=== PATIENT | female | born 1955 | race Caucasian/White ===

== ENCOUNTER → 2018-01-26 14:37 | Outpatient (CLI) | payer OTHER, SELFPAY ==
--- NOTE | 2018-01-26 15:00 | VDLE_ITS ---
Reason For Study: LEG PAIN RIGHT LEFT GSV is normal. GSV is normal. CFV is compressible, spontaneous, phasic, CFV is compressible, spontaneous, phasic, competent and demonstrates normal competent, and demonstrates normal augmentation. augmentation. FV is compressible, spontaneous, phasic, FV is compressible, spontaneous, phasic, competent and demonstrates normal competent and demonstrates normal augmentation. augmentation. POP V is compressible, spontaneous, phasic, POP V is compressible, spontaneous, phasic, competent and demonstrates normal competent and demonstrates normal augmentation. augmentation. T/P Trunk is compressible. T/P Trunk is compressible. PTV is compressible. PTV is compressible. RT PerV is compressible. LT PerV is compressible. Procedure Exam performed in department. A preliminary report was called and/or faxed to Hayes Garcia. Interpretation Summary Deep veins of the lower extremities are bilaterally patent and compressible segmentally. There is no evidence of deep vein thrombosis on either side. Valvular competence appears intact within the proximal deep venous systems bilaterally. The greater saphenous veins appear bilaterally patent and compressible segmentally. Ordering Physician: Gayla Garcia Referring Physician: Gayla Garcia Performed By: Karen Hauser RVT
== END ==
PROVIDERS: Family Provider Nurse Practitioner; PCP Nurse Practitioner; Visit Provider Nurse Practitioner
DX: M79.604 Pain in right leg (principal); M79.605 Pain in left leg
CPT/HCPCS: 93970

== ENCOUNTER → 2018-08-12 10:57 | Outpatient (CLI) | payer OTHER, SELFPAY ==
[2018-08-12 12:48] LABS: Ferritin 88 ng/mL (8-252)
--- OUTSIDE RECORDS SUMMARY | 2018-10-17 02:07 | XMS RPT_ITS ---
:1955 Author Organization [facility] Care Team Providers Name Role Phone ADORE GRANDE Attending Unavailable ALICEA, EDILIA M Referring Unavailable ALICEA, EDILIA M Referring Unavailable PATI WILL Referring Unavailable DIVINE BRYAN ([employer]) Referring Unavailable TUDICO, KELLY (PA) Attending Unavailable RAY, JENNIFER (PT) Attending Unavailable TUDICO, KELLY (PA) Referring Unavailable TUDICO, KELLY (PA) Referring Unavailable RAY, JENNIFER (PT) Attending Unavailable TUDICO, KELLY (PA) Referring Unavailable RAY, JENNIFER (PT) Attending Unavailable TUDICO, KELLY (PA) Referring Unavailable TUDICO, KELLY (PA) Referring Unavailable RAY, JENNIFER (PT) Attending Unavailable TUDICO, KELLY (PA) Referring Unavailable RAY, JENNIFER (PT) Attending Unavailable TUDICO, KELLY (PA) Referring Unavailable RAY, JENNIFER (PT) Attending Unavailable TUDICO, KELLY (PA) Referring Unavailable RAY, JENNIFER (PT) Attending Unavailable TUDICO, KELLY (PA) Referring Unavailable RAY, JENNIFER (PT) Attending Unavailable TUDICO, KELLY (PA) Referring Unavailable RAY, JENNIFER (PT) Attending Unavailable TUDICO, KELLY (PA) Referring Unavailable TUDICO, KELLY (PA) Referring Unavailable Angelica Bernard Attending Unavailable Angelica Bernard Referring Unavailable Gayla Garcia Primary Care Unavailable Gayla Garcia Attending Unavailable Gayla Garcia Referring Unavailable Gayla Garcia Primary Care Unavailable PROBLEMS PROBLEMS DATE TYPE CONDITION / CODE ATTENDING STATUS SOURCE 07/13/2018 Active Spondylosis NA Active [facility] without myelopathy [facility] or radiculopathy, Repository cervical region / M47.812(ICD-10) 07/13/2018 Active Radiculopathy, NA Active [facility] lumbar region / [facility] M54.16(ICD-10) Repository 08/27/2017 Active Pain in right foot NA Active [facility] / M79.671(ICD-10) [facility] Repository 08/27/2017 Active Pain in left foot NA Active [facility] / M79.672(ICD-10) [facility] Repository 04/06/2012 Active Abnormal levels of NA Active [facility] other serum [facility] enzymes / Repository R74.8(ICD-10) PROCEDURES PROCEDURES No Procedure Records FoundRESULTS RESULTS PROGRESS Observed: 08/20/2018 Status: COMPLETED Source: [facility] 12:54 PM [facility] REPOSITORY HNO ID: [id number] Author: Jasmine (Pt) Anuj Service: (none) Author Type: Physical Therapist Type: Progress Notes Filed: 08/20/2018 2:06 PM Note Text: Episode Visit Count: 11 Therapist That Will Oversee The Plan Of Care: Jennifer Ray Start of Care Date: 07/13/18 Onset Date: 07/13/15 Patient Identified by Name and Date of : Yes REHABILITATION AND SPORTS THERAPY PHYSICAL THERAPY TREATMENT NOTE ASSESSMENT: Azul Osorio demonstrated difficulty with burning right buttock, ankles and feet. Burning in buttock was abolished with exercise and no change with B ankles and feet. Patient with great improvement with tolerance for exercise and is feeling much stronger since starting therapy. Patient is pleased with progress. The patient will continue to benefit from continued skilled physical therapy for continuation of supervised Physical therapy. PLAN FOR NEXT VISIT: continue to progress reps and sets of exercises. SUBJECTIVE: Patient reports she is improving and is pleased with this. She reports burning persists right buttock and B ankles and feet. Pain Score: 1/10 Pain Location: Buttocks - Right;Foot - Right;Foot - Left;Ankle - Right;Ankle - Left Description: Burning Frequency: Continuous Post Treatment Pain Score: 0/10 Pain Location: Buttocks - Right Post Treatment Pain Description: Burning (burning persists B and ankles and feet) OBJECTIVE MEASURES WITH LEVEL OF FUNCTION: Burning in right buttock abolished with exercise and no change with B ankles and feet. TREATMENT: Therapeutic Exercise: 1: Prone prop x 3 minutes. 2: Prone press ups 2x15 with forceful exhale. 3: Prone alt hip extension on physioball 2x15. 4: Bridging wtih alternate leg lifts 2x15 6: sidelying clamshells 1# 2x15 B 7: seated piriformis stretch 30 sec x3 9: green rep band dynamic stabilization with perturbation front and sides sitting on green physioball 3x15 10: hoist scapular retraction 2+2 3x15. 11: Oxford trunk extension 50# 3x15 12: green rep band TA with alternate shoulder extension 3x15 13: Bridges with trunk on physioball 30 sec x3 14: green rep band hooklying shld extension 2x15 15: hooklying green band under thighs shld flexion 2x15 Skilled Intervention: Patient was educated in proper exercise technique and purpose for exercises. Skilled judgment was provided in selection of appropriate interventions. Correct performance of therapeutic exercises was facilitated with verbal cuing. Billing: [facility]: Therapeutic Exercise ([id number]): 1:1 time: 45 minutes (3 units: 38-52 mins) Total time: 45 minutes AMI Bishop PT CNTHERAPY Observed: 08/20/2018 Status: COMPLETED Source: [facility] [facility] 10:45 AM [facility] REPOSITORY OT/PT/Speech Visit (PTWS) AZUL OSORIO ([id number]) 1955 F Date Time Provider Department 08/20/18 10:45 AM RADHA LENTZ ([employer]) PTWS Date Time Provider Department Center 08/20/2018 10:45 AM [id number], NANCY ([employer]) PTRAMON [facility] Reason for Visit: Physical Therapy [503] Visit Diagnoses:Radiculopathy, lumbar region [M54.16] 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] Allergies As of Date: 08/20/2018 Noted Allergy Reaction FLEXERIL (CYCLOBENZAPRINE HCL) 04/13/2017 14 - Other: See Comments Comments: Heart palpatations heat [Other] 01/21/2006 4 - Hives PENICILLINS 01/20/2006 TRAMADOL 08/27/2017 14 - Other: See Comments Comments: Increase heart rate Date Reviewed: 06/28/2018 Reviewed by: Kim Cárdenas Ma - Fully Assessed Prescriptions as of 08/20/2018 Sig: ZINC GLUCONATE 30 MG TABLET Take 30 mg by mouth once yuridia* ASCORBIC ACID (VITAMIN C) 500* Take 500 mg by mouth once glen* VITAMIN B COMPLEX-100 ORAL Take 100 mg by mouth once glen* VITAMIN D-3 ORAL Take by mouth once daily. OMEGA 3 FISH OIL ORAL Take by mouth once daily. MAGNESIUM ORAL Take 1,000 mg by mouth once d* ADVIL ORAL Take by mouth as needed. PROBIOTIC ORAL Take by mouth once daily. * TRAZODONE 50 MG TABLET Take 12.5 mg by mouth daily a* Progress Notes: Jasmine Leslie, PT 08/20/2018 2:06 PM Signed Episode Visit Count: 11 Therapist That Will Oversee The Plan Of Care: Jennifer Ray Start of Care Date: 07/13/18 Onset Date: 07/13/15 Patient Identified by Name and Date of : Yes REHABILITATION AND SPORTS THERAPY PHYSICAL THERAPY TREATMENT NOTE ASSESSMENT: Azul Osorio demonstrated difficulty with burning right buttock, ankles and feet. Burning in buttock was abolished with exercise and no change with B ankles and feet. Patient with great improvement with tolerance for exercise and is feeling much stronger since starting therapy. Patient is pleased with progress. The patient will continue to benefit from continued skilled physical therapy for continuation of supervised Physical therapy. PLAN FOR NEXT VISIT: continue to progress reps and sets of exercises. SUBJECTIVE: Patient reports she is improving and is pleased with this. She reports burning persists right buttock and B ankles and feet. Pain Score: 1/10 Pain Location: Buttocks - Right;Foot - Right;Foot - Left;Ankle - Right;Ankle - Left Description: Burning Frequency: Continuous Post Treatment Pain Score: 0/10 Pain Location: Buttocks - Right Post Treatment Pain Description: Burning (burning persists B and ankles and feet) OBJECTIVE MEASURES WITH LEVEL OF FUNCTION: Burning in right buttock abolished with exercise and no change with B ankles and feet. TREATMENT: Therapeutic Exercise: 1: Prone prop x 3 minutes. 2: Prone press ups 2x15 with forceful exhale. 3: Prone alt hip extension on physioball 2x15. 4: Bridging wtih alternate leg lifts 2x15 6: sidelying clamshells 1# 2x15 B 7: seated piriformis stretch 30 sec x3 9: green rep band dynamic stabilization with perturbation front and sides sitting on green physioball 3x15 10: hoist scapular retraction 2+2 3x15. 11: Oxford trunk extension 50# 3x15 12: green rep band TA with alternate shoulder extension 3x15 13: Bridges with trunk on physioball 30 sec x3 14: green rep band hooklying shld extension 2x15 15: hooklying green band under thighs shld flexion 2x15 Skilled Intervention: Patient was educated in proper exercise technique and purpose for exercises. Skilled judgment was provided in selection of appropriate interventions. Correct performance of therapeutic exercises was facilitated with verbal cuing. Billing: [facility]: Therapeutic Exercise ([id number]): 1:1 time: 45 minutes (3 units: 38-52 mins) Total time: 45 minutes Radha Lentz PT-Douglas Leslie PT Previous Version Follow-up and Disposition History Recorded PROGRESS Observed: 08/18/2018 Status: COMPLETED Source: [facility] 1:57 PM [facility] REPOSITORY HNO ID: [id number] Author: Jennifer Ray Service: (none) Author Type: Physical Therapist Type: Progress Notes Filed: 08/18/2018 1:59 PM Note Text: Episode Visit Count: 10 Therapist That Will Oversee The Plan Of Care: Jennifer Ray Start of Care Date: 07/13/18 Onset Date: 07/13/15 Patient Identified by Name and Date of : Yes REHABILITATION AND SPORTS THERAPY PHYSICAL THERAPY TREATMENT NOTE ASSESSMENT: Azul E Osorio demonstrated great form with exs and had no pain at all today! Pt pleased with improvements and remains motivated. The patient will continue to benefit from continued skilled physical therapy for progression of exs as able. PLAN FOR NEXT VISIT: Advance reps of exs as able SUBJECTIVE: Pt notes that she has felt pretty good since last seen . Pain Score: 0/10 Pain Location: Low Back/Lumbar Spine - Right Description: Aching Frequency: Continuous Post Treatment Pain Score: 0/10 Pain Location: Low Back/Lumbar Spine - Right OBJECTIVE MEASURES WITH LEVEL OF FUNCTION: Full trunk extension and improved core stabilization with perturbation TREATMENT: Therapeutic Exercise: 1: *Prone prop x 3 minutes. 2: *Prone press ups 2x15 with forceful exhale. 3: Prone alt hip extension on physioball 2x15. 4: *Bridging wtih alternate leg lifts 2x15 6: sidelying clamshells 2x15 B 7: seated piriformis stretch 30 sec x3 8: retrowalking on treadmill .7 mph 7 min 9: green rep band dynamic stabilization with perturbation front and sides sitting on green physioball 3x15 10: hoist rep band scapular retraction 2+2 3x12. 11: Oxford trunk extension 50# 3x12 12: green rep band TA with alternate shoulder extension 3x15 13: Bridges with trunk on physioball 30 sec x3 14: green rep band hooklying shld extension 2x15 15: hooklying green banc under thighs shld flexion 2x15 Skilled Intervention: Patient was educated in proper exercise technique and purpose for exercises. Skilled judgment was provided in selection of appropriate interventions. Correct performance of therapeutic exercises was facilitated with verbal and visual cuing. Home Exercise Program Assigned: Assigned Home Exercise Program: 1: no changes today Billing: [facility]: Therapeutic Exercise ([id number]): 1:1 time: 40 minutes (3 units: 38-52 mins) Total time: 40 minutes Jennifer Ray PT CNTHERAPY Observed: 08/18/2018 Status: COMPLETED Source: [facility] [facility] 11:15 AM [facility] REPOSITORY OT/PT/Speech Visit (PTWS) AZUL OSORIO ([id number]) 1955 F Date Time Provider Department 08/18/18 11:15 AM JENNIFER RAY (PT) PTWS Date Time Provider Department Center 08/18/2018 11:15 AM [id number], LISA (PT) PTWS [facility] Reason for Visit: Physical Therapy [503] Visit Diagnoses:Radiculopathy, lumbar region [M54.16] 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] Allergies As of Date: 08/18/2018 Noted Allergy Reaction FLEXERIL (CYCLOBENZAPRINE HCL) 04/13/2017 14 - Other: See Comments Comments: Heart palpatations heat [Other] 01/21/2006 4 - Hives PENICILLINS 01/20/2006 TRAMADOL 08/27/2017 14 - Other: See Comments Comments: Increase heart rate Date Reviewed: 06/28/2018 Reviewed by: Kim Cárdenas Ma - Fully Assessed Prescriptions as of 08/18/2018 Sig: ZINC GLUCONATE 30 MG TABLET Take 30 mg by mouth once yuridia* ASCORBIC ACID (VITAMIN C) 500* Take 500 mg by mouth once glen* VITAMIN B COMPLEX-100 ORAL Take 100 mg by mouth once glen* VITAMIN D-3 ORAL Take by mouth once daily. OMEGA 3 FISH OIL ORAL Take by mouth once daily. MAGNESIUM ORAL Take 1,000 mg by mouth once d* ADVIL ORAL Take by mouth as needed. PROBIOTIC ORAL Take by mouth once daily. * TRAZODONE 50 MG TABLET Take 12.5 mg by mouth daily a* Progress Notes: Jennifer Ray, PT 08/18/2018 1:59 PM Signed Episode Visit Count: 10 Therapist That Will Oversee The Plan Of Care: Jennifer Ray Start of Care Date: 07/13/18 Onset Date: 07/13/15 Patient Identified by Name and Date of : Yes REHABILITATION AND SPORTS THERAPY PHYSICAL THERAPY TREATMENT NOTE ASSESSMENT: Azul Osorio demonstrated great form with exs and had no pain at all today! Pt pleased with improvements and remains motivated. The patient will continue to benefit from continued skilled physical therapy for progression of exs as able. PLAN FOR NEXT VISIT: Advance reps of exs as able SUBJECTIVE: Pt notes that she has felt pretty good since last seen . Pain Score: 0/10 Pain Location: Low Back/Lumbar Spine - Right Description: Aching Frequency: Continuous Post Treatment Pain Score: 0/10 Pain Location: Low Back/Lumbar Spine - Right OBJECTIVE MEASURES WITH LEVEL OF FUNCTION: Full trunk extension and improved core stabilization with perturbation TREATMENT: Therapeutic Exercise: 1: *Prone prop x 3 minutes. 2: *Prone press ups 2x15 with forceful exhale. 3: Prone alt hip extension on physioball 2x15. 4: *Bridging wtih alternate leg lifts 2x15 6: sidelying clamshells 2x15 B 7: seated piriformis stretch 30 sec x3 8: retrowalking on treadmill .7 mph 7 min 9: green rep band dynamic stabilization with perturbation front and sides sitting on green physioball 3x15 10: hoist rep band scapular retraction 2+2 3x12. 11: Oxford trunk extension 50# 3x12 12: green rep band TA with alternate shoulder extension 3x15 13: Bridges with trunk on physioball 30 sec x3 14: green rep band hooklying shld extension 2x15 15: hooklying green banc under thighs shld flexion 2x15 Skilled Intervention: Patient was educated in proper exercise technique and purpose for exercises. Skilled judgment was provided in selection of appropriate interventions. Correct performance of therapeutic exercises was facilitated with verbal and visual cuing. Home Exercise Program Assigned: Assigned Home Exercise Program: 1: no changes today Billing: [facility]: Therapeutic Exercise ([id number]): 1:1 time: 40 minutes (3 units: 38-52 mins) Total time: 40 minutes Jennifer Ray PT PROGRESS Observed: 08/13/2018 Status: COMPLETED Source: [place] [place] 11:13 AM [facility] REPOSITORY HNO ID: [id number] Author: Jennifer BurrPtChidi Ray Service: (none) Author Type: Physical Therapist Type: Progress Notes Filed: 08/13/2018 11:17 AM Note Text: Episode Visit Count: 9 Therapist That Will Oversee The Plan Of Care: Jennifer Ray Start of Care Date: 07/13/18 Onset Date: 07/13/15 Patient Identified by Name and Date of : Yes REHABILITATION AND SPORTS THERAPY PHYSICAL THERAPY PROGRESS REPORT PLAN OF CARE UPDATE: Assessment: Azul Osorio exhibits improvements in pain and tolerance to daily activities. Notes improved tolerance to running the vacuum and for walking. Still increased pain with standing. Pt states that she is pleased with improvement but feels she needs additional strength. . She continues to be limited with standing, lifting, physical activities and recreational activities. She is progressing as expected towards her therapy goals as demonstrated by: home exercise program compliance, pain levels, documented subjective information on progress and documented objective information regarding strength, range of motion and overall function. She will benefit from continued skilled therapy requiring additional strengthening exs in order to improve pain and strength. Functional gains: Improved tolerance for functional activities Increased endurance / activity tolerance Increased independence with HEP Increased strength Decreased intensity of pain Decreased frequency of pain Goals for Episode of Care: created on 07/13/18 through 08/13/18 Independent in home exercises/ achieved. Patient will decrease pain rating by 2 points to meet minimal clinical important difference for numeric pain rating scale./ achieved Sleep through night without pain/symptoms./ partially achieved Maintain proper sitting posture throughout session/ achieved Patient will be able to tolerate functional activities without increased symptoms./ partially achieved Patient will increase strength of core to 5/5 to allow for return to prior functional status and perform ADLs./ partially achieved Planned Interventions, Frequency, and Duration: 2x/week, 4 weeks Total Number of Visits Planned: 8 Patient to be seen for Therapeutic exercise;Manual therapy;Self- intermediate management;Patient/Family/Caregiver Education PLAN FOR NEXT VISIT: Will continue to advance core and hip strengthening and stretching SUBJECTIVE: Pt notes that sciatic pain she has had has subsided. feels that the stretch for the piriformis is helpful. states that she was able to run the vacuum without increase of pain this morning. . Also walked 1/2 mile yesterday. . Pain Score: 2/10 Pain Location: Low Back/Lumbar Spine - Right Description: Aching Frequency: Continuous Post Treatment Pain Score: 0/10 Pain Location: Low Back/Lumbar Spine - Left;Low Back/Lumbar Spine - Right OBJECTIVE MEASURES WITH LEVEL OF FUNCTION: Lumbar Spine AROM Lumbar Flexion: Normal Lumbar Extension: Minimal limitation Lumbar R Side-Bend: Normal Lumbar L Side-Bend: Normal LE Flexibility L Piriformis Flexibility: mild tightness today TREATMENT: Therapeutic Exercise: 1: *Prone prop x 3 minutes. 2: *Prone press ups 2x10 with forceful exhale. 3: Prone alt hip extension on physioball 2x15. 4: *Bridging wtih alternate leg lifts 2x15 6: sidelying clamshells 2x12 B 7: seated piriformis stretch 30 sec x3 8: retrowalking on treadmill .7 mph 7 min 9: green rep band dynamic stabilization with perturbation front and sides sitting on green physioball 3x15 10: hoist rep band scapular retraction 2+2 3x10. 11: Oxford trunk extension 50# 3x10 12: green rep band TA with alternate shoulder extension 3x15 13: Bridges with trunk on physioball 30 sec x2 Skilled Intervention: Patient was educated in proper exercise technique and purpose for exercises. Skilled judgment was provided in selection of appropriate interventions. Correct performance of therapeutic exercises was facilitated with verbal and visual cuing. Home Exercise Program Assigned: Assigned Home Exercise Program: 1: add sidelying clamshell Billing: [facility]: Therapeutic Exercise ([id number]): 1:1 time: 45 minutes (3 units: 38-52 mins) Total time: 45 minutes Jennifer Ray PT CNTHERAPY Observed: 08/13/2018 Status: COMPLETED Source: [facility] [facility] 10:00 AM [facility] REPOSITORY OT/PT/Speech Visit (PTWS) AZUL OSORIO ([id number]) 1955 F Date Time Provider Department 08/13/18 10:00 AM JENNIFER RAY (PT) PTWS Date Time Provider Department Center 08/13/2018 10:00 AM [id number], LISA (PT) PTWS [facility] Reason for Visit: PT Progress Note [1596] Visit Diagnoses:Radiculopathy, lumbar region [M54.16] 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] Allergies As of Date: 08/13/2018 Noted Allergy Reaction FLEXERIL (CYCLOBENZAPRINE HCL) 04/13/2017 14 - Other: See Comments Comments: Heart palpatations heat [Other] 01/21/2006 4 - Hives PENICILLINS 01/20/2006 TRAMADOL 08/27/2017 14 - Other: See Comments Comments: Increase heart rate Date Reviewed: 06/28/2018 Reviewed by: Kim Cárdenas Ma - Fully Assessed Prescriptions as of 08/13/2018 Sig: ZINC GLUCONATE 30 MG TABLET Take 30 mg by mouth once yuridia* ASCORBIC ACID (VITAMIN C) 500* Take 500 mg by mouth once glen* VITAMIN B COMPLEX-100 ORAL Take 100 mg by mouth once glen* VITAMIN D-3 ORAL Take by mouth once daily. OMEGA 3 FISH OIL ORAL Take by mouth once daily. MAGNESIUM ORAL Take 1,000 mg by mouth once d* ADVIL ORAL Take by mouth as needed. PROBIOTIC ORAL Take by mouth once daily. * TRAZODONE 50 MG TABLET Take 12.5 mg by mouth daily a* Progress Notes: Jennifer Ray, PT 08/13/2018 11:17 AM Signed Episode Visit Count: 9 Therapist That Will Oversee The Plan Of Care: Jennifer Ray Start of Care Date: 07/13/18 Onset Date: 07/13/15 Patient Identified by Name and Date of : Yes REHABILITATION AND SPORTS THERAPY PHYSICAL THERAPY PROGRESS REPORT PLAN OF CARE UPDATE: Assessment: Azul Osorio exhibits improvements in pain and tolerance to daily activities. Notes improved tolerance to running the vacuum and for walking. Still increased pain with standing. Pt states that she is pleased with improvement but feels she needs additional strength. . She continues to be limited with standing, lifting, physical activities and recreational activities. She is progressing as expected towards her therapy goals as demonstrated by: home exercise program compliance, pain levels, documented subjective information on progress and documented objective information regarding strength, range of motion and overall function. She will benefit from continued skilled therapy requiring additional strengthening exs in order to improve pain and strength. Functional gains: Improved tolerance for functional activities Increased endurance / activity tolerance Increased independence with HEP Increased strength Decreased intensity of pain Decreased frequency of pain Goals for Episode of Care: created on 07/13/18 through 08/13/18 Independent in home exercises/ achieved. Patient will decrease pain rating by 2 points to meet minimal clinical important difference for numeric pain rating scale./ achieved Sleep through night without pain/symptoms./ partially achieved Maintain proper sitting posture throughout session/ achieved Patient will be able to tolerate functional activities without increased symptoms./ partially achieved Patient will increase strength of core to 5/5 to allow for return to prior functional status and perform ADLs./ partially achieved Planned Interventions, Frequency, and Duration: 2x/week, 4 weeks Total Number of Visits Planned: 8 Patient to be seen for Therapeutic exercise;Manual therapy;Self- intermediate management;Patient/Family/Caregiver Education PLAN FOR NEXT VISIT: Will continue to advance core and hip strengthening and stretching SUBJECTIVE: Pt notes that sciatic pain she has had has subsided. feels that the stretch for the piriformis is helpful. states that she was able to run the vacuum without increase of pain this morning. . Also walked 1/2 mile yesterday. . Pain Score: 2/10 Pain Location: Low Back/Lumbar Spine - Right Description: Aching Frequency: Continuous Post Treatment Pain Score: 0/10 Pain Location: Low Back/Lumbar Spine - Left;Low Back/Lumbar Spine - Right OBJECTIVE MEASURES WITH LEVEL OF FUNCTION: Lumbar Spine AROM Lumbar Flexion: Normal Lumbar Extension: Minimal limitation Lumbar R Side-Bend: Normal Lumbar L Side-Bend: Normal LE Flexibility L Piriformis Flexibility: mild tightness today TREATMENT: Therapeutic Exercise: 1: *Prone prop x 3 minutes. 2: *Prone press ups 2x10 with forceful exhale. 3: Prone alt hip extension on physioball 2x15. 4: *Bridging wtih alternate leg lifts 2x15 6: sidelying clamshells 2x12 B 7: seated piriformis stretch 30 sec x3 8: retrowalking on treadmill .7 mph 7 min 9: green rep band dynamic stabilization with perturbation front and sides sitting on green physioball 3x15 10: hoist rep band scapular retraction 2+2 3x10. 11: Oxford trunk extension 50# 3x10 12: green rep band TA with alternate shoulder extension 3x15 13: Bridges with trunk on physioball 30 sec x2 Skilled Intervention: Patient was educated in proper exercise technique and purpose for exercises. Skilled judgment was provided in selection of appropriate interventions. Correct performance of therapeutic exercises was facilitated with verbal and visual cuing. Home Exercise Program Assigned: Assigned Home Exercise Program: 1: add sidelying domenica Billing: [facility]: Therapeutic Exercise ([id number]): 1:1 time: 45 minutes (3 units: 38-52 mins) Total time: 45 minutes Jennifer Ray PT FERRITIN Collected: 08/12/2018 Status: F Source: [place] 11:01 AM [facility] REPOSITORY TYPE CODE TESTS RESULT OUT OF RANGE REFERENCE UNITS LAB L503.6550 8-252 ng/mL Normal FERRITIN 88 Performed By: #### L503.6550 #### [facility] [address] [place], [address] PROGRESS Observed: 08/10/2018 Status: COMPLETED Source: [place] 10:55 AM [facility] [place] REPOSITORY HNO ID: [id number] Author: Jennifer (Pt) John Service: (none) Author Type: Physical Therapist Type: Progress Notes Filed: 08/10/2018 10:57 AM Note Text: Episode Visit Count: 8 Therapist That Will Oversee The Plan Of Care: Jennifer Ray Start of Care Date: 07/13/18 Onset Date: 07/13/15 Patient Identified by Name and Date of : Yes REHABILITATION AND SPORTS THERAPY PHYSICAL THERAPY TREATMENT NOTE ASSESSMENT: Azul Osorio demonstrated great form with all of the exs. Fatigued but denied increased pain. Pt states that she felt she has something wrong with piriformis so worked on strengthening and stretching. No restriction noted but pt liked the stretch. Core strength is improved. The patient will continue to benefit from continued skilled physical therapy for progression of strengthening PLAN FOR NEXT VISIT: POC update SUBJECTIVE: Pt notes that she has trouble with her piriformis muscles. Wonders if we can work on that. Pain Score: 4/10 Pain Location: Low Back/Lumbar Spine - Right;Leg - Right Description: Aching Frequency: Continuous Post Treatment Pain Score: 0/10 Pain Location: Low Back/Lumbar Spine - Right;Leg - Right OBJECTIVE MEASURES WITH LEVEL OF FUNCTION: LE Flexibility Flexibility: Piriformis Flexibility R Piriformis Flexibility: WNL L Piriformis Flexibility: WNL TREATMENT: Therapeutic Exercise: 1: *Prone prop x 3 minutes. 2: *Prone press ups 2x10 with forceful exhale. 3: Prone alt hip extension on physioball 2x15. 4: *Bridging wtih alternate leg lifts 2x15 5: *Quadruped alt arm and leg lifts 2x15 6: sidelying clamshells 2x10 B 7: seated piriformis stretch 30 sec x3 8: retrowalking on treadmill .7 mph 6 min 9: orange rep band dynamic stabilization with perturbation front and sides sitting on green physioball 3x15 10: Green rep band scapular retraction standing 3x15. 11: Oxford trunk extension 40# 3x15. 12: green rep band TA with alternate shoulder extension 3x15 Skilled Intervention: Patient was educated in proper exercise technique and purpose for exercises. Skilled judgment was provided in selection of appropriate interventions. Provided written instruction for home exercise program to facilitate proper performance and compliance. Correct performance of therapeutic exercises was facilitated with verbal and visual cuing. Patient education as noted. Home Exercise Program Assigned: Assigned Home Exercise Program: 1: add seated piriformis stretch Billing: [facility]: Therapeutic Exercise ([id number]): 1:1 time: 45 minutes (3 units: 38-52 mins) Total time: 45 minutes Jennifer Ray PT CNTHERAPY Observed: 08/10/2018 Status: COMPLETED Source: [place] 9:00 AM [facility] REPOSITORY OT/PT/Speech Visit (PTWS) AZUL OSORIO ([id number]) 1955 F Date Time Provider Department 08/10/18 9:00 AM JENNIFER RAY (PT) PTWS Date Time Provider Department Center 08/10/2018 9:00 AM [id number]) PTWS [facility] Reason for Visit: Physical Therapy [503] Visit Diagnoses:Radiculopathy, lumbar region [M54.16] 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] Allergies As of Date: 08/10/2018 Noted Allergy Reaction FLEXERIL (CYCLOBENZAPRINE HCL) 04/13/2017 14 - Other: See Comments Comments: Heart palpatations heat [Other] 01/21/2006 4 - Hives PENICILLINS 01/20/2006 TRAMADOL 08/27/2017 14 - Other: See Comments Comments: Increase heart rate Date Reviewed: 06/28/2018 Reviewed by: Kim Cárdenas Ma - Fully Assessed Prescriptions as of 08/10/2018 Sig: ZINC GLUCONATE 30 MG TABLET Take 30 mg by mouth once yuridia* ASCORBIC ACID (VITAMIN C) 500* Take 500 mg by mouth once glen* VITAMIN B COMPLEX-100 ORAL Take 100 mg by mouth once glen* VITAMIN D-3 ORAL Take by mouth once daily. OMEGA 3 FISH OIL ORAL Take by mouth once daily. MAGNESIUM ORAL Take 1,000 mg by mouth once d* ADVIL ORAL Take by mouth as needed. PROBIOTIC ORAL Take by mouth once daily. * TRAZODONE 50 MG TABLET Take 12.5 mg by mouth daily a* Progress Notes: Jennifer Ray, PT 08/10/2018 10:57 AM Signed Episode Visit Count: 8 Therapist That Will Oversee The Plan Of Care: Jennifer Ray Start of Care Date: 07/13/18 Onset Date: 07/13/15 Patient Identified by Name and Date of : Yes REHABILITATION AND SPORTS THERAPY PHYSICAL THERAPY TREATMENT NOTE ASSESSMENT: Azul Osorio demonstrated great form with all of the exs. Fatigued but denied increased pain. Pt states that she felt she has something wrong with piriformis so worked on strengthening and stretching. No restriction noted but pt liked the stretch. Core strength is improved. The patient will continue to benefit from continued skilled physical therapy for progression of strengthening PLAN FOR NEXT VISIT: POC update SUBJECTIVE: Pt notes that she has trouble with her piriformis muscles. Wonders if we can work on that. Pain Score: 4/10 Pain Location: Low Back/Lumbar Spine - Right;Leg - Right Description: Aching Frequency: Continuous Post Treatment Pain Score: 0/10 Pain Location: Low Back/Lumbar Spine - Right;Leg - Right OBJECTIVE MEASURES WITH LEVEL OF FUNCTION: LE Flexibility Flexibility: Piriformis Flexibility R Piriformis Flexibility: WNL L Piriformis Flexibility: WNL TREATMENT: Therapeutic Exercise: 1: *Prone prop x 3 minutes. 2: *Prone press ups 2x10 with forceful exhale. 3: Prone alt hip extension on physioball 2x15. 4: *Bridging wtih alternate leg lifts 2x15 5: *Quadruped alt arm and leg lifts 2x15 6: sidelying clamshells 2x10 B 7: seated piriformis stretch 30 sec x3 8: retrowalking on treadmill .7 mph 6 min 9: orange rep band dynamic stabilization with perturbation front and sides sitting on green physioball 3x15 10: Green rep band scapular retraction standing 3x15. 11: Oxford trunk extension 40# 3x15. 12: green rep band TA with alternate shoulder extension 3x15 Skilled Intervention: Patient was educated in proper exercise technique and purpose for exercises. Skilled judgment was provided in selection of appropriate interventions. Provided written instruction for home exercise program to facilitate proper performance and compliance. Correct performance of therapeutic exercises was facilitated with verbal and visual cuing. Patient education as noted. Home Exercise Program Assigned: Assigned Home Exercise Program: 1: add seated piriformis stretch Billing: [facility]: Therapeutic Exercise ([id number]): 1:1 time: 45 minutes (3 units: 38-52 mins) Total time: 45 minutes Jennifer Ray PT PROGRESS Observed: 08/04/2018 Status: COMPLETED Source: [place] 3:23 PM [facility] REPOSITORY HNO ID: [id number] Author: Jennifer Ray Service: (none) Author Type: Physical Therapist Type: Progress Notes Filed: 08/04/2018 3:25 PM Note Text: Episode Visit Count: 7 Therapist That Will Oversee The Plan Of Care: Jennifer Ray Start of Care Date: 07/13/18 Onset Date: 07/13/15 Patient Identified by Name and Date of : Yes REHABILITATION AND SPORTS THERAPY PHYSICAL THERAPY TREATMENT NOTE ASSESSMENT: Azul Osorio demonstrated improvements in exs and able to increase reps today. Pt reports finding benefits from exs. and is motivated to continue The patient will continue to benefit from continued skilled physical therapy for progression of core strengthening exs. PLAN FOR NEXT VISIT: Will progress to bridges with back on physioball SUBJECTIVE: Pt notes that she was able to walk a couple of blocks and felt better. Notes that she feels she needs to be stronger in the low back region. Pain Score: 3/10 Pain Location: Low Back/Lumbar Spine - Right;Leg - Right Description: Aching Frequency: Continuous Post Treatment Pain Score: 0/10 Pain Location: Low Back/Lumbar Spine - Right OBJECTIVE MEASURES WITH LEVEL OF FUNCTION: Good upright seated posture TREATMENT: Therapeutic Exercise: 1: *Prone prop x 3 minutes. 2: *Prone press ups 2x10 with forceful exhale. 3: Prone alt hip extension on physioball 2x15. 4: *Bridging wtih alternate leg lifts 2x15 5: *Quadruped alt arm and leg lifts 2x15 6: orange rep band shld extension to thighs 3x15 7: orange rep band under thighs shld flexion 3x15 8: retrowalking on treadmill .7 mph 6 min 9: orange rep band dynamic stabilization with perturbation front and sides sitting on green physioball 3x15 10: Green rep band scapular retraction standing 3x15. 11: Oxford trunk extension 40# 3x12. 12: green rep band TA with alternate shoulder extension 3x15 Skilled Intervention: Patient was educated in proper exercise technique and purpose for exercises. Skilled judgment was provided in selection of appropriate interventions. Correct performance of therapeutic exercises was facilitated with verbal and visual cuing. Home Exercise Program Assigned: Assigned Home Exercise Program: 1: add prone leg lifts on physioball Billing: [facility]: Therapeutic Exercise ([id number]): 1:1 time: 45 minutes (3 units: 38-52 mins) Total time: 45 minutes Jennifer Ray PT CNTHERAPY Observed: 08/04/2018 Status: COMPLETED Source: [place] 11:15 AM [facility] REPOSITORY OT/PT/Speech Visit (PTWS) AZUL OSORIO ([id number]) 1955 F Date Time Provider Department 08/04/18 11:15 AM JENNIFER RAY (PT) PTWS Date Time Provider Department Center 08/04/2018 11:15 AM [id number], LISA (PT) PTWS [facility] Reason for Visit: Physical Therapy [503] Visit Diagnoses:Radiculopathy, lumbar region [M54.16] 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] Allergies As of Date: 08/04/2018 Noted Allergy Reaction FLEXERIL (CYCLOBENZAPRINE HCL) 04/13/2017 14 - Other: See Comments Comments: Heart palpatations heat [Other] 01/21/2006 4 - Hives PENICILLINS 01/20/2006 TRAMADOL 08/27/2017 14 - Other: See Comments Comments: Increase heart rate Date Reviewed: 06/28/2018 Reviewed by: Kim Cárdenas Ma - Fully Assessed Prescriptions as of 08/04/2018 Sig: ZINC GLUCONATE 30 MG TABLET Take 30 mg by mouth once yuridia* ASCORBIC ACID (VITAMIN C) 500* Take 500 mg by mouth once glen* VITAMIN B COMPLEX-100 ORAL Take 100 mg by mouth once glen* VITAMIN D-3 ORAL Take by mouth once daily. OMEGA 3 FISH OIL ORAL Take by mouth once daily. MAGNESIUM ORAL Take 1,000 mg by mouth once d* ADVIL ORAL Take by mouth as needed. PROBIOTIC ORAL Take by mouth once daily. * TRAZODONE 50 MG TABLET Take 12.5 mg by mouth daily a* Progress Notes: Jennifer Ray, PT 08/04/2018 3:25 PM Signed Episode Visit Count: 7 Therapist That Will Oversee The Plan Of Care: Jennifer Ray Start of Care Date: 07/13/18 Onset Date: 07/13/15 Patient Identified by Name and Date of : Yes REHABILITATION AND SPORTS THERAPY PHYSICAL THERAPY TREATMENT NOTE ASSESSMENT: Azul Osorio demonstrated improvements in exs and able to increase reps today. Pt reports finding benefits from exs. and is motivated to continue The patient will continue to benefit from continued skilled physical therapy for progression of core strengthening exs. PLAN FOR NEXT VISIT: Will progress to bridges with back on physioball SUBJECTIVE: Pt notes that she was able to walk a couple of blocks and felt better. Notes that she feels she needs to be stronger in the low back region. Pain Score: 3/10 Pain Location: Low Back/Lumbar Spine - Right;Leg - Right Description: Aching Frequency: Continuous Post Treatment Pain Score: 0/10 Pain Location: Low Back/Lumbar Spine - Right OBJECTIVE MEASURES WITH LEVEL OF FUNCTION: Good upright seated posture TREATMENT: Therapeutic Exercise: 1: *Prone prop x 3 minutes. 2: *Prone press ups 2x10 with forceful exhale. 3: Prone alt hip extension on physioball 2x15. 4: *Bridging wtih alternate leg lifts 2x15 5: *Quadruped alt arm and leg lifts 2x15 6: orange rep band shld extension to thighs 3x15 7: orange rep band under thighs shld flexion 3x15 8: retrowalking on treadmill .7 mph 6 min 9: orange rep band dynamic stabilization with perturbation front and sides sitting on green physioball 3x15 10: Green rep band scapular retraction standing 3x15. 11: Oxford trunk extension 40# 3x12. 12: green rep band TA with alternate shoulder extension 3x15 Skilled Intervention: Patient was educated in proper exercise technique and purpose for exercises. Skilled judgment was provided in selection of appropriate interventions. Correct performance of therapeutic exercises was facilitated with verbal and visual cuing. Home Exercise Program Assigned: Assigned Home Exercise Program: 1: add prone leg lifts on physioball Billing: [facility]: Therapeutic Exercise ([id number]): 1:1 time: 45 minutes (3 units: 38-52 mins) Total time: 45 minutes Jennifer Ray PT PROGRESS Observed: 08/02/2018 Status: COMPLETED Source: [place] 1:36 PM [facility] [place] REPOSITORY HNO ID: [id number] Author: Jennifer BurrPtChidi Ray Service: (none) Author Type: Physical Therapist Type: Progress Notes Filed: 08/02/2018 1:41 PM Note Text: Episode Visit Count: 6 Therapist That Will Oversee The Plan Of Care: Jennifer Ray Start of Care Date: 07/13/18 Onset Date: 07/13/15 Patient Identified by Name and Date of : Yes REHABILITATION AND SPORTS THERAPY PHYSICAL THERAPY TREATMENT NOTE ASSESSMENT: Azul Osorio demonstrated good form with all exs and was able to abolish pain with exs. Advanced program as outlined. The patient will continue to benefit from continued skilled physical therapy for progression of strengthening for further improvement of pain. PLAN FOR NEXT VISIT: Increase reps of paramount extension. Consider prone lying leg lifts on physioball SUBJECTIVE: Pt notes that she had increased pain over the weekend. Pain on the right side and goes down into leg. Pt notes good tolerance to home exs. Pain Score: 4/10 Pain Location: Low Back/Lumbar Spine - Right;Leg - Right Description: Aching Frequency: Continuous Post Treatment Pain Score: 0/10 Pain Location: Low Back/Lumbar Spine - Right OBJECTIVE MEASURES WITH LEVEL OF FUNCTION: full extension with press ups with no increased pain TREATMENT: Therapeutic Exercise: 1: *Prone prop x 3 minutes. 2: *Prone press ups 2x10 with forceful exhale. 3: Prone alt hip extension 2x15. 4: *Bridging wtih alternate leg lifts 2x10 5: *Quadruped alt arm and leg lifts 2x15 6: orange rep band shld extension to thighs 3x15 7: orange rep band under thighs shld flexion 3x15 8: retrowalking on treadmill .7 mph 6 min 9: orange rep band dynamic stabilization with perturbation front and sides sitting on green physioball 3x15 10: Green rep band scapular retraction standing 3x15. 11: Oxford trunk extension 40# 3x10. 12: green rep band TA with alternate shoulder extension 3x15 13: standing alternate hip extension 1 # 2x10 Skilled Intervention: Patient was educated in proper exercise technique and purpose for exercises. Skilled judgment was provided in selection of appropriate interventions. Correct performance of therapeutic exercises was facilitated with verbal and visual cuing. Billing: [facility]: Therapeutic Exercise ([id number]): 1:1 time: 45 minutes (3 units: 38-52 mins) Total time: 45 minutes Jennifer Ray, PT CNTHERAPY Observed: 08/02/2018 Status: COMPLETED Source: [place] 11:00 AM [facility] REPOSITORY OT/PT/Speech Visit (PTWS) AZUL OSORIO ([id number]) 1955 F Date Time Provider Department 08/02/18 11:00 AM JENNIFER RAY (PT) PTWS Date Time Provider Department Center 08/02/2018 11:00 AM [id number], LISA (PT) PTWS [facility] Reason for Visit: Physical Therapy [503] Visit Diagnoses:Radiculopathy, lumbar region [M54.16] 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] Allergies As of Date: 08/02/2018 Noted Allergy Reaction FLEXERIL (CYCLOBENZAPRINE HCL) 04/13/2017 14 - Other: See Comments Comments: Heart palpatations heat [Other] 01/21/2006 4 - Hives PENICILLINS 01/20/2006 TRAMADOL 08/27/2017 14 - Other: See Comments Comments: Increase heart rate Date Reviewed: 06/28/2018 Reviewed by: Kim Cárdenas Ma - Fully Assessed Prescriptions as of 08/02/2018 Sig: ZINC GLUCONATE 30 MG TABLET Take 30 mg by mouth once yuridia* ASCORBIC ACID (VITAMIN C) 500* Take 500 mg by mouth once glen* VITAMIN B COMPLEX-100 ORAL Take 100 mg by mouth once glen* VITAMIN D-3 ORAL Take by mouth once daily. OMEGA 3 FISH OIL ORAL Take by mouth once daily. MAGNESIUM ORAL Take 1,000 mg by mouth once d* ADVIL ORAL Take by mouth as needed. PROBIOTIC ORAL Take by mouth once daily. * TRAZODONE 50 MG TABLET Take 12.5 mg by mouth daily a* Progress Notes: Jennifer Ray, PT 08/02/2018 1:41 PM Signed Episode Visit Count: 6 Therapist That Will Oversee The Plan Of Care: Jennifer Ray Start of Care Date: 07/13/18 Onset Date: 07/13/15 Patient Identified by Name and Date of : Yes REHABILITATION AND SPORTS THERAPY PHYSICAL THERAPY TREATMENT NOTE ASSESSMENT: Azul Osorio demonstrated good form with all exs and was able to abolish pain with exs. Advanced program as outlined. The patient will continue to benefit from continued skilled physical therapy for progression of strengthening for further improvement of pain. PLAN FOR NEXT VISIT: Increase reps of paramount extension. Consider prone lying leg lifts on physioball SUBJECTIVE: Pt notes that she had increased pain over the weekend. Pain on the right side and goes down into leg. Pt notes good tolerance to home exs. Pain Score: 4/10 Pain Location: Low Back/Lumbar Spine - Right;Leg - Right Description: Aching Frequency: Continuous Post Treatment Pain Score: 0/10 Pain Location: Low Back/Lumbar Spine - Right OBJECTIVE MEASURES WITH LEVEL OF FUNCTION: full extension with press ups with no increased pain TREATMENT: Therapeutic Exercise: 1: *Prone prop x 3 minutes. 2: *Prone press ups 2x10 with forceful exhale. 3: Prone alt hip extension 2x15. 4: *Bridging wtih alternate leg lifts 2x10 5: *Quadruped alt arm and leg lifts 2x15 6: orange rep band shld extension to thighs 3x15 7: orange rep band under thighs shld flexion 3x15 8: retrowalking on treadmill .7 mph 6 min 9: orange rep band dynamic stabilization with perturbation front and sides sitting on green physioball 3x15 10: Green rep band scapular retraction standing 3x15. 11: Oxford trunk extension 40# 3x10. 12: green rep band TA with alternate shoulder extension 3x15 13: standing alternate hip extension 1 # 2x10 Skilled Intervention: Patient was educated in proper exercise technique and purpose for exercises. Skilled judgment was provided in selection of appropriate interventions. Correct performance of therapeutic exercises was facilitated with verbal and visual cuing. Billing: [facility]: Therapeutic Exercise ([id number]): 1:1 time: 45 minutes (3 units: 38-52 mins) Total time: 45 minutes Jennifer Ray PT PROGRESS Observed: 07/29/2018 Status: COMPLETED Source: [place] 1:23 PM [facility] [place] RE[facility]IT[facility] HNO ID: [id number] Author: Jennifer Ray Service: (none) Author Type: Physical Therapist Type: Progress Notes Filed: 07/29/2018 1:25 PM Note Text: Episode Visit Count: 5 Therapist That Will Oversee The Plan Of Care: Jennifer Ray Start of Care Date: 07/13/18 Onset Date: 07/13/15 Patient Identified by Name and Date of : Yes REHABILITATION AND SPORTS THERAPY PHYSICAL THERAPY TREATMENT NOTE ASSESSMENT: Azul Osorio demonstrated improvements in pain levels today and reported no pain at end of session. Able to advance ex program with reps. Good form noted The patient will continue to benefit from continued skilled physical therapy for advancement of exs for additional strengthening of core PLAN FOR NEXT VISIT: Will further increase reps as able SUBJECTIVE: Pt notes that she has some good and bad days but is happy to know origin of pain and to have exs that she can do to improve her pain Pain Score: 3/10 Pain Location: Low Back/Lumbar Spine - Right;Leg - Right Description: Aching Frequency: Continuous Post Treatment Pain Score: 0/10 Pain Location: Low Back/Lumbar Spine - Right;Leg - Right OBJECTIVE MEASURES WITH LEVEL OF FUNCTION: non antalgic gait and transfers TREATMENT: Therapeutic Exercise: 1: *Prone prop x 3 minutes. 2: *Prone press ups 2x10 with forceful exhale. 3: Prone alt hip extension 2x12. 4: *Bridging 3x10 with no UE assist.. 5: *Quadruped alt arm and leg lifts 2x12 6: orange rep band shld extension to thighs 3x12 7: orange rep band under thighs shld flexion 3x12 8: retrowalking on treadmill .7 mph 5 min 9: orange rep band dynamic stabilization with perturbation front and sides 3x15 10: Green rep band scapular retraction standing 3x12. 11: Oxford trunk extension 30# 3x10. 12: green rep band TA with alternate shoulder extension 3x10 Skilled Intervention: Patient was educated in proper exercise technique and purpose for exercises. Skilled judgment was provided in selection of appropriate interventions. Correct performance of therapeutic exercises was facilitated with verbal and visual cuing. Home Exercise Program Assigned: Assigned Home Exercise Program: 1: increase reps of home exs as able Billing: [facility]: Therapeutic Exercise ([id number]): 1:1 time: 45 minutes (3 units: 38-52 mins) Total time: 45 minutes Jennifer Ray PT CNTHERAPY Observed: 07/29/2018 Status: COMPLETED Source: [place] 8:45 AM [facility] [place] REPOSITORY OT/PT/Speech Visit (PTWS) AZUL OSORIO ([id number]) 1955 F Date Time Provider Department 07/29/18 8:45 AM JENNIFER RAY (PT) PTWS Date Time Provider Department Center 07/29/2018 8:45 AM [id number], LISA (PT) PTWS [facility] Reason for Visit: Physical Therapy [503] Visit Diagnoses:Radiculopathy, lumbar region [M54.16] 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] Allergies As of Date: 07/29/2018 Noted Allergy Reaction FLEXERIL (CYCLOBENZAPRINE HCL) 04/13/2017 14 - Other: See Comments Comments: Heart palpatations heat [Other] 01/21/2006 4 - Hives PENICILLINS 01/20/2006 TRAMADOL 08/27/2017 14 - Other: See Comments Comments: Increase heart rate Date Reviewed: 06/28/2018 Reviewed by: Kim Cárdenas Ma - Fully Assessed Prescriptions as of 07/29/2018 Sig: ZINC GLUCONATE 30 MG TABLET Take 30 mg by mouth once yuridia* ASCORBIC ACID (VITAMIN C) 500* Take 500 mg by mouth once glen* VITAMIN B COMPLEX-100 ORAL Take 100 mg by mouth once glen* VITAMIN D-3 ORAL Take by mouth once daily. OMEGA 3 FISH OIL ORAL Take by mouth once daily. MAGNESIUM ORAL Take 1,000 mg by mouth once d* ADVIL ORAL Take by mouth as needed. PROBIOTIC ORAL Take by mouth once daily. * TRAZODONE 50 MG TABLET Take 12.5 mg by mouth daily a* Progress Notes: Jennifer Ray, PT 07/29/2018 1:25 PM Signed Episode Visit Count: 5 Therapist That Will Oversee The Plan Of Care: Jennifer Ray Start of Care Date: 07/13/18 Onset Date: 07/13/15 Patient Identified by Name and Date of : Yes REHABILITATION AND SPORTS THERAPY PHYSICAL THERAPY TREATMENT NOTE ASSESSMENT: Azul Osorio demonstrated improvements in pain levels today and reported no pain at end of session. Able to advance ex program with reps. Good form noted The patient will continue to benefit from continued skilled physical therapy for advancement of exs for additional strengthening of core PLAN FOR NEXT VISIT: Will further increase reps as able SUBJECTIVE: Pt notes that she has some good and bad days but is happy to know origin of pain and to have exs that she can do to improve her pain Pain Score: 3/10 Pain Location: Low Back/Lumbar Spine - Right;Leg - Right Description: Aching Frequency: Continuous Post Treatment Pain Score: 0/10 Pain Location: Low Back/Lumbar Spine - Right;Leg - Right OBJECTIVE MEASURES WITH LEVEL OF FUNCTION: non antalgic gait and transfers TREATMENT: Therapeutic Exercise: 1: *Prone prop x 3 minutes. 2: *Prone press ups 2x10 with forceful exhale. 3: Prone alt hip extension 2x12. 4: *Bridging 3x10 with no UE assist.. 5: *Quadruped alt arm and leg lifts 2x12 6: orange rep band shld extension to thighs 3x12 7: orange rep band under thighs shld flexion 3x12 8: retrowalking on treadmill .7 mph 5 min 9: orange rep band dynamic stabilization with perturbation front and sides 3x15 10: Green rep band scapular retraction standing 3x12. 11: Oxford trunk extension 30# 3x10. 12: green rep band TA with alternate shoulder extension 3x10 Skilled Intervention: Patient was educated in proper exercise technique and purpose for exercises. Skilled judgment was provided in selection of appropriate interventions. Correct performance of therapeutic exercises was facilitated with verbal and visual cuing. Home Exercise Program Assigned: Assigned Home Exercise Program: 1: increase reps of home exs as able Billing: [facility]: Therapeutic Exercise ([id number]): 1:1 time: 45 minutes (3 units: 38-52 mins) Total time: 45 minutes Jennifer Ray PT PROGRESS Observed: 07/26/2018 Status: COMPLETED Source: [place] 9:44 AM [facility] RE[facility] O ID: [id number] Author: Edilson (Pt) Henrry Service: (none) Author Type: Physical Therapist Type: Progress Notes Filed: 07/26/2018 10:09 AM Note Text: Episode Visit Count: 4 Therapist That Will Oversee The Plan Of Care: Jennifer Ray Start of Care Date: 07/13/18 Onset Date: 07/13/15 Patient Identified by Name and Date of : Yes REHABILITATION AND SPORTS THERAPY PHYSICAL THERAPY TREATMENT NOTE ASSESSMENT: Azul Osorio demonstrated difficulty with home exercise last night with increase right leg symptoms. She responded very well to extension based exercises today and education on body mechanics and proper transfers. Patient with centralization of pain to right low back at end of treatment. She was pleased with reduction of pain. The patient will continue to benefit from continued skilled physical therapy for progression of exercises and more instruction for proper body mechanics with every day activities. PLAN FOR NEXT VISIT: Continue with core stabilization with emphasis on neutral spine or extension direction of preference. SUBJECTIVE: Patient reports her right back , buttock and leg to foot flared up last night. She reports doing her home exercises the pain increased with prone lying with hip extension. Pain Score: 8/10 Pain Location: Low Back/Lumbar Spine - Right;Buttocks - Right;Leg - Right;Foot - Right Description: Aching;Shooting (shooting pain down leg) Frequency: Continuous Post Treatment Pain Score: 4/10 Pain Location: Low Back/Lumbar Spine - Right Post Treatment Pain Description: Other: See comment (pinching) OBJECTIVE MEASURES WITH LEVEL OF FUNCTION: Posture / Alignment Posture: Comments Posture comment: Upright seated posture observed throughout therapy today. TREATMENT: Therapeutic Exercise: 1: *Prone prop x 3 minutes. 2: *Prone press ups 2x10 with forceful exhale. 3: Prone alt hip extension 2x10. 4: *Bridging 1x10 with UE assist and 1x10 with no UE assist.. 5: *Quadruped alt arm and leg lifts 2x10. 6: orange rep band shld extension to thighs 3x10 7: orange rep band under thighs shld flexion 3x10 8: *Seated upright TA with instruction to do this off and on throughout the day 3-5 reps. 9: orange rep band dynamic stabilization with perturbation front and sides 3x15 10: Green rep band scapular retraction standing 3x10. 11: Oxford trunk extension 30# 3x10. 12: Education on proper way to tranfer sit to sidelying to supine and supine to sidelying to sit. 13: Stir the pot 1 large plate cw and ccw 1x10 with increase tension and discomfort right low back and this was stopped. 14: Education on TA and maintaining neutral spine position with reaching into dryer or dried fruit washer with extending leg back to assist with proper spinal alignment. Skilled Intervention: Patient was educated in proper exercise technique and purpose for exercises. Reviewed and educated patient on additions/changes for home exercise program as above (*) Skilled judgment was provided in selection of appropriate interventions. Provided written instruction for home exercise program to facilitate proper performance and compliance. Correct performance of therapeutic exercises was facilitated with verbal and visual cuing. Billing: [facility]: Therapeutic Exercise ([id number]): 1:1 time: 45 minutes (3 units: 38-52 mins) Total time: 45 minutes AMI Bishop PT CNTHERAPY Observed: 07/26/2018 Status: COMPLETED Source: [place] 7:45 AM [facility] REPOSITORY OT/PT/Speech Visit (PTWS) AZUL OSORIO ([id number]) 1955 F Date Time Provider Department 07/26/18 7:45 AM RADHA LENTZ ([employer]) PTWS Date Time Provider Department Center 07/26/2018 7:45 AM [id number], NANCY ([employer]) PTWS [facility] Reason for Visit: Physical Therapy [503] Visit Diagnoses:Radiculopathy, lumbar region [M54.16] 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 ADVIL ORAL Take by mouth as needed. PROBIOTIC ORAL Take by mouth once daily. MAGNESIUM ORAL Take 1,000 mg by mouth once d* OMEGA 3 FISH OIL ORAL Take by mouth once daily. * TRAZODONE 50 MG TABLET Take 12.5 mg by mouth daily a* VITAMIN B COMPLEX-100 ORAL Take 100 mg by mouth once glen* ZINC GLUCONATE 30 MG TABLET Take 30 mg by mouth once yuridia* Progress Notes: Edilson Sales, [place] 07/26/2018 10:09 AM Signed Episode Visit Count: 4 Therapist That Will Oversee The Plan Of Care: Jennifer Ray Start of Care Date: 07/13/18 Onset Date: 07/13/15 Patient Identified by Name and Date of : Yes REHABILITATION AND SPORTS THERAPY PHYSICAL THERAPY TREATMENT NOTE ASSESSMENT: Azul Osorio demonstrated difficulty with home exercise last night with increase right leg symptoms. She responded very well to extension based exercises today and education on body mechanics and proper transfers. Patient with centralization of pain to right low back at end of treatment. She was pleased with reduction of pain. The patient will continue to benefit from continued skilled physical therapy for progression of exercises and more instruction for proper body mechanics with every day activities. PLAN FOR NEXT VISIT: Continue with core stabilization with emphasis on neutral spine or extension direction of preference. SUBJECTIVE: Patient reports her right back , buttock and leg to foot flared up last night. She reports doing her home exercises the pain increased with prone lying with hip extension. Pain Score: 8/10 Pain Location: Low Back/Lumbar Spine - Right;Buttocks - Right;Leg - Right;Foot - Right Description: Aching;Shooting (shooting pain down leg) Frequency: Continuous Post Treatment Pain Score: 4/10 Pain Location: Low Back/Lumbar Spine - Right Post Treatment Pain Description: Other: See comment (pinching) OBJECTIVE MEASURES WITH LEVEL OF FUNCTION: Posture / Alignment Posture: Comments Posture comment: Upright seated posture observed throughout therapy today. TREATMENT: Therapeutic Exercise: 1: *Prone prop x 3 minutes. 2: *Prone press ups 2x10 with forceful exhale. 3: Prone alt hip extension 2x10. 4: *Bridging 1x10 with UE assist and 1x10 with no UE assist.. 5: *Quadruped alt arm and leg lifts 2x10. 6: orange rep band shld extension to thighs 3x10 7: orange rep band under thighs shld flexion 3x10 8: *Seated upright TA with instruction to do this off and on throughout the day 3-5 reps. 9: orange rep band dynamic stabilization with perturbation front and sides 3x15 10: Green rep band scapular retraction standing 3x10. 11: Oxford trunk extension 30# 3x10. 12: Education on proper way to tranfer sit to sidelying to supine and supine to sidelying to sit. 13: Stir the pot 1 large plate cw and ccw 1x10 with increase tension and discomfort right low back and this was stopped. 14: Education on TA and maintaining neutral spine position with reaching into dryer or dried fruit washer with extending leg back to assist with proper spinal alignment. Skilled Intervention: Patient was educated in proper exercise technique and purpose for exercises. Reviewed and educated patient on additions/changes for home exercise program as above (*) Skilled judgment was provided in selection of appropriate interventions. Provided written instruction for home exercise program to facilitate proper performance and compliance. Correct performance of therapeutic exercises was facilitated with verbal and visual cuing. Billing: [facility]: Therapeutic Exercise ([id number]): 1:1 time: 45 minutes (3 units: 38-52 mins) Total time: 45 minutes Radha Lentz PTAlycia Sales PT Previous Version Follow-up and Disposition History Recorded PROGRESS Observed: 07/22/2018 Status: COMPLETED Source: [place] 11:32 AM [facility] REPOSITORY HNO ID: [id number] Author: Jennifer (Pt) John Service: (none) Author Type: Physical Therapist Type: Progress Notes Filed: 07/22/2018 11:35 AM Note Text: Episode Visit Count: 3 Therapist That Will Oversee The Plan Of Care: Jennifer Ray Start of Care Date: 07/13/18 Onset Date: 07/13/15 Patient Identified by Name and Date of : Yes REHABILITATION AND SPORTS THERAPY PHYSICAL THERAPY TREATMENT NOTE ASSESSMENT: Azul Osorio demonstrated improvements in tolerance to retrowalking on treadmill with no increased pain. Able to advance to paramount extension also with no increased pain. The patient will continue to benefit from continued skilled physical therapy for progression of strengthening exs . extension bias PLAN FOR NEXT VISIT: Advance reps. Progress core stabilization extension an dneutral bias SUBJECTIVE: Pt notes that she had to sleep in a different bed for a couple nights which bothered her back. Pain Score: 6/10 Pain Location: Leg - Right;Leg - Left Description: Aching Frequency: Continuous Post Treatment Pain Score: No Change OBJECTIVE MEASURES WITH LEVEL OF FUNCTION: Full ROM for extension with prone press ups TREATMENT: Therapeutic Exercise: 1: green rep band scapular retraction standing 3x10 2: paramount trunk extension 30# 2x10 3: prone press ups 1x10 4: prone leg lifts 2x10 5: retrowalking on treadmill .7 mph for 5 min. 6: orange rep band shld extension to thighs 3x10 7: orange rep band under thighs shld flexion 3x10 8: standing upright alternating shld extension orange rep band with TA 3x10 9: orange rep band dynamic stabilization with perturbation front and sides 3x15 Skilled Intervention: Patient was educated in proper exercise technique and purpose for exercises. Skilled judgment was provided in selection of appropriate interventions. Provided written instruction for home exercise program to facilitate proper performance and compliance. Correct performance of therapeutic exercises was facilitated with verbal and visual cuing. Patient education as noted. Assigned Home Exercise Program: 1: standing hip abduction 1x10 2: advance from yellow to orange with hooklying ex. 3: increase reps of exs to 12 Billing: [facility]: Therapeutic Exercise ([id number]): 1:1 time: 40 minutes (3 units: 38-52 mins) Total time: 40 minutes Jennifer Ray PT CNTHERAPY Observed: 07/22/2018 Status: COMPLETED Source: [place] 11:00 AM [facility] [place] RE[facility] OT/PT/Speech Visit (PTWS) AZUL OSORIO ([id number]) 1955 F Date Time Provider Department 07/22/18 11:00 AM JENNIFER RAY (PT) PTWS Date Time Provider Department Center 07/22/2018 11:00 AM [id number], LISA (PT) PTWS [facility] Reason for Visit: Physical Therapy [503] Visit Diagnoses:Radiculopathy, lumbar region [M54.16] 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 ADVIL ORAL Take by mouth as needed. PROBIOTIC ORAL Take by mouth once daily. MAGNESIUM ORAL Take 1,000 mg by mouth once d* OMEGA 3 FISH OIL ORAL Take by mouth once daily. * TRAZODONE 50 MG TABLET Take 12.5 mg by mouth daily a* VITAMIN B COMPLEX-100 ORAL Take 100 mg by mouth once glen* ZINC GLUCONATE 30 MG TABLET Take 30 mg by mouth once yuridia* Progress Notes: Jennifer Ray, PT 07/22/2018 11:35 AM Signed Episode Visit Count: 3 Therapist That Will Oversee The Plan Of Care: Jennifer Ray Start of Care Date: 07/13/18 Onset Date: 07/13/15 Patient Identified by Name and Date of : Yes REHABILITATION AND SPORTS THERAPY PHYSICAL THERAPY TREATMENT NOTE ASSESSMENT: Azul Osroio demonstrated improvements in tolerance to retrowalking on treadmill with no increased pain. Able to advance to paramount extension also with no increased pain. The patient will continue to benefit from continued skilled physical therapy for progression of strengthening exs . extension bias PLAN FOR NEXT VISIT: Advance reps. Progress core stabilization extension an dneutral bias SUBJECTIVE: Pt notes that she had to sleep in a different bed for a couple nights which bothered her back. Pain Score: 6/10 Pain Location: Leg - Right;Leg - Left Description: Aching Frequency: Continuous Post Treatment Pain Score: No Change OBJECTIVE MEASURES WITH LEVEL OF FUNCTION: Full ROM for extension with prone press ups TREATMENT: Therapeutic Exercise: 1: green rep band scapular retraction standing 3x10 2: paramount trunk extension 30# 2x10 3: prone press ups 1x10 4: prone leg lifts 2x10 5: retrowalking on treadmill .7 mph for 5 min. 6: orange rep band shld extension to thighs 3x10 7: orange rep band under thighs shld flexion 3x10 8: standing upright alternating shld extension orange rep band with TA 3x10 9: orange rep band dynamic stabilization with perturbation front and sides 3x15 Skilled Intervention: Patient was educated in proper exercise technique and purpose for exercises. Skilled judgment was provided in selection of appropriate interventions. Provided written instruction for home exercise program to facilitate proper performance and compliance. Correct performance of therapeutic exercises was facilitated with verbal and visual cuing. Patient education as noted. Assigned Home Exercise Program: 1: standing hip abduction 1x10 2: advance from yellow to orange with hooklying ex. 3: increase reps of exs to 12 Billing: [facility]: Therapeutic Exercise ([id number]): 1:1 time: 40 minutes (3 units: 38-52 mins) Total time: 40 minutes Jennifer Ray PT PROGRESS Observed: 07/15/2018 Status: COMPLETED Source: [place] 11:07 AM [facility] REPOSIT[facility] HNO ID: [id number] Author: Jennifer (Pt) John Service: (none) Author Type: Physical Therapist Type: Progress Notes Filed: 07/15/2018 12:42 PM Note Text: Episode Visit Count: 2 Therapist That Will Oversee The Plan Of Care: Jennifer Ray Start of Care Date: 07/13/18 Onset Date: 07/13/15 Patient Identified by Name and Date of : Yes REHABILITATION AND SPORTS THERAPY PHYSICAL THERAPY TREATMENT NOTE ASSESSMENT: Azul Osorio demonstrated improvements in tolerance to exs and did well with all exs today. Able to increase strengthening with no report of increased pain. The patient will continue to benefit from continued skilled physical therapy for progression of extension based lumbar program PLAN FOR NEXT VISIT: Continue to advance extension and neutral core stabilization . May add why we hurt. SUBJECTIVE: Pt notes that exs are going ok Pain Score: 6/10 Pain Location: Leg - Left;Leg - Right;Low Back/Lumbar Spine - Left;Low Back/Lumbar Spine - Right Description: Aching Frequency: Continuous Post Treatment Pain Score: No Change OBJECTIVE MEASURES WITH LEVEL OF FUNCTION: no antalgic transfers or movements TREATMENT: Therapeutic Exercise: 1: green rep band scapular retraction 2x10 2: green rep band trunk extension 2x10 3: prone press ups 1x10 4: prone leg lifts 2x10 5: retrowalking on treadmill .6 mph for 4 min. 6: yellow rep band shld extension to thighs 2x10 7: yellow rep band under thighs shld flexion 2x10 8: standing upright alternating shld extension with TA 1x10 9: yellow rep band dynamic stabilization with perturbation front and sides 3x15 Skilled Intervention: Patient was educated in proper exercise technique and purpose for exercises. Skilled judgment was provided in selection of appropriate interventions. Provided written instruction for home exercise program to facilitate proper performance and compliance. Correct performance of therapeutic exercises was facilitated with verbal and visual cuing. Patient education as noted. Assigned Home Exercise Program: 1: yellow rep band shld extension to thighs 2x10 2: yellow rep band under thighs shld flexion 2x10 3: standing upright alternating shld extension with TA 1x10 Billing: [facility]: Therapeutic Exercise ([id number]): 1:1 time: 45 minutes (3 units: 38-52 mins) Total time: 45 minutes Jennifer aRy PT CNTHERAPY Observed: 07/15/2018 Status: COMPLETED Source: [place] 8:45 AM [facility] REPOS[facility]ORY OT/PT/Speech Visit (PTWS) AZUL OSORIO ([id number]) 1955 F Date Time Provider Department 07/15/18 8:45 AM JENNIFER RAY (PT) PTWS Date Time Provider Department Center 07/15/2018 8:45 AM [id number], LISA (PT) PTWS [facility] Reason for Visit: Physical Therapy [503] Visit Diagnoses:Radiculopathy, lumbar region [M54.16] 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 ADVIL ORAL Take by mouth as needed. PROBIOTIC ORAL Take by mouth once daily. MAGNESIUM ORAL Take 1,000 mg by mouth once d* OMEGA 3 FISH OIL ORAL Take by mouth once daily. * TRAZODONE 50 MG TABLET Take 12.5 mg by mouth daily a* VITAMIN B COMPLEX-100 ORAL Take 100 mg by mouth once glen* ZINC GLUCONATE 30 MG TABLET Take 30 mg by mouth once yuridia* Progress Notes: Jennifer Ray, PT 07/15/2018 12:42 PM Signed Episode Visit Count: 2 Therapist That Will Oversee The Plan Of Care: Jennifer Arceon Start of Care Date: 07/13/18 Onset Date: 07/13/15 Patient Identified by Name and Date of : Yes REHABILITATION AND SPORTS THERAPY PHYSICAL THERAPY TREATMENT NOTE ASSESSMENT: Azul Osorio demonstrated improvements in tolerance to exs and did well with all exs today. Able to increase strengthening with no report of increased pain. The patient will continue to benefit from continued skilled physical therapy for progression of extension based lumbar program PLAN FOR NEXT VISIT: Continue to advance extension and neutral core stabilization . May add why we hurt. SUBJECTIVE: Pt notes that exs are going ok Pain Score: 6/10 Pain Location: Leg - Left;Leg - Right;Low Back/Lumbar Spine - Left;Low Back/Lumbar Spine - Right Description: Aching Frequency: Continuous Post Treatment Pain Score: No Change OBJECTIVE MEASURES WITH LEVEL OF FUNCTION: no antalgic transfers or movements TREATMENT: Therapeutic Exercise: 1: green rep band scapular retraction 2x10 2: green rep band trunk extension 2x10 3: prone press ups 1x10 4: prone leg lifts 2x10 5: retrowalking on treadmill .6 mph for 4 min. 6: yellow rep band shld extension to thighs 2x10 7: yellow rep band under thighs shld flexion 2x10 8: standing upright alternating shld extension with TA 1x10 9: yellow rep band dynamic stabilization with perturbation front and sides 3x15 Skilled Intervention: Patient was educated in proper exercise technique and purpose for exercises. Skilled judgment was provided in selection of appropriate interventions. Provided written instruction for home exercise program to facilitate proper performance and compliance. Correct performance of therapeutic exercises was facilitated with verbal and visual cuing. Patient education as noted. Assigned Home Exercise Program: 1: yellow rep band shld extension to thighs 2x10 2: yellow rep band under thighs shld flexion 2x10 3: standing upright alternating shld extension with TA 1x10 Billing: [facility]: Therapeutic Exercise ([id number]): 1:1 time: 45 minutes (3 units: 38-52 mins) Total time: 45 minutes Jennifer Ray PT PROGRESS Observed: 07/13/2018 Status: COMPLETED Source: [place] 12:12 PM [facility] [place] HNO ID: [id number] Author: Jennifer (Pt) John Service: (none) Author Type: Physical Therapist Type: Progress Notes Filed: 07/13/2018 12:19 PM Note Text: Episode Visit Count: 1 Therapist That Will Oversee The Plan Of Care: Jennifer Ray Start of Care Date: 07/13/18 Onset Date: 07/13/15 Patient Identified by Name and Date of : Yes REHABILITATION AND SPORTS THERAPY PHYSICAL THERAPY EVALUATION PLAN OF CARE: Assessment: Azul Osorio presents with the chief complaint of low back and bilateral leg pain. Pt is very frustrated as she has been in pain for 7 years and has been to many physicians with no improvement. Pt has clear preference towards extension with decreased sx with increased lordosis and no pain with standing on toes ( which increased lordosis). Consider it a lumbar derangement. Discussed at length using active approach of various extension positions to decrease her pain . She presents with impairments of decreased core strength, decreased functional status with pain . She may benefit from skilled therapy services to improve pain sx, strength, education of pain. . Classification Low Back Pain Subgroup Classification: Specific exercise subgroup: recommended visits 8. Specific Exercies Subgroup Classification based on: centralization Prognosis: Good Good due to: current objective clinical presentation Goals for Episode of Care: created on 07/13/18 through 08/13/18 Independent in home exercises. Patient will decrease pain rating by 2 points to meet minimal clinical important difference for numeric pain rating scale. Sleep through night without pain/symptoms. Maintain proper sitting posture throughout session Patient will be able to tolerate functional activities without increased symptoms. Patient will increase strength of core to 5/5 to allow for return to prior functional status and perform ADLs. Planned Interventions, Frequency, and Duration: Current Frequency: 2x/week Duration: 4 weeks Total Number of Visits Planned: 8 Planned Treatment Interventions: Therapeutic exercise;Manual therapy;Self-intermediate management;Patient/Family/Caregiver Education;Body Mechanics Training PLAN FOR NEXT VISIT: Will advance extension based program and core strengthening. add retrowalking on treadmill . Consider Why we hurt education Patient demonstrates good understanding of plan of care and treatment. The above goals and plan of care were discussed and agreed upon by patient/family. SUBJECTIVE: Azul Osorio is a 62 year old female seen today for Pain in low back right greater left lower lumbar with tingling to back of legs into feet. Patient Goals: alleviate pain Functional Limitations: sitting;standing;sleeping Prior Level of Function: Independent without limitations Relevant History Employment: Unemployed Recreation / Current Exercise: strengthening Home Environment Patient Lives With: Spouse Home Type: Ranch Entry To Home: No Stairs Intake Information: Prescription present Previous Treatment: Self prescribed exercises;Ice?;Heat? Pain Score: 7/10 Pain Location: Low Back/Lumbar Spine - Left;Low Back/Lumbar Spine - Right Description: Aching Frequency: Continuous Post Treatment Pain Score: No Change Pain Location: Low Back/Lumbar Spine - Left;Low Back/Lumbar Spine - Right;Leg - Left;Leg - Right Post Treatment Pain Description: Aching Spine History Symptoms Location at Onset: (legs) Pain is Worse Always: Standing;Bending;Sitting Pain is Better Sometimes: Lying ( advil) Sleeping Position: Supine;Side lying right;Side lying left Sleep Affected by Pain: Pain keeps from falling asleep;Pain awakens OBJECTIVE MEASURES WITH LEVEL OF FUNCTION: Posture / Alignment Posture: Decreased lumbar lordosis Spine Palpation R Lumbar Spine Palpation Tenderness: ( none) L Lumbar Spine Palpation Tenderness: ( none) Lumbar Spine AROM Lumbar Flexion: Normal;Increased pain;Peripheralizing Lumbar Extension: Normal;Decreased pain;Centralizing Lumbar R Side-Bend: Normal Lumbar L Side-Bend: Normal Repeated Test Movements - Lumbar RFIS - Symptoms During: increases;peripheralizing YESI - Symptoms During: decreases RFIL - Symptoms During: no effect REIL - Symptoms During: decreases;peripheralizing Static Testing - Lumbar Sit Slouched: worse Sit Erect: better Stand Slouched: worse Stand Erect: better;centralized LE Strength Trunk Strength: 4/5 R LE Strength: 5/5 L LE Strength: 5/5 Special Tests - Hip and Spine Hip and Spine Special Tests: SLR Test SLR Test: Right Negative;Left Negative Gait Weight Bearing Status: FWB Gait: Independent Gait Observation: no deviation Education: Education Learning Preferences: Demonstration;Explanation;Performance;Printed Materials Barriers: None Learning/educational needs: Home exercise program;Plan of Care Education Provided: Yes, see treatment interventions for education provided Education Provided To: Patient Education Mode/Type: Demonstration;Explanation/Discussion;Literature/Printed Materials;Performance Response to Education/Teach Back: States/Identifies;Return Demonstration TREATMENT: Evaluation Therapeutic Exercise: 1: green rep band scapular retraction 1x10 2: green rep band trunk extension 1x10 3: prone press ups 1x8 4: prone leg lifts 1x10 Skilled Intervention: Patient was educated in proper exercise technique and purpose for exercises. Skilled judgment was provided in selection of appropriate interventions. Provided written instruction for home exercise program to facilitate proper performance and compliance. Correct performance of therapeutic exercises was facilitated with verbal and visual cuing. Billing: [facility]: Evaluation - Low Complexity ([id number]) Therapeutic Exercise ([id number]): 1:1 time: 25 minutes (2 units: 23-37 mins) Total time: 45 minutes Jennifer Ray PT CNTHERAPY Observed: 07/13/2018 Status: COMPLETED Source: [place] 10:30 AM [facility] REPOSITORY OT/PT/Speech Visit (PTWS) AZUL OSORIO ([id number]) 1955 F Date Time Provider Department 07/13/18 10:30 AM JENNIFER RAYPT) PTWS Date Time Provider Department Center 07/13/2018 10:30 AM [id number] RAYPT) [facility] Reason for Visit: PT Eval [747] Patient Education [91] Visit Diagnoses:Radiculopathy, lumbar region [M54.16] 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] Allergies As of Date: 07/13/2018 Noted Allergy Reaction FLEXERIL (CYCLOBENZAPRINE HCL) 04/13/2017 14 - Other: See Comments Comments: Heart palpatations heat [Other] 01/21/2006 4 - Hives PENICILLINS 01/20/2006 TRAMADOL 08/27/2017 14 - Other: See Comments Comments: Increase heart rate Date Reviewed: 06/28/2018 Reviewed by: Kim Cárdenas Ma - Fully Assessed Prescriptions as of 07/13/2018 Sig: ASCORBIC ACID (VITAMIN C) 500* Take 500 mg by mouth once glen* VITAMIN D-3 ORAL Take by mouth once daily. ADVIL ORAL Take by mouth as needed. PROBIOTIC ORAL Take by mouth once daily. MAGNESIUM ORAL Take 1,000 mg by mouth once d* OMEGA 3 FISH OIL ORAL Take by mouth once daily. * TRAZODONE 50 MG TABLET Take 12.5 mg by mouth daily a* VITAMIN B COMPLEX-100 ORAL Take 100 mg by mouth once glen* ZINC GLUCONATE 30 MG TABLET Take 30 mg by mouth once yuridia* Progress Notes: Jennifer Ray, PT 07/13/2018 12:19 PM Signed Episode Visit Count: 1 Therapist That Will Oversee The Plan Of Care: Jennifer Ray Start of Care Date: 07/13/18 Onset Date: 07/13/15 Patient Identified by Name and Date of : Yes REHABILITATION AND SPORTS THERAPY PHYSICAL THERAPY EVALUATION PLAN OF CARE: Assessment: Azul Osorio presents with the chief complaint of low back and bilateral leg pain. Pt is very frustrated as she has been in pain for 7 years and has been to many physicians with no improvement. Pt has clear preference towards extension with decreased sx with increased lordosis and no pain with standing on toes ( which increased lordosis). Consider it a lumbar derangement. Discussed at length using active approach of various extension positions to decrease her pain . She presents with impairments of decreased core strength, decreased functional status with pain . She may benefit from skilled therapy services to improve pain sx, strength, education of pain. . Classification Low Back Pain Subgroup Classification: Specific exercise subgroup: recommended visits 8. Specific Exercies Subgroup Classification based on: centralization Prognosis: Good Good due to: current objective clinical presentation Goals for Episode of Care: created on 07/13/18 through 08/13/18 Independent in home exercises. Patient will decrease pain rating by 2 points to meet minimal clinical important difference for numeric pain rating scale. Sleep through night without pain/symptoms. Maintain proper sitting posture throughout session Patient will be able to tolerate functional activities without increased symptoms. Patient will increase strength of core to 5/5 to allow for return to prior functional status and perform ADLs. Planned Interventions, Frequency, and Duration: Current Frequency: 2x/week Duration: 4 weeks Total Number of Visits Planned: 8 Planned Treatment Interventions: Therapeutic exercise;Manual therapy;Self-intermediate management;Patient/Family/Caregiver Education;Body Mechanics Training PLAN FOR NEXT VISIT: Will advance extension based program and core strengthening. add retrowalking on treadmill . Consider Why we hurt education Patient demonstrates good understanding of plan of care and treatment. The above goals and plan of care were discussed and agreed upon by patient/family. SUBJECTIVE: Azul Osorio is a 62 year old female seen today for Pain in low back right greater left lower lumbar with tingling to back of legs into feet. Patient Goals: alleviate pain Functional Limitations: sitting;standing;sleeping Prior Level of Function: Independent without limitations Relevant History Employment: Unemployed Recreation / Current Exercise: strengthening Home Environment Patient Lives With: Spouse Home Type: [place] Entry To Home: No Stairs Intake Information: Prescription present Previous Treatment: Self prescribed exercises;Ice?;Heat? Pain Score: 7/10 Pain Location: Low Back/Lumbar Spine - Left;Low Back/Lumbar Spine - Right Description: Aching Frequency: Continuous Post Treatment Pain Score: No Change Pain Location: Low Back/Lumbar Spine - Left;Low Back/Lumbar Spine - Right;Leg - Left;Leg - Right Post Treatment Pain Description: Aching Spine History Symptoms Location at Onset: (legs) Pain is Worse Always: Standing;Bending;Sitting Pain is Better Sometimes: Lying ( advil) Sleeping Position: Supine;Side lying right;Side lying left Sleep Affected by Pain: Pain keeps from falling asleep;Pain awakens OBJECTIVE MEASURES WITH LEVEL OF FUNCTION: Posture / Alignment Posture: Decreased lumbar lordosis Spine Palpation R Lumbar Spine Palpation Tenderness: ( none) L Lumbar Spine Palpation Tenderness: ( none) Lumbar Spine AROM Lumbar Flexion: Normal;Increased pain;Peripheralizing Lumbar Extension: Normal;Decreased pain;Centralizing Lumbar R Side-Bend: Normal Lumbar L Side-Bend: Normal Repeated Test Movements - Lumbar RFIS - Symptoms During: increases;peripheralizing YESI - Symptoms During: decreases RFIL - Symptoms During: no effect REIL - Symptoms During: decreases;peripheralizing Static Testing - Lumbar Sit Slouched: worse Sit Erect: better Stand Slouched: worse Stand Erect: better;centralized LE Strength Trunk Strength: 4/5 R LE Strength: 5/5 L LE Strength: 5/5 Special Tests - Hip and Spine Hip and Spine Special Tests: SLR Test SLR Test: Right Negative;Left Negative Gait Weight Bearing Status: FWB Gait: Independent Gait Observation: no deviation Education: Education Learning Preferences: Demonstration;Explanation;Performance;Printed Materials Barriers: None Learning/educational needs: Home exercise program;Plan of Care Education Provided: Yes, see treatment interventions for education provided Education Provided To: Patient Education Mode/Type: Demonstration;Explanation/Discussion;Literature/Printed Materials;Performance Response to Education/Teach Back: States/Identifies;Return Demonstration TREATMENT: Evaluation Therapeutic Exercise: 1: green rep band scapular retraction 1x10 2: green rep band trunk extension 1x10 3: prone press ups 1x8 4: prone leg lifts 1x10 Skilled Intervention: Patient was educated in proper exercise technique and purpose for exercises. Skilled judgment was provided in selection of appropriate interventions. Provided written instruction for home exercise program to facilitate proper performance and compliance. Correct performance of therapeutic exercises was facilitated with verbal and visual cuing. Billing: [facility]: Evaluation - Low Complexity ([id number]) Therapeutic Exercise ([id number]): 1:1 time: 25 minutes (2 units: 23-37 mins) Total time: 45 minutes Jennifer Ray PT XR LUMBAR 4V AP/LAT/ Observed: 07/13/2018 Status: F Source: [place] FLEX/EXT 10:25 AM [facility] REPOSITORY * * *Final Report* * * DATE OF EXAM: Jul 13 2018 10:25AM [id number] - XR LUMBAR 4V AP/LAT/ FLEX/EXT / PROCEDURE REASON: Radiculopathy, lumbar region * * * * Physician Interpretation * * * * EXAM: LUMBAR SPINE, 4 VIEWS CLINICAL: 62-year-old female with radiculopathy TECHNIQUE: AP, lateral lateral flexion-extension COMPARISON: None RESULTS: Counting reference: Anatomic Variant: None. L4-5 is considered the level of the iliac crest and assume there are 5 lumbar-type vertebrae. Mild to moderate narrowing L4/L5 and L5/S1 disc spaces, remaining disc spaces are maintained. Vertebral bodies and pedicles are intact. Mild facet degenerative changes in lower lumbar spine. No instability with flexion or extension, the flexion motion is limited. IMPRESSION: DEGENERATIVE DISC AND FACET DISEASE. Homoeopath: [facility] Transcribe Date/Time: Jul 13 2018 5:36P Dictated by : YAHAIRA ROBERTSON MD This examination was interpreted and the report reviewed and electronically signed by: YAHAIRA ROBERTSON MD on Jul 13 2018 5:39PM EST [id number] XR CERVICAL 4V Observed: 07/13/2018 Status: F Source: [place] AP/LAT/FLX/EXT 10:25 AM [facility] REPOSITORY * * *Final Report* * * DATE OF EXAM: Jul 13 2018 10:25AM [id number] - XR CERVICAL 4V AP/LAT/FLX/EXT / PROCEDURE REASON: Spondylosis of cervical region without myelopathy or radiculopathy * * * * Physician Interpretation * * * * EXAM: CERVICAL SPINE, 4 VIEWS CLINICAL: 62-year-old female with spondylosis of the cervical region TECHNIQUE: AP, lateral, lateral flexion-extension COMPARISON: None RESULTS: Counting reference: Craniocervical junction.. Straightening of normal cervical lordosis. Mild narrowing of C3/C4 and C4/C5 and moderate to severe narrowing C5/C6 and C6/C7 disc spaces. Osteophytes anteriorly at C3-C7 and uncovertebral osteophytes at C4-C7. Mild narrowing of facet joints. Less than 2 mm anterior subluxation of C3 in relation C4 with flexion and less than 2 mm posterior subluxation C3 in relation C4 with extension. IMPRESSION: MODERATELY ADVANCED DEGENERATIVE DISC DISEASE. MILD FACET DEGENERATIVE CHANGES. UPPER LIMITS OF NORMAL OF MOTION AT C3 IN RELATION C4 WITH FLEXION AND EXTENSION. Homoeopath: [employer] Transcribe Date/Time: Jul 13 2018 5:39P Dictated by : YAHAIRA ROBERTSON MD This examination was interpreted and the report reviewed and electronically signed by: YAHAIRA ROBERTSON MD on Jul 13 2018 5:41PM EST [id number] PROGRESS Observed: 07/13/2018 Status: COMPLETED Source: [place] 10:09 AM [facility] REPOSITORY HNO ID: [id number] Author: Lucie Edwards (Tech) Service: (none) Author Type: Field Service Consultant Type: Progress Notes Filed: 07/13/2018 10:25 AM Note Text: Radiology Service Progress Note PATIENT NAME: Azul Osorio DATE OF SERVICE: July 13, 2018 TIME: 10:09 AM PATIENT IDENTITY VERIFICATION COMPLETED USING TWO (2) METHODS: Patient confirmed name verbally and Date of . PATIENT GENDER DATA: Female. status: : No status: NO. PATIENT RELEVANT IMPLANT DATA REVIEWED: Not Applicable RADIOLOGY DEPARTMENT: General X-ray: Exam(s) Completed: Spine X-Ray(s): Cervical AP / LAT / FLEX-EXT and Lumbar AP / LAT / L5-S1 / FLEX-EXT PERIPHERAL IV DATA: Not applicable SIGNED BY: Lucie Martinez July 13, 2018 10:09 AM PROGRESS Observed: 06/28/2018 Status: COMPLETED Source: [place] 11:23 AM [facility] REPOSITORY HNO ID: [id number] Author: Kelly Greer (Pa) Service: (none) Author Type: Physician Manager Cardiology Type: Progress Notes Filed: 06/28/2018 11:31 AM Note Text: SPINE SURGERY NEW PATIENT PCP: Philip Meehan MD REFERRING PROVIDER: self SUBJECTIVE HISTORY OF PRESENT ILLNESS: Azul Osorio is a 62 year old female presenting with spouse. CHIEF COMPLAINT: chronic neck pain, and bilateral foot pain, recent lower back and right leg pain PRECIPITATING EVENT: None DURATION OF SYMPTOMS: Greater Than 1 Year Azul Osorio reports that she has been having chronic neck pain for years, no arm pain or numbness. She has also been having chronic bilateral foot pain for 5- 6 years now. She was diagnosed with plantar fasciitis and even had right foot surgery for it in 2013 - she reports that she only had short time relief with her foot pain. She had seen orthopedics and podiatry without much help. She had seen Dr Grande in neurology and neuropathy was excluded. She does report that in the last 4 weeks, she has been having lowe back pain, right buttock and posterior thigh and some calf pain to the medial ankle. She had tried OTC NSAIDs without relief. No saddle anesthesia or bowel or bladder incontinence. No dexterity issues. Does feel a bit off balance in the AM. PAIN EVALUATION 06/28/2018 Pain Score: 6 Pain Location: Hip-Right Bilateral Leg, Feet, Neck, Mid Back, Lower Back. Description: Numbness;Tingling;Burning;Stiffness;Radiating Duration Amount of Time: 6 Duration Units: Years Frequency: Continuous Intervention: Medication;Relaxation;Cold;Heat Comments: PT, Yoga, Stretching Pain Radiation: down the right thigh and below the right knee, Pain does not radiate Aggravating Factors: Lifting, Standing, Walking Alleviating Factors: None Pain Ratio: Pain in the back and leg(s) is equal DERMATOMAL DISTRIBUTION: Right: S1 AMBULATORY STATUS: Independent Community Distances ANTIPLATELET OR ANTICOAGULATION STATUS: No PREVIOUS CONSERVATIVE TREATMENTS: OTC NSAIDS for 3 Months or Greater (Ibuprofen) PREVIOUS SPINAL SURGERY: None ACTIVE PROBLEM LIST 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 Pain in Left Foot Pain in Right Foot PAST MEDICAL HISTORY Diagnosis Date - Autoimmune liver disease - Dysthymic disorder Depression (non-psychotic) - Esophageal reflux Gastroesophageal reflux - Generalized anxiety disorder ANXIETY GENERALIZED - Mitral valve disorders(424.0) - Sleep apnea PAST SURGICAL HISTORY Procedure Laterality Date - FOOT SURGERY HX Right - LAPAROSCOPIC CHOLEYCYSTECTOMY Cholecystectomy, lap - REMOVAL OF TONSILS,<12 Y/O age 10 Tonsillectomy FAMILY HISTORY Problem Relation Age of Onset - Heart Mother - Heart Mother - other (renal disease [Other]) Mother - Cancer Father Leukemia - Heart Father - Heart Brother heart valves replaced x 2 - None Sister Social History Marital status: Spouse name: Minor Years of education: 12 Number of children: 2 Occupational History 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 CALCIUM CARBONATE/VITAMIN D3 (VITAMIN D-3 ORAL) Take by mouth once daily. IBUPROFEN (ADVIL ORAL) Take by mouth as needed. traZODONE 50 mg tablet Take 12.5 mg by mouth daily at bedtime. Zinc Gluconate 30 mg tab Take 30 mg by mouth once daily. VITAMIN B COMPLEX-100 ORAL Take 100 mg by mouth once daily. OMEGA-3 FATTY ACIDS/FISH OIL (OMEGA 3 FISH OIL ORAL) Take by mouth once daily. MAGNESIUM ORAL Take 1,000 mg by mouth once daily. LACTOBACILLUS ACIDOPHILUS (PROBIOTIC ORAL) Take by mouth once daily. REVIEW OF SYSTEMS: GENERAL: No weight loss or malaise MUSCULOSKELETAL: Negative for joint pain, swelling or muscle pain NEURO: No history of headaches, syncope, paralysis, seizures or tremors OBJECTIVE: PHYSICAL EXAM BP 135/69 Pulse 78 Resp 14 Ht 154.9 cm (5' 1) Wt 55.5 kg (122 lb 6.4 oz) LMP 12/19/2005 SpO2 99% BMI 23.13 kg/m? GENERAL APPEARANCE: Well nourished, well developed, and no apparent distress. NEURO PSYCH: Patient oriented to person, place, and time. Mood pleasant. Benign affect. MUSCULOSKELETAL VISUAL INSPECTION CERVICAL: WNL THORACIC: WNL LUMBAR: WNL MOTOR: 5/5 in all muscle groups. SENSORY: Normal sensory exam GAIT: Normal. Heel walk, toe walk, duck walk and jump with good strength. NEURO TESTS: None DATA REVIEW Imaging and outside records reviewed Cervical xrays 2014 - spondylosis at C5-6, C6-7 Lumbar xrays 09/2017 - hard films - no spondylosis no abnormal motion Thoracic xrays 2014 - no abnormalities. EMG 12/2016 - Normal ASSESSMENT/PLAN (M54.16) Radiculopathy, lumbar region (primary encounter diagnosis) (M47.812) Spondylosis of cervical region without myelopathy or radiculopathy (M79.672) Pain in left foot (M79.671) Pain in right foot Azul Osorio will continue with medical management of his/her condition. I have no answers for her bilateral chronic foot pain. As for her neck and lower back recommend PT and xrays. Follow up in 8 weeks. If no improvement will obtain MRI. If all normal, pain management vs CPRP referral. 1. Imaging: Cervical X-Ray and Lumbar X-Ray 2. Consults: Physical Therapy 3. Follow up: 8 weeks The majority of the visit was spent counseling and/or coordinating care for the patient. The patient was counseled regarding old records. Total face to face time was 45 minutes. SIGNATURE: Kelly Greer PA-C PATIENT NAME: Azul Osorio DATE: June 28, 2018 TIME: 11:23 AM PAGER: [email or web address] Observed: 06/28/2018 Status: COMPLETED Source: [place] 10:20 AM [facility] REPOSITORY Office Visit (SPNMMN) AZUL OSORIO ([id number]) 1955 F Date Time Provider Department 06/28/18 10:20 AM KELLY GREER) SPNMMN During your visit today, we recorded the following information about you: Pulse Respiration Blood pressure Weight 78/minute 14/minute 135/69 55.5 kg Height 1.549 m Kelly Greer PA-C 06/28/2018 11:31 AM Signed SPINE SURGERY NEW PATIENT PCP: Philip Meehan MD REFERRING PROVIDER: self SUBJECTIVE HISTORY OF PRESENT ILLNESS: Azul Osorio is a 62 year old female presenting with spouse. CHIEF COMPLAINT: chronic neck pain, and bilateral foot pain, recent lower back and right leg pain PRECIPITATING EVENT: None DURATION OF SYMPTOMS: Greater Than 1 Year Azul Osorio reports that she has been having chronic neck pain for years, no arm pain or numbness. She has also been having chronic bilateral foot pain for 5- 6 years now. She was diagnosed with plantar fasciitis and even had right foot surgery for it in 2013 - she reports that she only had short time relief with her foot pain. She had seen orthopedics and podiatry without much help. She had seen Dr Grande in neurology and neuropathy was excluded. She does report that in the last 4 weeks, she has been having lowe back pain, right buttock and posterior thigh and some calf pain to the medial ankle. She had tried OTC NSAIDs without relief. No saddle anesthesia or bowel or bladder incontinence. No dexterity issues. Does feel a bit off balance in the AM. PAIN EVALUATION 06/28/2018 Pain Score: 6 Pain Location: Hip-Right Bilateral Leg, Feet, Neck, Mid Back, Lower Back. Description: Numbness;Tingling;Burning;Stiffness;Radiating Duration Amount of Time: 6 Duration Units: Years Frequency: Continuous Intervention: Medication;Relaxation;Cold;Heat Comments: PT, Yoga, Stretching Pain Radiation: down the right thigh and below the right knee, Pain does not radiate Aggravating Factors: Lifting, Standing, Walking Alleviating Factors: None Pain Ratio: Pain in the back and leg(s) is equal DERMATOMAL DISTRIBUTION: Right: S1 AMBULATORY STATUS: Independent Community Distances ANTIPLATELET OR ANTICOAGULATION STATUS: No PREVIOUS CONSERVATIVE TREATMENTS: OTC NSAIDS for 3 Months or Greater (Ibuprofen) PREVIOUS SPINAL SURGERY: None ACTIVE PROBLEM LIST 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 Pain in Left Foot Pain in Right Foot PAST MEDICAL HISTORY Diagnosis Date - Autoimmune liver disease - Dysthymic disorder Depression (non-psychotic) - Esophageal reflux Gastroesophageal reflux - Generalized anxiety disorder ANXIETY GENERALIZED - Mitral valve disorders(424.0) - Sleep apnea PAST SURGICAL HISTORY Procedure Laterality Date - FOOT SURGERY HX Right - LAPAROSCOPIC CHOLEYCYSTECTOMY Cholecystectomy, lap - REMOVAL OF TONSILS,<14 Y/O age 10 Tonsillectomy FAMILY HISTORY Problem Relation Age of Onset - Heart Mother - Heart Mother - other (renal disease [Other]) Mother - Cancer Father Leukemia - Heart Father - Heart Brother heart valves replaced x 2 - None Sister Social History Marital status: Spouse name: Minor Years of education: 12 Number of children: 2 Occupational History 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 CALCIUM CARBONATE/VITAMIN D3 (VITAMIN D-3 ORAL) Take by mouth once daily. IBUPROFEN (ADVIL ORAL) Take by mouth as needed. traZODONE 50 mg tablet Take 12.5 mg by mouth daily at bedtime. Zinc Gluconate 30 mg tab Take 30 mg by mouth once daily. VITAMIN B COMPLEX-100 ORAL Take 100 mg by mouth once daily. OMEGA-3 FATTY ACIDS/FISH OIL (OMEGA 3 FISH OIL ORAL) Take by mouth once daily. MAGNESIUM ORAL Take 1,000 mg by mouth once daily. LACTOBACILLUS ACIDOPHILUS (PROBIOTIC ORAL) Take by mouth once daily. REVIEW OF SYSTEMS: GENERAL: No weight loss or malaise MUSCULOSKELETAL: Negative for joint pain, swelling or muscle pain NEURO: No history of headaches, syncope, paralysis, seizures or tremors OBJECTIVE: PHYSICAL EXAM BP 135/69 Pulse 78 Resp 14 Ht 154.9 cm (5' 1) Wt 55.5 kg (122 lb 6.4 oz) LMP 12/19/2005 SpO2 99% BMI 23.13 kg/m? GENERAL APPEARANCE: Well nourished, well developed, and no apparent distress. NEURO PSYCH: Patient oriented to person, place, and time. Mood pleasant. Benign affect. MUSCULOSKELETAL VISUAL INSPECTION CERVICAL: WNL THORACIC: WNL LUMBAR: WNL MOTOR: 5/5 in all muscle groups. SENSORY: Normal sensory exam GAIT: Normal. Heel walk, toe walk, duck walk and jump with good strength. NEURO TESTS: None DATA REVIEW Imaging and outside records reviewed Cervical xrays 2014 - spondylosis at C5-6, C6-7 Lumbar xrays 09/2017 - hard films - no spondylosis no abnormal motion Thoracic xrays 2014 - no abnormalities. EMG 12/2016 - Normal ASSESSMENT/PLAN (M54.16) Radiculopathy, lumbar region (primary encounter diagnosis) (M47.812) Spondylosis of cervical region without myelopathy or radiculopathy (M79.672) Pain in left foot (M79.671) Pain in right foot Azul Osorio will continue with medical management of his/her condition. I have no answers for her bilateral chronic foot pain. As for her neck and lower back recommend PT and xrays. Follow up in 8 weeks. If no improvement will obtain MRI. If all normal, pain management vs CPRP referral. 1. Imaging: Cervical X-Ray and Lumbar X-Ray 2. Consults: Physical Therapy 3. Follow up: 8 weeks The majority of the visit was spent counseling and/or coordinating care for the patient. The patient was counseled regarding old records. Total face to face time was 45 minutes. SIGNATURE: Kelly Greer PA-C PATIENT NAME: Azul Osorio DATE: June 28, 2018 TIME: 11:23 AM PAGER: Referring Provider: SELF [[id number]] Allergies As of Date: 06/28/2018 Noted Allergy Reaction FLEXERIL (CYCLOBENZAPRINE HCL) 04/13/2017 14 - Other: See Comments Comments: Heart palpatations heat [Other] 01/21/2006 4 - Hives PENICILLINS 01/20/2006 TRAMADOL 08/27/2017 14 - Other: See Comments Comments: Increase heart rate Date Reviewed: 06/28/2018 Reviewed by: Kim Cárdenas Ma - Fully Assessed Reason for Visit: New Patient [172] Primary Visit Diagnosis:Radiculopathy, lumbar region [M54.16] Other Visit Diagnoses: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] Pain in left foot [M79.672] Pain in right foot [M79.671] Order(s):CONSULT TO PHYSICAL THERAPY [9032] Order #: [id number]: 1 XR CERV OTHER 4V AP/LAT/FLX/EXT [[id number]] Order #: [id number] FUTURE XR LUMBAR MOTION 4V AP/LAT/ FLEX/EXT [[id number]] Order #: [id number] FUTURE Prescriptions as of 06/28/2018 Sig: ASCORBIC ACID (VITAMIN C) 500* Take 500 mg by mouth once glen* VITAMIN D-3 ORAL Take by mouth once daily. ADVIL ORAL Take by mouth as needed. * TRAZODONE 50 MG TABLET Take 12.5 mg by mouth daily a* ZINC GLUCONATE 30 MG TABLET Take 30 mg by mouth once yuridia* VITAMIN B COMPLEX-100 ORAL Take 100 mg by mouth once glen* OMEGA 3 FISH OIL ORAL Take by mouth once daily. MAGNESIUM ORAL Take 1,000 mg by mouth once d* PROBIOTIC ORAL Take by mouth once daily. Problem List As Of Date 06/28/2018 Noted Resolved ADHESIVE CAPSULIT SHLDER [M75.00] INVALID FOR* Abnormal liver enzymes [R74.8] INVALID FOR* Pain in left foot [M79.672] INVALID FOR* Pain in right foot [M79.671] INVALID FOR* Disposition: Return in about 8 weeks (around 08/23/2018). Follow-up and Disposition History Recorded Encounter Status:Closed by KELLY GREER on 06/28/18 CNPN Observed: 06/24/2018 Status: COMPLETED Source: [place] [facility] 12:00 AM [facility] REPOSITORY Telephone (SPNMMN) AZUL OSORIO ([id number]) 1955 F Date Time Provider Department 06/24/18 KELLY GREER) SPMOMN During your visit today, we recorded the following information about you: [facility] 06/24/2018 4:10 PM Signed Recvd EMG Report via OnBase-sent to pts chart. Kelly Greer PA-C 06/25/2018 10:54 AM Signed Reviewed the EMG reports that wa faxed. No interpretation of the EMG was faxed. called the facility to fax a complete EMG report. Kelly Greer PA-C Allergies As of Date: 06/24/2018 Noted Allergy Reaction FLEXERIL (CYCLOBENZAPRINE HCL) 04/13/2017 14 - Other: See Comments Comments: Heart palpatations heat [Other] 01/21/2006 4 - Hives PENICILLINS 01/20/2006 TRAMADOL 08/27/2017 14 - Other: See Comments Comments: Increase heart rate Date Reviewed: 08/27/2017 Reviewed by: Holden David - Fully Assessed Reason for Visit: EMG Report [Other] Prescriptions as of 06/24/2018 Sig: ZINC GLUCONATE 30 MG TABLET Take 30 mg by mouth once yuridia* ASCORBIC ACID (VITAMIN C) 500* Take 500 mg by mouth once glen* VITAMIN B COMPLEX-100 ORAL Take 100 mg by mouth once glen* VITAMIN D-3 ORAL Take by mouth once daily. OMEGA 3 FISH OIL ORAL Take by mouth once daily. MAGNESIUM ORAL Take 1,000 mg by mouth once d* ADVIL ORAL Take by mouth as needed. PROBIOTIC ORAL Take by mouth once daily. * TRAZODONE 50 MG TABLET Take 12.5 mg by mouth daily a* Problem List As Of Date 06/24/2018 Noted Resolved ADHESIVE CAPSULIT SDER [M75.00] INVALID FOR* Abnormal liver enzymes [R74.8] INVALID FOR* Pain in left foot [M79.672] INVALID FOR* Pain in right foot [M79.671] INVALID FOR* Encounter Status:Closed by SATINDER LAWTON on 06/24/18 HEPATIC FUNCTN PANEL Collected: 03/19/2018 Status: F Source: [place] 12:02 PM [facility] REPOSITORY TYPE CODE TESTS RESULT OUT OF REFERENCE UNITS RANGE LAB ALB 3.9-4.9 g/dL Albumin 4.4 LAB TBIL 0.2-1.3 mg/dL Bilirubin, Total 0.4 LAB CBIL <0.2 mg/dL Bilirubin,Conjuga <0.2 marlen LAB ALKP 32-117 U/L Alkaline High Phosphatase 138 LAB AST 13-35 U/L AST High 73 LAB ALT 7-38 U/L ALT High 132 LAB TP 6.3-8.0 g/dL Protein, Total 7.3 Performed By: #### HFP #### [facility] [address] [place], [place] [address] VENOUS DUPLEX LOWER Observed: 01/27/2018 Status: F Source: [place] [facility] 4:36 PM [facility] REPOSITORY [facility] Cardi[facility] Services [address] [place] [address] Venous Duplex US - Familia Extrem 01/26/18 1502 MR#: [id number] Acct: [id number] Name: AZUL OSORIO Rep #: [id number] : 1955 62 From: Sergio Ortega MD Attending Dr: Gayla Garcia NP Status: REG CLI Ordering Dr: Gayla Garcia Date: 01/26/18 Location: [facility] Sex: F C Admitted: Reason For Study: LEG PAIN RIGHT LEFT GSV is normal. GSV is normal. CFV is compressible, spontaneous, phasic, CFV is compressible, spontaneous, phasic, competent and demonstrates normal competent, and demonstrates normal augmentation. augmentation. FV is compressible, spontaneous, phasic, FV is compressible, spontaneous, phasic, competent and demonstrates normal competent and demonstrates normal augmentation. augmentation. POP V is compressible, spontaneous, phasic, POP V is compressible, spontaneous, phasic, competent and demonstrates normal competent and demonstrates normal augmentation. augmentation. T/P Trunk is compressible. T/P Trunk is compressible. PTV is compressible. PTV is compressible. RT PerV is compressible. LT PerV is compressible. Procedure Exam performed in department. A preliminary report was called and/or faxed to Hayes Garcia. Interpretation Summary Deep veins of the lower extremities are bilaterally patent and compressible segmentally. There is no evidence of deep vein thrombosis on either side. Valvular competence appears intact within the proximal deep venous systems bilaterally. The greater saphenous veins appear bilaterally patent and compressible segmentally. Ordering Physician: Gayla Garcia Referring Physician: Gayla Garcia Performed By: Karen Hauser RVT 01/27/18 1635 Date Sergio Ortega MD CC: Gayla Garcia BORDER MEASURER Date Dictated: 01/26/18 1502 Date Transcribed: 01/27/18 1635 Homoeopath: Signed COMP METABOLIC PANEL Collected: 10/09/2017 Status: F Source: [place] 9:26 AM [facility] REPOSITORY TYPE CODE TESTS RESULT OUT OF REFERENCE UNITS RANGE LAB TP 6.3-8.0 g/dL Protein, Total 7.2 LAB ALB 3.9-4.9 g/dL Albumin 4.7 LAB CA 8.5-10.2 mg/dL Calcium, Total 10.1 LAB TBIL 0.2-1.3 mg/dL Bilirubin, Total 0.4 LAB ALKP 32-117 U/L Alkaline Phosphatase 104 LAB AST 13-35 U/L AST High 47 Result Comment: Results may be falsely increased due to interference by hemolysis. Suggest reorder as clinically indicated. LAB GLU 74-99 mg/dL Glucose 97 Result Comment: The Stateless Diabetes Association (ADA) provides guidance for cutoff values for fasting glucose and random glucose. The ADA defines fasting as no caloric intake for at least 8 hours. Fas ting plasma glucose results between 100 to 125 mg/dL indicate increased risk for diabetes (prediabetes). Fasting plasma glucose results greater than or equal to 126 mg/dL meet the criteria for diagnosis of diabetes. In the absence of unequivocal hyperglycemia, results should be confirmed by repeat testing. In a patient with classic symptoms of hyperglycemia or hyperglycemic crisis, random plasma glucose results greater than or equal to 200 mg/dL meet the criteria for diagnosis of diabetes. Reference: Standards of Medical Care in Diabetes 2016, Stateless Diabetes Association. Diabetes Care. 2016.39(Suppl 1). LAB BUN 7-21 mg/dL BUN 14 LAB CRET 0.58-0.96 mg/dL Creatinine 0.72 LAB NA 136-144 mmol/L Sodium 141 LAB K 3.7-5.1 mmol/L Potassium 4.6 LAB CL 97-105 mmol/L Chloride 103 LAB CO2 22-30 mmol/L CO2 26 LAB AGAP 9-18 mmol/L Anion Gap 12 LAB ALT 7-38 U/L ALT High 69 LAB GFRAA eGFR- Amer. >60 LAB GFRNAA . eGFR-All Other Races >60 Result Comment: eGFR (Estimated GFR) Units of measure: mL/min/1.73 meters squared eGFR is derived from the reexpressed MDRD Study equation using the following parameters: serum creatinine, age, gender and race. The creatinine assay has been calibrated to be traceable to IDMS. An eGFR <60 mL/min/1.73m2 for >3 months is consistent with chronic kidney disease. Refer to KDOQI guidelines for clinical interpretation. In patients with unstable renal function, e.g. those with acute kidney injury, the eGFR may not accurately reflect actual GFR. Performed By: #### CMP #### [facility] [employer] [address] [place], [place] [address] PROGRESS Observed: 08/27/2017 Status: COMPLETED Source: [place] 2:36 PM [facility] RE[facility] HNO ID: [id number] Author: Adore Grande Service: (none) Author Type: Physician Type: Progress Notes Filed: 08/27/2017 2:55 PM Note Text: This 61-year-old woman is seen in neuromuscular consultation at the request of Dr. Alicea for evaluation of bilateral foot pain. She is accompanied by her . Her symptoms began in 2011 with pain in the soles, especially the heels. Underwent physical therapy and then was referred to podiatry where she was diagnosed with plantar fasciitis apparently supported by MRI. She underwent releases and symptoms somewhat improved especially on the right. Symptoms returned several months later. Symptoms have migrated somewhat, and are less prominent over the soles and heels and now curved around the medial malleolus and in the arch of the foot bilaterally. Symptoms are prominent with standing but also present with walking. They decrease with sitting and relaxation and are not present in bed. When symptoms are bad and the patient sits down the symptoms can persist for a prolonged period. She has also undergone chiropractic manipulation for symptoms of sciatica and calf pain which seemed to have responded somewhat to chiropractic manipulation. She is able to drive, but most activities of daily living are challenged by her pain when on her feet. She has not responded to trials with gabapentin and pregabalin. EMG performed elsewhere in December,, showed normal and symmetrical sural and medial plantar responses. The past medical history is pertinent for autoimmune hepatitis for which she's been given no specific therapy. 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 She does not smoke and does not take alcohol. She does not currently work outside the house. 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 The family history is pertinent for 2 daughters, one of whom has inflammatory bowel disease and the other has asthma, fibromyalgia, and chronic fatigue. The patient has 2 sisters, 1 with chronic fatigue and 1 with Meniere disease. One brother is with heart disease. Her mother at age 80, related to smoking, cardiac disease, and lung cancer. Her father at age 69 with leukemia. Review of systems, including constitutional symptoms, eyes, ears, nose, throat, cardiovascular, respiratory, GI, , musculoskeletal, skin, psychiatric, endocrine, hematological/lymphatic, and allergic/immunologic is normal, unless otherwise stated above. Itemized examination below is normal unless further described: Carotid auscultation Blood pressure, pulse, respiration General appearance Funduscopic examination of optic discs and vessels Gait Muscle strength of arms and legs Muscle tone, atrophy, fasciculations Mental state: orientation, recent/remote memory, attention/concentration Language function Fund of knowledge Cranial nerves 2 through 12 Sensation Muscle stretch reflexes of all extremities, plantar responses Coordination of the extremities, fine motor control Pertinent findings on neurological examination: Gait: Normal stride and stance, heel to toe walk, Romberg, tandem, hop Motor: Full power all extremities Coordination: Intact in all extremities Muscle stretch reflexes: 1+ to 2 in the upper extremities, 2 at the knees, 2 at the ankles, no Latrell or clonus, plantar responses flexor Sensation: Normal to pin, vibration, proprioception, and light touch in all extremities. There is a 20% decrease in pin sensation at the toes compared to the fingers. Impression: Normal neurological examination without evidence of small or large fiber polyneuropathy. I suspect the symptoms are musculoskeletal/soft tissue in nature, because of their absence when off the feet, lack of sensory deficits on examination, and distribution. It is unclear what potential connection there is between her immune hepatitis and the symptoms. The relates a tendency for the patient to walk heavily with the feet, and this may contribute to mechanical injury. Plan: Labs for B-12, TSH, CRP, serum immunofixation. Suggested yoga or other muscle stretching activity to try to improve symptoms in the feet. 60 minutes, total visit with greater than 50% counseling and coordination of care. Patient had questions regarding disease progression and plan of care, all of which were addressed. Adore Grande MD CC: [place] [id number] [facility] [address] Azul Osorio [id number] [address] [facility] [address]. C-REACTIVE PROTEIN Collected: 08/27/2017 Status: F Source: [facility] 2:25 PM [facility] RE[facility] TYPE CODE TESTS RESULT OUT OF REFERENCE UNITS RANGE LAB CRP <0.9 mg/dL C-Reactive 0.4 Protein Performed By: #### CRP, TSH, B12, IFESC #### [facility] [address] [place], [place] [address] #### CRYAGM #### [facility] [address] [place] [address] [phone] TSH Collected: 08/27/2017 Status: F Source: [place] 2:25 PM [facility] REPOSITORY TYPE CODE TESTS RESULT OUT OF RANGE REFERENCE UNITS LAB TSH 0.400-5.500 uU/mL TSH 1.160 Performed By: #### CRP, TSH, B12, IFESC #### [facility] [address] [place] [phone] #### CRYAGM #### [address] [address] [phone] VITAMIN B12 Collected: 08/27/2017 Status: F Source: [place] 2:25 PM [facility] REPOSITORY TYPE CODE TESTS RESULT OUT OF REFERENCE UNITS RANGE LAB B12 232-1245 pg/mL High Vitamin B12 1303 Performed By: #### CRP, TSH, B12, IFESC #### [place] [phone] #### CRYAGM #### [facility] [address] [id number] [phone] HEATHER SCREEN, SERUM Collected: 08/27/2017 Status: F Source: [place] 2:25 PM [facility] REPOSITORY TYPE CODE TESTS RESULT OUT OF REFERENCE UNITS RANGE LAB MPAR No M protein is identified. No MPA M protein is Result identified. LAB MPASTF Staff Reviewed by Review Scott Xiong M.D. ([id number]) Performed By: #### CRP, TSH, B12, IFESC #### [place] [address] #### CRYAGM #### [address] [id number] [phone] CRYOGLOB QUAL W/RFLX Collected: 08/27/2017 Status: F Source: [place] 2:25 PM [facility] REPOSITORY TYPE CODE TESTS RESULT OUT OF REFERENCE UNITS RANGE LAB CRAGM NEG 72Hour NEG 72HOUR Cryoglobulin , Qual Result Comment: (NOTE) Test developed and characteristics determined by [facility]. See Compliance Statement B: [facility]/CS Performed by [facility], [address] [place] [address] [id number] [email or web address] MD, Lab. Director Performed By: #### CRP, TSH, B12, IFESC #### [facility] [address] [place], [place] [address] #### CRYAGM #### [facility] [address] [place] [address] [phone] HEPATIC FUNCTN PANEL Collected: 08/27/2017 Status: F Source: [place] 2:24 PM [facility] REPOSIT[facility] TYPE CODE TESTS RESULT OUT OF REFERENCE UNITS RANGE LAB ALB 3.9-4.9 g/dL Albumin 4.6 LAB TBIL 0.2-1.3 mg/dL Bilirubin, Total 0.4 LAB CBIL <0.2 mg/dL Bilirubin,Conjuga <0.2 marlen LAB ALKP 32-117 U/L Alkaline High Phosphatase 124 LAB AST 13-35 U/L AST High 72 LAB ALT 7-38 U/L ALT High 192 LAB TP 6.3-8.0 g/dL Protein, Total 7.9 Performed By: #### HFP, SEPG #### [place] [address] [place], [place] [address] PROTEIN ELECTROPHOR. Collected: 08/27/2017 Status: F Source: [place] 2:24 PM [facility] REPOSITORY TYPE CODE TESTS RESULT OUT OF REFERENCE UNITS RANGE LAB TPSPE 6.0-8.4 g/dL Total Protein, SPE 7.1 LAB ALBE 3.37-4.23 gm/dL Albumin 4.04 LAB A1GL 0.18-0.31 gm/dL Alpha 1 Globulin 0.24 LAB A2GL 0.52-0.97 gm/dL Alpha 2 Globulin 0.70 LAB BEGL 0.84-1.36 gm/dL Beta Globulin 0.93 LAB GAGL 0.70-1.44 gm/dL Gamma Globulin 1.19 LAB SPEINT Interpretation SEE COMMENT Result Comment: No definitive M protein is identified on protein electrophoresis. LAB LOC M Protein N/A Location LAB GPERDL 0.00 gm/dL M Niraj 0.00 Concentratn LAB SPESTF SPE Staff Review Reviewed by Scott Xiong M.D. ([id number]) Performed By: #### HFP, SEPG #### [place] [address] [place], [place] [address] ALLERGIES ALLERGIES DATE TYPE / CODE NAME / CODE REACTION SEVERITY SOURCE DRUG TRAMADOL OTHER: SEE C [place] 8 INGREDI/[id number]( [facility] Main SNOMED CT) [place] [facility] DRUG CYCLOBENZAPRINE HCL OTHER: SEE Yeimi [place] 7 INGREDI/[id number]( [facility] SNOMED CT) [place] [facility] Drug Penicillins/[id number] Other Unknown [place] 6 Allergy/[id number]( (RXNORM) [facility]) Hospital Repository Miscellaneous OTHER HIVES [place] Allergy/380722514( [facility] SNOMED CT) [place] [facility] Drug PENICILLINS [place] Class/[id number]([facility] Main OMED CT) [place] [facility] ENCOUNTERS ENCOUNTERS ADMIT/DISCHARGE ACCOUNT ADMITTING ENCOUNTER LOCATION SOURCE NUMBER CLASS 08/20/2018/08/20/19 [id number] Ambulatory [address] Main [place] [facility] 08/18/2018/08/18/19 [id number] Ambulatory [place] [address] Clinic Main [place] [facility] 08/13/2018/08/16/19 [id number] Ambulatory [place] [address] Clinic Main [place] [facility] 08/12/2018 [id number] [facility] ing:[facility] Repository 08/10/2018/08/11/19 [id number] Ambulatory [place] [facility] Main [place] [facility] 08/04/2018/08/05/19 [id number] Ambulatory [place] [address] Clinic Main [place] [facility] 08/02/2018/08/03/19 [id number] Ambulatory [place] [facility] [place] [facility] 07/29/2018/07/29/19 [id number] Ambulatory [place] [facility] [place] [facility] 07/26/2018/07/28/19 [id number] Ambulatory [place] [facility] [place] [facility] 07/22/2018/07/23/20 [id number] Ambulatory [place] [facility] [place] [facility] 07/15/2018/07/16/20 [id number] Ambulatory [place] [facility] Main [place] [facility] 07/13/2018/07/14/20 [id number] Ambulatory [place] [facility] [place] [facility] 07/13/2018/07/13/20 [id number] Ambulatory [place] [facility] [place] Repository 06/28/2018/06/29/20 [id number] Ambulatory [address] Repository 03/19/2018/03/19/20 [id number] Ambulatory [address] Repository 01/26/2018 [id number] [facility] ing:[facility] Repository 10/09/2017/10/10/19 [id number] Ambulatory [address] Repository 08/27/2017 [id number] Ambulatory [facility] Repository 08/27/2017 [id number] Ambulatory [facility] Repository PAYERS PAYERS ENCOUNTER GUARANTOR PAYER SUBSCRIBER SOURCE 08/12/2018 AZUL OSORIO601 Primary STEVIE E Dayanna W [facility] Insurance:MEDICAL FROSTDOB: [address] [id number] [address]Tel: (330) Number: Repository [phone] () [id number] Date:[id number] [id number]: 08/12/2018 Secondary NOT GIVENUNK [place] Insurance:SELF PAY [facility] Number: Effective Repository Date:2018-08-12 01/26/2018 [place]1 Primary STEVIE Alan [facility] O Insurance:MEDICAL FROSTDOB: [address] [id number] [id number]: Number: Repository [id number] (HP) Date:[id number] [phone]: 01/26/2018 Secondary NOT GIVENUNK [place] Insurance:SELF PAY [facility] Number: Effective Repository Date:2018-01-26
--- OUTSIDE RECORDS SUMMARY | 2018-10-17 02:07 | XMS RPT_ITS | Continuity of Care Document ---
:1955 Author Organization [facility] Address [facility] [address] [place] [address] Phone Care Team Providers Name Role Phone Gayla Garcia CNP Unavailable MD Kristal, Lydia Unavailable Narcisa QUIÑONES, Dr. Wes Church Unavailable Dr. Edwin Castle Unavailable Dr. Aníbal Amaro Unavailable Afia Rolon Unavailable Luisa QUIÑONES, Ken Castaneda Unavailable Slarb TENT WORKER, Beverly Unavailable Unavailable HERRERA Duran Unavailable Unavailable Long TENT WORKER, Lizeth L Unavailable Unavailable Unavailable Unavailable Problems Name Dates Details Allergic Rhinitis (J30.9, 477.9) Status: Active Anxiety (F41.9, 300.00) Comments: situational Status: Active Autoimmune hepatitis (K75.4, 571.42) Comments: labs every [address] Yemi [facility] GI/ liver since 2011No need for biopsy. Status: Active Bilateral ankle pain, unspecified chronicity (M25.571, 719.47) Comments: previous surgery for plantar fascitis, now with chronic inflammation and pain Status: Active Bilateral leg cramps (R25.2, 729.82) Comments: Water has helped.set up for ABInot neuropathy Status: Active Bilateral leg pain (M79.604, 729.5) Comments: has had huge work up from multiple specialists was told not neuropathy, sent to [facility], after work up if normal will rule out PADABI done 02-24-18 and results Rt and Left 1.04 N ormal Status: Active BMI 22.0-22.9, adult (Z68.22, V85.1) Status: Active BMI 23.0-23.9, adult (Z68.23, V85.1) Status: Active Chronic sinusitis (J32.9, 473.9) Status: Active Deliveries (Parity) Comments: 2 Status: Active Elevated liver enzymes (R74.8, 790.5) Comments: 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 Eustachian tube dysfunction (H69.80, 381.81) Status: Active Family history of high cholesterol (Z83.42, V18.19) Status: Active Fatigue (R53.83, 780.79) Status: Active Gastroesophageal reflux disease without esophagitis (K21.9, 530.81) Comments: taking otc nexium Status: Active hair loss Status: Active 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, 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 Hypercholesteremia (E78.00, 272.0) Status: Active Insomnia (G47.00, 780.52) Comments: Dr Salinas receabrahanded trazodone 12.5 mg since 10/09.(take quarter of 50 mg) Status: Active Migraine (G43.909, 346.90) Comments: elevetaed LFT so caution with medicationDr Mayra resendiz at [facility] neurlogyMRI 05/11 Status: Active Mitral valve prolapse (I34.1, 424.0) Status: Active MVP (mitral valve prolapse) (I34.1, 424.0) Status: Active Need for prophylactic vaccination and inoculation against influenza (Z23, V04.81) Status: Active Neuropathy (G62.9, 355.9) Status: Active Nonsmoker (Z78.9, V49.89) Status: Active Obstructive sleep apnea, adult (G47.33, 327.23) Comments: On CPAP (Dr Salinas) since 2010? Status: Active Other and unspecified hyperlipidemia (E78.5, 272.4) Comments: LDL went down from 167( 06/12/16) to 123(08/22/16)HDL 87Has autoimmune hepatitis, see Dr Yemi Hernandez(GI/hepatology, [facility]), Dr Bragg: Ok with starting crestor if needed, will need frequent LFT monitoring.Mo ther CABG ( early 70s)Brother MVPMothers brother of massive heart attack age 42Grandfather massive heart attack in 60s Status: Active Postmenopausal (Renamed from Postmenopausal status) (Z78.0, V49.81) Status: Active Postmenopausal atrophic vaginitis (N95.2, 627.3) Status: Active postmenopausal without estrogen Status: Active postmenopausal without estrogen Status: Active Pregnancies () Comments: 2 Status: Active Screening for HPV (human papillomavirus) (Z11.51, V73.81) Status: Active Symptomatic menopausal or female climacteric states (N95.1, 627.2) Status: Active Tarsal tunnel syndrome, bilateral lower limbs (G57.53, 355.5) Status: Active Vitamin D deficiency (E55.9, 268.9) Status: Active Medications Name Dates Details Advil 200 MG Oral Capsule 1 (one) Capsule Capsule 1-2 q6h prn for pain for 0 days Quantity: 30 {Capsule} Refills: 3 Ordered:25-Jun-2016 Philip Meehan MD Start : 23-Apr-2016 Active Aspirin 325 MG Oral Tablet 1/2 as needed (325 MG) Active Comments:Medication taken as needed. 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, aGyla Diop Start : 06-Jul-2018 Active Vitamin D (Cholecalciferol) 1000 UNIT Oral Capsule 1 (one) Capsule Capsule daily for 0 days Quantity: 30 {Capsule} Refills: 0 Ordered:01-Apr-2017 Slarb Beverly BUCHANAN Start : 04-Nov-2016 Active ZyrTEC Allergy 10 MG Oral Tablet 1 (one) Tablet daily for 0 days Quantity: 30 {Tablet} Refills: 0 Ordered:01-Apr-2017 Jose [employer] TE[employer]ER, Gayla Smith CNP, Gayla Diop Start : 01-Apr-2017 Active ACETASOL HC, 2-1% (Otic Solution) 2 (two) Solution TID for 0 days Quantity: 1 {Solution} Refills: 0 Ordered:01-Jan-2010 Barbara Robles Start : 28-Oct-2007 Inactive ANTIVERT, 25MG (Oral Tablet) 1 (one) Tablet Q 8hr/PRN for 0 days Quantity: 60 {Tablet} Refills: 0 Ordered:29-Aug-2008 Tammi Rolon Start : 29-Aug-2008 End : 28-Feb-2009 Inactive CEREFOLIN NAC, 5.6-2-600MG (Oral Tablet) 1 (one) Tablet daily for 0 days Quantity: 90 {Tablet} Refills: 3 Ordered:01-Jan-2010 Barbara Robles Start : 14-Mar-2009 Inactive CIPRO, 250MG (Oral Tablet) 1 Tablet bid for 3 days Quantity: 6 {Tablet} Refills: 0 Ordered:17-Feb-2008 Dorothy Mitchell Start : 17-Feb-2008 End : 21-Feb-2008 Inactive Effexor XR 37.5 MG Oral Capsule Extended Release 24 Hour 1 (one) Capsule ER 24HR two times daily for 90 days Quantity: 180 {Capsule} Refills: 1 Ordered:10-Jul-2017 Long TENT WORKER, Lizeth L Start : 02-Sep-2016 End : 10-Jul-2017 Inactive Gabapentin 300 MG Oral Capsule 1 (one) Capsule tid for 0 days Quantity: 90 {Capsule} Refills: 0 Ordered:10-Jul-2017 Long TENT WORKER, Lizeth L Start : 04-Nov-2016 End : 10-Jul-2017 Inactive Comments:[facility] NASONEX, 50MCG/ACT (Nasal Suspension) 2 (two) Suspension qd for 0 days Quantity: 1 {Suspension} Refills: 3 Ordered:01-Jan-2010 Barbara Robles Start : 24-Aug-2009 Inactive NexIUM 40 MG Oral Capsule Delayed Release 1 (one) Capsule DR bid, prn for 90 days Quantity: 180 {Capsule} Refills: 3 Ordered:04-Aug-2017 Lizeth Kaiser LPN L Start : 28-Dec-2015 End : 04-Aug-2017 Inactive Comments:gastritis - new dx Nucynta 50 MG Oral Tablet 1 (one) Tablet daily for 0 days Quantity: 30 {Tablet} Refills: 0 Ordered:10-Jul-2017 Lizeth Kaiser LPN L Start : 01-Apr-2017 End : 10-Jul-2017 Inactive PREDNISONE, 10MG (Oral Tablet) 3 (three) Tablet daily for 7 days Quantity: 21 {QS} Refills: 0 Ordered:24-Nov-2014 Gayla Garcia CNP, CNP Thu Start : 24-Nov-2014 End : 01-Dec-2014 Inactive PYRIDIUM, 100MG (Oral Tablet) 1 Tablet tid for 3 days Quantity: 6 {Tablet} Refills: 0 Ordered:17-Feb-2008 Dorothy Mitchell Start : 17-Feb-2008 End : 21-Feb-2008 Inactive VAGIFEM, 25MCG (Vaginal Tablet) 1 (one) Tablet 1 q week for 0 days Quantity: 12 {Tablet} Refills: 3 Ordered:10-May-2010 Barbara Robles Start : 29-Aug-2008 End : 10-May-2010 Inactive Vitamin D3 66896 UNIT Oral Tablet 1 (one) Tablet weekly for 60 days Quantity: 8 {Tablet} Refills: 0 Ordered:25-Jun-2016 Philip Meehan MD Start : 25-Jun-2016 End : 24-Aug-2016 Inactive BIAXIN, 500MG (Oral Tablet) 1 Tablet Twice daily for 0 days Quantity: 20 {Tablet} Refills: 0 Ordered:24-Nov-2014 SlaBeverly hart LPN Start : 02-Aug-2014 End : 24-Nov-2014 Discontinued Comments:november substitute genetric CELEBREX, 200MG (Oral Capsule) 1 cap daily, prn (200 MG) End : 04-Nov-2016 Discontinued CLARITIN, 10MG (Oral Tablet) 1 (one) Tablet Tablet daily for 0 days Quantity: 30 {Tablet} Refills: 0 Ordered:17-Sep-2015 Barbara Robels Start : 01-Jan-2015 End : 17-Sep-2015 Discontinued EFFEXOR XR, 37.5MG (Oral Capsule Extended Release 24 Hour) 1 (one) daily (37.5 MG) Start : 21-Nov-2013 End : 25-Nov-2013 Discontinued GABAPENTIN, 100MG (Oral Capsule) 1 cap tid (100 MG) End : 17-Dec-2015 Discontinued [facility], 3-35-2MG (Oral Tablet) 1 tab Tablet bid for 90 days Quantity: 180 {Tablet} Refills: 3 Ordered:21-Mar-2013 Barbara Robles Start : 21-Mar-2013 End : 24-Mar-2014 Discontinued Comments:This order discontinued per [facility]. MUCINEX, 600MG (Oral Tablet Extended Release 12 Hour) 1 (one) Tablet ER 12HR Tablet ER 12HR bid for 0 days Quantity: 30 {Tablet} Refills: 0 Ordered:17-Sep-2015 Barbara Robles Start : 01-Jan-2015 End : 17-Sep-2015 Discontinued NASACORT AQ, 55MCG/ACT (Nasal Aerosol Solution) 2 (two) Aerosol Soln qd for 30 days Quantity: 1 {Aerosol_Soln} Refills: 3 Ordered:20-Aug-2012 DO, Maryann A Start : 20-Aug-2012 End : 20-Aug-2012 Discontinued NEXIUM, 20MG (Oral Packet) 1 (one) Packet bid for 0 days Quantity: 60 {Packet} Refills: 0 Ordered:11-Jan-2016 Beverly Rodrigues LPN Start : 28-Dec-2015 End : 11-Jan-2016 Discontinued PREVACID, 30MG (Oral Capsule Delayed Release) 1 (one) Capsule DR QD for 0 days Quantity: 90 {Capsule_DR} Refills: 3 Ordered:29-Aug-2008 DO Maryann A Start : 29-Aug-2008 End : 29-Aug-2008 Discontinued Sucralfate 1 GM/10ML Oral Suspension 10 Milliliter 1 hr before meals and at bedtime for 0 days Quantity: 1 {Bottle} Refills: 0 Ordered:04-Nov-2016 Beverly Rodrigues LPN Start : 11-Jan-2016 End : 04-Nov-2016 Discontinued TOPICORT, 0.25% (External Ointment) 1 (one) Ointment bid for 0 days Quantity: 1 {Tube} Refills: 0 Ordered:11-Dec-2014 Barbara Robles Start : 24-Nov-2014 End : 11-Dec-2014 Discontinued VITAMIN D, 52101YEWP (Oral Capsule) 1 Weekly for 0 days Refills: 0 Ordered:10-May-2010 Barbara Robles End : 10-May-2010 Discontinued Comments:This order discontinued per [facility]. Vitamin D3 2000 UNIT Oral Tablet 2 (two) Tablet qd for 0 days Quantity: 90 {Tablet} Refills: 0 Ordered:04-Nov-2016 Slarb TENT WORKER, Beverly Start : 04-Aug-2014 End : 04-Nov-2016 Discontinued ZYRTEC, 10MG (Oral Tablet) 1 Tablet qd for 0 days Quantity: 90 {Tablet} Refills: 3 Ordered:11-May-2007 Barbara Robles Start : 11-May-2007 End : 10-May-2010 Discontinued Comments:This order discontinued per [facility]. Allergies and Adverse Reactions Name Dates Details Flexeril *MUSCULOSKELETAL THERAPY AGENTS* (Allergy) Status: Active Heat allergy (Allergy) Status: Active OxyCODONE HCl *ANALGESICS - OPIOID* (Allergy) Status: Active Comments: rash PCN (Allergy) Status: Active Past Medical History Name Dates Details Abdominal pain, acute, right lower quadrant (R10.31, 789.03) Comments: is this from ulcer like issue, vs pancreatitis vs other will add sulcrafate and rule out pancreatititis get lipase amylase follow up , this done relief with sulcrafate, pancreatic enzymes normal. Elevat ed alk phos, but less than in past fractionated showing majority from liver . Last liver biopsy 2006, would follw alk phos assure, anju and pap to be uptodate last colonoscopy () Status: Inactive as of 02-Sep-2016 Abnormal mammogram (R92.8, 793.80) Status: Inactive as of 04-Oct-2010 Benign paroxysmal positional vertigo (H81.10, 386.11) Status: Resolved as of 27-Dec-2008 BMI between 19-24,adult (V85.1) Status: Inactive as of 01-Apr-2017 Body mass index (BMI) 21 to less than 23 (V85.1) Status: Inactive as of 01-Apr-2017 Bursitis of hip, unspecified laterality (726.5) Comments: therapy helped Status: Inactive as of 02-Sep-2016 Chronic serous otitis media, unspecified laterality (H65.20, 381.10) Status: Resolved as of 27-Dec-2008 cmv acute Status: Resolved as of 17-Apr-2008 Contact dermatitis (L25.9, 692.9) Status: Resolved as of 18-Apr-2015 Cough (R05, 786.2) Status: Resolved as of 18-Apr-2015 Elevated blood-pressure reading without diagnosis of hypertension (R03.0, 796.2) Status: Inactive as of 04-Oct-2010 Elevated LFTs (R94.5, 790.6) Status: Inactive as of 02-Sep-2016 Encounter for gynecological examination without abnormal finding (Z01.419, V72.31) Status: Inactive as of 02-Sep-2016 Epigastric pain (R10.13, 789.06) 21-Oct-2010 Status: Resolved as of 28-Feb-2011 Excess or deficiency of vitamin D (268.9) Comments: VIt D levels 101.6(high) after Vit D 3 15343 Units/weeksX7 weeks, stop Vit D3 and recheck vit D3 in 4 mnth Status: Resolved as of 04-Nov-2016 Fatigue (R53.83, 780.79) Status: Resolved as of 04-Oct-2010 GASTRITIS, ACUTE W/O HEMORRHAGE (535.00) Status: Resolved as of 28-Feb-2011 Hematuria (R31.9, 599.7) Status: Resolved as of 04-Feb-2010 Infectious gastroenteritis and colitis, unspecified (A09, 009.0) Status: Resolved as of 04-Jul-2011 Infectious gastroenteritis and colitis, unspecified (A09, 009.0) Status: Resolved as of 04-Oct-2010 LARYNGITIS (J04.0, 464.00) Status: Resolved as of 18-Apr-2015 Low Back Pain (M54.5, 724.2) Status: Inactive as of 02-Sep-2016 Low back pain potentially associated with radiculopathy (M54.5, 724.2) Comments: seeing Dr Hawk for injections Status: Inactive as of 02-Sep-2016 Neuropathy of both feet (G57.93, 356.9) Comments: Dr. Leon Birch had nerve conduction ruled out peripheral neuropathy will biopsy next month,increased gabapentin 3600mg per day. has not touched it, now off of that, was given by from [facility]. Onl y steroids helped. Was on Nucynta schedule II opiod but did not take it Looking for Answer will see Dr. Babb Levinesteroids helped but cant be on foreeverStarted in 2011 Status: Inactive as of 26-Jan-2018 Otitis media (H66.90, 382.9) Status: Resolved as of 27-Dec-2008 Pain in Thoracic Spine (724.1) (Renamed from PAIN IN THORACIC SPINE) (M54.6, 724.1) Status: Inactive as of 02-Sep-2016 Plantar fasciitis (M72.2, 728.71) Status: Inactive as of 01-Apr-2017 Rash (R21, 782.1) Status: Resolved as of 11-Dec-2014 Rhinitis, chronic (J31.0, 472.0) Status: Inactive as of 02-Sep-2016 screening Status: Inactive as of 18-Apr-2015 screening Status: Inactive as of 18-Apr-2015 screening Status: Inactive as of 18-Apr-2015 screening Status: Inactive as of 18-Apr-2015 screening Status: Inactive as of 28-Feb-2011 Screening for breast cancer (Z12.39, V76.10) Status: Resolved as of 18-Apr-2015 Shoulder pain (M25.519, 719.41) Status: Inactive as of 01-Apr-2017 Unspecified Diagnosis Status: Inactive as of 18-Apr-2015 Unspecified Diagnosis Status: Inactive as of 18-Apr-2015 Well woman exam (Renamed from Encounter for well woman exam) (Z01.419, V72.31) Comments: pap 05/10: insufficiet sample, repeat todayMAmmogram: 02/18/16 BD: never done because insurance does nor cover it before age 64Colonoscopy:0ct 9 2014, 10 years Status: Inactive as of 02-Sep-2016 Well woman exam with routine gynecological exam (Z01.419, V72.31) Status: Inactive as of 25-May-2012 Procedures Procedure Dates Details right plantar fascia- 2013[facility] Completed Date Value Details 4-Jam-2018 Venous Duplex Lower Extremity Result: Comments: See Note; NOTES: [facility] Cardiovascular Services [address] [place] [address] Venous Duplex US - Familia Extrem 01/26/18 1502 MR#: [id number] Acct: [id number] Name: AZUL GONZALEZ Rep #: [id number] : 1955 62 From: Sergio Ortega MD Attending Dr: Gayla Garcia NP Status: REG CLI Ordering Dr: Gayla Garcia Date: 01/26/18 Location: [facility] Sex: F C Admitted: Reason For Study: LEG PAIN RIGHT LEFT GSV is normal. GSV is normal. CFV is compressible, spontaneous, phasic, CFV is compressible, spontaneous, phasic, competent and demonstrates normal competent, and demons trates normal augmentation. augmentation. FV is compressible, spontaneous, phasic, FV is compressible, spontaneous, phasic, competent and demonstrates normal competent and demonstrates normal augmentati on. augmentation. POP V is compressible, spontaneous, phasic, POP V is compressible, spontaneous, phasic, competent and demonstrates normal competent and demonstrates normal augmentation. augmentation. T/P Trunk is compressible. T/P Trunk is compressible. PTV is compressible. PTV is compressible. RT PerV is compressible. LT PerV is compressible. Procedure Exam performed in department. A preliminary re port was called and/or faxed to Hayes Garcia. [...] Gayla Garcia Performed By: Karen Hauser RVT Electronic ally signed by: Sergio Ortega MD on 01/27/2018 04:35 PM 01/27/18 1635 Date Sergio Ortega MD CC: Gayla Garcia NP Date Dictated: 01/26/18 1502 Date Trans cribed: 01/27/18 1635 Personal Companion: Signed 03-Jul-2017 SCREENING MAMM (CAD), BILAT Result: Comments: See Note; NOTES: [facility] Imaging Services [address] [place] [address] SCREENING MAMM (CAD), BILAT MR#: [id number] Acct: [id number] Name: AZUL GONZALEZ Rep #: [id number] : 1955 F 61 From: Edgar Marcelo MD PCP: Gayla Garcia NP Status: REG CLI Study: SCREENING MAMM (CAD), BILAT Date of Exam: 07/03/17 Exam# [id number] Ordering Dr: Gayla Garcia MAMMOGR APHY - BILATERAL SCREENING REASON FOR EXAM: Female, 61 years old. Routine annual screening examination. PERTINENT HISTORY: Non-contributory. TECHNIQUE: Digital bilateral breast mo (3D mammographic acquisition) in the CC and MLO projections. 2-D mediolateral oblique (MLO) and craniocaudad (CC) views of both breasts were obtained. CAD: Full Field Digital Mammography with Computer Added Detection wa s performed. COMPARISON: Comparison is made with prior study dated February 18, 2016 and December 29, 2014. FINDINGS: Breast Composition: The breasts are heterogeneously den se, which may obscure small masses. There are no dominant masses or suspicious calcifications. No other significant abnormalities are identified. There has been no significant change since the prior s rakan. HPBI/SCREENING MAMM (CAD), BILAT IMPRESSION: Stable bilateral screening mammogram. Yearly follow-up mammogram recommended. (A) ASSESSMENT CATEGORY: BIRADS Category 1: Negative. A letter regarding these results will be sent to the patient by the facility within 30 days. Approximately 10% of breast canc ers are not detected by mammography. A normal mammogram should not delay biopsy of a clinically suspicious abnormality. [id number] Electronically Signed: Edgar Marcelo MD at 12:51 EST Tel [phone], Service support , CC: Gayla Garcia NP Personal Companion: Signed 03-Jun-2016 Emergency Department Summary Result: Comments: See Note; NOTES: [facility] Medical Records Department [address] [place] [id number] Emergency Department Summary MR#: [id number] Acct: [id number] Name: AZUL GONZALEZ Rep #: [id number] : 1955 60 From: Harpreet Lao MD PCP: Philip Meehan Status: [facility] ER DATE OF SERVICE: 06/01/2016 METHOD OF ARRIVAL: By private car. CHIEF COMPLAINT: Left jaw pain, tooth clive n. PRIMARY CARE: Dr. Philip Meehan TALAVERA HISTORY: A 60-year-old female with history of high cholesterol, sleep apnea, liver disease. The patient comes in with left-sided jaw pain, tooth pain. Symptoms sta rted 3 days ago. It is left side, lower. She does complain of hot and cold sensitivity. She is unaware of any injury. She was seen at urgent care. She was given clindamycin as well as hydrocodone, but t his is not improving. She does complain of associated left-sided earache as well. She has been trying to get in to see her dentist, but has been unsuccessful. PHYSICAL EXAMINATION: VITAL SIGNS: Stable. Afebrile. HEENT: There is no mandibular or maxillary swelling. No facial erythema. Mouth and throat, there is no pharyngeal erythema, exudate or masses. She has no sublingual edema. Normal Stensen's du ct. No trismus. She has multiple teeth missing. She does have some focal decay in the left lower canine area. Premolar area rather is a blackened area in the posterior aspect of her tooth, but there is no gum swelling. There is no abscess. She has no trismus with the remainder of the exam unremarkable. EMERGENCY DEPARTMENT COURSE: The patient declined a dental block. She will be switched to oxycodone since she has liver disease and hydrocodone is not working. She is already on clindamycin. Encouraged to continue that. She is also encouraged to see a dentist as soon as possible. CLINICAL IMPRESSION : Dental caries. DISPOSITION: Home. Harpreet Lao MD C C: Dr. Philip Meehan T: NTS JOB: [id number] 06/03/16 0735 <Electronically signed by Harpreet Lao MD> Date Harpreet Lao MD Cosigner Signature (If Indicated): Date CC: Philip Meehan Date Dictated: 06/01/161727 Date Transcribed: 06/01/161727 Personal Companion: Signed 01-Jun-2016 Discharge Instruction Result: Comments: See Note; NOTES: [facility] Medical Records Department [address] [place] [id number] Discharge Instruction 06/01/161724 MR#: [id number] Acct: [id number] Name: AZUL GONZALEZ Rep #: [id number] : 1955 60 From: Harpreet Lao MD PCP: Philip Meehan Status: PRE ER ED Disposition - Plan for ED Patient: Disposition: Home or Assisted Living Chief Complaint: Other, Pain/Inj Instructions: ED Tooth Pain Prescriptions: Oxycodone [Oxyir] 10 mg PO Q6H PRN PRN #14 tablet PRN Reason: Pain Additional Instructions: see dentist FARHAD What to do if you have Problems For a ny increased pain, shortness of breath, bleeding, nausea or vomiting, chest pain, or any unexpected problems, contact your Primary Care Provider. Call [facility] ([phone]) or report to the [facility] Emergency Room. Call 911 if necessary. 06/01/16 1726 <Electronically signed by Harpreet Lao MD> Date Harpreet Lao MD Cosigner S ignature (If Indicated): Date CC: Philip Meehan 18-Feb-2016 Bilat Scrn Digital AND CAD Result: Comments: See Note; NOTES: [facility] Imaging Services [address] [place] [address] Verdana 4d Bilat Scrn Digital AND CAD MR#: [id number] Acct: [id number] Name: AZUL GONZALEZ Rep #: [id number] : 1955 F 60 From: Greta Burleson MD PCP: Philip Meehan Status: [facility] Study: Bilat Scrn Digital AND CAD Date of Exam: 02/18/16 Exam# [id number] Ordering Dr: Maryann Adams DO MAMMOGRAPHY - BILATERAL SCREENING REASON FOR EXAM: Female, 60 years old. Routine annual screening examination. PERTINENT HISTORY: NO FM HX- NO PREV SURG'S. PT TOLERATED VERY LITLE COMPRESSION TECHNIQUE: Digital bilateral breast tomosynthesis (3-D mammographic acquisition) in the CC and MLO projections. Synthesized 2-D images (C-View reconstruction from tomosynthesis acquisiti on) providing bilateral breast CC and MLO views. Mediolateral oblique (MLO) and craniocaudad (CC) views of both breasts were obtained. CAD: Full Field Digital Mammography with Computer Added Detectio n was performed. COMPARISON: MG - Breast Bilateral - 10:01, MG - Breast Bilateral - 09:06 FINDINGS: Breast Density: C - Heterogeneously dense, which may obscure small masses. There are no dominant masses or suspicious calcifications. No other significant abnormalities are identified. CC: Kari Cabezas DO; Philip Meehan Personal Companion: Signed 18-Feb-2016 Bilat Scrn Digital AND CAD Result: Comments: See Note; NOTES: [facility] Imaging Services [address] [place] [address] Verdana 4d Bilat Scrn Digital AND CAD MR#: [id number] Acct: [id number] Name: AZUL GONZALEZ Rep #: [id number] : 1955 F 60 From: Greta Burleson MD PCP: Philip Meehan Status: REG CLI Study: Bilat Scrn Digital AND CAD Date of Exam: 02/18/16 Exam# [id number] Ordering Dr: Maryann Adams DO MAMMOGRAPHY - BILATERAL SCREENING REASON FOR EXAM: Female, 60 years old. Routine annual screening examination. PERTINENT HISTORY: NO FM HX- NO PREV SURG'S. PT TOLERATED VERY LITLE COMPRESSION TECHNIQUE: Digital bilateral breast tomosynthesis (3-D mammographic acquisition) in the CC and MLO projections. Synthesized 2-D images (C-View reconstruction from tomosynthesis acquisiti on) providing bilateral breast CC and MLO views. Mediolateral oblique (MLO) and craniocaudad (CC) views of both breasts were obtained. CAD: Full Field Digital Mammography with Computer Added Detectio n was performed. COMPARISON: MG - Breast Bilateral - 10:01, MG - Breast Bilateral - 09:06 FINDINGS: Breast Density: C - Heterogeneously dense, which may obscure small masses. There are no dominant masses or suspicious calcifications. No other significant abnormalities are identified. HPBI/Bilat Scrn Digital AND CAD IMPRESSION: Stable bilateral screening mammogram. Yearly follow-up mammogram recommended. (A) ASSESSMENT CATEGORY: BIRADS Category 2: Benign. A letter regarding these results will be sent to the patient by the facility within 30 days. Approximately 10% of breast cancers are not detected by mammography. A normal mammogram should not delay biopsy of a clinically suspicious abnormality. [id number] Electronically Signed: Greta Burleson MD at 16:01 EDT Tel , Service support [phone] , CC: Maryann Meehan Personal Companion: Signed 10-Oct-2015 NCS and/or EMG Patient Result: Comments: See Note; NOTES: [facility] Pulmonary Services/Neurology [address] [place] [address] NCS and/or EMG Patient MR#: [id number] Acct: [id number] Name: AZUL GONZALEZ Rep #: [id number] : 1955 60 From: Al Figueroa Referring Dr: Janak Thomas DPM Status: REG CLI Ordering Dr: Janak Thomas DPM Date: 10/10/15 Location: [facility] Sex: F C DA TE OF SERVICE: REFERRING PHYSICIAN: Janak Thomas DPM. HISTORY OF PRESENT ILLNESS: The patient is a 60-year-old female with feet pain and numbness. ELECTRODIAGNOSTIC FINDINGS: Normal nerve stimulation studies in areas tested both legs. No evidence of nerve slowing or amplitude loss. Normal EMG in areas tested both legs and foot intrinsic muscles. No evidence of lower motor neuron or m uscle pathology. IMPRESSION: No significant electrodiagnostic abnormality to indicate to nerve entrapments such as tarsal tunnel syndrome. No evidence of polyneuropathy, lumbosacral radiculopathy or other nerve lesion. Consider pain and painful paresthesias from soft tissue problems including tendonitis, sprains, plantar fasciitis and other causes of referred pain. She will follow up with Dr. Thomas for further review. Thank you for this referral. Al Figueroa MD T: NTS JOB: [id number] 10/10/15 2333 <Electronically signed by Al Figueroa > Date ___ Al Figueroa CC: Maryann Cabezas DO; AL FIGUEROA; Janak Thomas DPM Date Dictated: 10/10/15828 Date Transcribed: 10/10/15828 Personal Companion: Signed 29-Dec-2014 Bilat Scrn Digital AND CAD Result: Comments: See Note; NOTES: [facility] Imaging Services [address] [place] [address] Breast Imaging Report MR#: [id number] Acct: [id number] Name: AZUL GONZALEZ Rep #: [id number] : 1955 F 59 From: Edgar Marcelo MD PCP: Maryann Cabezas DO Status: REG CLI Study: Billazaro Barrett Digital AND CAD Date of Exam: 12/29/14 Exam# [id number] Ordering Dr: Maryann Cabezas DO MAMMOGRAPHY - BILATERAL SCREENING REASON FOR EXAM: Female, 59 years old. Routine annual screening examination. PERTINENT HISTORY: Non-contributory. TECHNIQUE: Digital examination. Mediolateral o blique (MLO) and craniocaudad (CC) views of both breasts were obtained. CAD: CAD was performed on this study. COMPARISON: Comparison is made with prior study dated October 18, 2013 and May 07. FINDINGS: Breast Composition: The breasts are heterogeneously dense, which may obscure small masses. There are no dominant masses or suspicious calcificati ons. No other significant abnormalities are identified. There has been no significant change since the prior study. IMPRESSION: Stable bilateral screening mamm ogram. Yearly follow-up recommended. (A) ASSESSMENT CATEGORY: BIRADS Category 2: Benign. A letter regarding these results will be sent to the patient by the faci lity within 30 days. Approximately 10% of breast cancers are not detected by mammography. A normal mammogram should not delay biopsy of a clinically suspicious abnormality. Electronically Signed: Edgar Marcelo MD at 11:21 EDT Tel [phone], Service support [phone], CC: Maryann Cabezas DO Personal Companion: Signed 05-May-2014 12 Lead Electrocardiogram Result: Comments: See Note; NOTES: [facility] Cardiovascular Services [address] [place] [id number] 12 Lead EKG 05/05/147 MR#: [id number] Acct: [id number] Name: AZUL GONZALEZ Rep #: [id number] : 1955 58 From: Shahriar Elizondo MD Attending Dr: Janak Thomas DPRanjit Status: REG CLI Ordering Dr: Janak Thomas DPM Date: 05/05/14 Location: LAB Sex: F C Admitted: Test Reason : PRE OP Blood Pressure : / mmHG Vent. Rate : 056 BPM Atrial Rate : 056 BPM P-R Int : 152 ms QRS Dur : 084 ms QT Int : 398 ms P-R-T Axes : 038 070 051 degrees QTc Int : 384 ms Sinus bradycardia Otherwise normal ECG Confirmed by SHAHRIAR ELIZONDO ([id number]), makeup editor KARIN BRAVO ([id number]) on 05/05/2014 2 :58:47 PM Referred By: JANIE Confirmed By:SHAHRIAR ELIZONDO 05/05/14 1458 Date Shahriar Elizondo MD CC: Maryann Cabezas DO Date Dictated: 05/05/14 1237 Date Transcribed: 05/05/141236 Personal Companion: Signed 05-May-2014 Chest PA and Lateral Result: Comments: See Note; NOTES: [facility] Imaging Services [address] [place] [address] Radiology Report MR#: [id number] Acct: [id number] Name: AZUL GONZALEZ Rep #: [id number] : 1955 F 58 From: Marbin Peñaloza PCP: Maryann Cabezas DO Status: REG CLI Study: Chest PA and Lateral Date of Exam: 05/05/14 Exam# [id number] Ordering Dr: Janak Thomas DPM STUDY: X -RAY CHEST REASON FOR EXAM: Female, 58 years old. NO complaints. TECHNIQUE: PA and lateral COMPARISON: None. FINDINGS: The lungs are clear and expanded. Th ere is no demonstrated pleural abnormality. Normal size heart. Normal mediastinum and brandon. Normal visualized pulmonary arteries. Normal visualized aortic arch and descending thoracic aorta. Norm al visualized thoracic spine. Normal visualized ribs, clavicles, and shoulders. There is no demonstrated abnormality of the visualized soft tissue structures of the upper abdomen. IMPRESSION: Normal x-ray examination of the chest. Electronically Signed: Marbin Peñaloza MD at 0:01 EDT , Service support [phone], Fax RAD/Chest PA and Lateral IMPRESSION: Normal x-ray examination of the chest. Electronically Signed: Marbin Peñaloza MD at 0:01 EDT Tel , Service support [phone], CC: Maryann Thomas Personal Companion: Signed 06-Mar-2014 Bone Scan Whole Body Result: Comments: See Note; NOTES: [facility] Imaging Services [address] [place] [address] Nuclear Medicine Report MR#: [id number] Acct: [id number] Name: AZUL GONZALEZ Rep #: [id number] : 1955 F 58 From: Marshall Wilkes DO PCP: Maryann Cabezas DO Status: REG CLI Study: Bone Scan Whole Body Date of Exam: 03/06/14 Exam# [id number] Ordering Dr: Wes Shea CLINICAL : 58-year-old female with reported history of thoracic spine pain. WHOLE BODY Tc MDP RADIONUCLIDE BONE SCINTIGRAPHY COMPARISON: None available FINDINGS: Following the intravenous administration of 25.2 mCi of Tc MDP, whole body bone images reveal: 1. Increased radiopharmaceutical concentration is demonstrated in the acromioclavicular compartments of both shoulders, the pubic symphysis, r ight sacroiliac joint, medial tibial compartment of the right knee, dorsal talotibial compartment of the right-left ankles, the right mid foot. 2. Subtle asymmetric increased uptake is noted in the gr eater trochanteric aspect of the left proximal femur. 3. The remaining skeletal structures are scintigraphically unremarkable with normal-appearing renal images and urinary bladder activity identifie d. An increase in uptake is demonstrated in the bilateral mandible consistent with periodontal disease and/or periostitis. IMPRESSION: 1. The increase in radiopharmaceutical concentration identifie d in the bilateral shoulders, pubic symphysis, right sacroiliac joint, right knee, ankle articulations bilaterally and right mid foot is consistent with degenerative arthrosis. 2. Increased uptake identified in the greater trochanteric aspect of the left proximal femur is consistent with periostitis and/or trochanteric bursitis. Electronically Signed: Marshall Wilkes DO at 19:05 E DT Tel [phone], Service support [phone], CC: Maryann Cabezas DO; Wes Shea Personal Companion: Signed 18-Oct-2013 Bilat Scrn Digital & CAD Result: Comments: See Note; NOTES: [facility] Imaging Services [address] [place] [address] Breast Imaging Report MR#: [id number] Acct: [id number] Name: AZUL GONZALEZ Rep #: [id number] : 1955 F 58 From: Edgar Marcelo MD PCP: Maryann Cabezas DO Status: REG CLI Exam# [id number] Ordering Dr: Maryann Cabezas DO MAMMOGRAPHY - BILATERAL SCREENING REASON FOR EXAM: Artur mcdowell, 58 years old. Routine annual screening examination. PERTINENT HISTORY: Non-contributory. TECHNIQUE: Digital examination. Mediolateral oblique (MLO) and craniocaudad (CC) views of both breasts were obtained. CAD: CAD was performed on this study. COMPARISON: Comparison is made with prior study dated May 07, 2012 and March 20, 2011. FINDINGS: The breast composition is heterogeneously dense - ranging from 51% to 75% of the breast tissue. There are no dominant masses or suspicious calcifications. No other significant abnormalities are identi fied. There has been no significant change since the prior study. IMPRESSION: Stable bilateral screening mammogram. Yearly follow-up recommended. (A) ASSESSMENT CATEGORY: BIRADS Category 2: Benign finding(s). A letter regarding these results will be sent to the patient by the facility within 30 days. Approximately 10% of breast cancers are not detected by mammography. A normal mammogram should not delay biopsy of a clinically suspicious abnormality. Electronically Signed: Edgar Marcelo M.D. at 9:08 EDT , Service support [phone], CC: Maryann Cabezas DO Personal Companion: Signed Immunization Name Dates Details Influenza (3 years and up) on: 08-Jul-2006 Influenza (3 years and up) on: 08-Jul-2006 Influenza (3 years and up) on: 11-May-2007 Comments: Lot #:[id number] date:01/01Amount given:0.5mlRoute: IMSite given:left deltoidGiven by: ROSALINA Iniguez Family History Unknown Family Member Name Dates Details Father Comments: age 69- acute leukemia Status: Active Mother Comments: 80 - lung cancer-smoker -copd Status: Active Social History Name Dates Details Alcohol Use Comments: Occasional alcohol use Status: Active Caffeine Use Status: Active No Drug Use Status: Active Non Smoker/No Tobacco Use Status: Active Tobacco use: Never smoker. Status: Active Smoking Status Name Dates Details Never smoker Vital Signs Date Test Result Details :52 Temperature 97.9 f Comments: Method: Temporal Pulse 68 /min Comments: Pattern: Regular Respiration Rate 18 /min Comments: Pattern: Unlabored O2 SAT 99 % Comments: Room air BP Systolic 114 mm[Hg] Comments: Patient Position: Sitting; Cuff Location: Left Arm; Cuff Size: Standard BP Diastolic 74 mm[Hg] Comments: Patient Position: Sitting; Cuff Location: Left Arm; Cuff Size: Standard Weight 121 lb Height 61.25 in Body Mass Index Calculated 22.68 kg/m2 Body Surface Area Calculated 1.53 m2 :15 Temperature 97 f Pulse 64 /min Comments: Pattern: Regular Respiration Rate 17 /min Comments: Pattern: Unlabored O2 SAT 99 % Comments: Room air BP Systolic 122 mm[Hg] Comments: Patient Position: Sitting; Cuff Location: Left Arm; Cuff Size: Standard BP Diastolic 82 mm[Hg] Comments: Patient Position: Sitting; Cuff Location: Left Arm; Cuff Size: Standard Weight 121 lb Height 61.25 in Body Mass Index Calculated 22.68 kg/m2 Body Surface Area Calculated 1.53 m2 :19 Temperature 97.9 f Pulse 71 /min Comments: Pattern: Regular Respiration Rate 17 /min Comments: Pattern: Unlabored O2 SAT 98 % Comments: Room air BP Systolic 110 mm[Hg] Comments: Patient Position: Sitting; Cuff Location: Left Arm; Cuff Size: Standard BP Diastolic 74 mm[Hg] Comments: Patient Position: Sitting; Cuff Location: Left Arm; Cuff Size: Standard Weight 121 lb Height 61.25 in Body Mass Index Calculated 22.68 kg/m2 Body Surface Area Calculated 1.53 m2 :09 Temperature 97.9 f Comments: Method: Temporal Pulse 91 /min Comments: Pattern: Regular Respiration Rate 16 /min Comments: Pattern: Unlabored O2 SAT 98 % Comments: Room air BP Systolic 126 mm[Hg] Comments: Patient Position: Sitting; Cuff Location: Left Arm; Cuff Size: Standard BP Diastolic 74 mm[Hg] Comments: Patient Position: Sitting; Cuff Location: Left Arm; Cuff Size: Standard Weight 119 lb Height 61.25 in Body Mass Index Calculated 22.3 kg/m2 Body Surface Area Calculated 1.52 m2 :39 Temperature 98 f Comments: Method: Temporal Pulse 86 /min Comments: Pattern: Regular Respiration Rate 16 /min Comments: Pattern: Unlabored O2 SAT 97 % Comments: Room air BP Systolic 122 mm[Hg] Comments: Patient Position: Sitting; Cuff Location: Left Arm; Cuff Size: Standard BP Diastolic 74 mm[Hg] Comments: Patient Position: Sitting; Cuff Location: Left Arm; Cuff Size: Standard Weight 120 lb Height 61.25 in Body Mass Index Calculated 22.49 kg/m2 Body Surface Area Calculated 1.53 m2 :25 Temperature 97.6 f Pulse 63 /min Comments: Pattern: Regular Respiration Rate 16 /min Comments: Pattern: Unlabored O2 SAT 98 % Comments: Room air BP Systolic 118 mm[Hg] Comments: Patient Position: Sitting; Cuff Location: Left Arm; Cuff Size: Standard BP Diastolic 72 mm[Hg] Comments: Patient Position: Sitting; Cuff Location: Left Arm; Cuff Size: Standard Weight 123.25 lb Height 61.25 in Body Mass Index Calculated 23.1 kg/m2 Body Surface Area Calculated 1.54 m2 :26 Temperature 98.1 f Pulse 69 /min Comments: Pattern: Regular Respiration Rate 17 /min Comments: Pattern: Unlabored O2 SAT 98 % Comments: Room air BP Systolic 112 mm[Hg] Comments: Patient Position: Sitting; Cuff Location: Left Arm; Cuff Size: Standard BP Diastolic 68 mm[Hg] Comments: Patient Position: Sitting; Cuff Location: Left Arm; Cuff Size: Standard Weight 118 lb Height 61.25 in Body Mass Index Calculated 22.11 kg/m2 Body Surface Area Calculated 1.51 m2 :51 Temperature 98 f Comments: Method: Temporal Pulse 90 /min Comments: Pattern: Regular Respiration Rate 15 /min Comments: Pattern: Unlabored O2 SAT 98 % Comments: Room air BP Systolic 110 mm[Hg] Comments: Patient Position: Sitting; Cuff Location: Left Arm; Cuff Size: Standard BP Diastolic 68 mm[Hg] Comments: Patient Position: Sitting; Cuff Location: Left Arm; Cuff Size: Standard Weight 119 lb Height 61.25 in Body Mass Index Calculated 22.3 kg/m2 Body Surface Area Calculated 1.52 m2 :25 Temperature 98.4 f Comments: Method: Temporal Pulse 62 /min Comments: Pattern: Regular Respiration Rate 16 /min Comments: Pattern: Unlabored O2 SAT 99 % Comments: Room air BP Systolic 112 mm[Hg] Comments: Patient Position: Sitting; Cuff Location: Left Arm; Cuff Size: Standard BP Diastolic 70 mm[Hg] Comments: Patient Position: Sitting; Cuff Location: Left Arm; Cuff Size: Standard Weight 115 lb Height 61.25 in Body Mass Index Calculated 21.55 kg/m2 Body Surface Area Calculated 1.5 m2 :17 Temperature 98.2 f Comments: Method: Temporal Pulse 70 /min Comments: Pattern: Regular Respiration Rate 16 /min Comments: Pattern: Unlabored O2 SAT 98 % Comments: Room air BP Systolic 110 mm[Hg] Comments: Patient Position: Sitting; Cuff Location: Left Arm; Cuff Size: Standard BP Diastolic 68 mm[Hg] Comments: Patient Position: Sitting; Cuff Location: Left Arm; Cuff Size: Standard Weight 115 lb Height 61.25 in Body Mass Index Calculated 21.55 kg/m2 Body Surface Area Calculated 1.5 m2 :14 Temperature 98.2 f Comments: Method: Temporal Pulse 62 /min Comments: Pattern: Regular Respiration Rate 16 /min Comments: Pattern: Unlabored O2 SAT 98 % Comments: Room air BP Systolic 118 mm[Hg] Comments: Patient Position: Sitting; Cuff Location: Left Arm; Cuff Size: Standard BP Diastolic 70 mm[Hg] Comments: Patient Position: Sitting; Cuff Location: Left Arm; Cuff Size: Standard Weight 117 lb Height 61.25 in Body Mass Index Calculated 21.93 kg/m2 Body Surface Area Calculated 1.51 m2 :17 Temperature 98.2 f Pulse 76 /min Comments: Pattern: Regular Respiration Rate 18 /min Comments: Pattern: Unlabored O2 SAT 98 % Comments: Room air BP Systolic 92 mm[Hg] Comments: Patient Position: Sitting; Cuff Location: Left Arm; Cuff Size: Standard BP Diastolic 52 mm[Hg] Comments: Patient Position: Sitting; Cuff Location: Left Arm; Cuff Size: Standard Weight 118 lb Height 61.25 in Body Mass Index Calculated 22.11 kg/m2 Body Surface Area Calculated 1.51 m2 :40 Comments: pain at worst is 5 Temperature 97.9 f Pulse 77 /min Comments: Pattern: Regular Respiration Rate 16 /min Comments: Pattern: Unlabored O2 SAT 98 % Comments: Room air BP Systolic 122 mm[Hg] Comments: Patient Position: Sitting; Cuff Location: Left Arm; Cuff Size: Standard BP Diastolic 76 mm[Hg] Comments: Patient Position: Sitting; Cuff Location: Left Arm; Cuff Size: Standard Weight 118 lb Height 61.25 in Body Mass Index Calculated 22.11 kg/m2 Body Surface Area Calculated 1.51 m2 :31 Temperature 97.7 f Comments: Method: Temporal Pulse 68 /min Comments: Pattern: Regular Respiration Rate 15 /min Comments: Pattern: Unlabored O2 SAT 99 % Comments: Room air BP Systolic 122 mm[Hg] Comments: Patient Position: Sitting; Cuff Location: Left Arm; Cuff Size: Standard BP Diastolic 64 mm[Hg] Comments: Patient Position: Sitting; Cuff Location: Left Arm; Cuff Size: Standard Weight 118 lb Height 61.25 in Body Mass Index Calculated 22.11 kg/m2 Body Surface Area Calculated 1.51 m2 :42 Temperature 98 f Comments: Method: Temporal Pulse 78 /min Comments: Pattern: Regular Respiration Rate 15 /min Comments: Pattern: Unlabored O2 SAT 98 % Comments: Room air BP Systolic 136 mm[Hg] Comments: Patient Position: Sitting; Cuff Location: Left Arm; Cuff Size: Standard BP Diastolic 92 mm[Hg] Comments: Patient Position: Sitting; Cuff Location: Left Arm; Cuff Size: Standard Weight 122 lb Height 61.25 in Body Mass Index Calculated 22.86 kg/m2 Body Surface Area Calculated 1.54 m2 :16 Temperature 98.8 f Comments: Method: Temporal Pulse 62 /min Comments: Pattern: Regular Respiration Rate 16 /min Comments: Pattern: Unlabored O2 SAT 98 % Comments: Room air BP Systolic 112 mm[Hg] Comments: Patient Position: Sitting; Cuff Location: Left Arm; Cuff Size: Standard BP Diastolic 68 mm[Hg] Comments: Patient Position: Sitting; Cuff Location: Left Arm; Cuff Size: Standard Weight 119 lb Height 61.25 in Body Mass Index Calculated 22.3 kg/m2 Body Surface Area Calculated 1.52 m2 :54 Temperature 97.6 f Comments: Method: Temporal Pulse 69 /min Comments: Pattern: Regular Respiration Rate 16 /min Comments: Pattern: Unlabored O2 SAT 98 % Comments: Room air BP Systolic 104 mm[Hg] Comments: Patient Position: Sitting; Cuff Location: Left Arm; Cuff Size: Standard BP Diastolic 68 mm[Hg] Comments: Patient Position: Sitting; Cuff Location: Left Arm; Cuff Size: Standard Weight 119 lb Height 61.25 in Body Mass Index Calculated 22.3 kg/m2 Body Surface Area Calculated 1.52 m2 :24 Temperature 97.2 f Pulse 92 /min Comments: Pattern: Regular Respiration Rate 18 /min Comments: Pattern: Unlabored O2 SAT 97 % Comments: Room air BP Systolic 124 mm[Hg] Comments: Patient Position: Sitting; Cuff Location: Left Arm; Cuff Size: Standard BP Diastolic 72 mm[Hg] Comments: Patient Position: Sitting; Cuff Location: Left Arm; Cuff Size: Standard Weight 120.25 lb Height 61.25 in Body Mass Index Calculated 22.54 kg/m2 Body Surface Area Calculated 1.53 m2 :23 Temperature 97.2 f Comments: Method: Oral Pulse 68 /min Comments: Pattern: Regular Respiration Rate 16 /min Comments: Pattern: Unlabored BP Systolic 126 mm[Hg] Comments: Patient Position: Sitting; Cuff Location: Left Arm; Cuff Size: Standard BP Diastolic 70 mm[Hg] Comments: Patient Position: Sitting; Cuff Location: Left Arm; Cuff Size: Standard Weight 120 lb Height 61.25 in Body Mass Index Calculated 22.49 kg/m2 Body Surface Area Calculated 1.53 m2 :37 Temperature 97.8 f Pulse 78 /min Comments: Pattern: Regular Respiration Rate 18 /min Comments: Pattern: Unlabored O2 SAT 98 % Comments: Room air BP Systolic 122 mm[Hg] Comments: Patient Position: Sitting; Cuff Location: Left Arm; Cuff Size: Standard BP Diastolic 70 mm[Hg] Comments: Patient Position: Sitting; Cuff Location: Left Arm; Cuff Size: Standard Weight 120 lb Height 61.25 in Body Mass Index Calculated 22.49 kg/m2 Body Surface Area Calculated 1.53 m2 :41 Temperature 97.8 f Pulse 78 /min Comments: Pattern: Regular Respiration Rate 16 /min Comments: Pattern: Unlabored BP Systolic 100 mm[Hg] Comments: Patient Position: Sitting; Cuff Location: Left Arm; Cuff Size: Standard BP Diastolic 70 mm[Hg] Comments: Patient Position: Sitting; Cuff Location: Left Arm; Cuff Size: Standard Weight 122 lb Height 61.25 in Body Mass Index Calculated 22.86 kg/m2 Body Surface Area Calculated 1.54 m2 :52 Temperature 98.6 f Pulse 72 /min Comments: Pattern: Regular Respiration Rate 16 /min Comments: Pattern: Unlabored BP Systolic 100 mm[Hg] Comments: Patient Position: Sitting; Cuff Location: Left Arm; Cuff Size: Standard BP Diastolic 70 mm[Hg] Comments: Patient Position: Sitting; Cuff Location: Left Arm; Cuff Size: Standard Weight 114 lb Height 61.25 in Body Mass Index Calculated 21.36 kg/m2 Body Surface Area Calculated 1.49 m2 :49 Temperature 98.1 f Pulse 64 /min Comments: Pattern: Regular Respiration Rate 16 /min Comments: Pattern: Unlabored BP Systolic 114 mm[Hg] Comments: Patient Position: Sitting; Cuff Location: Left Arm; Cuff Size: Standard BP Diastolic 72 mm[Hg] Comments: Patient Position: Sitting; Cuff Location: Left Arm; Cuff Size: Standard Weight 119 lb Height 61.25 in Body Mass Index Calculated 22.3 kg/m2 Body Surface Area Calculated 1.52 m2 :01 Temperature 97.2 f Pulse 72 /min Comments: Pattern: Regular Respiration Rate 16 /min Comments: Pattern: Unlabored BP Systolic 92 mm[Hg] Comments: Patient Position: Sitting; Cuff Location: Left Arm; Cuff Size: Standard BP Diastolic 60 mm[Hg] Comments: Patient Position: Sitting; Cuff Location: Left Arm; Cuff Size: Standard Weight 114 lb Height 61.25 in Body Mass Index Calculated 21.36 kg/m2 Body Surface Area Calculated 1.49 m2 :51 Temperature 97.6 f Pulse 62 /min Comments: Pattern: Regular Respiration Rate 16 /min Comments: Pattern: Unlabored BP Systolic 100 mm[Hg] Comments: Patient Position: Sitting; Cuff Location: Left Arm; Cuff Size: Standard BP Diastolic 72 mm[Hg] Comments: Patient Position: Sitting; Cuff Location: Left Arm; Cuff Size: Standard Weight 115 lb Height 61.25 in Body Mass Index Calculated 21.55 kg/m2 Body Surface Area Calculated 1.5 m2 :13 Temperature 96.1 f Pulse 72 /min Comments: Pattern: Regular Respiration Rate 16 /min Comments: Pattern: Unlabored BP Systolic 110 mm[Hg] Comments: Patient Position: Sitting; Cuff Location: Left Arm; Cuff Size: Standard BP Diastolic 72 mm[Hg] Comments: Patient Position: Sitting; Cuff Location: Left Arm; Cuff Size: Standard Weight 114 lb Height 61.25 in Body Mass Index Calculated 21.36 kg/m2 Body Surface Area Calculated 1.49 m2 :54 Temperature 97.6 f Pulse 64 /min Comments: Pattern: Regular Respiration Rate 16 /min Comments: Pattern: Unlabored BP Systolic 110 mm[Hg] Comments: Patient Position: Sitting; Cuff Location: Left Arm; Cuff Size: Standard BP Diastolic 68 mm[Hg] Comments: Patient Position: Sitting; Cuff Location: Left Arm; Cuff Size: Standard Weight 113 lb Height 61.25 in Body Mass Index Calculated 21.18 kg/m2 Body Surface Area Calculated 1.49 m2 :53 Pulse 70 /min Comments: Pattern: Regular Respiration Rate 18 /min Comments: Pattern: Unlabored Weight 110 lb Height 61.25 in Body Mass Index Calculated 20.61 kg/m2 Body Surface Area Calculated 1.47 m2 :46 Temperature 97.8 f Pulse 80 /min Comments: Pattern: Regular Respiration Rate 16 /min Comments: Pattern: Unlabored BP Systolic 120 mm[Hg] Comments: Patient Position: Sitting; Cuff Location: Left Arm; Cuff Size: Standard BP Diastolic 74 mm[Hg] Comments: Patient Position: Sitting; Cuff Location: Left Arm; Cuff Size: Standard Weight 112 lb Height 61.25 in Body Mass Index Calculated 20.99 kg/m2 Body Surface Area Calculated 1.48 m2 :25 Temperature 97.8 f Pulse 92 /min Comments: Pattern: Regular Respiration Rate 16 /min Comments: Pattern: Unlabored BP Systolic 94 mm[Hg] Comments: Patient Position: Sitting; Cuff Location: Left Arm; Cuff Size: Standard BP Diastolic 62 mm[Hg] Comments: Patient Position: Sitting; Cuff Location: Left Arm; Cuff Size: Standard Weight 111 lb Height 61.25 in Body Mass Index Calculated 20.8 kg/m2 Body Surface Area Calculated 1.48 m2 :10 Temperature 96.3 f Pulse 76 /min Comments: Pattern: Regular Respiration Rate 16 /min Comments: Pattern: Unlabored BP Systolic 92 mm[Hg] Comments: Patient Position: Sitting; Cuff Location: Left Arm; Cuff Size: Large BP Diastolic 60 mm[Hg] Comments: Patient Position: Sitting; Cuff Location: Left Arm; Cuff Size: Large Weight 111 lb Height 61.25 in Body Mass Index Calculated 20.8 kg/m2 Body Surface Area Calculated 1.48 m2 :05 Temperature 97.8 f Pulse 64 /min Comments: Pattern: Regular Respiration Rate 16 /min Comments: Pattern: Unlabored BP Systolic 122 mm[Hg] Comments: Patient Position: Sitting; Cuff Location: Left Arm; Cuff Size: Large BP Diastolic 62 mm[Hg] Comments: Patient Position: Sitting; Cuff Location: Left Arm; Cuff Size: Large Weight 115 lb Height 61.25 in Body Mass Index Calculated 21.55 kg/m2 Body Surface Area Calculated 1.5 m2 :32 Temperature 97.7 f Comments: Method: Oral Pulse 72 /min Comments: Pattern: Regular Respiration Rate 16 /min Comments: Pattern: Unlabored BP Systolic 110 mm[Hg] Comments: Patient Position: Sitting; Cuff Location: Left Arm; Cuff Size: Standard BP Diastolic 64 mm[Hg] Comments: Patient Position: Sitting; Cuff Location: Left Arm; Cuff Size: Standard Weight 117 lb Height 61.25 in Body Mass Index Calculated 21.93 kg/m2 Body Surface Area Calculated 1.51 m2 :19 Temperature 96.3 f Pulse 72 /min Comments: Pattern: Regular Respiration Rate 16 /min Comments: Pattern: Unlabored BP Systolic 118 mm[Hg] Comments: Patient Position: Sitting; Cuff Location: Left Arm; Cuff Size: Large BP Diastolic 80 mm[Hg] Comments: Patient Position: Sitting; Cuff Location: Left Arm; Cuff Size: Large Weight 115 lb Height 61.25 in Body Mass Index Calculated 21.55 kg/m2 Body Surface Area Calculated 1.5 m2 :27 Temperature 97.5 f Pulse 68 /min Comments: Pattern: Regular Respiration Rate 16 /min Comments: Pattern: Unlabored BP Systolic 118 mm[Hg] Comments: Patient Position: Sitting; Cuff Location: Left Arm; Cuff Size: Standard BP Diastolic 70 mm[Hg] Comments: Patient Position: Sitting; Cuff Location: Left Arm; Cuff Size: Standard Weight 114 lb Height 61.25 in Body Mass Index Calculated 21.36 kg/m2 Body Surface Area Calculated 1.49 m2 :27 Temperature 97.8 f Comments: Method: Oral Pulse 60 /min Comments: Pattern: Regular Respiration Rate 16 /min Comments: Pattern: Unlabored BP Systolic 118 mm[Hg] Comments: Patient Position: Sitting; Cuff Location: Left Arm; Cuff Size: Standard BP Diastolic 66 mm[Hg] Comments: Patient Position: Sitting; Cuff Location: Left Arm; Cuff Size: Standard Weight 115.5625 lb Height 61 in Body Mass Index Calculated 21.84 kg/m2 Body Surface Area Calculated 1.5 m2 :11 Temperature 96.9 f Comments: Method: Oral Pulse 68 /min Comments: Pattern: Regular Respiration Rate 16 /min Comments: Pattern: Unlabored BP Systolic 110 mm[Hg] Comments: Patient Position: Sitting; Cuff Location: Left Arm; Cuff Size: Standard BP Diastolic 70 mm[Hg] Comments: Patient Position: Sitting; Cuff Location: Left Arm; Cuff Size: Standard Weight 117 lb Height 61 in Body Mass Index Calculated 22.11 kg/m2 Body Surface Area Calculated 1.5 m2 :36 Temperature 97.2 f Pulse 72 /min Comments: Pattern: Regular Respiration Rate 16 /min Comments: Pattern: Unlabored BP Systolic 94 mm[Hg] Comments: Patient Position: Sitting; Cuff Location: Left Arm; Cuff Size: Large BP Diastolic 58 mm[Hg] Comments: Patient Position: Sitting; Cuff Location: Left Arm; Cuff Size: Large Weight 111 lb :44 Pulse 68 /min Comments: Pattern: Regular Respiration Rate 16 /min Comments: Pattern: Unlabored BP Systolic 114 mm[Hg] Comments: Patient Position: Sitting; Cuff Location: Left Arm; Cuff Size: Standard BP Diastolic 68 mm[Hg] Comments: Patient Position: Sitting; Cuff Location: Left Arm; Cuff Size: Standard Weight 113 lb :03 Temperature 97.3 f Pulse 72 /min Comments: Pattern: Regular Respiration Rate 18 /min Comments: Pattern: Unlabored BP Systolic 110 mm[Hg] Comments: Patient Position: Sitting; Cuff Location: Left Arm; Cuff Size: Standard BP Diastolic 68 mm[Hg] Comments: Patient Position: Sitting; Cuff Location: Left Arm; Cuff Size: Standard Weight 112 lb :36 Temperature 98.7 f Pulse 80 /min Comments: Pattern: Regular Respiration Rate 16 /min Comments: Pattern: Unlabored BP Systolic 110 mm[Hg] Comments: Patient Position: Sitting; Cuff Location: Right Arm; Cuff Size: Standard BP Diastolic 66 mm[Hg] Comments: Patient Position: Sitting; Cuff Location: Right Arm; Cuff Size: Standard Weight 117 lb :35 Temperature 97.4 f Comments: Method: Undefined Pulse 72 /min Comments: Pattern: Regular Respiration Rate 18 /min Comments: Pattern: Undefined BP Systolic 120 mm[Hg] Comments: Patient Position: Sitting; Cuff Location: Left Arm; Cuff Size: Large BP Diastolic 68 mm[Hg] Comments: Patient Position: Sitting; Cuff Location: Left Arm; Cuff Size: Large Weight 119 lb Height 0 in Head Circumference 0.00 cm :20 Temperature 97.8 f Comments: Method: Undefined Pulse 80 /min Comments: Pattern: Regular Respiration Rate 16 /min Comments: Pattern: Undefined BP Systolic 116 mm[Hg] Comments: Patient Position: Sitting; Cuff Location: Right Arm; Cuff Size: Standard BP Diastolic 78 mm[Hg] Comments: Patient Position: Sitting; Cuff Location: Right Arm; Cuff Size: Standard Weight 0 lb Height 0 in Head Circumference 0.00 cm :16 Pulse 84 /min Comments: Pattern: Regular Respiration Rate 18 /min Comments: Pattern: Unlabored O2 SAT 98 % Comments: Room air BP Systolic 112 mm[Hg] Comments: Patient Position: Supine; Cuff Location: Left Arm; Cuff Size: Standard BP Diastolic 62 mm[Hg] Comments: Patient Position: Supine; Cuff Location: Left Arm; Cuff Size: Standard Weight 116 lb Height 62 in Body Mass Index Calculated 21.22 kg/m2 Body Surface Area Calculated 1.52 m2 Head Circumference 0.00 cm :34 Temperature 97.9 f Comments: Method: Undefined Pulse 64 /min Comments: Pattern: Regular Respiration Rate 16 /min Comments: Pattern: Undefined BP Systolic 110 mm[Hg] Comments: Patient Position: Sitting; Cuff Location: Left Arm; Cuff Size: Standard BP Diastolic 78 mm[Hg] Comments: Patient Position: Sitting; Cuff Location: Left Arm; Cuff Size: Standard Weight 116 lb Height 62 in Body Mass Index Calculated 21.22 kg/m2 Body Surface Area Calculated 1.52 m2 Head Circumference 0.00 cm :25 Temperature 97.2 f Comments: Method: Undefined Pulse 68 /min Comments: Pattern: Regular Respiration Rate 16 /min Comments: Pattern: Undefined BP Systolic 116 mm[Hg] Comments: Patient Position: Sitting; Cuff Location: Right Arm; Cuff Size: Standard BP Diastolic 68 mm[Hg] Comments: Patient Position: Sitting; Cuff Location: Right Arm; Cuff Size: Standard Weight 115 lb Height 0 in Head Circumference 0.00 cm :24 Temperature 97.9 f Comments: Method: Undefined Pulse 60 /min Comments: Pattern: Regular Respiration Rate 16 /min Comments: Pattern: Undefined BP Systolic 114 mm[Hg] Comments: Patient Position: Sitting; Cuff Location: Right Arm; Cuff Size: Standard BP Diastolic 78 mm[Hg] Comments: Patient Position: Sitting; Cuff Location: Right Arm; Cuff Size: Standard Weight 110 lb Height 0 in Head Circumference 0.00 cm :41 Pulse 68 /min Comments: Pattern: Regular Respiration Rate 16 /min Comments: Pattern: Unlabored O2 SAT 100 % Comments: Room air BP Systolic 102 mm[Hg] Comments: Patient Position: Sitting; Cuff Location: Left Arm; Cuff Size: Standard BP Diastolic 62 mm[Hg] Comments: Patient Position: Sitting; Cuff Location: Left Arm; Cuff Size: Standard Weight 112 lb Height 61 in Body Mass Index Calculated 21.16 kg/m2 Body Surface Area Calculated 1.48 m2 Head Circumference 0.00 cm :46 Temperature 97.9 f Comments: Method: Oral Pulse 60 /min Comments: Pattern: Regular Respiration Rate 18 /min Comments: Pattern: Unlabored BP Systolic 100 mm[Hg] Comments: Patient Position: Sitting; Cuff Location: Left Arm; Cuff Size: Standard BP Diastolic 60 mm[Hg] Comments: Patient Position: Sitting; Cuff Location: Left Arm; Cuff Size: Standard Weight 112 lb Height 61 in Body Mass Index Calculated 21.16 kg/m2 Body Surface Area Calculated 1.48 m2 Head Circumference 0.00 cm :09 Temperature 98 f Comments: Method: Oral Pulse 70 /min Comments: Pattern: Regular Respiration Rate 17 /min Comments: Pattern: Unlabored BP Systolic 104 mm[Hg] Comments: Patient Position: Sitting; Cuff Location: Left Arm; Cuff Size: Standard BP Diastolic 68 mm[Hg] Comments: Patient Position: Sitting; Cuff Location: Left Arm; Cuff Size: Standard Weight 112 lb Height 61 in Body Mass Index Calculated 21.16 kg/m2 Body Surface Area Calculated 1.48 m2 Head Circumference 0.00 cm :45 Temperature 97.7 f Comments: Method: Undefined Pulse 72 /min Comments: Pattern: Regular Respiration Rate 18 /min Comments: Pattern: Undefined BP Systolic 120 mm[Hg] Comments: Patient Position: Sitting; Cuff Location: Right Arm; Cuff Size: Standard BP Diastolic 66 mm[Hg] Comments: Patient Position: Sitting; Cuff Location: Right Arm; Cuff Size: Standard Weight 112 lb Height 61 in Body Mass Index Calculated 21.16 kg/m2 Body Surface Area Calculated 1.48 m2 Head Circumference 0.00 cm :25 Temperature 98 f Comments: Method: Undefined Pulse 64 /min Comments: Pattern: Regular Respiration Rate 16 /min Comments: Pattern: Undefined BP Systolic 94 mm[Hg] Comments: Patient Position: Sitting; Cuff Location: Right Arm; Cuff Size: Standard BP Diastolic 64 mm[Hg] Comments: Patient Position: Sitting; Cuff Location: Right Arm; Cuff Size: Standard Weight 113 lb Height 0 in Head Circumference 0.00 cm :25 Temperature 98.1 f Comments: Method: Oral Pulse 80 /min Comments: Pattern: Regular Respiration Rate 16 /min Comments: Pattern: Unlabored BP Systolic 122 mm[Hg] Comments: Patient Position: Sitting; Cuff Location: Left Arm; Cuff Size: Standard BP Diastolic 80 mm[Hg] Comments: Patient Position: Sitting; Cuff Location: Left Arm; Cuff Size: Standard Weight 116.25 lb Height 0 in Head Circumference 0.00 cm :32 Temperature 97.2 f Comments: Method: Oral Pulse 72 /min Comments: Pattern: Regular Respiration Rate 16 /min Comments: Pattern: Unlabored BP Systolic 114 mm[Hg] Comments: Patient Position: Sitting; Cuff Location: Left Arm; Cuff Size: Standard BP Diastolic 84 mm[Hg] Comments: Patient Position: Sitting; Cuff Location: Left Arm; Cuff Size: Standard Weight 116 lb Height 0 in Head Circumference 0.00 cm :23 Temperature 98 f Comments: Method: Oral Pulse 76 /min Comments: Pattern: Regular Respiration Rate 16 /min Comments: Pattern: Unlabored BP Systolic 108 mm[Hg] Comments: Patient Position: Sitting; Cuff Location: Left Arm; Cuff Size: Standard BP Diastolic 68 mm[Hg] Comments: Patient Position: Sitting; Cuff Location: Left Arm; Cuff Size: Standard Weight 121 lb Height 0 in Head Circumference 0.00 cm :08 Temperature 97.9 f Comments: Method: Oral Pulse 72 /min Comments: Pattern: Regular Respiration Rate 16 /min Comments: Pattern: Unlabored BP Systolic 102 mm[Hg] Comments: Patient Position: Sitting; Cuff Location: Left Arm; Cuff Size: Standard BP Diastolic 60 mm[Hg] Comments: Patient Position: Sitting; Cuff Location: Left Arm; Cuff Size: Standard Weight 120.3125 lb Height 0 in Head Circumference 0.00 cm :20 Temperature 98.6 f Comments: Method: Oral Pulse 74 /min Comments: Pattern: Regular Respiration Rate 17 /min Comments: Pattern: Unlabored BP Systolic 100 mm[Hg] Comments: Patient Position: Sitting; Cuff Location: Left Arm; Cuff Size: Standard BP Diastolic 62 mm[Hg] Comments: Patient Position: Sitting; Cuff Location: Left Arm; Cuff Size: Standard Weight 120.3125 lb Height 0 in Head Circumference 0.00 cm :22 Temperature 98.2 f Comments: Method: Oral Pulse 76 /min Comments: Pattern: Regular Respiration Rate 18 /min Comments: Pattern: Unlabored BP Systolic 98 mm[Hg] Comments: Patient Position: Sitting; Cuff Location: Right Arm; Cuff Size: Standard BP Diastolic 60 mm[Hg] Comments: Patient Position: Sitting; Cuff Location: Right Arm; Cuff Size: Standard Weight 122 lb Height 0 in Head Circumference 0.00 cm :39 Temperature 97.7 f Comments: Method: Oral Pulse 68 /min Comments: Pattern: Regular Respiration Rate 16 /min Comments: Pattern: Undefined BP Systolic 102 mm[Hg] Comments: Patient Position: Sitting; Cuff Location: Undefined; Cuff Size: Undefined BP Diastolic 74 mm[Hg] Comments: Patient Position: Sitting; Cuff Location: Undefined; Cuff Size: Undefined Weight 0 lb Height 0 in Head Circumference 0.00 cm Results Date Description Value Details [id number] MAGNESIUM ([id number]) Comments: PATIENT NOT FASTINGPERFORMED BY: [facility] Arrgal2926 [facility] [id number] Magnesium 2.1 mg/dL (Normal) Range: 1.6-2.3 8-Wlz-533628:28 T4, TOTAL (96674) Comments: PATIENT NOT FASTINGPERFORMED BY: [facility] [id number] Thyroxine (T4) 9.2 ug/dL (Normal) Range: 4.5-12.0 1-Aes-665057:28 FREE TRIDOTHYRONINE (T3) (49437) Comments: PATIENT NOT FASTINGPERFORMED BY: [facility] [id number] Triiodothyronine (T3), Free 2.9 pg/mL (Normal) Range: 2.0-4.4 0-Lvj-445196:28 Metabolic Panel, Comprehensive Comments: PATIENT NOT FASTINGPERFORMED BY: [facility] [id number] ([id number]) ALT (SGPT) 82 [iU]/L (Abnormal) Range: 0-32 AST (SGOT) 40 [iU]/L (Normal) Range: 0-40 Alkaline Phosphatase 150 [iU]/L (Abnormal) Range: 39-117 Bilirubin, Total 0.2 mg/dL (Normal) Range: 0.0-1.2 A/G Ratio 1.8 (Normal) Range: 1.2-2.2 Globulin, Total 2.4 g/dL (Normal) Range: 1.5-4.5 Albumin 4.4 g/dL (Normal) Range: 3.6-4.8 Protein, Total 6.8 g/dL (Normal) Range: 6.0-8.5 Calcium 9.9 mg/dL (Normal) Range: 8.7-10.3 Carbon Dioxide, Total 28 mmol/L (Normal) Range: 20-29 Comments: Please note reference interval change Chloride 105 mmol/L (Normal) Range: 96-106 Potassium 4.2 mmol/L (Normal) Range: 3.5-5.2 Sodium 146 mmol/L (Abnormal) Range: 134-144 BUN/Creatinine Ratio 15 (Normal) Range: 12-28 eGFR If Africn Am 85 mL/min/1.73 (Normal) eGFR If NonAfricn Am 74 mL/min/1.73 (Normal) Creatinine 0.86 mg/dL (Normal) Range: 0.57-1.00 BUN 13 mg/dL (Normal) Range: 8-27 Glucose 94 mg/dL (Normal) Range: 65-99 9-Xrx-372552:28 TSH (THYROID STIMULATING Comments: PATIENT NOT FASTINGPERFORMED BY: Proviation Dveany5870 [facility] [id number] HORMONE) ([id number]) TSH 1.540 {uIU/mL} (Normal) Range: 0.450-4.500 9-Qim-411624:28 VITAMIN B12 AND FOLATES Comments: PATIENT NOT FASTINGPERFORMED BY: Proviation Ikamji6402 CappsSotmarketSandhills [facility] [id number] ([id number]) Folate (Folic Acid), Serum 8.2 ng/mL (Normal) Comments: A serum folate concentration of less than 3.1 ng/mL isconsidered to represent clinical deficiency. Vitamin B12 780 pg/mL (Normal) Range: 232-1245 0-Yvd-786513:51 Metabolic Panel, Comprehensive Comments: PATIENT NOT FASTINGPERFORMED BY: [email or web address] [facility]appsSotmarketSandh[facility] [id number] ([id number]) ALT (SGPT) 38 [iU]/L (Abnormal) Range: 0-32 AST (SGOT) 27 [iU]/L (Normal) Range: 0-40 Alkaline Phosphatase, S 113 [iU]/L (Normal) Range: 39-117 Bilirubin, Total 0.5 mg/dL (Normal) Range: 0.0-1.2 A/G Ratio 1.9 (Normal) Range: 1.2-2.2 Globulin, Total 2.6 g/dL (Normal) Range: 1.5-4.5 Albumin, Serum 5.0 g/dL (Normal) Range: 3.5-5.5 Protein, Total, Serum 7.6 g/dL (Normal) Range: 6.0-8.5 Calcium, Serum 10.8 mg/dL (Abnormal) Range: 8.7-10.2 Carbon Dioxide, Total 28 mmol/L (Normal) Range: 18-29 Chloride, Serum 101 mmol/L (Normal) Range: 96-106 Potassium, Serum 4.3 mmol/L (Normal) Range: 3.5-5.2 Sodium, Serum 145 mmol/L (Abnormal) Range: 134-144 BUN/Creatinine Ratio 15 (Normal) Range: 9-23 eGFR If Africn Am 84 mL/min/1.73 (Normal) eGFR If NonAfricn Am 73 mL/min/1.73 (Normal) Creatinine, Serum 0.87 mg/dL (Normal) Range: 0.57-1.00 BUN 13 mg/dL (Normal) Range: 6-24 Glucose, Serum 81 mg/dL (Normal) Range: 65-99 3-Fvl-580004:51 [facility] ([id number]) Comments: PATIENT NOT FASTINGPERFORMED BY: Proviation Fjsejj5001 [facility] MyStargo EnterprisesSandhills [facility] Center [id number] Please note: SPRCS (Normal) Comments: Protein electrophoresis scan will follow via computer, mail, orcourier delivery. A/G Ratio 1.5 (Normal) Range: 0.7-1.7 Globulin, Total 3.1 g/dL (Normal) Range: 2.2-3.9 M-Niraj Not Observed g/dL (Normal) Gamma Globulin 1.1 g/dL (Normal) Range: 0.4-1.8 Beta Globulin 1.0 g/dL (Normal) Range: 0.7-1.3 Bwydj-9-Gkxokyxg 0.7 g/dL (Normal) Range: 0.4-1.0 Wvksv-0-Bqzavhfy 0.2 g/dL (Normal) Range: 0.0-0.4 Albumin 4.5 g/dL (Abnormal) Range: 2.9-4.4 9-Mne-698883:51 [facility] (59963) Comments: PATIENT NOT FASTINGPERFORMED BY: [email or web address]. Lawrence Rehabilitation CenterLtgawr1981 [facility] [id number] Please note: SPRCS (Normal) Comments: Protein electrophoresis scan will follow via computer, mail, orcourier delivery. M-Niraj, % Not Observed % (Normal) Gamma Globulin, U 23.8 % (Normal) Beta Globulin, U 40.2 % (Normal) Rrfyx-7-Rqvckacf, U 11.5 % (Normal) Vynkm-1-Xpjqiwrl, U 4.1 % (Normal) Albumin, U 20.4 % (Normal) Protein,Total,Urine <4.0 mg/dL (Normal) Comments: Verified by repeat analysis 9-Xjn-252726:51 serum free light chains Comments: PATIENT NOT FASTINGPERFORMED BY: [email or web address] KAL [facility] [id number] ([id number]) Coral/Lambda Ratio,S 1.33 (Normal) Range: 0.26-1.65 Free Lambda Lt Chains,S 12.7 mg/L (Normal) Range: 5.7-26.3 Free Coral Lt Chains,S 16.9 mg/L (Normal) Range: 3.3-19.4 0-Afn-580064:51 urine immunofixation (70827) Comments: PATIENT NOT FASTINGPERFORMED BY: Proviation KAL [facility] [id number] HEATHER Interpretation:U UPEIP (Normal) Comments: No monoclonality detected. 1-Adw-780706:51 serum immunofixation (14125) Comments: PATIENT NOT FASTINGPERFORMED BY: [email or web address] [id number] [facility] [id number] Immunoglobulin M, Qn, Serum 121 mg/dL (Normal) Range: 26-217 Immunoglobulin A, Qn, Serum 148 mg/dL (Normal) Range: 87-352 Immunoglobulin G, Qn, Serum 1087 mg/dL (Normal) Range: 700-1600 Immunofixation Result, Serum UPEIP (Normal) Comments: No monoclonality detected. 72-Qvw-035813:45 LDH (LD) (LACTATE DEHYDROGENASE) Comments: PATIENT NOT FASTINGPERFORMED BY: [email or web address] [id number] [facility] [id number] (08437) LDH 157 [iU]/L (Normal) Range: 119-226 09-Klc-473722:45 HEPATITIS C ANTIBODY (77359) Comments: PATIENT NOT FASTINGPERFORMED BY: [email or web address] Ciaoyi7177 [facility] [id number] Hep C Virus Ab 0.2 {s/co_ratio} (Normal) Range: 0.0-0.9 Comments: Negative: < 0.8 Indeterminate: 0.8 - 0.9 Positive: > 0.9 . The CDC recommends that a positive HCV antibody result be followed up with a HCV Nucleic Acid Amplification test (775583). :19 EDGARDO (ANTINUCLEAR ANTIBODY) Comments: PATIENT NOT FASTINGPERFORMED BY: Proviation [employer]PIK [facility] [id number] ([id number]) EDGARDO Direct Negative (Normal) :19 EBV Panel (61165) Comments: PATIENT NOT FASTINGPERFORMED BY: [email or web address] KAL [facility] [id number] Interpretation: SPRCS (Normal) Comments: EBV Interpretation Chart . Interpretation EBV-IgM EA(D)-IgG VCA-IgG EBNA-IgG . EBV Seronegative - - - - Early Phase + - - - Acute Primary + +or- + - Infection Convalescence/Past - +or- + + Infection Reactivated +or- + + + Infection + Antibody Present - Antibody Absent EBV Nuclear Antigen Ab, IgG 27.3 U/mL (Abnormal) Range: 0.0-17.9 Comments: Negative <18.0 Equivocal 18.0 - 21.9 Positive >21.9 EBV Ab VCA, IgG >600.0 U/mL (Abnormal) Range: 0.0-17.9 Comments: Negative <18.0 Equivocal 18.0 - 21.9 Positive >21.9 EBV Early Antigen Ab, IgG 105.0 U/mL (Abnormal) Range: 0.0-8.9 Comments: Hepatitis A, Hepatitis C and HIV antibodies may cross-reactwith this assay. Negative < 9.0 Equivoc al 9.0 - 10.9 Positive >10.9 EBV Ab VCA, IgM <36.0 U/mL (Normal) Range: 0.0-35.9 Comments: Negative <36.0 Equivocal 36.0 - 43.9 Positive >43.9 :19 CALCIFIDIOL (82643) VIT D 25 Comments: PATIENT NOT FASTINGPERFORMED BY: [email or web address] [id number] [facility] [id number] Vitamin D, 25-Hydroxy 67.1 ng/mL (Normal) Range: 30.0-100.0 Comments: Vitamin D deficiency has been defined by the [place] of[place]icine and an Endocrine Society practice guideline as alevel of serum 25-OH vitamin D less than 20 ng/mL (1,2).The Endocrine Society went on to further define vitamin Dinsufficiency as a level between 21 and 29 ng/mL (2).1. IOM ([place] of [employer]). 2010. Dietary reference intakes for calcium and D. [place]: The National Academies Press.2. Cyndy MF, Gala [place], Umesh ESPINOZA, et al. Evaluation, treatment, and prevention of vitamin D deficiency: an Endocrine Society clinical practice guideline. JCEM. 2010; 96(7):1911-30. :19 VITAMIN B-12 (CYANOCOBALAMIN) Comments: PATIENT NOT FASTINGPERFORMED BY: CB [facility] Ycdmwa4389 [address]apps RoadDublin [place] [id number] () Vitamin B12 778 pg/mL (Normal) Range: 232-1245 Comments: Please note reference interval change :19 TSH (10371) Comments: PATIENT NOT FASTINGPERFORMED BY: CB [facility] [id number] Capps RoadDublin [place] [id number] TSH 1.180 {uIU/mL} (Normal) Range: 0.450-4.500 :19 SED RATE ERYTHROCYTE (65178) Comments: PATIENT NOT FASTINGPERFORMED BY: CB [facility] Tssfiy1558 [address] RoadDublin [place] [id number] Sedimentation Rate-Westergren 5 mm/h (Normal) Range: 0-40 :19 RHEUMATOID FACTOR-QUANT (95554) Comments: PATIENT NOT FASTINGPERFORMED BY: CB [facility] Ejrwke2602 [address]Dublin [place] [id number] RA Latex Turbid. <10.0 {IU/mL} (Normal) Range: 0.0-13.9 :19 C-REACTIVE PROTEIN (41908) Comments: PATIENT NOT FASTINGPERFORMED BY: CB [facility] Edkpoc8352 [address] RoadDublin [place] [id number] C-Reactive Protein, Quant 4.3 mg/L (Normal) Range: 0.0-4.9 :43 LIPOPROTEIN, BLD, BY NMR (33546) Comments: PATIENT WAS FASTINGPERFORMED BY: [facility] [id number] LP-IR Score <25 (Normal) Comments: INSULIN RESISTANCE MARKER <--Insulin Sensitive Insulin Resistant--> Percentile in Reference PopulationInsulin Resistance ScoreLP-IR Score Low 25th 50th 75th High <27 27 45 63 >63LP-IR Score is inaccurate if patient is non-fasting. .The LP-IR score is a laboratory developed i [facility] that has beenassociated with insulin resistance and diabetes risk and should beused as one component of a physician's clinical assessment. TheLP-IR score listed above has not been cleared by the [place] Food andDrug Administration. LDL Size 22.1 nm (Normal) Comments: INTERPRETATIVE INFORMATION PARTICLE CONCENTRATION AND SIZE <--Lower CVD Risk Highe r CVD Risk--> LDL AND HDL PARTICLES Percentile in Reference Population HDL-P (total) High 75th 50th 25th Low >34.9 34.9 30.5 26.7 <26.7 . Small LDL-P Low 25th 50th 75th High <117 117 527 839 >839 . LDL Size <-Large (Pattern A)-> <-Small (Pattern B)-> 23.0 20.6 20.5 19.0 Small LDL-P and LDL Size are associated with CVD risk, but not afterLDL-P is taken into account. .These assays were developed and their performance characteristicsdetermined by [employer]. These assays have not been cleared by [place] Food and Drug Administration. The clinical utility of theselaboratory values have not been fully established. Small LDL-P 200 nmol/L (Normal) HDL-P (Total) 38.7 umol/L (Normal) Cholesterol, Total 209 mg/dL (Abnormal) Range: 100-199 Triglycerides 130 mg/dL (Normal) Range: 0-149 HDL-C 65 mg/dL (Normal) LDL-C 118 mg/dL (Abnormal) Range: 0-99 Comments: . Optimal < 100 Above optimal 100 - 129 Borderline 1 30 - 159 High 160 - 189 Very high > 189 .LDL-C is inaccurate if patient is non-fasting. LDL-P 1308 nmol/L (Abnormal) Comments: Low < 1000 Moderate 1000 - 1299 Borderline-High 1300 - 1599 High 1600 - 2000 Very High > 2000 9-Tot-818943:18 CBC, Platelets & Auto Diff Comments: PATIENT WAS FASTINGPERFORMED BY: LabCoSt. Lawrence Rehabilitation CenterFbguun8050 [facility] [id number] Information: [id number] (36517) Immature Grans (Abs) 0.0 {x10E3/uL} (Normal) Range: 0.0-0.1 Immature Granulocytes 0 % (Normal) Baso (Absolute) 0.0 {x10E3/uL} (Normal) Range: 0.0-0.2 Eos (Absolute) 0.2 {x10E3/uL} (Normal) Range: 0.0-0.4 Monocytes(Absolute) 0.5 {x10E3/uL} (Normal) Range: 0.1-0.9 Lymphs (Absolute) 2.4 {x10E3/uL} (Normal) Range: 0.7-3.1 Neutrophils (Absolute) 1.9 {x10E3/uL} (Normal) Range: 1.4-7.0 Basos 1 % (Normal) Eos 5 % (Normal) Monocytes 9 % (Normal) Lymphs 47 % (Normal) Neutrophils 38 % (Normal) Platelets 248 {x10E3/uL} (Normal) Range: 150-379 RDW 13.4 % (Normal) Range: 12.3-15.4 MCHC 34.1 g/dL (Normal) Range: 31.5-35.7 MCH 29.9 pg (Normal) Range: 26.6-33.0 MCV 88 fL (Normal) Range: 79-97 Hematocrit 40.8 % (Normal) Range: 34.0-46.6 Hemoglobin 13.9 g/dL (Normal) Range: 11.1-15.9 RBC 4.65 {x10E6/uL} (Normal) Range: 3.77-5.28 WBC 5.1 {x10E3/uL} (Normal) Range: 3.4-10.8 :18 CALCIFEDIOL (65163) Comments: PATIENT WAS FASTINGPERFORMED BY: [email or web address] Pymfca6884 [facility] [id number] Vitamin D, 25-Hydroxy 40.3 ng/mL (Normal) Range: 30.0-100.0 Comments: Vitamin D deficiency has been defined by the [place] of[place]icine and an Endocrine Society practice guideline as alevel of serum 25-OH vitamin D less than 20 ng/mL (1,2).The Endocrine Society went on to further define vitamin Dinsufficiency as a level between 21 and 29 ng/mL (2).1. IOM ([place] of Medicine). 2010. Dietary reference intakes for calcium and D. [place]: The National Academies Press.2. Cyndy MF, Gala VILLAGOMEZ, Umesh ESPINOZA, et al. Evaluation, treatment, and prevention of vitamin D deficiency: an Endocrine Society clinical practice guideline. JCEM. 2010; 96(7):1911-30. :18 LIPID PANEL (28770) Comments: PATIENT WAS FASTINGPERFORMED BY: [employer] Americalin6370 [facility] [id number] LDL/HDL Ratio 1.9 {ratio_units} (Normal) Range: 0.0-3.2 Comments: LDL/HDL Ratio Men Women 1/2 Avg.Risk 1.0 1.5 Av g.Risk 3.6 3.2 2X Avg.Risk 6.2 5.0 3X Avg.Risk 8.0 6.1 LDL Cholesterol Calc 145 mg/dL (Abnormal) Range: 0-99 VLDL Cholesterol Nalini 24 mg/dL (Normal) Range: 5-40 HDL Cholesterol 77 mg/dL (Normal) Triglycerides 122 mg/dL (Normal) Range: 0-149 Cholesterol, Total 246 mg/dL (Abnormal) Range: 100-199 :06 VITAMIN B12 AND FOLATES Comments: PATIENT WAS FASTINGPERFORMED BY: Tasit.comSt. Lawrence Rehabilitation CenterVngset5201 [facility] [id number] (33018) Folate (Folic Acid), Serum 15.4 ng/mL (Normal) Comments: A serum folate concentration of less than 3.1 ng/mL isconsidered to represent clinical deficiency. Vitamin B12 813 pg/mL (Normal) Range: 211-946 3-Wzn-390579:06 CALCIFEDIOL (45014) Comments: PATIENT WAS FASTINGPERFORMED BY: LabCoSt. Lawrence Rehabilitation CenterOlhbub7458 [facility] [id number] Vitamin D, 25-Hydroxy 46.2 ng/mL (Normal) Range: 30.0-100.0 Comments: Vitamin D deficiency has been defined by the [place] of[place]icine and an Endocrine Society practice guideline as alevel of serum 25-OH vitamin D less than 20 ng/mL (1,2).The Endocrine Society went on to further define vitamin Dinsufficiency as a level between 21 and 29 ng/mL (2).1. IOM ([place] of [place]). 2010. Dietary reference intakes for calcium and D. [place]: The National Academies Press.2. Cyndy MF, Gala NC, Umesh ESPINOZA, et al. Evaluation, treatment, and prevention of vitamin D deficiency: an Endocrine Society clinical practice guideline. JCEM. 2010; 96(7):1911-30. 7-Ebx-995541:06 LIPID PANEL (05563) Comments: PATIENT WAS FASTINGPERFORMED BY: LabCoSt. Lawrence Rehabilitation CenterQmczrq8697 [facility] [id number] LDL/HDL Ratio 1.5 {ratio_units} (Normal) Range: 0.0-3.2 Comments: LDL/HDL Ratio Men Women 1/2 Avg.Risk 1.0 1.5 Av g.Risk 3.6 3.2 2X Avg.Risk 6.2 5.0 3X Avg.Risk 8.0 6.1 LDL Cholesterol Calc 140 mg/dL (Abnormal) Range: 0-99 VLDL Cholesterol Nalini 17 mg/dL (Normal) Range: 5-40 HDL Cholesterol 93 mg/dL (Normal) Triglycerides 84 mg/dL (Normal) Range: 0-149 Cholesterol, Total 250 mg/dL (Abnormal) Range: 100-199 0-Paz-528982:06 METABOLIC PANEL, COMPREHENSIVE Comments: PATIENT WAS FASTINGPERFORMED BY: LabCo Bljqyc7742 [facility] [id number] (90202) ALT (SGPT) 30 [iU]/L (Normal) Range: 0-32 AST (SGOT) 26 [iU]/L (Normal) Range: 0-40 Alkaline Phosphatase, S 128 [iU]/L (Abnormal) Range: 39-117 Bilirubin, Total 0.6 mg/dL (Normal) Range: 0.0-1.2 A/G Ratio 1.9 (Normal) Range: 1.2-2.2 Comments: Please note reference interval change Globulin, Total 2.5 g/dL (Normal) Range: 1.5-4.5 Albumin, Serum 4.8 g/dL (Normal) Range: 3.5-5.5 Protein, Total, Serum 7.3 g/dL (Normal) Range: 6.0-8.5 Calcium, Serum 9.8 mg/dL (Normal) Range: 8.7-10.2 Carbon Dioxide, Total 25 mmol/L (Normal) Range: 18-29 Chloride, Serum 102 mmol/L (Normal) Range: 96-106 Potassium, Serum 4.2 mmol/L (Normal) Range: 3.5-5.2 Sodium, Serum 145 mmol/L (Abnormal) Range: 134-144 BUN/Creatinine Ratio 12 (Normal) Range: 9-23 Comments: Please note reference interval change eGFR If Africn Am 92 mL/min/1.73 (Normal) eGFR If NonAfricn Am 80 mL/min/1.73 (Normal) Creatinine, Serum 0.81 mg/dL (Normal) Range: 0.57-1.00 BUN 10 mg/dL (Normal) Range: 6-24 Glucose, Serum 85 mg/dL (Normal) Range: 65-99 5-Gvu-178705:06 CBC, PLATELETS & AUT DIFF Comments: PATIENT WAS FASTINGPERFORMED BY: LabCoSt. Lawrence Rehabilitation CenterFgvhbi6820 [facility] [id number] ([id number]) Immature Grans (Abs) 0.0 {x10E3/uL} (Normal) Range: 0.0-0.1 Immature Granulocytes 0 % (Normal) Baso (Absolute) 0.1 {x10E3/uL} (Normal) Range: 0.0-0.2 Eos (Absolute) 0.1 {x10E3/uL} (Normal) Range: 0.0-0.4 Monocytes(Absolute) 0.4 {x10E3/uL} (Normal) Range: 0.1-0.9 Lymphs (Absolute) 1.8 {x10E3/uL} (Normal) Range: 0.7-3.1 Neutrophils (Absolute) 2.1 {x10E3/uL} (Normal) Range: 1.4-7.0 Basos 1 % (Normal) Eos 3 % (Normal) Monocytes 8 % (Normal) Lymphs 41 % (Normal) Neutrophils 47 % (Normal) Platelets 275 {x10E3/uL} (Normal) Range: 150-379 RDW 13.0 % (Normal) Range: 12.3-15.4 MCHC 32.9 g/dL (Normal) Range: 31.5-35.7 MCH 28.7 pg (Normal) Range: 26.6-33.0 MCV 87 fL (Normal) Range: 79-97 Hematocrit 42.9 % (Normal) Range: 34.0-46.6 Hemoglobin 14.1 g/dL (Normal) Range: 11.1-15.9 RBC 4.91 {x10E6/uL} (Normal) Range: 3.77-5.28 WBC 4.5 {x10E3/uL} (Normal) Range: 3.4-10.8 83-Kdo-61510:35 CALCIFEDIOL (15429) Comments: PATIENT WAS FASTINGPERFORMED BY: [facility]6370 [facility] [id number] Vitamin D, 25-Hydroxy 101.0 ng/mL (Abnormal) Range: 30.0-100.0 Comments: Vitamin D deficiency has been defined by the [place] of[place] and an Endocrine Society practice guideline as alevel of serum 25-OH vitamin D less than 20 ng/mL (1,2).The Endocrine Society went on to further define vitamin Dinsufficiency as a level between 21 and 29 ng/mL (2).1. IOM ([place]). 2010. Dietary reference intakes for calcium and D. [place]: The National Academies Press.2. Cyndy WRIGHT, Gala VILLAGOMEZ, Umesh ESPINOZA, et al. Evaluation, treatment, and prevention of vitamin D deficiency: an Endocrine Society clinical practice guideline. JCEM. 2010; 96(7):1911-30. :35 LIPID PANEL (23035) Comments: PATIENT WAS FASTINGPERFORMED BY: CB [facility] Cqwrsv8703 [address] [place] [id number] LDL/HDL Ratio 1.5 {ratio_units} (Normal) Range: 0.0-3.2 Comments: LDL/HDL Ratio Men Women 1/2 Avg.Risk 1.0 1.5 Av g.Risk 3.6 3.2 2X Avg.Risk 6.2 5.0 3X Avg.Risk 8.0 6.1 LDL Cholesterol Calc 123 mg/dL (Abnormal) Range: 0-99 VLDL Cholesterol Nalini 22 mg/dL (Normal) Range: 5-40 HDL Cholesterol 80 mg/dL (Normal) Triglycerides 112 mg/dL (Normal) Range: 0-149 Cholesterol, Total 225 mg/dL (Abnormal) Range: 100-199 :17 IGP, Aptima HPV, Comments: Source.............Cervix;EndocervixNo. of containers..01 CYTYC Thin Prep VialPATIENT NOT FASTINGPERFORMED BY: =G [facility] Gpqbylhjvp118 [facility] W [id number] BY: WB LabCo rfx 16/18,45 rp Kxdowxtplg995 [facility] W [id number] HPV Aptima Negative (Normal) Comments: This test detects fourteen high-risk HPV types (16/18/31/33/35/39/45/51/52/56/58/59/66/68) without differentiation. Note: PAPSMR (Normal) Comments: The Pap smear is a screening test designed to aid in the detection ofpremalignant and malignant conditions of the uterine cervix. It is not adiagnostic procedure and should not be used as the sole mean s of detectingcervical cancer. Both false-positive and false-negative reports do occur. . See Note . (Normal) DIAGNOSIS: SPRCS (Normal) Comments: NEGATIVE FOR INTRAEPITHELIAL LESION AND MALIGNANCY.CELLULAR CHANGES ASSOCIATED WITH ATROPHY ARE PRESENT.Satisfactory for evaluation. Endocervical and/or squamous metaplasticcells (endocervical componen t) are present.Z01.419Yajaira Pace, Life Insurance Actuary ([facility]) 93-Mih-268591:20 Metabolic Panel, Basic Comments: PATIENT WAS FASTINGPERFORMED BY: Zinch[address] [place] [id number] (35974) Calcium, Serum 9.8 mg/dL (Normal) Range: 8.7-10.2 Carbon Dioxide, Total 24 mmol/L (Normal) Range: 18-29 Chloride, Serum 99 mmol/L (Normal) Range: 97-106 Potassium, Serum 4.3 mmol/L (Normal) Range: 3.5-5.2 Sodium, Serum 141 mmol/L (Normal) Range: 136-144 BUN/Creatinine Ratio 29 (Abnormal) Range: 9-23 eGFR If Africn Am 107 mL/min/1.73 (Normal) eGFR If NonAfricn Am 93 mL/min/1.73 (Normal) Creatinine, Serum 0.72 mg/dL (Normal) Range: 0.57-1.00 BUN 21 mg/dL (Normal) Range: 6-24 Glucose, Serum 87 mg/dL (Normal) Range: 65-99 12-Kga-017275:20 VITAMIN B12 AND FOLATES Comments: PATIENT WAS FASTINGPERFORMED BY: [email or web address] Jdzjug4764 [place] [id number] (76032) Folate (Folic Acid), Serum 17.5 ng/mL (Normal) Comments: A serum folate concentration of less than 3.1 ng/mL isconsidered to represent clinical deficiency. Vitamin B12 950 pg/mL (Abnormal) Range: 211-946 49-Swg-705555:20 CALCIFEDIOL (93604) Comments: PATIENT WAS FASTINGPERFORMED BY: LabMobiPixie Vqvjtr45[address] [place] [id number] Vitamin D, 25-Hydroxy 27.5 ng/mL (Abnormal) Range: 30.0-100.0 Comments: Vitamin D deficiency has been defined by the [place] of[place] and an Endocrine Society practice guideline as alevel of serum 25-OH vitamin D less than 20 ng/mL (1,2).The Endocrine Society went on to further define vitamin Dinsufficiency as a level between 21 and 29 ng/mL (2).1. IOM ([place]). 2010. Dietary reference intakes for calcium and D. [place]: The National Academies Press.2. Cyndy MF, Gala VILLAGOMEZ, Umehs ESPINOZA, et al. Evaluation, treatment, and prevention of vitamin D deficiency: an Endocrine Society clinical practice guideline. JCEM. 2010; 96(7):1911-30. 86-Zap-787365:20 TSH (THYROID STIMULATING Comments: PATIENT WAS FASTINGPERFORMED BY: [facility] GamesAt[facility] Health [facility] [id number] HORMONE) (52610) TSH 1.750 {uIU/mL} (Normal) Range: 0.450-4.500 :20 LIPID PANEL (87915) Comments: PATIENT WAS FASTINGPERFORMED BY: [facility] GamesAt[facility] Health [facility] [id number] LDL/HDL Ratio 1.9 {ratio_units} (Normal) Range: 0.0-3.2 Comments: LDL/HDL Ratio Men Women 1/2 Avg.Risk 1.0 1.5 Av g.Risk 3.6 3.2 2X Avg.Risk 6.2 5.0 3X Avg.Risk 8.0 6.1 LDL Cholesterol Calc 167 mg/dL (Abnormal) Range: 0-99 VLDL Cholesterol Nalini 22 mg/dL (Normal) Range: 5-40 HDL Cholesterol 87 mg/dL (Normal) Triglycerides 112 mg/dL (Normal) Range: 0-149 Cholesterol, Total 276 mg/dL (Abnormal) Range: 100-199 07-Mux-329928:20 CBC, PLATELETS & AUT DIFF Comments: PATIENT WAS FASTINGPERFORMED BY: Applicasa70 [address] [facility] [id number] (94964) Immature Grans (Abs) 0.0 {x10E3/uL} (Normal) Range: 0.0-0.1 Immature Granulocytes 0 % (Normal) Baso (Absolute) 0.1 {x10E3/uL} (Normal) Range: 0.0-0.2 Eos (Absolute) 0.1 {x10E3/uL} (Normal) Range: 0.0-0.4 Monocytes(Absolute) 0.5 {x10E3/uL} (Normal) Range: 0.1-0.9 Lymphs (Absolute) 2.5 {x10E3/uL} (Normal) Range: 0.7-3.1 Neutrophils (Absolute) 2.9 {x10E3/uL} (Normal) Range: 1.4-7.0 Basos 1 % (Normal) Eos 2 % (Normal) Monocytes 8 % (Normal) Lymphs 41 % (Normal) Neutrophils 48 % (Normal) Platelets 333 {x10E3/uL} (Normal) Range: 150-379 RDW 13.2 % (Normal) Range: 12.3-15.4 MCHC 34.1 g/dL (Normal) Range: 31.5-35.7 MCH 30.3 pg (Normal) Range: 26.6-33.0 MCV 89 fL (Normal) Range: 79-97 Hematocrit 43.7 % (Normal) Range: 34.0-46.6 Hemoglobin 14.9 g/dL (Normal) Range: 11.1-15.9 RBC 4.91 {x10E6/uL} (Normal) Range: 3.77-5.28 WBC 6.2 {x10E3/uL} (Normal) Range: 3.4-10.8 :17 Thin prep Pap Comments: Source.............Cervix;EndocervixNo. of containers..01 CYTYC Thin Prep VialPATIENT NOT FASTINGPERFORMED BY: =G [facility] [address] [id number] BY: WB LabMobiPixie (74900) (no STD rp [address] [id number] Information: [id number] testing) Age Gdln ACOG Testing 30-65 (Normal) 3-Qex-266526:24 ALKALINE PHOSPHATASE-ISOENZYM Comments: PATIENT NOT FASTINGPERFORMED BY: CB [facility] Qmllsk7458 Capps RoadSand[facility] [id number] Information: [id number] (89132) Intestinal Frac.: 0 % (Normal) Range: 0-18 Bone Fraction: 29 % (Normal) Range: 14-68 Liver Fraction: 71 % (Normal) Range: 18-85 Alkaline Phosphatase, S 134 [iU]/L (Abnormal) Range: 39-117 3-Loo-697649:24 AMYLASE (32619) Comments: PATIENT NOT FASTINGPERFORMED BY: LabCo Lciwxb6035 [facility] [id number] Amylase, Serum 73 U/L (Normal) Range: 31-124 0-Wuo-142500:24 LIPASE (72312) Comments: PATIENT NOT FASTINGPERFORMED BY: [facility] Moyysx9175 [facility] [id number] Lipase, Serum 50 U/L (Normal) Range: 0-59 41-Dgc-677788:07 CBC W/AUTO DIFF WBC Comments: PATIENT WAS FASTINGPERFORMED BY: LabCo Vsoavr2007 [facility] [id number] Information: [id number] (01376) Immature Grans (Abs) 0.0 {x10E3/uL} (Normal) Range: 0.0-0.1 Immature Granulocytes 0 % (Normal) Baso (Absolute) 0.0 {x10E3/uL} (Normal) Range: 0.0-0.2 Eos (Absolute) 0.1 {x10E3/uL} (Normal) Range: 0.0-0.4 Monocytes(Absolute) 0.5 {x10E3/uL} (Normal) Range: 0.1-0.9 Lymphs (Absolute) 2.1 {x10E3/uL} (Normal) Range: 0.7-3.1 Neutrophils (Absolute) 2.0 {x10E3/uL} (Normal) Range: 1.4-7.0 Basos 1 % (Normal) Eos 2 % (Normal) Monocytes 11 % (Normal) Lymphs 44 % (Normal) Neutrophils 42 % (Normal) Platelets 255 {x10E3/uL} (Normal) Range: 150-379 RDW 13.4 % (Normal) Range: 12.3-15.4 MCHC 32.8 g/dL (Normal) Range: 31.5-35.7 MCH 29.4 pg (Normal) Range: 26.6-33.0 MCV 90 fL (Normal) Range: 79-97 Hematocrit 41.5 % (Normal) Range: 34.0-46.6 Hemoglobin 13.6 g/dL (Normal) Range: 11.1-15.9 RBC 4.63 {x10E6/uL} (Normal) Range: 3.77-5.28 WBC 4.7 {x10E3/uL} (Normal) Range: 3.4-10.8 :07 ASM (ANTI SMOOTH MUSCLE Comments: PATIENT WAS FASTINGPERFORMED BY: [facility] Cave GamesAt[facility] Health [facility] [id number] ANTIBODY) (97867) Actin (Smooth Muscle) 34 {Units} (Abnormal) Range: 0-19 Antibody Comments: Negative 0 - 19 Weak positive 20 - 30 Moderate to strong positive >30 . Actin Antibodies are found in 52-85% of patients with autoimmune hepatitis or chronic active hepatitis and in 22% of patients with primary biliary cirrhosis. 97-Dbn-931519:07 Vitamin D Hydroxy (97920) Comments: PATIENT WAS FASTINGPERFORMED BY: Zinch6370 Lif[facility]rowd[facility] [id number] Vitamin D, 25-Hydroxy 28.4 ng/mL (Abnormal) Range: 30.0-100.0 Comments: Vitamin D deficiency has been defined by the [place] of[place]icine and an Endocrine Society practice guideline as alevel of serum 25-OH vitamin D less than 20 ng/mL (1,2).The Endocrine Society went on to further define vitamin Dinsufficiency as a level between 21 and 29 ng/mL (2).1. IOM ([place]). 2010. Dietary reference intakes for calcium and D. [place]: The National Academies Press.2. Cyndy MF, Gala NC, Umesh ESPINOZA, et al. Evaluation, treatment, and prevention of vitamin D deficiency: an Endocrine Society clinical practice guideline. JCEM. 2010; 96(7):1911-30. 80-Anq-446648:07 METABOLIC PANEL, COMPREHENSIVE Comments: PATIENT WAS FASTINGPERFORMED BY: Applicasa70 [address] [facility] [id number] (76152) ALT (SGPT) 108 [iU]/L (Abnormal) Range: 0-32 AST (SGOT) 48 [iU]/L (Abnormal) Range: 0-40 Alkaline Phosphatase, S 183 [iU]/L (Abnormal) Range: 39-117 Bilirubin, Total 0.5 mg/dL (Normal) Range: 0.0-1.2 A/G Ratio 2.0 (Normal) Range: 1.1-2.5 Globulin, Total 2.3 g/dL (Normal) Range: 1.5-4.5 Albumin, Serum 4.6 g/dL (Normal) Range: 3.5-5.5 Protein, Total, Serum 6.9 g/dL (Normal) Range: 6.0-8.5 Calcium, Serum 9.5 mg/dL (Normal) Range: 8.7-10.2 Carbon Dioxide, Total 25 mmol/L (Normal) Range: 18-29 Chloride, Serum 102 mmol/L (Normal) Range: 97-108 Potassium, Serum 4.3 mmol/L (Normal) Range: 3.5-5.2 Sodium, Serum 143 mmol/L (Normal) Range: 134-144 BUN/Creatinine Ratio 21 (Normal) Range: 9-23 eGFR If Africn Am 102 mL/min/1.73 (Normal) eGFR If NonAfricn Am 88 mL/min/1.73 (Normal) Creatinine, Serum 0.75 mg/dL (Normal) Range: 0.57-1.00 BUN 16 mg/dL (Normal) Range: 6-24 Glucose, Serum 83 mg/dL (Normal) Range: 65-99 25-Nzf-751469:07 LIPID PANEL (55393) Comments: PATIENT WAS FASTINGPERFORMED BY: LabCoSt. Lawrence Rehabilitation CenterJqwmzw4108 [facility] [id number] LDL/HDL Ratio 1.5 {ratio_units} (Normal) Range: 0.0-3.2 Comments: LDL/HDL Ratio Men Women 1/2 Avg.Risk 1.0 1.5 Av g.Risk 3.6 3.2 2X Avg.Risk 6.2 5.0 3X Avg.Risk 8.0 6.1 LDL Cholesterol Calc 145 mg/dL (Abnormal) Range: 0-99 VLDL Cholesterol Nalini 13 mg/dL (Normal) Range: 5-40 HDL Cholesterol 98 mg/dL (Normal) Comments: According to ATP-III Guidelines, HDL-C >59 mg/dL is considered anegative risk factor for CHD. Triglycerides 63 mg/dL (Normal) Range: 0-149 Cholesterol, Total 256 mg/dL (Abnormal) Range: 100-199 38-Lzx-671084:46 HPV automatic Comments: Source.............Cervical;EndocervicalNo. of containers..01 CYTYC Thin Prep VialPATIENT NOT FASTINGPERFORMED BY: WB [facility] Luydjzfxor[address] [id number] BY: =Ana Banda (49242) [facility] Zuqgrelnek649 [facility] W [id number] Information: [id number] HPV, high-risk Negative Comments: This high-risk HPV test detects thirteen high- risk types(16/18/31/33/35/39/45/51/52/56/58/59/68) without differentiation. . (Normal) Pathologist [facility] Comments: R87.615The Pap smear is a screening test designed to aid in the detection ofpremalignant and malignant conditions of the uterine cervix. It is not adiagnostic procedure and should not be used as the so provided ICD10: (Normal) le means of detectingcervical cancer. Both false-positive and false-negative reports do occur. .This liquid based ThinPrep(R) pap test was screened with theuse of an image guided system. See Note . (Normal) DIAGNOSIS: [facility] Comments: UNSATISFACTORY FOR EVALUATION.Suggest follow up as clinically appropriate.Specimen processed and examined but unsatisfactory for evaluation becauseof insufficient cellularity.V73.81Lewis Blevins Cytot (Normal) echnologist (ASCP)Cindi Malik, Supervisory Life Insurance Actuary (ASCP) 86-Hrr-838760:53 CALCIUM SERUM (12730) Comments: PATIENT NOT FASTINGPERFORMED BY: [facility] Hiikxk1780 [facility] [id number] Information: [id number] Calcium, Serum 10.0 mg/dL (Normal) Range: 8.7-10.2 38-Zwt-40994:27 ASM (ANTI SMOOTH MUSCLE Comments: PATIENT WAS FASTINGPERFORMED BY: Tasit.comFort Defiance Indian HospitalRvnqwu5132 [facility] [id number] ANTIBODY) (91585) Actin (Smooth Muscle) 32 {Units} (Abnormal) Range: 0-19 Antibody Comments: Negative 0 - 19 Weak positive 20 - 30 Moderate to strong positive >30 . Actin Antibodies are found in 52-85% of patients with autoimmune hepatitis or chronic active hepatitis and in 22% of patients with primary biliary cirrhosis. 32-Bza-52631:27 CBC with auto diff Comments: PATIENT WAS FASTINGPERFORMED BY: Tasit.comFort Defiance Indian HospitalGbhoek3126 [facility] [id number] Information: [id number] (34629) Immature Grans (Abs) 0.0 {x10E3/uL} (Normal) Range: 0.0-0.1 Immature Granulocytes 0 % (Normal) Baso (Absolute) 0.0 {x10E3/uL} (Normal) Range: 0.0-0.2 Eos (Absolute) 0.2 {x10E3/uL} (Normal) Range: 0.0-0.4 Monocytes(Absolute) 0.6 {x10E3/uL} (Normal) Range: 0.1-0.9 Lymphs (Absolute) 2.0 {x10E3/uL} (Normal) Range: 0.7-3.1 Neutrophils (Absolute) 2.7 {x10E3/uL} (Normal) Range: 1.4-7.0 Basos 1 % (Normal) Eos 4 % (Normal) Monocytes 10 % (Normal) Lymphs 36 % (Normal) Neutrophils 49 % (Normal) Platelets 290 {x10E3/uL} (Normal) Range: 150-379 RDW 12.6 % (Normal) Range: 12.3-15.4 MCHC 34.1 g/dL (Normal) Range: 31.5-35.7 MCH 29.4 pg (Normal) Range: 26.6-33.0 MCV 86 fL (Normal) Range: 79-97 Hematocrit 41.6 % (Normal) Range: 34.0-46.6 Hemoglobin 14.2 g/dL (Normal) Range: 11.1-15.9 RBC 4.83 {x10E6/uL} (Normal) Range: 3.77-5.28 WBC 5.5 {x10E3/uL} (Normal) Range: 3.4-10.8 :27 LIPID PANEL (56465) Comments: PATIENT WAS FASTINGPERFORMED BY: IllumagearCorewell Health [facility] Hospital6370 [facility] [id number] LDL/HDL Ratio 1.2 {ratio_units} (Normal) Range: 0.0-3.2 Comments: LDL/HDL Ratio Men Women 1/2 Avg.Risk 1.0 1.5 Av g.Risk 3.6 3.2 2X Avg.Risk 6.2 5.0 3X Avg.Risk 8.0 6.1 LDL Cholesterol Calc 133 mg/dL (Abnormal) Range: 0-99 VLDL Cholesterol Nalini 16 mg/dL (Normal) Range: 5-40 HDL Cholesterol 110 mg/dL (Normal) Comments: According to ATP-III Guidelines, HDL-C >59 mg/dL is considered anegative risk factor for CHD. Triglycerides 80 mg/dL (Normal) Range: 0-149 Cholesterol, Total 259 mg/dL (Abnormal) Range: 100-199 :27 Vitamin D Hydroxy (71051) Comments: PATIENT WAS FASTINGPERFORMED BY: IllumagearCorewell Health [facility] Hospital6370 [facility] [id number] Vitamin D, 25-Hydroxy 43.6 ng/mL (Normal) Range: 30.0-100.0 Comments: Vitamin D deficiency has been defined by the [place] of[place]icine and an Endocrine Society practice guideline as alevel of serum 25-OH vitamin D less than 20 ng/mL (1,2).The Endocrine Society went on to further define vitamin Dinsufficiency as a level between 21 and 29 ng/mL (2).1. IOM ([place] of [place]). 2010. Dietary reference intakes for calcium and D. [place]: The National Academies Press.2. Cyndy MF, Gala NC, Umesh ESPINOZA, et al. Evaluation, treatment, and prevention of vitamin D deficiency: an Endocrine Society clinical practice guideline. JCEM. 2010; 96(7):1911-30. :27 METABOLIC PANEL, COMPREHENSIVE Comments: PATIENT WAS FASTINGPERFORMED BY: [facility]6370 [facility] [id number] (75656) ALT (SGPT) 81 [iU]/L (Abnormal) Range: 0-32 AST (SGOT) 33 [iU]/L (Normal) Range: 0-40 Alkaline Phosphatase, S 163 [iU]/L (Abnormal) Range: 39-117 Bilirubin, Total 0.5 mg/dL (Normal) Range: 0.0-1.2 A/G Ratio 1.6 (Normal) Range: 1.1-2.5 Globulin, Total 2.9 g/dL (Normal) Range: 1.5-4.5 Albumin, Serum 4.6 g/dL (Normal) Range: 3.5-5.5 Protein, Total, Serum 7.5 g/dL (Normal) Range: 6.0-8.5 Calcium, Serum 10.3 mg/dL (Abnormal) Range: 8.7-10.2 Carbon Dioxide, Total 25 mmol/L (Normal) Range: 18-29 Chloride, Serum 101 mmol/L (Normal) Range: 97-108 Potassium, Serum 4.2 mmol/L (Normal) Range: 3.5-5.2 Sodium, Serum 144 mmol/L (Normal) Range: 134-144 BUN/Creatinine Ratio 13 (Normal) Range: 9-23 eGFR If Africn Am 81 mL/min/1.73 (Normal) eGFR If NonAfricn Am 70 mL/min/1.73 (Normal) Creatinine, Serum 0.91 mg/dL (Normal) Range: 0.57-1.00 BUN 12 mg/dL (Normal) Range: 6-24 Glucose, Serum 87 mg/dL (Normal) Range: 65-99 02-Aug-20149:17 CBC W/AUTO DIFF WBC Comments: PATIENT NOT FASTINGPERFORMED BY: [facility] [id number] [id number] Information: [id number] ([id number]) Immature Grans (Abs) 0.0 {x10E3/uL} (Normal) Range: 0.0-0.1 Immature Granulocytes 0 % (Normal) Baso (Absolute) 0.1 {x10E3/uL} (Normal) Range: 0.0-0.2 Eos (Absolute) 0.1 {x10E3/uL} (Normal) Range: 0.0-0.4 Monocytes(Absolute) 0.5 {x10E3/uL} (Normal) Range: 0.1-0.9 Lymphs (Absolute) 1.9 {x10E3/uL} (Normal) Range: 0.7-3.1 Neutrophils (Absolute) 1.9 {x10E3/uL} (Normal) Range: 1.4-7.0 Basos 1 % (Normal) Eos 3 % (Normal) Monocytes 11 % (Normal) Lymphs 43 % (Normal) Neutrophils 42 % (Normal) Platelets 278 {x10E3/uL} (Normal) Range: 150-379 RDW 13.0 % (Normal) Range: 12.3-15.4 MCHC 34.0 g/dL (Normal) Range: 31.5-35.7 MCH 30.1 pg (Normal) Range: 26.6-33.0 MCV 89 fL (Normal) Range: 79-97 Hematocrit 42.1 % (Normal) Range: 34.0-46.6 Hemoglobin 14.3 g/dL (Normal) Range: 11.1-15.9 RBC 4.75 {x10E6/uL} (Normal) Range: 3.77-5.28 WBC 4.4 {x10E3/uL} (Normal) Range: 3.4-10.8 02-Aug-20149:17 METABOLIC PANEL, COMPREHENSIVE Comments: PATIENT NOT FASTINGPERFORMED BY: LabCoSt. [facility] Rehabilitation CenterZhhkmk0116 [facility] [id number] ([id number]) ALT (SGPT) 172 [iU]/L (Abnormal) Range: 0-32 AST (SGOT) 49 [iU]/L (Abnormal) Range: 0-40 Alkaline Phosphatase, S 200 [iU]/L (Abnormal) Range: 39-117 Bilirubin, Total 0.4 mg/dL (Normal) Range: 0.0-1.2 A/G Ratio 1.8 (Normal) Range: 1.1-2.5 Globulin, Total 2.5 g/dL (Normal) Range: 1.5-4.5 Albumin, Serum 4.4 g/dL (Normal) Range: 3.5-5.5 Protein, Total, Serum 6.9 g/dL (Normal) Range: 6.0-8.5 Calcium, Serum 9.7 mg/dL (Normal) Range: 8.7-10.2 Comments: Effective August 14, 2014 the reference interval for Calcium, Serum will be changing to: Age Male Female 0 - 10 days 8.6 - 10.4 8.6 - 10.4 11 days - 1 year 9.2 - 11.0 9.2 - 11.0 2 - 11 years 9.1 - 10.5 9.1 - 10.5 12 - 17 years 8.9 - 10.4 8.9 - 10.4 18 - 59 years 8.7 - 10.2 8.7 - 10.2 >59 years 8.6 - 10.2 8.7 - 10.3 Carbon Dioxide, Total 26 mmol/L (Normal) Range: 18-29 Chloride, Serum 101 mmol/L (Normal) Range: 97-108 Potassium, Serum 4.3 mmol/L (Normal) Range: 3.5-5.2 Sodium, Serum 142 mmol/L (Normal) Range: 134-144 BUN/Creatinine Ratio 18 (Normal) Range: 9-23 eGFR If Africn Am 100 mL/min/1.73 (Normal) eGFR If NonAfricn Am 87 mL/min/1.73 (Normal) Creatinine, Serum 0.77 mg/dL (Normal) Range: 0.57-1.00 BUN 14 mg/dL (Normal) Range: 6-24 Glucose, Serum 81 mg/dL (Normal) Range: 65-99 :17 ASM (ANTI SMOOTH MUSCLE Comments: PATIENT NOT FASTINGPERFORMED BY: [facility] GamesAt[facility] [id number] ANTIBODY) (21010) Actin (Smooth Muscle) 23 {Units} (Abnormal) Range: 0-19 Antibody Comments: Negative 0 - 19 Weak positive 20 - 30 Moderate to strong positive >30 . Actin Antibodies are found in 52-85% of patients with autoimmune hepatitis or chronic active hepatitis and in 22% of patients with primary biliary cirrhosis. :17 LIPID PANEL (90505) Comments: PATIENT NOT FASTINGPERFORMED BY: Zinch6370 LifecrowdAt[facility] [id number] LDL/HDL Ratio 1.8 {ratio_units} (Normal) Range: 0.0-3.2 Comments: LDL/HDL Ratio Men Women 1/2 Avg.Risk 1.0 1.5 Av g.Risk 3.6 3.2 2X Avg.Risk 6.2 5.0 3X Avg.Risk 8.0 6.1 LDL Cholesterol Calc 187 mg/dL (Abnormal) Range: 0-99 VLDL Cholesterol Nalini 18 mg/dL (Normal) Range: 5-40 HDL Cholesterol 105 mg/dL (Normal) Comments: According to ATP-III Guidelines, HDL-C >59 mg/dL is considered anegative risk factor for CHD. Triglycerides 92 mg/dL (Normal) Range: 0-149 Cholesterol, Total 310 mg/dL (Abnormal) Range: 100-199 :17 Vitamin D Hydroxy (11881) Comments: PATIENT NOT FASTINGPERFORMED BY: [facility] Aakueg4820 [facility] [id number] Vitamin D, 25-Hydroxy 27.3 ng/mL (Abnormal) Range: 30.0-100.0 Comments: Vitamin D deficiency has been defined by the [place] ofFult[facility] Health Centercine and an Endocrine Society practice guideline as alevel of serum 25-OH vitamin D less than 20 ng/mL (1,2).The Endocrine Society went on to further define vitamin Dinsufficiency as a level between 21 and 29 ng/mL (2).1. IOM ([place] of Medicine). 2010. Dietary reference intakes for calcium and D. [place]: The National Academies Press.2. Cyndy MF, Gala NC, Umesh ESPINOZA, et al. Evaluation, treatment, and prevention of vitamin D deficiency: an Endocrine Society clinical practice guideline. JCEM. 2010; 96(7):1911-30. 18-Jsh-444389:51 BMP GAP 8 (Normal) Range: 5-15 CO2 29.0 mmol/L (Normal) Range: 21.0-32.0 CL 104 mmol/L (Normal) Range: 98-107 K 3.8 mmol/L (Normal) Range: 3.5-5.1 NA 141 mmol/L (Normal) Range: 136-145 CA 9.2 mg/dL (Normal) Range: 8.5-10.1 BC 13.8 {RATIO} (Normal) Range: 10-20 GFRAA 96 mL/min (Normal) GFR 79 mL/min (Normal) CREAT 0.8 mg/dL (Normal) Range: 0.6-1.0 BUN 11 mg/dL (Normal) Range: 7-18 GLU 89 mg/dL (Normal) Range: 70-110 62-Mww-701406:51 CBC MPV 10.3 fL (Normal) Range: 6.2-12.0 PLT 230 K/mm3 (Normal) Range: 150-450 RDWSD 40.2 fL (Normal) Range: 35.1-43.9 RDWCV 12.3 % (Normal) Range: 11.6-14.6 MCHC 33.6 {g/gl} (Normal) Range: 32-36 MCH 30.1 pg (Normal) Range: 27.0-32.0 MCV 89.7 fL (Normal) Range: 81-99 HCT 39.9 % (Normal) Range: 37-47 HGB 13.4 g/dL (Normal) Range: 12.0-15.0 RBC 4.45 {M/mm3} (Normal) Range: 4.2-5.4 WBC 5.5 K/mm3 (Normal) Range: 4.4-11.0 46-Lqd-186896:12 ASM (ANTI SMOOTH MUSCLE Comments: PATIENT WAS FASTINGPERFORMED BY: [facility] GamesAt[facility] [id number] ANTIBODY) (47191) Actin (Smooth Muscle) 33 {Units} (Abnormal) Range: 0-19 Antibody Comments: Negative 0 - 19 Weak positive 20 - 30 Moderate to strong positive >30 . Actin Antibodies are found in 52-85% of patients with autoimmune hepatitis or chronic active hepatitis and in 22% of patients with primary biliary cirrhosis. 56-Hin-589310:12 LIPID PANEL (43785) Comments: PATIENT WAS FASTINGPERFORMED BY: Applicasa70 LifecrowdAt[facility] [id number] LDL/HDL Ratio 1.3 {ratio_units} (Normal) Range: 0.0-3.2 LDL Cholesterol Calc 121 mg/dL (Abnormal) Range: 0-99 VLDL Cholesterol Nalini 19 mg/dL (Normal) Range: 5-40 HDL Cholesterol 90 mg/dL (Normal) Comments: According to ATP-III Guidelines, HDL-C >59 mg/dL is considered anegative risk factor for CHD. Triglycerides 97 mg/dL (Normal) Range: 0-149 Cholesterol, Total 230 mg/dL (Abnormal) Range: 100-199 22-Bih-325767:12 METABOLIC PANEL, Comments: PATIENT WAS FASTINGPERFORMED BY: Applicasa70 [facility] [id number] Information: [id number] COMPREHENSIVE (29806) ALT (SGPT) 123 [iU]/L (Abnormal) Range: 0-32 AST (SGOT) 75 [iU]/L (Abnormal) Range: 0-40 Alkaline Phosphatase, S 188 [iU]/L (Abnormal) Range: 39-117 Bilirubin, Total 0.4 mg/dL (Normal) Range: 0.0-1.2 A/G Ratio 1.7 (Normal) Range: 1.1-2.5 Globulin, Total 2.7 g/dL (Normal) Range: 1.5-4.5 Albumin, Serum 4.5 g/dL (Normal) Range: 3.5-5.5 Protein, Total, Serum 7.2 g/dL (Normal) Range: 6.0-8.5 Calcium, Serum 9.6 mg/dL (Normal) Range: 8.7-10.2 Carbon Dioxide, Total 24 mmol/L (Normal) Range: 18-29 Chloride, Serum 102 mmol/L (Normal) Range: 97-108 Potassium, Serum 4.0 mmol/L (Normal) Range: 3.5-5.2 Sodium, Serum 143 mmol/L (Normal) Range: 134-144 BUN/Creatinine Ratio 16 (Normal) Range: 9-23 eGFR If Africn Am 101 mL/min/1.73 (Normal) eGFR If NonAfricn Am 88 mL/min/1.73 (Normal) Creatinine, Serum 0.76 mg/dL (Normal) Range: 0.57-1.00 BUN 12 mg/dL (Normal) Range: 6-24 Glucose, Serum 88 mg/dL (Normal) Range: 65-99 76-Cnp-382021:12 Vitamin D Hydroxy (00683) Comments: PATIENT WAS FASTINGPERFORMED BY: [employer]6370 [facility] [id number] Vitamin D, 25-Hydroxy 41.4 ng/mL (Normal) Range: 30.0-100.0 Comments: Vitamin D deficiency has been defined by the [place] of[place]icine and an Endocrine Society practice guideline as alevel of serum 25-OH vitamin D less than 20 ng/mL (1,2).The Endocrine Society went on to further define vitamin Dinsufficiency as a level between 21 and 29 ng/mL (2).1. IOM ([place] of Medicine). 2010. Dietary reference intakes for calcium and D. [place]: The National Academies Press.2. Cyndy MF, Gala VILLAGOMEZ, Umesh ESPINOZA, et al. Evaluation, treatment, and prevention of vitamin D deficiency: an Endocrine Society clinical practice guideline. JCEM. 2010; 96(7):1911-30. 18-Oqp-714399:16 ASM (ANTI SMOOTH MUSCLE Comments: PATIENT WAS FASTINGPERFORMED BY: [employer] KAL [facility] [id number] ANTIBODY) (66066) Actin (Smooth Muscle) 65 {Units} (Abnormal) Range: 0-19 Antibody Comments: Negative 0 - 19 Weak positive 20 - 30 Moderate to strong positive >30 . Actin Antibodies are found in 52-85% of patients with autoimmune hepatitis or chronic active hepatitis and in 22% of patients with primary biliary cirrhosis. 03-Llf-011550:16 PTT (Activated Partial Comments: PATIENT WAS FASTINGPERFORMED BY: [facility]6370 [facility] [id number] Thromboplastin Time) (08548) aPTT 29 {sec} (Normal) Range: 24-33 Comments: This test has not been validated for monitoring unfractionated heparintherapy. aPTT-based therapeutic ranges for unfractionated heparintherapy have not been established. For general guidelines onHeparin monitoring, refer to the [facility] Directory of Services. 61-Grn-329959:16 PT (Prothrobim Time) (66692) Comments: PATIENT WAS FASTINGPERFORMED BY: [facility]6370 [facility] [id number] INR 1.0 (Normal) Range: 0.8-1.2 Comments: Reference interval is for non-anticoagulated patients. . Suggested INR therapeutic range for Vitamin K anta gonist therapy: Standard Dose (moderate intensity therapeutic range): 2.0 - 3.0 Higher intensity therapeutic range 2.5 - 3.5 Prothrombin Time 10.4 {sec} (Normal) Range: 9.1-12.0 :16 Vitamin D Hydroxy (77767) Comments: PATIENT WAS FASTINGPERFORMED BY: [facility] [id number] Vitamin D, 25-Hydroxy 28.4 ng/mL (Abnormal) Range: 30.0-100.0 Comments: Vitamin D deficiency has been defined by the [place] of[place]icine and an Endocrine Society practice guideline as alevel of serum 25-OH vitamin D less than 20 ng/mL (1,2).The Endocrine Society went on to further define vitamin Dinsufficiency as a level between 21 and 29 ng/mL (2).1. IOM ([place] of Medicine). 2010. Dietary reference intakes for calcium and D. [place]: The National Academies Press.2. Cyndy MF, Gala NC, Umesh ESPINOZA, et al. Evaluation, treatment, and prevention of vitamin D deficiency: an Endocrine Society clinical practice guideline. JCEM. 2010; 96(7):1911-30. :16 METABOLIC PANEL, Comments: PATIENT WAS FASTINGPERFORMED BY: [facility]arCore[facility]6370 [facility] [id number] Information: [id number] COMPREHENSIVE (73573) ALT (SGPT) 41 [iU]/L (Abnormal) Range: 0-32 AST (SGOT) 24 [iU]/L (Normal) Range: 0-40 Alkaline Phosphatase, S 128 [iU]/L (Abnormal) Range: 39-117 Bilirubin, Total 0.4 mg/dL (Normal) Range: 0.0-1.2 A/G Ratio 1.6 (Normal) Range: 1.1-2.5 Globulin, Total 2.7 g/dL (Normal) Range: 1.5-4.5 Albumin, Serum 4.4 g/dL (Normal) Range: 3.5-5.5 Protein, Total, Serum 7.1 g/dL (Normal) Range: 6.0-8.5 Calcium, Serum 9.7 mg/dL (Normal) Range: 8.7-10.2 Carbon Dioxide, Total 25 mmol/L (Normal) Range: 19-28 Chloride, Serum 102 mmol/L (Normal) Range: 97-108 Potassium, Serum 4.6 mmol/L (Normal) Range: 3.5-5.2 Sodium, Serum 141 mmol/L (Normal) Range: 134-144 BUN/Creatinine Ratio 21 (Normal) Range: 9-23 eGFR If Africn Am 99 mL/min/1.73 (Normal) eGFR If NonAfricn Am 86 mL/min/1.73 (Normal) Creatinine, Serum 0.78 mg/dL (Normal) Range: 0.57-1.00 BUN 16 mg/dL (Normal) Range: 6-24 Glucose, Serum 82 mg/dL (Normal) Range: 65-99 19-Zop-669844:16 LIPID PANEL (37175) Comments: PATIENT WAS FASTINGPERFORMED BY: LabCoSt. [facility] Rehabilitation CenterFiumhx1862 [facility] [id number] LDL/HDL Ratio 1.4 {ratio_units} (Normal) Range: 0.0-3.2 HDL Cholesterol 88 mg/dL (Normal) Comments: According to ATP-III Guidelines, HDL-C >59 mg/dL is considered anegative risk factor for CHD. LDL Cholesterol Calc 125 mg/dL (Abnormal) Range: 0-99 VLDL Cholesterol Nalini 17 mg/dL (Normal) Range: 5-40 Cholesterol, Total 230 mg/dL (Abnormal) Range: 100-199 Triglycerides 86 mg/dL (Normal) Range: 0-149 :42 SPINE, LUMBAR (ROUTINE) Radiology Report See Note (Normal) Comments: PROCEDURE: MRI LUMBAR SPINE WITHOUT CONTRAST REASON FOR EXAM: Female, 56 years old. Low back and left leg pain. TECHNIQUE: Standardized fat and water weighted pulse sequences wereobta ined in the sagittal and axial planes. COMPARISON: Lumbar spine series 05/25/2012. FINDINGS:It is presumed that the lower most lumbar type vertebral body representsL5. Normal lumbar lordosis. No substantial lum bar scoliosis. Normallumbar vertebrae. Normal conus medullaris, terminating at the C07-S4ntpep. T12-L1: Sagittal imaging only. Normal disk hydration, height andmorphology. No endplate spondylosis or appreciable facet arthrosis.Normal central canal and visualized bilateral intervertebral neuralforamina. L1-2: Normal disk height and hydration with minimal annular bulge andminor anterior endplate sp ondylosis. Normal bilateral facet joints.Normal central canal and lateral recesses. Normal bilateralintervertebralneural foramina. L2-3: Normal disk height and hydration with minimal annular bulge. Noendplate spondylosis or facet arthrosis. Normal central canal andlateralrecesses. Normal bilateral intervertebral neural foramina. L3-4: Normal disk height, hydration and morphology. No substantial endplate spondylosis or facet arthrosis. Normal central canal andlateralrecesses. Normal bilateral intervertebral neural foramina. L4-5: Normal disk height, hydration and morphology. No substantialen dplate spondylosis or facet arthrosis. Normal central canal andlateralrecesses. Normal bilateral intervertebral neural foramina. L5-S1: Normal disk height, hydration and morphology. No substantialend plate spondylosis or facet arthrosis. Normal central canal andlateralrecesses. Normal bilateral intervertebral neural foramina. Normal visualized sacral ala. Normal visualized paraspinous soft tissue structures. IMPRESSION:Minor degenerative changes as noted above, with no demonstrated lumbardiskherniation or morphologic neural impingement. Signed:Pina Elizondo M.D.August 02, 2012 at 11:16:10 AM [id number] Signed DN/DN If you are the referring physician and would like to consult with theradiologist who provided this interpretation, please contact Pina Nguyễn M.D. at . If this radiologist is unavailable, youwillbe directed to another radiologist to assist. If you are a patient with a question regarding this report, pleasecontactyour referring physician direct ly. Professional Interpretation Provided By: Corrigo, Phone , These documents contain legally protected and confidential healthinformation intended only for the use of the individual or entity namedabove. If you are not the intended recipient, you are hereby notifiedthatany disclosure, copying, distribution, or other use of these documents isstrictly prohibited. If yo u have received this information in error,pleasenotify the sender immediately and arrange for the return or destructionofthese documents. Dictated on 08/02/1255 by PINA ELIZONDO MD RTranscribed on 08/02/12 123 by ITS IMPORTSign by PINA ELIZONDO MD on 08/02/12 1233 Sign by: PINA ELIZONDO MD 96-Rev-855820:44 L/S SPINE,MIN 4 VIEWS Radiology Report See Note (Normal) Comments: PROCEDURE: X-RAY - LUMBAR SPINE REASON FOR EXAM: Female, 56 years old. Low back pain. TECHNIQUE: Five views of the lumbar spine were obtained. COMPARISON: None FINDINGS:Normal lumbar lordosis. There is no substantial scoliosis. T12-L1: There is a mild degree of disk space narrowing with anteriorspondylosis. L1-2: Normal disc height. Normal endplates. Normal alignment of thevertebrae. L2-3: Normal disc height. Normal endplates. Normal alignment of thevertebrae. L3-4: Normal disc height. Normal endplates. Normal alignment of thevertebrae. L4-5: Normal disc height. Normal endplates. Norm al alignment of thevertebrae. L5-S1: Normal disc height. Normal endplates. Normal alignment of thevertebrae. The soft tissue structures are unremarkable. The patient is status postcholecystectomy. IMPR ESSION:Mild degree of disk space narrowing with anterior spondylosis at the S93-Z9gbrdh. Signed:Edgar Marcelo M.D.May 25, 2012 at 1:53:11 PM [id number] Signed GP/GP If you a re the referring physician and would like to consult with theradiologist who provided this interpretation, please contact Maxim Cochran at [phone]. If this radiologist is unavailable, you will be directed to another radiologist to assist. If you are a patient with a question regarding this report, pleasecontactyour referring physician directly. Professional Interpretation Provided By: Tonya taylor, Phone , These documents contain legally protected and confidential healthinformation intended only for the use of the individual or entity namedabove. If you are not the intended recipient, you are hereby notifiedthatany disclosure, copying, distribution, or other use of these documents isstrictly prohibited. If you have received this information in error,pleas enotify the sender immediately and arrange for the return or destructionofthese documents. Dictated on 05/25/12 1116 by Daniela QUIÑONES,Shemarranscribed on 05/25/12 1356 by ITS IMPORTSign by Garima tsang MD,Edgar on 05/25/12 1357 Sign by: Edgar Marcelo MD 70-Hjo-110839:43 ANKLE,MIN 3 VIEWS Radiology Report See Note (Normal) Comments: PROCEDURE: X-RAY - LEFT ANKLE REASON FOR EXAM: Female, 56 years old. Plantar fasciitis. TECHNIQUE: Three views of the ankle. COMPARISON: None. FINDINGS: Normal visualized distal tib ia and media l malleolus. Normal visualizeddistal fibula and lateral malleolus. Normal tibiotalar articulation and ankle mortise. Normal visualized talus. Normal visualized calcaneus. The visualized subtalar, talo navicular, calcaneocuboid and tarsalarticulations are normal. IMPRESSION:Normal x-ray examination of the ankle. Signed:Edgar Marcelo M.D.May 25, 2012 at 1:47:14 PM [id number] Signed GP/GP If you are the referring physician and would like to consult with theradiologist who provided this interpretation, please contact Maxim Cochran at [phone]. If this radiolog ist is unavailable, youwill be directed to another radiologist to assist. If you are a patient with a question regarding this report, pleasecontactyour referring physician directly. Professional Interpr etation Provided By: Corrigo, Phone , These documents contain legally protected and confidential healthinformation intended only for the use of the individual or entity namedabove. If you are not the intended recipient, you are hereby notifiedthatany disclosure, copying, distribution, or other use of these documents isstrictly prohibited. If you have received this inf ormation in error,pleasenotify the sender immediately and arrange for the return or destructionofthese documents. Dictated on 05/25/12 1110 by Shemar Marcelo MDranscribed on 05/25/12 1351 by ITS IMPORTSign by Edgar Marcelo MD on 05/25/12 1352 Sign by: Edgar Marcelo MD 07-Grf-076872:43 ANKLE,MIN 3 VIEWS Radiology Report See Note (Normal) Comments: PROCEDURE: X-RAY - RIGHT ANKLE REASON FOR EXAM: Female, 56 years old. Plantar fasciitis. TECHNIQUE: Three views of the ankle. COMPARISON: None. FINDINGS: Normal visualized distal ti gianna and medi al malleolus. Normal visualizeddistal fibula and lateral malleolus. Normal tibiotalar articulation and ankle mortise. Normal visualized talus. Tiny plantar spur. The visualized subtalar, talonavicular , calcaneocuboid and tarsalarticulations are normal. IMPRESSION:Tiny plantar spur. Signed:Edgar Marcelo M.D.May 25, 2012 at 1:51:26 PM [id number] Signed GP/GP If you are the referring physician and would like to consult with theradiologist who provided this interpretation, please contact Maxim Cochran at [phone]. If this radiologist is unavailable, gilda diop directed to another radiologist to assist. If you are a patient with a question regarding this report, pleasecontactyour referring physician directly. Professional Interpretation Provided By: [facility] hilda, Phone , These documents contain legally protected and confidential healthinformation intended only for the use of the individual or entity namedabove. If you are not t he intended recipient, you are hereby notifiedthatany disclosure, copying, distribution, or other use of these documents isstrictly prohibited. If you have received this information in error,pleasenotif y the sender immediately and arrange for the return or destructionofthese documents. Dictated on 05/25/12 1111 by Daniela QUIÑONES,FaviolaSanaranscribed on 05/25/12 1355 by ITS IMPORTSign by Daniela QUIÑONES,Ana eleni on 05/25/12 1355 Sign by: Edgar Marcelo MD 62-Hkm-705051:12 Pap IG, HPV-hr Comments: No. of containers..01 CYTYC Thin Prep VialPERFORMED BY: WB [employer]120 [facility] [place] [id number] BY: =G [facility] Wvdnokmaxi184 [facility] [place] [id number] Information: [id number] HPV, high-risk Negative Comments: This high-risk HPV test detects thirteen high- risk types(16/18/31/33/35/39/45/51/52/56/58/59/68) without differentiation. . (Normal) Note: PAPSMR (Normal) Comments: The Pap smear is a screening test designed to aid in the detection ofpremalignant and malignant conditions of the uterine cervix. It is not adiagnostic procedure and should not be used as the sole mean s of detectingcervical cancer. Both false-positive and false-negative reports do occur. .This liquid based ThinPrep(R) pap test w as screened with theuse of an image guided system. See Note . (Normal) DIAGNOSIS: SPRCS (Normal) Comments: NEGATIVE FOR INTRAEPITHELIAL LESION AND MALIGNANCY.CELLULAR CHANGES ASSOCIATED WITH ATROPHY ARE PRESENT.Satisfactory for evaluation.V72.31 ; Routine gynecological examinationFarzana James Life Insurance Actuary (ASCP) 24-Kdr-983654:12 VITAMIN B-12 (CYANOCOBALAMIN) Comments: PATIENT NOT FASTINGPERFORMED BY: [employer] | VIP70 [facility] [id number] (30496) Vitamin B12 1078 pg/mL (Abnormal) Range: 211-946 41-Mpb-346255:12 IRON (42344) Comments: PATIENT NOT FASTINGPERFORMED BY: CB Nezasaox RoadDublin [place] [id number] Iron, Serum 103 ug/dL (Normal) Range: 35-155 57-Hkt-692007:12 T3, FREE (TRIDOTHYRONINE) (11439) Comments: PATIENT NOT FASTINGPERFORMED BY: [facility] [id number] Triiodothyronine,Free,Serum 3.2 pg/mL (Normal) Range: 2.0-4.4 83-Pqo-205414:12 T4, FREE (THYROXINE) Comments: PATIENT NOT FASTINGPERFORMED BY: [facility] [id number] Information: [id number] DRAW FEE [id number] (20857) T4,Free(Direct) 1.31 ng/dL (Normal) Range: 0.82-1.77 09-Tjz-453856:12 TSH (97018) Comments: PATIENT NOT FASTINGPERFORMED BY: [facility] [id number] TSH 1.740 {uIU/mL} (Normal) Range: 0.450-4.500 09-Jon-46511:33 BILAT SCRN DIGITAL & CAD Radiology Report See Note (Normal) Comments: MAMMOGRAPHY - BILATERAL SCREENING REASON FOR EXAM: Female, 56 years old. Routine annual screeningexamination. PERTINENT HISTORY: Non-contributory. TECHNIQUE: Digital examination. Med iolateral ob lique (MLO) andcraniocaudad (CC) views of both breasts were obtained. CAD: CAD wasperformed on this study. COMPARISON: Comparison is made with prior examinations dated February and August 21. FINDINGS:The breast composition is heterogeneously dense. There are no dominant masses or suspicious calcifications. No other significant abnormalities are identified. There has been nosignificant change since the prior study. IMPRESSION:Stable bilateral screening mammogram. Yearly follow-up recommended. (A) ASSESSMENT CATEGORY:BIRADS Category 2: Benign finding(s). A letter regarding these resultswill be sent to the patient by the facility within 30 days. Approximately 10% of breast cancers are not detected by mammography. Anormal mammogram should not delay biopsy of a clinically suspici ousabnormality. Signed:Edgar Marcelo M.D.May 07, 2012 at 10:36:09 AM [id number] Signed GP/GP If you are the referring physician and would like to consult with theradiologist who provided this interpretation, please contact Maxim Cochran at [phone]. If this radiologist is unavailable, youwill be directed to another radiologist to assist. If you are a patient with a question regarding this report, pleasecontactyour referring physician directly. Professional Interpretation Provided By: Corrigo, Phone , These documents contain legally protected and confidential healthinformation intended only for the use of the individual or entity namedabove. If you are not the intended recipient, you are hereby notifiedthatany disclosure, copying, distribution, or other use of these documents isstrictly prohibited. If you have received this information in error,pleasenotify the sender immediately and arrange for the return or destruction ofthese documents. Dictated on 05/07/12 0933 by Shemar Marcelo MDranscribed on 05/07/12 1040 by ITS IMPORTSign by Edgar Marcelo MD on 05/07/12 1041 Sign by: Edgar Marcelo MD ASMA 43 {Units} Range: 0-19 :21 (Abnormal) Comments: Negative 0 - 19 Weak positive 20 - 30 Moderate to strong positive >30 . Actin Antibodies are found in 52-85% of patients with autoimmune hepatitis or chronic active hepatitis and in 22% of patients with primary biliary cirrhosis. :21 CMP GAP 8 (Normal) Range: 5-15 CO2 30.0 mmol/L (Normal) Range: 21.0-32.0 CL 103 mmol/L (Normal) Range: 98-107 K 4.0 mmol/L (Normal) Range: 3.5-5.1 NA 141 mmol/L (Normal) Range: 136-145 BIT 0.50 mg/dL (Normal) Range: 0.00-1.00 ALT 135 U/L (Abnormal) Range: 12-78 ALK 154 U/L (Abnormal) Range: 50-136 AST 52 U/L (Abnormal) Range: 15-37 CA 9.2 mg/dL (Normal) Range: 8.5-10.1 AG 1.1 {RATIO} (Normal) Range: 0.9-2.4 GLOB 3.8 g/dL (Normal) Range: 2.7-4.2 ALB 4.2 g/dL (Normal) Range: 3.4-5.0 TPROT 8.0 g/dL (Normal) Range: 6.4-8.2 BC 24.3 {RATIO} (Abnormal) Range: 10-20 GFRAA 113 mL/min (Normal) GFR 93 mL/min (Normal) CREAT 0.7 mg/dL (Normal) Range: 0.6-1.0 BUN 17 mg/dL (Normal) Range: 7-18 GLU 84 mg/dL (Normal) Range: 70-110 :21 LIPID VLDL 13 mg/dL (Normal) Range: 5-40 LDL 140 mg/dL (Abnormal) Range: 0-130 HDL 104 mg/dL (Normal) Comments: Reference Range HDL <40 mg/dL Low HDL Cholesterol HDL >or= 60 mg/dL High HDL Cholesterol TRIG 66 mg/dL (Normal) Comments: Serum Triglycerides Reference Interval Normal <150 mg/dL Borderline high 150 - 199 mg/dL High 200 - 499 mg/dL Very High > or = 500 mg/dL CHOL 257 mg/dL (Abnormal) Comments: <200 mg/dL Desirable 200-240 mg/dL Borderline >240 mg/dL High Risk :21 VITD 32.9 ng/mL (Normal) Range: 30.0-100.0 Comments: Vitamin D deficiency has been defined by the [place] of[place]icine and an Endocrine Society practice guideline as alevel of serum 25-OH vitamin D less than 20 ng/mL (1,2).The Endocrine Society went on to further define vitamin Dinsufficiency as a level between 21 and 29 ng/mL (2).1. IOM ([place] of Medicine). 2010. Dietary reference intakes for calcium and D. [place]: The National Academies Press.2. Cyndy MF, Gala VILLAGOMEZ, Umesh ESPINOZA, et al. Evaluation, treatment, and prevention of vitamin D deficiency: an Endocrine Society clinical practice guideline. JCEM. 2010; 96(7): 1911-30.Performed at: - [facility] [address] [id number] Director: Lydia Rm MD, Phone: [phone] 04-Jul-20118:06 Vitamin D Hydroxy (46928) Comments: PATIENT NOT FASTINGPERFORMED BY: [facility] [address] StreetDuAtrium Health [facility] [id number] Information: [id number] Vitamin D, 25-Hydroxy 41.8 ng/mL (Normal) Range: 30.0-100.0 Comments: Vitamin D deficiency has been defined by the [place] of[place]icine and an Endocrine Society practice guideline as alevel of serum 25-OH vitamin D less than 20 ng/mL (1,2).The Endocrine Society went on to further define vitamin Dinsufficiency as a level between 21 and 29 ng/mL (2).1. IOM ([place] of [place]). 2011. Dietary reference intakes for calcium and D. [place]: The National Academies Press.2. Cyndy WRIGHT, Gala VILLAGOMEZ, Umesh ESPINOZA, et al. Evaluation, treatment, and prevention of vitamin D deficiency: an Endocrine Society clinical practice guideline. JCEM. 2010; 96(7): 1911-30. Please note reference interval change 30-Gft-58042:00 BILAT SCRN DIGITAL & CAD Radiology Report See Note (Normal) Comments: MAMMOGRAPHY - BILATERAL SCREENING REASON FOR EXAM: Female, 55 years old. Routine annual screeningexamination. PERTINENT HISTORY: Non-contributory. TECHNIQUE: Digital examination. Me diolateral o blique (MLO) andcraniocaudad (CC) views of both breasts were obtained. CAD: CAD wasperformed on this study. COMPARISON: Comparison is made with prior study dated January 19, 2010. FINDINGS:The breast com position is heterogeneously dense. There are no masses or suspicious microcalcifications. No other significant abnormalities are identified. There has been nosignificant change since the prior study. I MPRESSION:Normal bilateral screening mammogram. One year follow-up recommended. (A) ASSESSMENT CATEGORY:BIRADS Category 2: Benign finding(s). A letter regarding these resultswill be sent to the [facility] nt by the facility within 30 days. Approximately 10% of breast cancers are not detected by mammography. Anormal mammogram should not delay biopsy of a clinically suspiciousabnormality. Dictated on 0 03/20/11 0638 by Daniela QUIÑONES,HarisriSanaranscribed on 03/20/11 1232 by ITS IMPORTSign by Edgar Marcelo MD on 03/20/11 1233 Sign by: __ Edgar Marcelo MD 4-Tfk-342669:02 Antiextractable Nuclear Ag Comments: PERFORMED BY: [email or web address] Ilkqpa2939 [facility] [id number] TOOL DESIGNER Antibodies <0.2 {AI} (Normal) Range: 0.0-0.9 Bird Antibodies <0.2 {AI} (Normal) Range: 0.0-0.9 C-Reactive Protein, 2.0 mg/L (Normal) Comments: PERFORMED BY: Tasit.comSt. [facility] Rehabilitation CenterPwwhif4394 [facility] [id number] :02 Quant Range: 0.0-4.9 :02 Comp. Metabolic Panel (14) Comments: PERFORMED BY: [email or web address] Gmjisy2451 [facility] [id number] ALT (SGPT) 108 [iU]/L (Abnormal) Range: 0-40 AST (SGOT) 38 [iU]/L (Normal) Range: 0-40 Alkaline Phosphatase, S 129 [iU]/L (Normal) Range: 25-150 Bilirubin, Total 0.3 mg/dL (Normal) Range: 0.0-1.2 A/G Ratio 1.5 (Normal) Range: 1.1-2.5 Globulin, Total 2.9 g/dL (Normal) Range: 1.5-4.5 Albumin, Serum 4.3 g/dL (Normal) Range: 3.5-5.5 Protein, Total, Serum 7.2 g/dL (Normal) Range: 6.0-8.5 Calcium, Serum 9.7 mg/dL (Normal) Range: 8.7-10.2 Carbon Dioxide, Total 23 mmol/L (Normal) Range: 20-32 Chloride, Serum 104 mmol/L (Normal) Range: 97-108 Potassium, Serum 4.2 mmol/L (Normal) Range: 3.5-5.2 Sodium, Serum 142 mmol/L (Normal) Range: 135-145 BUN/Creatinine Ratio 21 (Normal) Range: 9-23 eGFR If Africn Am 89 mL/min/1.73 (Normal) Comments: Note: A persistent eGFR <60 mL/min/1.73 m2 (3 months or more) mayindicate chronic kidney disease. An eGFR >59 mL/min/1.73 m2 with anelevated urine protein also may indicate chronic kidney disease.Calculated using CKD-EPI formula. eGFR If NonAfricn Am 77 mL/min/1.73 (Normal) Creatinine, Serum 0.86 mg/dL (Normal) Range: 0.57-1.00 BUN 18 mg/dL (Normal) Range: 6-24 Glucose, Serum 80 mg/dL (Normal) Range: 65-99 :02 PT and PTT Comments: PERFORMED BY: [facility] GamesAt[facility] [id number] aPTT 28 {sec} (Normal) Range: 24-33 Comments: This test has not been validated for monitoring unfractionated heparintherapy. aPTT-based therapeutic ranges for unfractionated heparintherapy have not been established. For general guidelines onHeparin monitoring, refer to the [facility] Directory of Services. Prothrombin Time 10.8 {sec} Range: 8.7-11.5 (Normal) INR 1.0 (Normal) Range: 0.8-1.2 Comments: Reference interval is for non-anticoagulated patients. . Suggested INR therapeutic range for Vitamin K anta gonist therapy: Standard Dose (moderate intensity therapeutic range): 2.0 - 3.0 Higher intensity therapeutic range 2.5 - 3.5 Sedimentation 4 mm/h (Normal) Comments: PERFORMED BY: [email or web address]. Lawrence Rehabilitation CenterMefwvh0063 [facility] [id number] :02 Rate-Westergren Range: 0-56 Vitamin D, 25-Hydroxy 37.7 ng/mL Comments: PERFORMED BY: [facility] [id number] :02 (Normal) Range: 32.0-100.0 Comments: Recent studies consider the lower limit of 32.0 ng/mL to be athreshold for optimal health.Facundo SANDERS. J Nutr. 2004;135(2):317-22. :35 H pylori, IgM, IgG, IgA Ab Comments: PERFORMED BY: [facility] [id number] H.pylori, IgM ABS <0.80 {index} (Normal) Range: 0.00-0.79 Comments: Negative <0.80 Equivocal 0.80 - 1.19 Positive >1.19 . Current studies suggest that H. pylori IgM testing should be performed concomitantly with H. pylori IgA and/or IgG tests to support a diagnosis of Helicobacter pylori infection. . For research use only, not for use in clinical diagnostic procedures. H. pylori, IgA ABS <0.89 {index} (Normal) Range: 0.00-0.88 Comments: Negative <0.89 Equivocal 0.89 - 0.99 Positive >0.99 H. pylori IgG, Abs <0.9 U/mL (Normal) Range: 0.0-0.8 Comments: Negative <0.9 Indeterminate 0.9 - 1.0 Positive >1.0 :27 CBC WITH MANUAL DIFF Comments: PATIENT WAS FASTINGPERFORMED BY: [facility] [id number] Information: [id number] ([id number]) Immature Grans (Abs) 0.0 {x10E3/uL} (Normal) Range: 0.0-0.1 Baso (Absolute) 0.1 {x10E3/uL} (Normal) Range: 0.0-0.2 Eos (Absolute) 0.4 {x10E3/uL} (Normal) Range: 0.0-0.4 Immature Granulocytes 0 % (Normal) Range: 0-1 Lymphs (Absolute) 1.6 {x10E3/uL} (Normal) Range: 0.7-4.5 Monocytes(Absolute) 0.4 {x10E3/uL} (Normal) Range: 0.1-1.0 Neutrophils (Absolute) 1.8 {x10E3/uL} (Normal) Range: 1.8-7.8 Basos 1 % (Normal) Range: 0-3 Eos 10 % (Abnormal) Range: 0-7 Lymphs 38 % (Normal) Range: 14-46 Monocytes 10 % (Normal) Range: 4-13 Neutrophils 41 % (Normal) Range: 40-74 MCHC 34.9 g/dL (Normal) Range: 32.0-36.0 Platelets 253 {x10E3/uL} (Normal) Range: 140-415 RDW 13.0 % (Normal) Range: 11.7-15.0 MCH 31.0 pg (Normal) Range: 27.0-34.0 MCV 89 fL (Normal) Range: 80-98 Hematocrit 39.8 % (Normal) Range: 34.0-44.0 Hemoglobin 13.9 g/dL (Normal) Range: 11.5-15.0 RBC 4.48 {x10E6/uL} (Normal) Range: 3.80-5.10 WBC 4.3 {x10E3/uL} (Normal) Range: 4.0-10.5 :27 Vitamin D Hydroxy (83823) Comments: PATIENT WAS FASTINGPERFORMED BY: [email or web address]. [facility] Rehabilitation CenterWlqmvv8188 [facility] [id number] Vitamin D, 25-Hydroxy 28.0 ng/mL (Abnormal) Range: 32.0-100.0 Comments: Recent studies consider the lower limit of 32.0 ng/mL to be athreshold for optimal health.Facundo SANDERS. J Nutr. 2004;135(2):317-22. :27 METABOLIC PANEL, COMPREHENSIVE Comments: PATIENT WAS FASTINGPERFORMED BY: LabCoSt. [facility] Rehabilitation CenterOemuwl8295 [facility] [id number] ([id number]) ALT (SGPT) 48 [iU]/L (Abnormal) Range: 0-40 Alkaline Phosphatase, S 119 [iU]/L (Normal) Range: 25-150 AST (SGOT) 27 [iU]/L (Normal) Range: 0-40 Bilirubin, Total 0.5 mg/dL (Normal) Range: 0.0-1.2 A/G Ratio 1.7 (Normal) Range: 1.1-2.5 Globulin, Total 2.7 g/dL (Normal) Range: 1.5-4.5 Albumin, Serum 4.5 g/dL (Normal) Range: 3.5-5.5 Protein, Total, Serum 7.2 g/dL (Normal) Range: 6.0-8.5 BUN/Creatinine Ratio 18 (Normal) Range: 9-23 Calcium, Serum 9.3 mg/dL (Normal) Range: 8.7-10.2 Carbon Dioxide, Total 25 mmol/L (Normal) Range: 20-32 Chloride, Serum 104 mmol/L (Normal) Range: 97-108 eGFR AfricanAmerican >59 mL/min/1.73 Comments: Note: Persistent reduction for 3 months or more in an eGFR<60 mL/min/1.73 m2 defines CKD. Patients with eGFR values>/=60 mL/min/1.73 m2 may also have CKD if evidence of persistentproteinuria is (Normal) present. Additional information may be found [email or web address]. Potassium, Serum 4.0 mmol/L (Normal) Range: 3.5-5.2 Sodium, Serum 141 mmol/L (Normal) Range: 135-145 Creatinine, Serum 0.83 mg/dL (Normal) Range: 0.57-1.00 eGFR >59 mL/min/1.73 (Normal) BUN 15 mg/dL (Normal) Range: 6-24 Glucose, Serum 79 mg/dL (Normal) Range: 65-99 36-Hsx-55080:27 LIPID PANEL (42354) Comments: PATIENT WAS FASTINGPERFORMED BY: LabCoSt. [facility] Rehabilitation CenterZlipoj1542 [facility] [id number] HDL Cholesterol 95 mg/dL (Normal) Comments: According to ATP-III Guidelines, HDL-C >59 mg/dL is considered anegative risk factor for CHD. LDL Cholesterol Calc 139 mg/dL (Abnormal) Range: 0-99 LDL/HDL Ratio 1.5 {ratio_units} (Normal) Range: 0.0-3.2 VLDL Cholesterol Nalini 15 mg/dL (Normal) Range: 5-40 Cholesterol, Total 249 mg/dL (Abnormal) Range: 100-199 Triglycerides 75 mg/dL (Normal) Range: 0-149 :37 Vitamin D Hydroxy (22560) Comments: PATIENT WAS FASTINGPERFORMED BY: LabCoSt. [facility] Rehabilitation CenterVtpzcw5259 [facility] [id number] Vitamin D, 25-Hydroxy 29.0 ng/mL (Abnormal) Range: 32.0-100.0 Comments: Recent studies consider the lower limit of 32.0 ng/mL to be athreshold for optimal health.Facundo SANDERS. J Nutr. 2004;135(2):317-22. :37 METABOLIC PANEL, Comments: PATIENT WAS FASTINGPERFORMED BY: [facility] Bklbiu3001 [facility] [id number] Information: [id number] COMPREHENSIVE (30789) ALT (SGPT) 50 [iU]/L (Abnormal) Range: 0-40 AST (SGOT) 29 [iU]/L (Normal) Range: 0-40 A/G Ratio 1.7 (Normal) Range: 1.1-2.5 Albumin, Serum 4.6 g/dL (Normal) Range: 3.5-5.5 Alkaline Phosphatase, S 127 [iU]/L (Normal) Range: 25-150 Bilirubin, Total 0.4 mg/dL (Normal) Range: 0.0-1.2 Globulin, Total 2.7 g/dL (Normal) Range: 1.5-4.5 Protein, Total, Serum 7.3 g/dL (Normal) Range: 6.0-8.5 Calcium, Serum 9.7 mg/dL (Normal) Range: 8.7-10.2 Carbon Dioxide, Total 26 mmol/L (Normal) Range: 20-32 Chloride, Serum 102 mmol/L (Normal) Range: 97-108 Potassium, Serum 4.3 mmol/L (Normal) Range: 3.5-5.2 Sodium, Serum 141 mmol/L (Normal) Range: 135-145 BUN/Creatinine Ratio 15 (Normal) Range: 8-27 eGFR AfricanAmerican >59 mL/min/1.73 Comments: Note: Persistent reduction for 3 months or more in an eGFR<60 mL/min/1.73 m2 defines CKD. Patients with eGFR values>/=60 mL/min/1.73 m2 may also have CKD if evidence of persistentproteinuria is (Normal) present. Additional information may be found [email or web address]. BUN 14 mg/dL (Normal) Range: 5-26 Creatinine, Serum 0.93 mg/dL (Normal) Range: 0.57-1.00 eGFR >59 mL/min/1.73 (Normal) Glucose, Serum 90 mg/dL (Normal) Range: 65-99 :37 LIPID PANEL (09507) Comments: PATIENT WAS FASTINGPERFORMED BY: [facility]CoSt. [facility] Rehabilitation CenterYkmxoz6337 [facility] [id number] LDL/HDL Ratio 1.6 {ratio_units} (Normal) Range: 0.0-3.2 LDL Cholesterol Calc 145 mg/dL (Abnormal) Range: 0-99 Cholesterol, Total 252 mg/dL (Abnormal) Range: 100-199 HDL Cholesterol 92 mg/dL (Normal) Comments: According to ATP-III Guidelines, HDL-C >59 mg/dL is considered anegative risk factor for CHD. Triglycerides 77 mg/dL (Normal) Range: 0-149 VLDL Cholesterol Nalini 15 mg/dL (Normal) Range: 5-40 :27 ABDOMEN WITH IV CONTRAST Radiology Report See Note (Normal) Comments: Exam Number: [id number] CLINICAL:This is a 54-year-old female patient with history of right upperquadrant pain. CT ABDOMEN WITH CONTRAST TECHNIQUE:Transaxial images were obtained from the dome of the anjana phragm tothe iliac crest of the pelvis with oral contrast. 100 ml ofIsovue- 300 contrast was administered intravenously. Multiplanarcoronal and sagittal images were reformatted. COMPARISON:None. FINDIN GS:The visualized lung bases are unremarkable. Normal enhanced liver. There are surgical clips in the gallbladder fossa consistent with aprior cholecystectomy. Normal enhanced spleen. Normal pancreas. N ormal bilateral adrenal glands. Normal size of the right kidney. Normal excretion of contrastmaterial of the right kidney. There is no right renal mass. Thereare no right renal calculi. There is no right hydronephrosis.Normal visualized right ureter. Normal size of the left kidney. Normal excretion of contrastmaterial of the left kidney. There is no left renal mass. Thereare no left renal calcu li. There is no left hydronephrosis. Normalvisualized left ureter. Normal visualized stomach. Normal visualized small intestine.Normal visualized colon. The region of the appendix is normal. Normal m esentery and peritoneum. There is no free fluid in the abdomen. There is no free air in theabdomen. Normal retroperitoneum. Normal abdominal aorta. Normal inferior vena cava. Normal abdominal wall. N ormal osseous structures. IMPRESSION:Normal enhanced CT of the abdomen. Reported By: EDGAR MARCELO :27 SINUS/FACIAL BONE Radiology Report See Note (Normal) Comments: Exam Number: [id number] CLINICAL:This is a 54-year-old female patient with history of chronicsinusitis. CT MAXILLOFACIAL SINUSES TECHNIQUE:The patient was scanned in a multi detector CT scanner. Highres olution axial imaging was performed without the administration ofintravenous contrast material. Sagittal and coronal images werereconstructed. COMPARISON:None. FINDINGS:FRONTAL SINUSES:Normal developme nt and aeration of the bilateral frontal sinuseswithout mucosal inflammatory disease. ETHMOIDAL SINUSES:Normal development and aeration of the bilateral ethmoidal air cellswithout mucosal inflammatory d isease. MAXILLARY SINUSES:Normal development and aeration of the bilateral maxillary antrawithout mucosal inflammatory disease. SPHENOIDAL SINUSES:Normal aeration of the bilateral sphenoid sinuses and w ithoutmucosal inflammatory disease. OMU:Normal aeration of the bilateral maxillary infundibula. Normaluncinate process, ethmoid bulla, and hiatus semilunaris. MIDDLE TURBINATES:Normal bilateral middle t urbinates without a renato bullosa orparadoxical curvature. INFERIOR TURBINATES:Normal bilateral inferior turbinates without mucosal hypertrophy. NASAL SEPTUM:Normal midline nasal septum without a nasal septal deviation, spur,destructive process or mass lesion. NASAL CAVITY:There is patency of the bilateral nasal airways without ademonstrated mass or mucosal obliteration. The visualized osseous struct ures are normal. The visualizedbilateral orbital contents are normal. IMPRESSION:Normal CT examination of the maxillofacial sinuses withoutdemonstrated acute or chronic sinusitis. Reported By: EDGAR MARCELO 01-Jan-20108:43 Microscopic Examination Comments: PATIENT WAS FASTINGPERFORMED BY: [facility] [id number] Bacteria Few (Normal) Mucus Threads Present (Normal) Epithelial Cells (non renal) 0-10 {/hpf} (Normal) Range: 0 - 10 RBC 0-3 {/hpf} (Normal) Range: 0 - 3 WBC 0-5 {/hpf} (Normal) Range: 0 - 5 :43 Vitamin D Hydroxy (25318) Comments: PATIENT WAS FASTINGPERFORMED BY: [facility] Xwvxea8811 [facility] [id number] Vitamin D, 25-Hydroxy 41.7 ng/mL (Normal) Range: 32.0-100.0 Comments: Recent studies consider the lower limit of 32.0 ng/mL to be athreshold for optimal health.Facundo SANDERS. J Nutr. 2004;135(2):317-22. :43 CBC WITH MANUAL DIFF Comments: PATIENT WAS FASTINGPERFORMED BY: [facility] Ggcdde8157 [facility] [id number] Information: ADD [id number] AND DRAW FEE [id number] [id number] ([id number]) Baso (Absolute) 0.1 {x10E3/uL} (Normal) Range: 0.0-0.2 Eos (Absolute) 0.1 {x10E3/uL} (Normal) Range: 0.0-0.4 Immature Grans (Abs) 0.0 {x10E3/uL} (Normal) Range: 0.0-0.1 Immature Granulocytes 0 % (Normal) Range: 0-1 Monocytes(Absolute) 0.6 {x10E3/uL} (Normal) Range: 0.1-1.0 Lymphs (Absolute) 2.2 {x10E3/uL} (Normal) Range: 0.7-4.5 Basos 1 % (Normal) Range: 0-3 Eos 2 % (Normal) Range: 0-7 Monocytes 10 % (Normal) Range: 4-13 Neutrophils (Absolute) 2.5 {x10E3/uL} (Normal) Range: 1.8-7.8 Lymphs 41 % (Normal) Range: 14-46 Neutrophils 46 % (Normal) Range: 40-74 Platelets 255 {x10E3/uL} (Normal) Range: 140-415 MCHC 35.1 g/dL (Normal) Range: 32.0-36.0 RDW 13.3 % (Normal) Range: 11.7-15.0 Hematocrit 41.6 % (Normal) Range: 34.0-44.0 Hemoglobin 14.6 g/dL (Normal) Range: 11.5-15.0 MCH 30.6 pg (Normal) Range: 27.0-34.0 MCV 87 fL (Normal) Range: 80-98 RBC 4.77 {x10E6/uL} (Normal) Range: 3.80-5.10 WBC 5.5 {x10E3/uL} (Normal) Range: 4.0-10.5 :43 METABOLIC PANEL, COMPREHENSIVE Comments: PATIENT WAS FASTINGPERFORMED BY: [facility]CoSt. [facility] CenterExqeyo2153 [facility] [id number] ([id number]) ALT (SGPT) 52 [iU]/L (Abnormal) Range: 0-40 Alkaline Phosphatase, S 138 [iU]/L (Normal) Range: 25-150 AST (SGOT) 33 [iU]/L (Normal) Range: 0-40 Bilirubin, Total 0.5 mg/dL (Normal) Range: 0.0-1.2 A/G Ratio 1.6 (Normal) Range: 1.1-2.5 Globulin, Total 2.8 g/dL (Normal) Range: 1.5-4.5 Albumin, Serum 4.6 g/dL (Normal) Range: 3.5-5.5 Calcium, Serum 10.1 mg/dL (Normal) Range: 8.7-10.2 Carbon Dioxide, Total 26 mmol/L (Normal) Range: 20-32 Protein, Total, Serum 7.4 g/dL (Normal) Range: 6.0-8.5 BUN/Creatinine Ratio 14 (Normal) Range: 8-27 Chloride, Serum 100 mmol/L (Normal) Range: 97-108 Potassium, Serum 4.3 mmol/L (Normal) Range: 3.5-5.2 Sodium, Serum 140 mmol/L (Normal) Range: 135-145 BUN 12 mg/dL (Normal) Range: 5-26 Creatinine, Serum 0.87 mg/dL (Normal) Range: 0.57-1.00 eGFR >59 mL/min/1.73 (Normal) eGFR AfricanAmerican >59 mL/min/1.73 Comments: Note: Persistent reduction for 3 months or more in an eGFR<60 mL/min/1.73 m2 defines CKD. Patients with eGFR values>/=60 mL/min/1.73 m2 may also have CKD if evidence of persistentproteinuria is (Normal) present. Additional information may be found [email or web address]. Glucose, Serum 86 mg/dL (Normal) Range: 65-99 :43 Lipase (00402) Comments: PATIENT WAS FASTINGPERFORMED BY: [employer]dAt[facility] [id number] Lipase, Serum 42 U/L (Normal) Range: 0-59 :43 Amylase (24077) Comments: PATIENT WAS FASTINGPERFORMED BY: [facility] GamesAt[facility] [id number] Amylase, Serum 81 U/L (Normal) Range: 31-124 :43 URINALYSIS, W/ MICRO (06165) Comments: PATIENT WAS FASTINGPERFORMED BY: [employer] [employer] [facility]St[facility] EnterprisesSand[facility] Center [id number] Bilirubin Negative (Normal) Microscopic Examination See below: (Normal) Nitrite, Urine Negative (Normal) Urobilinogen,Semi-Qn 0.2 mg/dL (Normal) Range: 0.0-1.9 Appearance Clear (Normal) Glucose Negative (Normal) Ketones Negative (Normal) Occult Blood Negative (Normal) Protein Negative (Normal) Urine-Color Yellow (Normal) WBC Esterase 1+ (Abnormal) pH 7.0 (Normal) Range: 5.0-7.5 Specific [place] 1.016 (Normal) Range: 1.005-1.030 :43 LIPID PANEL (27234) Comments: PATIENT WAS FASTINGPERFORMED BY: [employer] [facility]St[facility] EnterprisesSand[facility] [id number] Cholesterol, Total 243 mg/dL (Abnormal) Range: 100-199 HDL Cholesterol 91 mg/dL (Normal) Comments: According to ATP-III Guidelines, HDL-C >59 mg/dL is considered anegative risk factor for CHD. LDL Cholesterol Calc 134 mg/dL (Abnormal) Range: 0-99 LDL/HDL Ratio 1.5 {ratio_units} (Normal) Range: 0.0-3.2 Triglycerides 92 mg/dL (Normal) Range: 0-149 VLDL Cholesterol Nalini 18 mg/dL (Normal) Range: 5-40 06-Fvr-19167:18 METABOLIC PANEL, COMPREHENSIVE Comments: PATIENT NOT FASTINGPERFORMED BY: [facility]CoSt. [facility] CenterJzfbly9721 [facility] [id number] ([id number]) ALT (SGPT) 50 [iU]/L (Abnormal) Range: 0-40 AST (SGOT) 32 [iU]/L (Normal) Range: 0-40 A/G Ratio 1.6 (Normal) Range: 1.1-2.5 Albumin, Serum 4.4 g/dL (Normal) Range: 3.5-5.5 Alkaline Phosphatase, S 123 [iU]/L (Normal) Range: 25-150 Bilirubin, Total 0.4 mg/dL (Normal) Range: 0.1-1.2 Globulin, Total 2.7 g/dL (Normal) Range: 1.5-4.5 Calcium, Serum 9.6 mg/dL (Normal) Range: 8.7-10.2 Carbon Dioxide, Total 26 mmol/L (Normal) Range: 20-32 Protein, Total, Serum 7.1 g/dL (Normal) Range: 6.0-8.5 BUN/Creatinine Ratio 16 (Normal) Range: 8-27 Chloride, Serum 104 mmol/L (Normal) Range: 97-108 Creatinine, Serum 0.85 mg/dL (Normal) Range: 0.57-1.00 eGFR >59 mL/min/1.73 (Normal) eGFR AfricanAmerican >59 mL/min/1.73 Comments: Note: Persistent reduction for 3 months or more in an eGFR<60 mL/min/1.73 m2 defines CKD. Patients with eGFR values>/=60 mL/min/1.73 m2 may also have CKD if evidence of persistentproteinuria is (Normal) present. Additional information may be found [email or web address]. Potassium, Serum 4.0 mmol/L (Normal) Range: 3.5-5.2 Sodium, Serum 141 mmol/L (Normal) Range: 135-145 BUN 14 mg/dL (Normal) Range: 5-26 Glucose, Serum 77 mg/dL (Normal) Range: 65-99 :18 TSH (01303) Comments: PATIENT NOT FASTINGPERFORMED BY: [facility] [id number] TSH 0.987 {uIU/mL} (Normal) Range: 0.450-4.500 Comments: Please note reference interval change :18 CBC WITH MANUAL DIFF Comments: PATIENT NOT FASTINGPERFORMED BY: [facility]Core[facility]6370 [facility] [id number] Information: [id number] ([id number]) Baso (Absolute) 0.0 {x10E3/uL} (Normal) Range: 0.0-0.2 Eos (Absolute) 0.1 {x10E3/uL} (Normal) Range: 0.0-0.4 Monocytes(Absolute) 0.4 {x10E3/uL} (Normal) Range: 0.1-1.0 Basos 1 % (Normal) Range: 0-3 Eos 3 % (Normal) Range: 0-7 Lymphs (Absolute) 1.5 {x10E3/uL} (Normal) Range: 0.7-4.5 Monocytes 10 % (Normal) Range: 4-13 Neutrophils (Absolute) 1.9 {x10E3/uL} (Normal) Range: 1.8-7.8 Lymphs 38 % (Normal) Range: 14-46 Neutrophils 48 % (Normal) Range: 40-74 Platelets 223 {x10E3/uL} (Normal) Range: 140-415 MCH 31.4 pg (Normal) Range: 27.0-34.0 MCHC 34.7 g/dL (Normal) Range: 32.0-36.0 RDW 12.7 % (Normal) Range: 11.7-15.0 Hematocrit 37.8 % (Normal) Range: 34.0-44.0 Hemoglobin 13.1 g/dL (Normal) Range: 11.5-15.0 MCV 90 fL (Normal) Range: 80-98 RBC 4.19 {x10E6/uL} (Normal) Range: 3.80-5.10 WBC 4.0 {x10E3/uL} (Normal) Range: 4.0-10.5 :18 Vitamin D Hydroxy (72349) Comments: PATIENT NOT FASTINGPERFORMED BY: [facility] Gjfkvd0463 [facility] [id number] Vitamin D, 25-Hydroxy 23.8 ng/mL (Abnormal) Range: 32.0-100.0 Comments: Recent studies consider the lower limit of 32.0 ng/mL to be athreshold for optimal health.Facundo SANDERS. J Nutr. 2004;135(2):317-22. 27-Dij-71523:18 VITAMIN B-12 (CYANOCOBALAMIN) Comments: PATIENT NOT FASTINGPERFORMED BY: [facility] Kaadti7974 [facility] [id number] ([id number]) Vitamin B12 757 pg/mL (Normal) Range: 211-911 36-Niy-384148:29 BILAT SCRN DIGITAL & CAD Radiology Report See Note (Normal) Comments: Exam Number: [id number] MAMMOGRAM, BILATERAL SCREENING DIGITAL AND CAD HISTORYRoutine screening. Full field digital images were obtained in mediolateral oblique andcraniocaudal projections. CAD images w ere reviewed. The current study is compared to the examinations of March 08nd July 06, 2008. There is a moderate to severe extent of fibroglandular parenchymapresent. There is no skin thick ening or retraction, architecturaldistortion, or cluster of suspicious microcalcifications. There is nodominant mass or significant interval change. If there is nosuspicious palpable abnormality, foll owup mammogram in 1 year isrecommended. IMPRESSIONThere is no radiographic evidence of malignancy identified. FINAL ASSESSMENTBenign findings. BIRADS Category 2. A letter regarding these results has be en sent to the patient. This interpretation was rendered by a radiologist certified under theMammography Quality Standards Act of 1992 (MQSA). The mammograms werealso examined with computer-aided detec tion software ([employer], [employer] Reported By: FLORESITA MARIN M.D. 49-Dvk-179550:00 Hepatic Function Panel (7) Comments: PATIENT NOT FASTINGPERFORMED BY: [facility]ar[facility]6370 [facility] [id number] Albumin, Serum 4.7 g/dL (Normal) Range: 3.5-5.5 Alkaline Phosphatase, S 108 [iU]/L (Normal) Range: 25-150 ALT (SGPT) 27 [iU]/L (Normal) Range: 0-40 AST (SGOT) 27 [iU]/L (Normal) Range: 0-40 Bilirubin, Direct 0.10 mg/dL (Normal) Range: 0.00-0.40 Bilirubin, Total 0.4 mg/dL (Normal) Range: 0.1-1.2 Protein, Total, Serum 7.5 g/dL (Normal) Range: 6.0-8.5 :15 Thin prep Pap Comments: Source.............Cervical;EndocervicalLMP / Prev Treat...ICU=[id number]. of containers..01 CYTYC Thin Prep VialPATIENT NOT FASTINGClinical Information: ADD [id number] ([id number]) PERFORMED BY: [employer] [address] [id number] . . (Normal) DIAGNOSIS: SPRCS (Normal) Comments: NEGATIVE FOR INTRAEPITHELIAL LESION AND MALIGNANCY.Satisfactory for evaluation. Endocervical and/or squamous metaplasticcells (endocervical component) are present.V72.31 ; Routine gynecolog ical examedinson [place], Life Insurance Actuary (ASCP) Note: PAPSMR (Normal) Comments: The Pap smear is a screening test designed to aid in the detection ofpremalignant and malignant conditions of the uterine cervix. It is not adiagnostic procedure and should not be used as the sole mean s of detectingcervical cancer. Both false-positive and false-negative reports do occur. .The HPV DNA reflex criteria were not met with this specimen resulttherefore, no HPV testing was performed. . :11 METABOLIC PANEL, COMPREHENSIVE Comments: PATIENT NOT FASTINGClinical Information: ADD [id number] PERFORMED BY: LabCoFort Defiance Indian HospitalCzhdui9957 [facility] [id number] ([id number]) A/G Ratio 1.6 (Normal) Range: 1.1-2.5 Albumin, Serum 4.8 g/dL (Normal) Range: 3.5-5.5 Alkaline Phosphatase, S 144 [iU]/L (Normal) Range: 25-150 ALT (SGPT) 117 [iU]/L (Abnormal) Range: 0-40 AST (SGOT) 62 [iU]/L (Abnormal) Range: 0-40 Bilirubin, Total 0.3 mg/dL (Normal) Range: 0.1-1.2 BUN 18 mg/dL (Normal) Range: 5-26 BUN/Creatinine Ratio 22 (Normal) Range: 8-27 Calcium, Serum 9.9 mg/dL (Normal) Range: 8.5-10.6 Carbon Dioxide, Total 25 mmol/L (Normal) Range: 20-32 Chloride, Serum 100 mmol/L (Normal) Range: 97-108 Creatinine, Serum 0.81 mg/dL (Normal) Range: 0.57-1.00 eGFR >59 mL/min/1.73 (Normal) eGFR AfricanAmerican >59 mL/min/1.73 Comments: Note: Persistent reduction for 3 months or more in an eGFR<60 mL/min/1.73 m2 defines CKD. Patients with eGFR values>/=60 mL/min/1.73 m2 may also have CKD if evidence of persistentproteinuria is (Normal) present. Additional information may be found [email or web address]. Globulin, Total 3.0 g/dL (Normal) Range: 1.5-4.5 Glucose, Serum 90 mg/dL (Normal) Range: 65-99 Potassium, Serum 3.8 mmol/L (Normal) Range: 3.5-5.2 Protein, Total, Serum 7.8 g/dL (Normal) Range: 6.0-8.5 Sodium, Serum 141 mmol/L (Normal) Range: 135-145 99-Bnd-14920:38 HEPATIC FUNCTION PANEL Comments: PATIENT NOT FASTINGClinical Information: ADD DRAW FEE [id number] ADD J [id number] PERFORMED BY: LabCoSt. Lawrence Rehabilitation CenterYbrtvs8840 [facility] [id number] ([id number]) Albumin, Serum 4.8 g/dL (Normal) Range: 3.5-5.5 Alkaline Phosphatase, 133 [iU]/L (Normal) Range: 25-150 S ALT (SGPT) 56 [iU]/L Range: 0-40 (Abnormal) AST (SGOT) 37 [iU]/L (Normal) Range: 0-40 Bilirubin, Direct 0.13 mg/dL (Normal) Range: 0.00-0.40 Bilirubin, Total 0.5 mg/dL (Normal) Range: 0.1-1.2 Protein, Total, Serum 7.7 g/dL (Normal) Range: 6.0-8.5 Actin (Smooth Muscle) 22 {Units} Comments: PERFORMED BY: Gurnard [employer] CappsSotmarketSandhills Regional Medical Center [id number] :30 Antibody (Abnormal) Range: 0-19 Comments: Negative 0 - 19 Weak positive 20 - 30 Moderate to strong positive >30 . Actin Antibodies are found in 52-85% of patients with autoimmune hepatitis or chronic active hepatitis and in 22% of patients with primary biliary cirrhosis. :48 Cytomegalovirus (CMV) Ab, IgM Comments: PATIENT NOT FASTINGPERFORMED BY: [employer]6370 [facility] [id number] CMV Ab, IgM <0.9 {index} Range: 0.0-0.8 Cytomegalovirus (Normal) Comments: Negative <0.9 Equivocal 0.9 - 1.0 Positive >1.0 EBV Ab VCA, IgM <0.2 {AI} (Normal) Comments: PATIENT NOT FASTINGClinical Information: ADD DRAW FEE [id number] ADD J [id number] PERFORMED BY: [employer] [facility] [id number] :48 Range: 0.0-0.8 Comments: Negative <0.9 Equivocal 0.9 - 1.0 Positive >1.0 Written Authorization WAR (Normal) Comments: PATIENT NOT FASTINGPERFORMED BY: [employer] Yxeuhr8670 [facility] [id number] :48 Comments: Written Authorization Received.Authorization received from MARYANN CABEZAS [id number] by Aaliyah Bradford :48 Vitamin D Hydroxy (48333) Comments: PATIENT NOT FASTINGPERFORMED BY: [facility] Cyepkw6957 [facility] [id number] Vitamin D, 25-Hydroxy 24.8 ng/mL (Abnormal) Range: 32.0-100.0 Comments: Recent studies consider the lower limit of 32.0 ng/mL to be athreshold for optimal health.Facundo SANDERS. J Nutr. 2004;135(2):317-22. :48 VITAMIN B-12 (CYANOCOBALAMIN) Comments: PATIENT NOT FASTINGPERFORMED BY: [facility] Xqkbjf6824 [employer] [id number] ([id number]) Vitamin B12 919 pg/mL (Abnormal) Range: 211-911 :48 TSH (56035) Comments: PATIENT NOT FASTINGPERFORMED BY: [facility] Cpgxbc9497 [facility]in [place] [id number] TSH 1.245 {uIU/mL} (Normal) Range: 0.450-4.500 :48 CBC WITH MANUAL DIFF (03050) Comments: PATIENT NOT FASTINGClinical Information: ADD DRAW FEE 085316 ADD J 39067 PERFORMED BY: [facility] Leaoql7493 [facility] [id number] Baso (Absolute) 0.0 {x10E3/uL} (Normal) Range: 0.0-0.2 Basos 1 % (Normal) Range: 0-3 Eos 3 % (Normal) Range: 0-7 Eos (Absolute) 0.1 {x10E3/uL} (Normal) Range: 0.0-0.4 Hematocrit 41.1 % (Normal) Range: 34.0-44.0 Hemoglobin 14.0 g/dL (Normal) Range: 11.5-15.0 Lymphs 43 % (Normal) Range: 14-46 Lymphs (Absolute) 1.9 {x10E3/uL} (Normal) Range: 0.7-4.5 MCH 30.7 pg (Normal) Range: 27.0-34.0 MCHC 34.0 g/dL (Normal) Range: 32.0-36.0 MCV 90 fL (Normal) Range: 80-98 Monocytes 9 % (Normal) Range: 4-13 Monocytes(Absolute) 0.4 {x10E3/uL} (Normal) Range: 0.1-1.0 Neutrophils 44 % (Normal) Range: 40-74 Neutrophils (Absolute) 2.0 {x10E3/uL} (Normal) Range: 1.8-7.8 Platelets 227 {x10E3/uL} (Normal) Range: 140-415 Comments: Please note reference interval change RBC 4.55 {x10E6/uL} (Normal) Range: 3.80-5.10 RDW 13.6 % (Normal) Range: 11.7-15.0 WBC 4.5 {x10E3/uL} (Normal) Range: 4.0-10.5 :48 METABOLIC PANEL, COMPREHENSIVE Comments: PATIENT NOT FASTINGPERFORMED BY: LabCoSt. Lawrence Rehabilitation CenterHgkgkq2882 [facility] [id number] ([id number]) A/G Ratio 1.7 (Normal) Range: 1.1-2.5 Albumin, Serum 4.7 g/dL (Normal) Range: 3.5-5.5 Alkaline Phosphatase, S 146 [iU]/L (Normal) Range: 25-150 ALT (SGPT) 293 [iU]/L (Abnormal) Range: 0-40 AST (SGOT) 149 [iU]/L (Abnormal) Range: 0-40 Bilirubin, Total 0.4 mg/dL (Normal) Range: 0.1-1.2 BUN 14 mg/dL (Normal) Range: 5-26 BUN/Creatinine Ratio 17 (Normal) Range: 8-27 Calcium, Serum 10.0 mg/dL (Normal) Range: 8.5-10.6 Carbon Dioxide, Total 22 mmol/L (Normal) Range: 20-32 Chloride, Serum 102 mmol/L (Normal) Range: 97-108 Creatinine, Serum 0.81 mg/dL (Normal) Range: 0.57-1.00 eGFR >59 mL/min/1.73 (Normal) eGFR AfricanAmerican >59 mL/min/1.73 Comments: Note: Persistent reduction for 3 months or more in an eGFR<60 mL/min/1.73 m2 defines CKD. Patients with eGFR values>/=60 mL/min/1.73 m2 may also have CKD if evidence of persistentproteinuria is (Normal) present. Additional information may be found [email or web address]. Globulin, Total 2.7 g/dL (Normal) Range: 1.5-4.5 Glucose, Serum 85 mg/dL (Normal) Range: 65-99 Potassium, Serum 4.2 mmol/L (Normal) Range: 3.5-5.2 Protein, Total, Serum 7.4 g/dL (Normal) Range: 6.0-8.5 Sodium, Serum 142 mmol/L (Normal) Range: 135-145 27-Dec-20089:48 URINALYSIS W/O MICRO (17203) Comments: PATIENT NOT FASTINGPERFORMED BY: [employer] [place] [id number] Bilirubin Negative (Normal) Ketones Negative (Normal) Microscopic Examination MICRON (Normal) Comments: Microscopic follows if indicated. Nitrite, Urine Negative (Normal) Occult Blood Negative (Normal) Urobilinogen,Semi-Qn 0.2 mg/dL (Normal) Range: 0.0-1.9 Appearance Clear (Normal) Glucose Negative (Normal) pH 6.5 (Normal) Range: 5.0-7.5 Protein Negative (Normal) Specific [place] 1.021 (Normal) Range: 1.005-1.030 Urine-Color Yellow (Normal) WBC Esterase Negative (Normal) 5-Yww-466229:31 CBC WITH MANUAL DIFF (16663) Comments: PATIENT NOT FASTINGClinical Information: ADD DRAW FEE [id number] ADD J 34611 PERFORMED BY: [employer]70 [facility]Lex[facility] [id number] Baso (Absolute) 0.0 {x10E3/uL} (Normal) Range: 0.0-0.2 Basos 0 % (Normal) Range: 0-3 Eos 2 % (Normal) Range: 0-7 Eos (Absolute) 0.1 {x10E3/uL} (Normal) Range: 0.0-0.4 Lymphs (Absolute) 1.9 {x10E3/uL} (Normal) Range: 0.7-4.5 Monocytes 10 % (Normal) Range: 4-13 Monocytes(Absolute) 0.5 {x10E3/uL} (Normal) Range: 0.1-1.0 Neutrophils (Absolute) 2.1 {x10E3/uL} (Normal) Range: 1.8-7.8 Hematocrit 39.0 % (Normal) Range: 34.0-44.0 Hemoglobin 13.6 g/dL (Normal) Range: 11.5-15.0 Lymphs 42 % (Normal) Range: 14-46 MCH 30.8 pg (Normal) Range: 27.0-34.0 MCHC 34.8 g/dL (Normal) Range: 32.0-36.0 MCV 89 fL (Normal) Range: 80-98 Neutrophils 46 % (Normal) Range: 40-74 Platelets 223 {x10E3/uL} (Normal) Range: 140-415 RBC 4.41 {x10E6/uL} (Normal) Range: 3.80-5.10 RDW 12.3 % (Normal) Range: 11.7-15.0 WBC 4.6 {x10E3/uL} (Normal) Range: 4.0-10.5 7-Ren-572777:31 METABOLIC PANEL, COMPREHENSIVE Comments: PATIENT NOT FASTINGPERFORMED BY: LabCoSt. Lawrence Rehabilitation CenterOwrxkf9752 [facility] [id number] ([id number]) A/G Ratio 1.7 (Normal) Range: 1.1-2.5 Albumin, Serum 4.7 g/dL (Normal) Range: 3.5-5.5 Alkaline Phosphatase, S 104 [iU]/L (Normal) Range: 25-150 ALT (SGPT) 31 [iU]/L (Normal) Range: 0-40 AST (SGOT) 25 [iU]/L (Normal) Range: 0-40 Bilirubin, Total 0.5 mg/dL (Normal) Range: 0.1-1.2 BUN 14 mg/dL (Normal) Range: 5-26 BUN/Creatinine Ratio 16 (Normal) Range: 8-27 Calcium, Serum 10.3 mg/dL (Normal) Range: 8.5-10.6 Carbon Dioxide, Total 27 mmol/L (Normal) Range: 20-32 Chloride, Serum 101 mmol/L (Normal) Range: 97-108 Creatinine, Serum 0.90 mg/dL (Normal) Range: 0.57-1.00 Globulin, Total 2.8 g/dL (Normal) Range: 1.5-4.5 Glom Filt Rate, Est >59 mL/min/1.73 (Normal) Glucose, Serum 87 mg/dL (Normal) Range: 65-99 If -Uzbek >59 mL/min/1.73 Comments: Note: Persistent reduction for 3 months or more in an eGFR<60 mL/min/1.73 m2 defines CKD. Patients with eGFR values>/=60 mL/min/1.73 m2 may also have CKD if evidence of persistentproteinur ia is (Normal) present. Additional information may be found [email or web address]. Potassium, Serum 4.2 mmol/L (Normal) Range: 3.5-5.2 Protein, Total, Serum 7.5 g/dL (Normal) Range: 6.0-8.5 Sodium, Serum 141 mmol/L (Normal) Range: 135-145 6-Oql-497661:31 TSH (76567) Comments: PATIENT NOT FASTINGPERFORMED BY: Zinch6370 [facility] [id number] TSH 1.277 {uIU/mL} (Normal) Range: 0.450-4.500 5-Yvu-752310:31 LIPID PANEL (80865) Comments: PATIENT NOT FASTINGPERFORMED BY: [employer] LabMobiPixierp Afwhkb2515 [facility] [id number] Cholesterol, Total 251 mg/dL (Abnormal) Range: 100-199 Comment SPRCS (Normal) Comments: If initial LDL-cholesterol result is >100 mg/dL, assess forrisk factors. HDL Cholesterol 90 mg/dL (Normal) Comments: According to ATP-III Guidelines, HDL-C >59 mg/dL is considered anegative risk factor for CHD. LDL Cholesterol Calc 143 mg/dL (Abnormal) Range: 0-99 LDL/HDL Ratio 1.6 {ratio_units} (Normal) Range: 0.0-3.2 Triglycerides 92 mg/dL (Normal) Range: 0-149 VLDL Cholesterol Nalini 18 mg/dL (Normal) Range: 5-40 2-Uez-592117:31 HEPATIC FUNCTION PANEL Comments: PATIENT NOT FASTINGPERFORMED BY: Proviationrp Wgwizm4186 [facility]Sand[facility] [id number] (05950) Bilirubin, Direct 0.12 mg/dL (Normal) Range: 0.00-0.40 04-Gbw-985726:26 BILAT SCRN DIGITAL & CAD Radiology Report See Note (Normal) Comments: Exam Number: [id number] MAMMOGRAM, BILATERAL SCREENING DIGITAL AND CAD HISTORYRoutine screening. Full field digital images were obtained in mediolateral oblique andcraniocaudal projections. CAD images w ere reviewed. The current study is compared to the examinations of September,,October,, and February,. There is a severe extent of fibroglandular parenchyma present. Thereis no skin thickening o r retraction, architectural distortion, orcluster of suspicious microcalcifications. There is no dominant massor significant interval change seen. If there is no suspiciouspalpable abnormality, follow up mammogram in 1 year is recommended. IMPRESSIONThere is no radiographic evidence of malignancy identified. FINAL ASSESSMENTBIRADS Category 2 - Benign. A letter regarding these results has been sent to the patient. This interpretation was rendered by a radiologist certified under theMammography Quality Standards Act of 1992 (MQSA). The mammograms werealso examined with computer-aided detection soft todd ([employer] Reported By: FLORESITA MARIN M.D. :53 Hepatic Function Panel (7) Comments: PATIENT WAS FASTINGPERFORMED BY: Applicasa70 [facility]dAt[facility] [id number] Albumin, Serum 4.5 g/dL (Normal) Range: 3.5-5.5 Alkaline Phosphatase, S 82 [iU]/L (Normal) Range: 25-150 ALT (SGPT) 36 [iU]/L (Normal) Range: 0-40 AST (SGOT) 25 [iU]/L (Normal) Range: 0-40 Bilirubin, Direct 0.10 mg/dL (Normal) Range: 0.00-0.40 Bilirubin, Total 0.4 mg/dL (Normal) Range: 0.1-1.2 Protein, Total, Serum 7.4 g/dL (Normal) Range: 6.0-8.5 :53 Lipid Panel With LDL/HDL Comments: PATIENT WAS FASTINGPERFORMED BY: Zinch6370 [facility]dAt[facility] [id number] Ratio Cholesterol, Total 238 mg/dL (Abnormal) Range: 100-199 Comment SPRCS (Normal) Comments: If initial LDL-cholesterol result is >100 mg/dL, assess forrisk factors. HDL Cholesterol 93 mg/dL (Abnormal) Range: 40-59 Comments: HDL cholesterol values >59 mg/dL are associated with reduced cardiacrisk. LDL Cholesterol Calc 134 mg/dL (Abnormal) Range: 0-99 LDL/HDL Ratio 1.4 {ratio_units} (Normal) Range: 0.0-3.2 Triglycerides 57 mg/dL (Normal) Range: 0-149 VLDL Cholesterol Nalini 11 mg/dL (Normal) Range: 5-40 6-Ppd-135843:42 HSV Culture and Typing Comments: Clinical Information: SRC:CE PERFORMED BY: ALF Tasit.comSt. Lawrence Rehabilitation CenterQhfapa8657 [facility] [id number] HSV Culture/Type Final report (Normal) Comments: NegativeNo Herpes simplex virus isolated. 1-Qmg-962983:41 Pap Lb, Ct-Ng, Comments: Source.............Cervical;EndocervicalNo. of containers..01 CYTYC Thin Prep VialPERFORMED BY: =G LabCoPioneers Memorial Hospital[address] [place] [address] [id number] HPV-hr . . (Normal) Chlamydia, Nuc. Acid Amp Negative (Normal) DIAGNOSIS: SPRCS (Normal) Comments: NEGATIVE FOR INTRAEPITHELIAL LESION AND MALIGNANCY.Satisfactory for evaluation. Endocervical and/or squamous metaplasticcells (endocervical component) are present.V72.31 ; Routine gynecolog ical examina Rina Rodriguez, Life Insurance Actuary (ASCP) Gonococcus, Nuc. Acid Amp Negative (Normal) Note: PAPSMR (Normal) Comments: The Pap smear is a screening test designed to aid in the detection ofpremalignant and malignant conditions of the uterine cervix. It is not adiagnostic procedure and should not be used as the sole mean s of detectingcervical cancer. Both false-positive and false-negative reports do occur. . :48 Urinalysis, Office (89077) UA - BILIRUBIN Negative (Normal) UA - BLOOD Negative (Normal) UA - GLUCOSE Negative (Normal) UA - KETONES Negative mg/dL (Normal) UA - LEUKOCYTE ESTERASE Trace (Normal) Comments: aw UA - NITRITE Negative (Normal) UA - PH 6.0 (Normal) UA - PROTEIN Negative mg/dL (Normal) UA - SPECIFIC GRAVITY 1.010 (Normal) URINE UROBILINGN HUSSAIN TIMED Normal mg/dL (Normal) 99-Fph-253446:45 URINE AILYN CULTURE-HUSSAIN COL Comments: PATIENT NOT FASTINGClinical Information: SRC:UR ADD [id number] PERFORMED BY: [facility] GamesAt[facility] Health [facility] [id number] COUNT (86782) Antimicrobial MIHEAD (Normal) Comments: S = Susceptible; I = Intermediate; R = Resistant P = Positive; N = Negative MICS are expressed in micrograms per mL Antibiotic RSLT#1 RSLT#2 Susceptibility RSLT#3 RSLT#4Amoxicillin/Clavulanic Acid SAmpicillin SCefepime SCeftriaxone SCefuroxime SCephalothin SCiprofloxacin SESBL NGentamicin SImipenem SLevofloxacin SNitrofurantoin S Piperacillin/Tazobactam STetracycline STobramycin STrimethoprim/Sulfa S Result 1 Escherichia coli Comments: 5,000 Colonies/mL (Normal) Urine Final report Culture,Comprehensive (Normal) 70-Vum-228491:56 Urinalysis, Office (64933) UA - BILIRUBIN Negative (Normal) UA - BLOOD Hemolyzed Large (Normal) UA - GLUCOSE Negative (Normal) UA - KETONES Negative mg/dL (Normal) UA - LEUKOCYTE ESTERASE Large (Normal) UA - NITRITE Negative (Normal) UA - PH 7.5 (Normal) UA - PROTEIN 300 mg/dL (Normal) UA - SPECIFIC GRAVITY 1.005 (Normal) URINE UROBILINGN HUSSAIN TIMED 2 mg/dL (Normal) 7-Zoi-658804:53 METABOLIC PANEL, COMPREHENSIVE Comments: PATIENT NOT FASTINGClinical Information: ADD DRAW FEE [id number] ADD J 60128 PERFORMED BY: [facility] Cave GamesAt[facility] Health [facility] [id number] (30385) A/G Ratio 1.5 (Normal) Range: 1.1-2.5 Albumin, Serum 4.5 g/dL (Normal) Range: 3.5-5.5 Alkaline 107 [iU]/L (Normal) Range: 25-150 Phosphatase, S ALT (SGPT) 37 [iU]/L (Normal) Range: 0-40 AST (SGOT) 26 [iU]/L (Normal) Range: 0-40 Bilirubin, Total 0.6 mg/dL (Normal) Range: 0.1-1.2 BUN 18 mg/dL (Normal) Range: 5-26 BUN/Creatinine Ratio 20 (Normal) Range: 8-27 Calcium, Serum 9.9 mg/dL (Normal) Range: 8.5-10.6 Carbon Dioxide, 24 mmol/L (Normal) Range: 20-32 Total Chloride, Serum 105 mmol/L (Normal) Range: 97-108 Creatinine, Serum 0.90 mg/dL (Normal) Range: 0.50-1.50 Globulin, Total 3.0 g/dL (Normal) Range: 1.5-4.5 Glom Filt Rate, Est >60 mL/min (Normal) Range: 60-128 Glucose, Serum 88 mg/dL (Normal) Range: 65-99 If -Uzbek >60 mL/min (Normal) Range: 60-128 Comments: Note: Persistent reduction for 3 months or more in an eGFR<60 mL/min/1.73 m2 defines CKD. Patients with eGFR values>/=60 mL/min/1.73 m2 may also have CKD if evidence of persistentproteinuria is present. Additional information may be found [email or web address]. Potassium, Serum 4.1 mmol/L (Normal) Range: 3.5-5.2 Protein, Total, 7.5 g/dL (Normal) Range: 6.0-8.5 Serum Sodium, Serum 141 mmol/L (Normal) Range: 135-145 Actin (Smooth 19 {Units} (Normal) Comments: PATIENT WAS FASTINGPERFORMED BY: Applicasa70 [facility] [id number] :32 Muscle) Antibody Range: 0-19 Comments: Negative 0 - 19 Weak positive 20 - 30 Moderate to strong positive >30 . Actin Antibodies are found in 52-85% of patients with autoimmune hepatitis or chronic active hepatitis and in 22% of patients with primary biliary cirrhosis. :32 CBC With Differential/Platelet Comments: PATIENT WAS FASTINGPERFORMED BY: Applicasa70 [facility] [id number] Baso (Absolute) 0.0 {x10E3/uL} (Normal) Range: 0.0-0.2 Basos 1 % (Normal) Range: 0-3 Eos 2 % (Normal) Range: 0-7 Eos (Absolute) 0.1 {x10E3/uL} (Normal) Range: 0.0-0.4 Hematocrit 37.1 % (Normal) Range: 34.0-44.0 Hemoglobin 13.0 g/dL (Normal) Range: 11.5-15.0 Lymphs 34 % (Normal) Range: 14-46 Lymphs (Absolute) 1.7 {x10E3/uL} (Normal) Range: 0.7-4.5 MCH 31.2 pg (Normal) Range: 27.0-34.0 MCHC 35.0 g/dL (Normal) Range: 32.0-36.0 MCV 89 fL (Normal) Range: 80-98 Monocytes 9 % (Normal) Range: 4-13 Monocytes(Absolute) 0.4 {x10E3/uL} (Normal) Range: 0.1-1.0 Neutrophils 54 % (Normal) Range: 40-74 Neutrophils (Absolute) 2.6 {x10E3/uL} (Normal) Range: 1.8-7.8 Platelets 236 {x10E3/uL} (Normal) Range: 140-415 RBC 4.17 {x10E6/uL} (Normal) Range: 3.80-5.10 RDW 13.3 % (Normal) Range: 11.7-15.0 WBC 4.9 {x10E3/uL} (Normal) Range: 4.0-10.5 39-Knf-26521:32 Comp. Metabolic Panel (14) Comments: PATIENT WAS FASTINGPERFORMED BY: LabCoSt. Lawrence Rehabilitation CenterZzrohu1918 [facility] [id number] A/G Ratio 1.7 (Normal) Range: 1.1-2.5 Albumin, Serum 4.3 g/dL (Normal) Range: 3.5-5.5 Alkaline Phosphatase, S 135 [iU]/L (Normal) Range: 25-150 ALT (SGPT) 153 [iU]/L (Abnormal) Range: 0-40 AST (SGOT) 61 [iU]/L (Abnormal) Range: 0-40 Bilirubin, Total 0.4 mg/dL (Normal) Range: 0.1-1.2 BUN 18 mg/dL (Normal) Range: 5-26 BUN/Creatinine Ratio 23 (Normal) Range: 8-27 Calcium, Serum 9.6 mg/dL (Normal) Range: 8.5-10.6 Carbon Dioxide, Total 25 mmol/L (Normal) Range: 20-32 Chloride, Serum 102 mmol/L (Normal) Range: 97-108 Creatinine, Serum 0.80 mg/dL (Normal) Range: 0.50-1.50 Globulin, Total 2.5 g/dL (Normal) Range: 1.5-4.5 Glom Filt Rate, Est >60 mL/min (Normal) Range: 60-128 Glucose, Serum 86 mg/dL (Normal) Range: 65-99 If -Uzbek >60 mL/min (Normal) Range: 60-128 Comments: Note: Persistent reduction for 3 months or more in an eGFR<60 mL/min/1.73 m2 defines CKD. Patients with eGFR values>/=60 mL/min/1.73 m2 may also have CKD if evidence of persistentproteinuria is present. Additional information may be found [email or web address]. Potassium, Serum 4.1 mmol/L (Normal) Range: 3.5-5.2 Protein, Total, Serum 6.8 g/dL (Normal) Range: 6.0-8.5 Sodium, Serum 142 mmol/L (Normal) Range: 135-145 :32 Cytomegalovirus (CMV) Ab, IgM Comments: PATIENT WAS FASTINGPERFORMED BY: [email or web address] Defiance Indian HospitalUxhpsb7344 [facility] [id number] CMV Ab, IgM Cytomegalovirus 1.1 {index} (Abnormal) Range: 0.0-0.8 Comments: Negative <0.9 Equivocal 0.9 - 1.0 Positive >1.0 :32 EBV Acute Infection Antibodies Comments: PATIENT WAS FASTINGPERFORMED BY: [employer]iation Gbiqdq3389 [facility] [id number] EBV Ab VCA, IgG 1866 AU/mL (Abnormal) Range: 0-99 Comments: Negative <100 Equivocal 100 - 120 Positive >120 EBV Early Antigen Ab, IgG 202 AU/mL (Abnormal) Range: 0-99 Comments: Negative <100 Equivocal 100 - 120 Positive >120 EBV Nuclear Antigen Ab, IgG 1622 AU/mL (Abnormal) Range: 0-99 Comments: Negative <100 Equivocal 100 - 120 Positive >120 Interpretation: SPRCS (Normal) Comments: EBV Interpretation Chart: VCA-IgM EA-IgG VCA-IgG NA-ABS Susceptible - - - - Acute Infection + + or- + - Convalescent Phase +or- +or- + + Chronic or Reactivated - + + +or- Old Infe ction - - +or- + + Antibody Present - Antibody Absent EBV Ab VCA, IgM 12 AU/mL (Normal) Range: 0-99 Comments: Negative <100 Equivocal 100 - 120 Positive >120 :32 Microscopic Examination Comments: PATIENT WAS FASTINGPERFORMED BY: [facility] [place] GamesAt[facility] Health [facility] [id number] Bacteria None seen (Normal) Epithelial Cells (non 0-10 {/hpf} Range: 0 - 10 renal) (Normal) Mucus Threads Present (Abnormal) RBC None seen {/hpf} Range: 0 - 3 (Normal) WBC 0-5 {/hpf} (Normal) Range: 0 - 5 TSH 1.313 {uIU/mL} Comments: PATIENT WAS FASTINGPERFORMED BY: Zinch63LuminateAtrium Health [facility] [id number] :32 (Normal) Range: 0.350-5.500 Comments: Adult TSH concentrations below 5.5 uIU/mL do not rule out the presence of subclinical hypothyroidism. :32 Urinalysis, Routine Comments: PATIENT WAS FASTINGPERFORMED BY: [facility] GamesAt[facility] [id number] Appearance Clear (Normal) Bilirubin Negative (Normal) Glucose Negative (Normal) Ketones Negative (Normal) Microscopic Examination See below: (Normal) Nitrite, Urine Negative (Normal) Occult Blood Negative (Normal) pH 7.0 (Normal) Range: 5.0-7.5 Protein Negative (Normal) Specific [place] 1.014 (Normal) Range: 1.005-1.030 Urine-Color Yellow (Normal) Urobilinogen,Semi-Qn 0.2 mg/dL (Normal) Range: 0.0-1.9 WBC Esterase 2+ (Abnormal) Vitamin B12 620 pg/mL (Normal) Comments: PATIENT WAS FASTINGPERFORMED BY: [facility]6370 [facility] [id number] :32 Range: 211-911 :05 TSH ([id number]) Comments: PATIENT WAS FASTINGPERFORMED BY: [address] [id number] TSH 0.897 {uIU/mL} (Normal) Range: 0.350-5.500 :05 METABOLIC PANEL, COMPREHENSIVE Comments: PATIENT WAS FASTINGPERFORMED BY: [place] [id number] [facility] [id number] ([id number]) A/G Ratio 1.3 (Normal) Range: 1.1-2.5 Albumin, Serum 4.3 g/dL (Normal) Range: 3.5-5.5 Alkaline Phosphatase, S 138 [iU]/L (Normal) Range: 25-150 ALT (SGPT) 68 [iU]/L (Abnormal) Range: 0-40 AST (SGOT) 36 [iU]/L (Normal) Range: 0-40 Bilirubin, Total 0.5 mg/dL (Normal) Range: 0.1-1.2 BUN 19 mg/dL (Normal) Range: 5-26 BUN/Creatinine Ratio 19 (Normal) Range: 8-27 Calcium, Serum 9.9 mg/dL (Normal) Range: 8.5-10.6 Carbon Dioxide, Total 26 mmol/L (Normal) Range: 20-32 Chloride, Serum 103 mmol/L (Normal) Range: 96-109 Creatinine, Serum 1.0 mg/dL (Normal) Range: 0.5-1.5 Globulin, Total 3.2 g/dL (Normal) Range: 1.5-4.5 Glucose, Serum 94 mg/dL (Normal) Range: 65-99 Potassium, Serum 3.8 mmol/L (Normal) Range: 3.5-5.5 Protein, Total, Serum 7.5 g/dL (Normal) Range: 6.0-8.5 Sodium, Serum 141 mmol/L (Normal) Range: 135-148 :05 CBC WITH MANUAL DIFF ([id number]) Comments: PATIENT WAS FASTINGClinical Information: ADD DRAW FEE [id number] ADD J [id number] PERFORMED BY: ALF [employer]70 [facility] [id number] Baso (Absolute) 0.0 {x10E3/uL} (Normal) Range: 0.0-0.2 Basos 1 % (Normal) Range: 0-3 Eos 3 % (Normal) Range: 0-7 Eos (Absolute) 0.1 {x10E3/uL} (Normal) Range: 0.0-0.4 Hematocrit 41.4 % (Normal) Range: 34.0-44.0 Hemoglobin 14.1 g/dL (Normal) Range: 11.5-15.0 Lymphs 39 % (Normal) Range: 14-46 Lymphs (Absolute) 1.8 {x10E3/uL} (Normal) Range: 0.7-4.5 MCH 30.2 pg (Normal) Range: 27.0-34.0 MCHC 34.1 g/dL (Normal) Range: 32.0-36.0 MCV 88 fL (Normal) Range: 80-98 Monocytes 8 % (Normal) Range: 4-13 Monocytes(Absolute) 0.4 {x10E3/uL} (Normal) Range: 0.1-1.0 Neutrophils 49 % (Normal) Range: 40-74 Neutrophils (Absolute) 2.3 {x10E3/uL} (Normal) Range: 1.8-7.8 Platelets 235 {x10E3/uL} (Normal) Range: 140-415 RBC 4.68 {x10E6/uL} (Normal) Range: 3.80-5.10 RDW 12.9 % (Normal) Range: 11.7-15.0 WBC 4.7 {x10E3/uL} (Normal) Range: 4.0-10.5 :05 LIPID PANEL ([id number]) Comments: PATIENT WAS FASTINGPERFORMED BY: [facility] Wqhhxf8035 [facility] [id number] Cholesterol, Total 241 mg/dL (Abnormal) Range: 100-199 Comment SPRCS (Normal) Comments: HDL cholesterol values >59 mg/dL are associated with reduced cardiacrisk. Comment SPRCS (Normal) Comments: If initial LDL-cholesterol result is >100 mg/dL, assess forrisk factors. HDL Cholesterol 90 mg/dL (Abnormal) Range: 40-59 LDL Cholesterol Calc 137 mg/dL (Abnormal) Range: 0-99 LDL/HDL Ratio 1.5 {ratio_units} (Normal) Range: 0.0-3.2 Triglycerides 72 mg/dL (Normal) Range: 0-149 VLDL Cholesterol Nalini 14 mg/dL (Normal) Range: 5-40 93-Msj-02435:36 LIVER ALB 3.7 g/dL (Normal) Range: 3.4-5.0 ALK P 171 U/L (Abnormal) Range: 50-136 ALT 93 [iU]/L (Abnormal) Range: 30-65 AST 31 U/L (Normal) Range: 15-37 D BILI 0.09 mg/dL (Normal) Range: 0.00-0.30 T BILI 0.46 mg/dL (Normal) Range: 0.00-1.00 T PROT 7.2 g/dL (Normal) Range: 6.4-8.2 [id number]-[id number]:30 UNILAT LT DIAG DIGITAL & CAD Radiology Report See Note (Normal) Comments: Exam Number: [id number] MAMMOGRAM, UNILATERAL LEFT DIAGNOSTIC DIGITAL AND CAD HISTORYAbnormal screening study. Full field digital images were obtained in craniocaudal, axillaryoblique cranioc audal, and s pot craniocaudal projections. CAD images were reviewed. The current study is [facility] to [facility]. There is moderately dense fibroglandular parenchyma present . Theapparent focal density seen in the outer left breast against the chestwall is not a persistent finding on the additional views. There is,therefore, no definite interval change present. If there is nosuspicious palpable abnormality, followup mammogram in 1 year isrecommended. IMPRESSIONThere is no radiographic evidence of malignancy identified. FINAL ASSESSMENTBenign findings. BIRADS Category 2. A letter regarding these results has been sent to the patient. This interpretation was rendered by a radiologist certified under theMammography Quality Standards Act of 1992 (MQSA). The mammograms werealso examined with computer-aided detection software ([employer] Reported By: FLORESITA MARIN M.D. :28 BILAT SCRN DIGITAL & CAD Radiology Report See Note (Normal) Comments: Exam Number: [id number] MAMMOGRAM, BILATERAL SCREENING DIGITAL AND CAD HISTORYRoutine screening. Full field digital images were obtained in mediolateral oblique andcraniocaudal projections. CAD images w ere reviewed. The current study is compared to all of the examinations obtainedbetween January, and October,. There is a moderate to severe extent of fibroglandular parenchymapresent. There is n o skin thickening or retraction, architecturaldistortion, or cluster of suspicious microcalcifications. The currentexamination raises the possibility of a new density against the chestwall in the outer aspect of the left breast. For further evaluation,repeat craniocaudal and axillary craniocaudal views of the left breastare recommended as well as a spot compression view. IMPRESSIONPossible new densi ty in the outer left breast against the chest wall. Additional views are recommended. FINAL ASSESSMENTNeed additional imaging evaluation. BIRADS Category 0. A letter regarding these results has been s ent to the patient. This interpretation was rendered by a radiologist certified under theMammography Quality Standards Act of 1992 (MQSA). The mammograms werealso examined with computer-aided detectio n software ([employer] Reported By: FLORESITA MARIN M.D. :07 LIVER ALB 3.8 g/dL (Normal) Range: 3.4-5.0 ALK P 110 U/L (Normal) Range: 50-136 ALT 68 [iU]/L (Abnormal) Range: 30-65 AST 31 U/L (Normal) Range: 15-37 D BILI 0.11 mg/dL (Normal) Range: 0.00-0.30 T BILI 0.55 mg/dL (Normal) Range: 0.00-1.00 T PROT 7.3 g/dL (Normal) Range: 6.4-8.2 :34 MAMM, UILAT DIAG DIGITAL & CAD Radiology Report See Note (Normal) Comments: Exam Number: [id number] MAMMOGRAM, RIGHT UNILATERAL DIAGNOSTIC DIGITAL & CAD HISTORYAbnormal right screening study. Full field digital images were obtained in right true lateral andright mediolateral oblique spot compression views. The current studyis compared to the examinations of 07/29, 09/29, 06/01 and 11/02/06. There is a moderate to severe extent of fibroglandular parenchymapresent. What appear ed to represent a new density in the mid rightbreast in the mediolateral oblique view of 11/02/06 is not a persistentfinding on the additional views. This finding therefore must haverepresented superimpo sition. If there is no suspicious palpableabnormality, followup mammogram in one year is recommended. IMPRESSION1) There is no radiographic evidence of malignancy identified. FINAL ASSESSMENTBenign f randi. BIRADS Category 2. A letter regarding the results has been sent to the patient. This interpretation was rendered by a radiologist certified under theMammography Quality Standards Act of 1992 (MQSA). The mammograms werealso examined with computer-aided detection software ([employer], [place] Reported By: FLORESITA MARIN M.D. :06 LIVER ALB 3.9 g/dL (Normal) Range: 3.4-5.0 ALK P 139 U/L (Abnormal) Range: 50-136 ALT 76 [iU]/L (Abnormal) Range: 30-65 AST 27 U/L (Normal) Range: 15-37 D BILI 0.14 mg/dL (Normal) Range: 0.00-0.30 T BILI 0.34 mg/dL (Normal) Range: 0.00-1.00 T PROT 7.8 g/dL (Normal) Range: 6.4-8.2 :34 MAMM, BILAT SCRN DIGITAL & CAD Radiology Report See Note (Normal) Comments: Exam Number: [id number] MAMMOGRAPHY, BILATERAL SCREENING DIGITAL AND CAD Full field digital images were obtained in mediolateral oblique andcraniocaudal projections. CAD images were reviewed. The curren t study is compared to all of the patient's previous studiesincluding 01-24 and 06-01. There is a moderate to severe extent of fibroglandular parenchymapresent. There is no skin thickening or retraction , architecturaldistortion, or cluster of suspicious microcalcifications. On theright, there is an apparent small spiculated density at the plane ofthe nipple. This density appears more irregular than on previousexaminations. For that reason, right true lateral and spotmediolateral oblique views are recommended. IMPRESSION1. Questionable change in a density located in the mid right breastin the med iolateral oblique projection. Additional views arerecommended. FINAL ASSESSMENT1. Need additional imaging evaluation. BIRADS Category 0. A letter regarding these results has been sent to the patient. This interpretation was rendered by a radiologist certified under theMammography Quality Standards Act of 1992 (MQSA). The mammograms werealso examined with computer-aided detection software ([employer] Reported By: FLORESITA MARIN M.D. 09-Zcd-11554:00 LIVER BX P-LIVB (Normal) Comments: OPERATION Core biopsy PRE-OPERATIVE DIAGNOSIS Elevated liver enzymes TISSUE SUBMITTED 2-20 cores, liver bx MICROSCOPIC DIAGNOSIS Liver, core biopsy: Minimal chronic inflammation. No evidence of ci rrhosis or fibrosis. AM: 08/17/06 COMMENT Trichrome and iron stains with matched controls were used in the evaluation of this case and do not reveal cirrhosis or fibrosis. No increased intrapar enchymal iron deposition is identified. Clinical correlation is suggested. GROSS DESCRIPTION Received is one container not further designated. The specimen consists of multiple minute fragments of l ight orantes soft tissue ranging in size from less than 0.1 to 0.3 cm in greatest dimension. The specimen is totally submitted in one cassette. / AM: 08/14/06 TC:3 REPORT SIGNED: JAY KEMP 08/17/0610-Aug-20069:36 EBVIgG/M [id number] EB-EA IgG 44865 178 U/mL (Abnormal) Range: 0-99 Comments: Negative <100 Equivocal 100 - 120 Positive >120 EB-NAg [id number] 566 U/mL (Abnormal) Range: 0-99 Comments: Negative <100 Equivocal 100 - 120 Positive >120 EB-VCA [id number] 2268 U/mL (Abnormal) Range: 0-99 Comments: Negative <100 Equivocal 100 - 120 Positive >120 EB-VCA [id number] 8 U/mL (Normal) Range: 0-99 Comments: Negative <100 Equivocal 100 - 120 Positive >120 INTERPRETATION Comment (Normal) Comments: EBV Interpretation Chart: VCA-IgM EA-IgG VCA-IgG NA-ABS Susceptible - - - - Acute Infection + + or- + - Convalescent Phase +or- +or- + + Chronic or Reactivated - + + +or- Old Infe ction - - +or- + + Antibody Present - Antibody AbsentPerformed At: [facility] [place] [address] [id number] :36 LIVER ALB 3.8 g/dL (Normal) Range: 3.4-5.0 ALK P 121 U/L (Normal) Range: 50-136 ALT 72 [iU]/L (Abnormal) Range: 30-65 AST 29 U/L (Normal) Range: 15-37 D BILI 0.09 mg/dL (Normal) Range: 0.00-0.30 T BILI 0.43 mg/dL (Normal) Range: 0.00-1.00 T PROT 7.4 g/dL (Normal) Range: 6.4-8.2 :36 PFLIP CHOL 226 mg/dL (Abnormal) Comments: <200 mg/dL Desirable 200-240 mg/dL Borderline >240 mg/dL High Risk HDL 75 mg/dL (Normal) Comments: Reference Range HDL <40 mg/dL Low HDL Cholesterol HDL >or= 60 mg/dL High HDL Cholesterol LDL 140 mg/dL (Abnormal) Range: 0-130 TRIG 57 mg/dL (Normal) Comments: Serum Triglycerides Reference Interval Normal <150 mg/dL Borderline high 150 - 199 mg/dL High 200 - 499 mg/dL Very High > or = 500 mg/dL VLDL 11 mg/dL (Normal) Range: 5-40 [id number]-[id number]:09 ANTISMOOTH 6643 26 {Units} (Abnormal) Range: 0-19 Comments: Negative 0 - 19 Weak positive 20 - 30 Moderate to strong positive >30 . Actin Antibodies are found in 52-85% of patients with autoimmune hepatitis or chronic active hepatitis and in 22% of patients with primary biliary cirrhosis.Performed At: [facility] [place] [address] [id number]-[id number]:09 IMMUNOELEC 1495 A/G RATIO 1.4 (Normal) Range: 0.7-2.0 ALBUMIN 4.2 g/dL (Normal) Range: 3.2-5.6 PKZXF-3-WTWJ 0.2 g/dL (Normal) Range: 0.1-0.4 ERCEH-5-HODV 0.6 g/dL (Normal) Range: 0.4-1.2 BETA GLOBULIN 0.9 g/dL (Normal) Range: 0.6-1.3 GAMMA GLOBULIN 1.3 g/dL (Normal) Range: 0.5-1.6 GLOBULIN, TOTAL 3.1 g/dL (Normal) Range: 2.0-4.5 HEATHER RESULT,S Comment (Normal) Comments: An apparent normal immunofixation pattern. IMMUNO A 1784 122 mg/dL (Normal) Range: 70-400 IMMUNO G 1776 1213 mg/dL (Normal) Range: 700-1600 IMMUNOGL M 1792 135 mg/dL (Normal) Range: 40-230 M-SPIKE SeeNote (Normal) Comments: Result: Not Observed NOTE: Comment (Normal) Comments: Protein electrophoresis scan will follow via mail orcourier. PROTEIN,TOTAL 7.3 g/dL (Normal) Range: 6.0-8.5 :09 LIVER ALK P 125 U/L (Normal) Range: 50-136 ALT 218 [iU]/L (Abnormal) Range: 30-65 D BILI 0.09 mg/dL (Normal) Range: 0.00-0.30 T BILI 0.29 mg/dL (Normal) Range: 0.00-1.00 ALB 4.0 g/dL (Normal) Range: 3.4-5.0 AST 132 U/L (Abnormal) Range: 15-37 T PROT 7.6 g/dL (Normal) Range: 6.4-8.2 :52 EDGARDO-D [id number] EDGARDO-DIRECT 19 U/mL (Normal) Range: 0-99 Comments: Negative <100 Equivocal 100 - 120 Positive >120 :52 LIVER ALB 3.8 g/dL (Normal) Range: 3.4-5.0 ALK P 111 U/L (Normal) Range: 50-136 ALT 109 [iU]/L (Abnormal) Range: 30-65 AST 46 U/L (Abnormal) Range: 15-37 D BILI 0.09 mg/dL (Normal) Range: 0.00-0.30 T BILI 0.51 mg/dL (Normal) Range: 0.00-1.00 T PROT 6.9 g/dL (Normal) Range: 6.4-8.2 :52 MITOCHN AB 6650 <20.0 {Units} (Normal) Range: 0.0-20.0 Comments: Negative 0.0 - 20.0 Equivocal 20.1 - 24.9 Positive >24.9 . Mitochondrial (M2) Antibodies are found in 90-96% of patients with primary biliary cirrhosis.Performed At: [facility] [place], [place] [id number] 75-Qys-120534:41 Urinalysis, Office (92440) UA - BILIRUBIN Negative (Normal) UA - BLOOD Negative (Normal) UA - GLUCOSE Negative (Normal) UA - KETONES Negative mg/dL (Normal) UA - LEUKOCYTE ESTERASE Trace (Normal) UA - NITRITE Negative (Normal) UA - PH 5.0 (Normal) UA - PROTEIN Negative mg/dL (Normal) UA - SPECIFIC GRAVITY 1.000 (Normal) URINE UROBILINGN HUSSAIN TIMED Normal mg/dL (Normal) Plan of Care Name Dates Details Instructions Bilateral leg cramps : Reviewed Lab Indication: Bilateral leg cramps Bilateral leg cramps : Reviewed Diagnostic Tests Indication: Bilateral leg cramps Elevated liver enzymes : Reviewed Lab Indication: Elevated liver enzymes Bilateral leg cramps : Reviewed Lab Indication: Bilateral leg cramps Bilateral ankle pain, unspecified chronicity : Follow up in 3 weeks Indication: Bilateral ankle pain, unspecified chronicity Bilateral leg pain : Eprescribed prescriptions (G8553) Indication: Bilateral leg pain BMI 22.0-22.9, adult : Follow up if no improvement or if symptoms worsen Indication: BMI 22.0-22.9, adult BMI 22.0-22.9, adult : Eprescribed prescriptions (G8553) Indication: BMI 22.0-22.9, adult Fatigue : *fatigue education Indication: Fatigue Insomnia : Eprescribed prescriptions (G8553) Indication: Insomnia Postmenopausal (Renamed from Postmenopausal status) : Follow up in 4 months Indication: Postmenopausal (Renamed from Postmenopausal status) Other and unspecified hyperlipidemia : Eprescribed prescriptions (G8553) Indication: Other and unspecified hyperlipidemia Nonsmoker : Follow up in 4 months Indication: Nonsmoker Tarsal tunnel syndrome, bilateral lower limbs : Reviewed Lab Indication: Tarsal tunnel syndrome, bilateral lower limbs Obstructive sleep apnea, adult : Reviewed Lab Indication: Obstructive sleep apnea, adult Vitamin D deficiency : Reviewed Lab Indication: Vitamin D deficiency Anxiety : Eprescribed prescriptions (G8553) Indication: Anxiety Body mass index (BMI) 21 to less than 23 : Eprescribed prescriptions (G8553) Indication: Body mass index (BMI) 21 to less than 23 Body mass index (BMI) 21 to less than 23 : Eprescribed prescriptions (G8553) Indication: Body mass index (BMI) 21 to less than 23 Well woman exam (Renamed from Encounter for well woman exam) : Safe sex Indication: Well woman exam (Renamed from Encounter for well woman exam) Well woman exam (Renamed from Encounter for well woman exam) : HPV Vaccine Information 2005 Indication: Well woman exam (Renamed from Encounter for well woman exam) Well woman exam (Renamed from Encounter for well woman exam) : Self breast exam Indication: Well woman exam (Renamed from Encounter for well woman exam) Well woman exam (Renamed from Encounter for well woman exam) : *Well Female Maintenance ([facility]) Indication: Well woman exam (Renamed from Encounter for well woman exam) Well woman exam (Renamed from Encounter for well woman exam) : Pap/Pelvic/Bimanual/Rectal/Breast Exam was done. Indication: Well woman exam (Renamed from Encounter for well woman exam) Well woman exam (Renamed from Encounter for well woman exam) : Eprescribed prescriptions (G8553) Indication: Well woman exam (Renamed from Encounter for well woman exam) Anxiety : Follow up in 4 months Indication: Anxiety Need for prophylactic vaccination and inoculation against influenza : Eprescribed prescriptions (G8553) Indication: Need for prophylactic vaccination and inoculation against influenza Elevated liver enzymes : Follow up in [address] Meehan Indication: Elevated liver enzymes Abdominal pain, acute, right lower quadrant : Eprescribed prescriptions (G8553) Indication: Abdominal pain, acute, right lower quadrant Elevated liver enzymes : Follow up in 2 weeks Indication: Elevated liver enzymes Elevated liver enzymes : Reviewed Lab Indication: Elevated liver enzymes Abdominal pain, acute, right lower quadrant : Reviewed Lab Indication: Abdominal pain, acute, right lower quadrant Abdominal pain, acute, right lower quadrant : Celiac Disease and the Gluten-Free Diet: celiac disease Indication: Abdominal pain, acute, right lower quadrant Abdominal pain, acute, right lower quadrant : Eprescribed prescriptions (G8553) Indication: Abdominal pain, acute, right lower quadrant Other and unspecified hyperlipidemia : Eprescribed prescriptions (G8553) Indication: Other and unspecified hyperlipidemia Other and unspecified hyperlipidemia : Eprescribed prescriptions (G8553) Indication: Other and unspecified hyperlipidemia Encounter for gynecological examination without abnormal finding : Self breast exam Indication: Encounter for gynecological examination without abnormal finding Encounter for gynecological examination without abnormal finding : *Well Female Maintenance ([facility]) Indication: Encounter for gynecological examination without abnormal finding Encounter for gynecological examination without abnormal finding : Pap/Pelvic/Bimanual/Rectal/Breast Exam was done. Indication: Encounter for gynecological examination without abnormal finding Other and unspecified hyperlipidemia : Eprescribed prescriptions (G8553) Indication: Other and unspecified hyperlipidemia Allergic Rhinitis : Follow up if no improvement or if symptoms worsen Indication: Allergic Rhinitis LARYNGITIS : Laryngitis Education Indication: LARYNGITIS Other and unspecified hyperlipidemia : Eprescribed prescriptions (G8553) Indication: Other and unspecified hyperlipidemia Contact dermatitis : Follow up if no improvement or if symptoms worsen Indication: Contact dermatitis Other and unspecified hyperlipidemia : Eprescribed prescriptions (G8553) Indication: Other and unspecified hyperlipidemia Other and unspecified hyperlipidemia : Eprescribed prescriptions (G8553) Indication: Other and unspecified hyperlipidemia Other and unspecified hyperlipidemia : High Cholesterol (Hypercholesterolemia) *: cholesterol Indication: Other and unspecified hyperlipidemia Low Back Pain : Low Back Pain Exercises *: back pain Indication: Low Back Pain Low Back Pain : Low Back Pain Exercises *: back pain Indication: Low Back Pain Well woman exam with routine gynecological exam : Self breast exam Indication: Well woman exam with routine gynecological exam Well woman exam with routine gynecological exam : *Colon Cancer Screening Indication: Well woman exam with routine gynecological exam Well woman exam with routine gynecological exam : *Well Female Maintenance () Indication: Well woman exam with routine gynecological exam Well woman exam with routine gynecological exam : Pap/Pelvic/Bimanual/Rectal/Breast Exam was done. 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 Indication: Well woman exam with routine gynecological exam Well woman exam with routine gynecological exam : Self Breast Exam Education Indication: Well woman exam with routine gynecological exam Well woman exam with routine gynecological exam : Well Female Maintenance ([facility]) Indication: Well woman exam with routine gynecological exam Well woman exam with routine gynecological exam : Self Breast Exam Education Indication: Well woman exam with routine gynecological exam Well woman exam with routine gynecological exam : Colon Cancer Screening Indication: Well woman exam with routine gynecological exam Well woman exam with routine gynecological exam : Pap/Pelvic/Bimanual/Rectal/Breast Exam was done. Indication: Well woman exam with routine gynecological exam Well woman exam with routine gynecological exam : Well Female Maintenance (KF) Indication: Well woman exam with routine gynecological exam Postmenopausal atrophic vaginitis : Follow up for recheck urine 1 week after complete antibiotic Indication: Postmenopausal atrophic vaginitis Elevated blood-pressure reading without diagnosis of hypertension : BP MONITORING - SELF Indication: Elevated blood-pressure reading without diagnosis of hypertension Chronic serous otitis media, unspecified laterality : Otits Externa Education Indication: Chronic serous otitis media, unspecified laterality Otitis media : Antibiotic Usage Education - Female Indication: Otitis media Well woman exam with routine gynecological exam : Pap/Pelvic/Bimanual/Rectal/Breast Exam was done. Indication: Well woman exam with routine gynecological exam Well woman exam with routine gynecological exam : Well Female Maintenance (KF) Indication: Well woman exam with routine gynecological exam Gastroesophageal reflux disease without esophagitis : FOLLOW UP IN 3 MONTHS Indication: Gastroesophageal reflux disease without esophagitis Planned Observations ALKALINE PHOSPHATASE-ISOENZYM ([id number])Indication: Elevated liver enzymes On: 01-Feb-20189:02 Request PARATHORMONE ([id number])Indication: Postmenopausal (Renamed from Postmenopausal status) On: 87-Bld-70040:33 Request LIPOPROTEIN, BLD, BY NMR ([id number])Indication: Family history of high cholesterol On: 04-Vin-061592:30 Request Metabolic Panel, Basic ([id number])Indication: Autoimmune hepatitis On: 24-Ohs-765206:40 Request MICROALBUMIN: CREATININE RATIO ([id number]) AND ([id number])Indication: Vitamin D deficiency On: 86-Zdf-768812:38 Request VITAMIN B12 AND FOLATES ([id number])Indication: Vitamin D deficiency On: : Request CALCIFEDIOL ([id number])Indication: Vitamin D deficiency On: Request TSH (THYROID STIMULATING HORMONE) ([id number])Indication: Vitamin D deficiency On: : Request LIPID PANEL ([id number])Indication: Other and unspecified hyperlipidemia On: Request CBC, PLATELETS & AUT DIFF ([id number])Indication: Autoimmune hepatitis On: Request CBC W/AUTO DIFF WBC ([id number])Indication: Elevated LFTs On: : Request ASM (ANTI SMOOTH MUSCLE ANTIBODY) ([id number])Indication: Elevated LFTs On: :30 Request METABOLIC PANEL, COMPREHENSIVE ([id number])Indication: Elevated LFTs On: :30 Request LIPID PANEL ([id number])Indication: Other and unspecified hyperlipidemia On: :29 Request Vitamin D Hydroxy ([id number])Indication: Vitamin D deficiency On: :29 Request LIPID PANEL ([id number])Indication: Other and unspecified hyperlipidemia On: 26-Rua-281489:48 Request Vitamin D Hydroxy ([id number])Indication: Vitamin D deficiency On: :47 Request CBC with auto diff ([id number])Indication: Elevated LFTs On: :47 Request METABOLIC PANEL, COMPREHENSIVE ([id number])Indication: Elevated LFTs On: :47 Request ASM (ANTI SMOOTH MUSCLE ANTIBODY) ([id number])Indication: Elevated LFTs On: :47 Request Thin prep Pap ([id number]) (no STD testing)Indication: Encounter for gynecological examination without abnormal finding On: 41-Axp-464620:24 Request ASM (ANTI SMOOTH MUSCLE ANTIBODY) ([id number])Indication: Elevated LFTs On: 31-Wwz-484567:03 Request HEPATIC FUNCTION PANEL ([id number])Indication: Elevated LFTs On: 33-Mlu-779727:01 Request ASM (ANTI SMOOTH MUSCLE ANTIBODY) ([id number])Indication: Elevated LFTs On: 58-Kje-407322:25 Request PTT (Activated Partial Thromboplastin Time) ([id number])Indication: Elevated LFTs On: :24 Request PT (Prothrobim Time) ([id number])Indication: Elevated LFTs On: :24 Request METABOLIC PANEL, COMPREHENSIVE ([id number])Indication: Elevated LFTs On: :23 Request Vitamin D Hydroxy ([id number])Indication: Vitamin D deficiency On: :23 Request LIPID PANEL ([id number])Indication: Other and unspecified hyperlipidemia On: :22 Request METABOLIC PANEL, COMPREHENSIVE ([id number])Indication: Other and unspecified hyperlipidemia On: :32 Request LIPID PANEL ([id number])Indication: Other and unspecified hyperlipidemia On: :32 Request Vitamin D Hydroxy ([id number])Indication: Vitamin D deficiency On: :32 Request HPV automatic ([id number])Indication: Well woman exam with routine gynecological exam On: :24 Request Thin prep Pap ([id number])Indication: Well woman exam with routine gynecological exam On: :23 Request LIPID PANEL ([id number])Indication: Other and unspecified hyperlipidemia On: :28 Request Vitamin D Hydroxy ([id number])Indication: Vitamin D deficiency On: :28 Request ANTI-Sm (ANTI BIRD ANTIBODY) ([id number])Indication: Elevated LFTs On: 26-Nov-20118:56 Request Vitamin D Hydroxy ([id number])Indication: Vitamin D deficiency On: :54 Request LIPID PANEL ([id number])Indication: Other and unspecified hyperlipidemia On: :54 Request METABOLIC PANEL, COMPREHENSIVE ([id number])Indication: Elevated LFTs On: 26-Nov-20118:54 Request Metabolic Panel, Basic ([id number])Indication: Elevated LFTs On: :41 Request CBC WITH MANUAL DIFF ([id number])Indication: Elevated LFTs On: :39 Request HEPATIC FUNCTION PANEL ([id number])Indication: Elevated LFTs On: :38 Request LIPID PANEL ([id number])Indication: Other and unspecified hyperlipidemia On: :38 Request PTT (Activated Partial Thromboplastin Time) ([id number])Indication: Elevated LFTs On: :49 Request PT (Prothrobim Time) ([id number])Indication: Elevated LFTs On: :49 Request ANTI-Sm (ANTI BIRD ANTIBODY) ([id number]) test code [id number]: Elevated LFTs On: :49 Request METABOLIC PANEL, COMPREHENSIVE ([id number])Indication: Elevated LFTs On: :48 Request SED RATE ERYTHROCYTE ([id number])Indication: Elevated LFTs On: :48 Request C-REACTIVE PROTEIN ([id number])Indication: Elevated LFTs On: :48 Request Vitamin D Hydroxy ([id number])Indication: Vitamin D deficiency On: :48 Request HELICOBACTER PYLORI ANTIBODY ([id number])Indication: Epigastric pain On: :26 Request Metabolic Panel, Comprehensive ([id number])Indication: Other and unspecified hyperlipidemia On: :42 Request Lipid Panel ([id number])Indication: Other and unspecified hyperlipidemia On: :41 Request CALCIFEDIOL ([id number])Indication: Vitamin D deficiency On: :41 Request Comments: Vit D [place] LIPID PANEL ([id number])Indication: Other and unspecified hyperlipidemia On: 35-Ana-251554:16 Request METABOLIC PANEL, COMPREHENSIVE ([id number])Indication: Elevated LFTs On: 95-Wkt-453957:13 Request Vitamin D Hydroxy ([id number])Indication: Vitamin D deficiency On: 92-Xex-824310:13 Request LIPID PANEL ([id number])Indication: MVP (mitral valve prolapse) On: 61-Pvq-634756:43 Request HEPATIC FUNCTION PANEL ([id number])Indication: MVP (mitral valve prolapse) On: 73-Jns-633341:43 Request HEPATIC FUNCTION PANEL ([id number])Indication: Elevated LFTs On: :51 Request LIPID PANEL ([id number])Indication: Other and unspecified hyperlipidemia On: :51 Request VIRUS ISOLATN W/IDENT VIRUS SPECFC ([id number])Indication: Well woman exam with routine gynecological exam On: 2-Klt-334401:34 Request thin prep ([id number]) (std testing)Indication: Well woman exam with routine gynecological exam On: 8-Fmc-301857:08 Request HUMAN PAPILVS, NUCLEIC ACID AMPL PROBE ([id number])Indication: Well woman exam with routine gynecological exam On: 6-Glv-302123:07 Request NEISSERIA ([id number]) (THIN PREP OBTAINED)Indication: Well woman exam with routine gynecological exam On: 5-Bhj-407782:07 Request CHLAMYDIA ([id number]) (thin prep obtained)Indication: Well woman exam with routine gynecological exam On: 9-Mql-744291:07 Request FECAL OCCULT HGB ASSAY- tubes sent home ([id number])Indication: Well woman exam with routine gynecological exam On: :40 Request Thin prep Pap ([id number])Indication: Well woman exam with routine gynecological exam On: :40 Request VITAMIN B-12 (CYANOCOBALAMIN) ([id number])Indication: Anxiety On: :55 Request URINALYSIS W/O MICRO ([id number])Indication: Fatigue On: :55 Request TSH ([id number])Indication: Fatigue On: :55 Request CBC WITH MANUAL DIFF ([id number])Indication: Fatigue On: 87-Yei-57361:55 Request METABOLIC PANEL, COMPREHENSIVE ([id number])Indication: Elevated LFTs On: :55 Request LIPID PANEL ([id number])Indication: Other and unspecified hyperlipidemia On: 26-Prb-63434:54 Request Metabolic Panel, Comprehensive ([id number])Indication: Other and unspecified hyperlipidemia On: 23-Snd-814152:18 Request LIPID PANEL ([id number])Indication: Other and unspecified hyperlipidemia On: 50-Adp-22666:55 Request HEPATIC FUNCTION PANEL ([id number])Indication: Elevated LFTs On: :55 Request Thin prep Pap ([id number])Indication: Well woman exam with routine gynecological exam On: 02-Oct-20069:00 Request LIPID PANEL ([id number])Indication: Family history of high cholesterol On: :03 Request HEPATIC FUNCTION PANEL ([id number])Indication: Elevated LFTs On: 99-Eto-24719:01 Request URINE AILYN CULTURE-IDENTIFICATN ([id number])Indication: Symptomatic menopausal or female climacteric states On: 11-Nby-461036:12 Request Planned Procedures MAMMOGRAM BREAST BILATERAL On: 06-Jul-2018 Intent SCREENING DIGITAL ([id number])By: Jose MERRITT, Gayla Garcia CNP Gayla Diop Venous Doppler - BothBy: Lulydouglas SHAINA, On: 26-Jan-2018 Intent Gayla Mistry CNP E DEXA SCAN AXIAL SKELETON ([id number])By: On: 01-Apr-2017 Intent Kaurfantasmadouglas MERRITT, Thu Gayla Garcia CNP SCREENING DIGITAL TOMOSYNTHESIS OF On: 01-Apr-2017 Intent BREAST ([id number])By: Jose MERRITT Gayal Mistry CNP Flu Vaccine (Quadrivalent) 40724Rd: On: 23-Apr-2016 Intent Philip Meehan MD Comments: FLUlot: [id number]:12/10site:Lt deltoidroute:IMdose:.5mlDEMICK, MA MAMMOGRAM, SCREENING, BOTH BREAST On: 17-Dec-2015 Intent ([id number])By: Maryann Cabezas DO ADMINISTRATION OF INFLUENZA VIRUS On: 18-Apr-2015 Intent VACCINE ([id number])By: Maryann Cabezas DO Flu Vaccine (Quadrivalent) 29264Wm: On: 18-Apr-2015 Intent Maryann Cabezas DO Comments: flu shot Exp: 5Lot: [id number]: L deltoiidroute: IMDSma [place] Density StudyBy: Kevin BLOCK, On: 18-Apr-2015 Intent Maryann Cole Aerosol Treatment ([id number])By: Ravi On: 01-Jan-2015 Intent TENT WORKER Beverly BILATERAL MAMMOGRAMS ([id number])By: On: 11-Dec-2014 Intent Maryann Cabezas DO Comments: screening Eprescribed prescriptions On: 21-Nov-2013 Intent (G8553)By: Maryann Cabezas DO MAMMOGRAM, SCREENING, BOTH BREASTS On: 11-Jul-2013 Intent ([id number])By: Maryann Cabezas DO Comments: postmenopausal without estrogen DXA, BONE DENSITY, AXIAL SKELETON On: 11-Jul-2013 Intent ([id number])By: Maryann Cabezas DO FLU VAC, SPLIT, >3 YEARS, INTRAMUSC On: 13-May-2013 Intent ([id number])By: Dorita Rubin Comments: Lot:[id number]:Dose:0.5mLRoute:IMSite:L DltdGiven By:REBECA signed IMMUNIZ ADMNIN, 1 VAC, SNGL/COMBO On: 13-May-2013 Intent ([id number])By: Dorita Rubin MAMMOGRAM, SCREENING, BOTH BREASTS On: 21-Mar-2013 Intent ([id number])By: Maryann Cabezas DO Comments: apr Eprescribed prescriptions On: 21-Mar-2013 Intent (G8553)By: Barbara Robles EKG ([id number])By: Barbara Robles On: 20-Aug-2012 Intent Comments: ekg showed normal sinus rhythym, normal axis, no acute st/t wave changes Eprescribed prescriptions On: 20-Aug-2012 Intent (G8553)By: Barbara Robles MRI - Lumbar SpineBy: Kevin BLOCK, On: 13-Aug-2012 Intent Maryann Cole MRI - Lumbar Spine (IV Contrast On: 14-Jul-2012 Intent Needed)By: Maryann Cabezas DO MRI - Thoracic Spine (IV Contrast On: 14-Jul-2012 Intent Needed)By: Maryann Cabezas DO IMMUNIZATION ADMIN ([id number])By: On: 04-Jun-2012 Intent Yesenia Fernandez LPN Comments: Lot #[id number]/6/14Site-right deltoidgiven by: Nadia Fernandez LPN Radiology - Ankle - BilateralBy: On: 25-May-2012 Intent Maryann Cabezas DO Radiology - Lumbar SpineBy: Fast On: 25-May-2012 Intent Maryann BLOCK IMMUNIZATION ADMIN ([id number])By: On: 07-May-2012 Intent Yesenia Fernandez LPN Comments: Lot #[id number]/6/14Site-left deltoidgiven by: RUBÉN Cowanhe was given written instructions to return 06/04/12 to 06/07/12 for second dose. And to return 11/05/12 for third injection. Eprescribed prescriptions On: 16-Apr-2012 Intent (G8553)By: Barbara Robles DXA, BONE DENSITY, AXIAL SKELETON On: 26-Nov-2011 Intent ([id number])By: Maryann Cabezas DO Comments: feb-postmenopausal without estrogen MAMMOGRAM, SCREENING, BOTH BREASTS On: 26-Nov-2011 Intent ([id number])By: Maryann Cabezas DO Comments: feb EKG ([id number])By: Barbara Robles On: 04-Jul-2011 Intent Comments: ekg showed normal sinus rhythym, normal axis, no acute st/t wave changes TDAP VACCINE >7 IM ([id number])By: Kevin On: 04-Jul-2011 Intent Maryann BLOCK Comments: Lot #[id number]/17/13Site-left deltoidgiven by: Nadia Fernandez LPN DXA, BONE DENSITY, AXIAL SKELETON On: 04-Jul-2011 Intent ([id number])By: Maryann Cabezas DO FLU VAC, SPLIT, >3 YEARS, INTRAMUSC On: 04-Jul-2011 Intent ([id number])By: Barbara Robles Comments: work MAMMOGRAM, SCREENING, BOTH BREASTS On: 04-Oct-2010 Intent ([id number])By: Maryann Cabezas DO EKG ([id number])By: Barbara Robles On: 10-May-2010 Intent Comments: ekg showed normal sinus rhythym, normal axis, no acute st/t wave changes CT - AbdomenBy: Maryann Cabezas DO On: 01-Jan-[address] - Sinuses CompleteBy: Kevin BLOCK, On: 01-Jan-2010 Intent Maryann Cole DXA, BONE DENSITY, AXIAL SKELETON On: 23-Apr-2009 Intent ([id number])By: Maryann Cabezas DO Comments: post menopausal without estrogen MAMMOGRAM, SCREENING, BOTH BREASTS On: 23-Apr-2009 Intent ([id number])By: Maryann Cabezas DO Comments: jun EKG ([id number])By: Barbara Robles On: 27-Dec-2008 Intent Comments: ekg showed normal sinus rhythym, normal axis, no acute st/t wave changes DXA, BONE DENSITY, AXIAL SKELETON On: 01-Mar-2008 Intent ([id number])By: Gayla Garcia CNP E Jose MERRITT, Thu MAMMOGRAM, SCREENING, BOTH BREASTS On: 01-Mar-2008 Intent ([id number])By: Lauren Ortiz LPN EKG ([id number])By: Barbara Robles On: 10-Sep-2007 Intent Comments: ekg showed normal sinus rhythym, normal axis, no acute st/t wave changes IMMUNIZ ADMNIN, 1 VAC, SNGL/COMBO On: 11-May-2007 Intent ([id number])By: Kevin BLOCK Maryann A FLU VAC, SPLIT, >3 YEARS, INTRAMUSC On: 11-May-2007 Intent ([id number])By: Rigo Cabezas DOa Douglas Comments: Lot #:[id number] date:01/01Amount given:0.5mlRoute: IMSite given:left deltoidGiven by: ROSALINA Iniguez MAMMOGRAM, SCREENING, BOTH BREASTS On: 02-Oct-2006 Intent ([id number])By: Rigo Cabezas DOa A FLU VAC, SPLIT, >3 YEARS, INTRAMUSC On: 08-Jul-2006 Intent ([id number])By: Irena Bautista RN IMMUNIZ ADMNIN, 1 VAC, SNGL/COMBO On: 08-Jul-2006 Intent ([id number])By: Irena Bautista RN Flu Vaccine, Split IM ([id number])By: On: 08-Jul-2006 Intent Maryann Cabezas DO Instructions Name Dates Details Bilateral leg pain : How to access health information online Indication: Bilateral leg pain Bilateral leg pain : How to access health information online - Detail Indication: Bilateral leg pain Bilateral leg pain : Patient Instructions Indication: Bilateral leg pain BMI 22.0-22.9, adult : How to access health information online Indication: BMI 22.0-22.9, adult BMI 22.0-22.9, adult : How to access health information online - Detail Indication: BMI 22.0-22.9, adult BMI 22.0-22.9, adult : Patient Instructions Indication: BMI 22.0-22.9, adult Insomnia : How to access health information online Indication: Insomnia Insomnia : How to access health information online - Detail Indication: Insomnia Insomnia : Patient Instructions Indication: Insomnia Elevated liver enzymes : DISCONTINUED - METABOLIC PANEL, COMPREHENSIVE ([id number]) Indication: Elevated liver enzymes Elevated liver enzymes : DISCONTINUED - Alkaline Phosphatase-Isoenzym (55269) Indication: Elevated liver enzymes Elevated liver enzymes : DISCONTINUED - Alkaline Phosphatase (21871) Indication: Elevated liver enzymes Other and unspecified hyperlipidemia : DISCONTINUED - LIPID PANEL (17814) Indication: Other and unspecified hyperlipidemia Other and unspecified hyperlipidemia : DISCONTINUED - METABOLIC PANEL, COMPREHENSIVE ([id number]) Indication: Other and unspecified hyperlipidemia Vitamin D deficiency : DISCONTINUED - CALCIFEDIOL (37292) Indication: Vitamin D deficiency Other and unspecified hyperlipidemia : How to access health information online Indication: Other and unspecified hyperlipidemia Other and unspecified hyperlipidemia : How to access health information online - Detail Indication: Other and unspecified hyperlipidemia Other and unspecified hyperlipidemia : Patient Instructions Indication: Other and unspecified hyperlipidemia Anxiety : How to access health information online Indication: Anxiety Anxiety : How to access health information online - Detail Indication: Anxiety Anxiety : Patient Instructions Indication: Anxiety Body mass index (BMI) 21 to less than 23 : How to access health information online Indication: Body mass index (BMI) 21 to less than 23 Body mass index (BMI) 21 to less than 23 : How to access health information online - Detail Indication: Body mass index (BMI) 21 to less than 23 Body mass index (BMI) 21 to less than 23 : Patient Instructions Indication: Body mass index (BMI) 21 to less than 23 Body mass index (BMI) 21 to less than 23 : How to access health information online Indication: Body mass index (BMI) 21 to less than 23 Body mass index (BMI) 21 to less than 23 : How to access health information online - Detail Indication: Body mass index (BMI) 21 to less than 23 Body mass index (BMI) 21 to less than 23 : Patient Instructions Indication: Body mass index (BMI) 21 to less than 23 Well woman exam (Renamed from Encounter for well woman exam) : How to access health information online Indication: Well woman exam (Renamed from Encounter for well woman exam) Well woman exam (Renamed from Encounter for well woman exam) : How to access health information online - Detail Indication: Well woman exam (Renamed from Encounter for well woman exam) Well woman exam (Renamed from Encounter for well woman exam) : Patient Instructions Indication: Well woman exam (Renamed from Encounter for well woman exam) Need for prophylactic vaccination and inoculation against influenza : How to access health information online Indication: Need for prophylactic vaccination and inoculation against influenza Need for prophylactic vaccination and inoculation against influenza : How to access health information online - Detail Indication: Need for prophylactic vaccination and inoculation against influenza Need for prophylactic vaccination and inoculation against influenza : Patient Instructions Indication: Need for prophylactic vaccination and inoculation against influenza Abdominal pain, acute, right lower quadrant : How to access health information online Indication: Abdominal pain, acute, right lower quadrant Abdominal pain, acute, right lower quadrant : How to access health information online - Detail Indication: Abdominal pain, acute, right lower quadrant Abdominal pain, acute, right lower quadrant : Patient Instructions Indication: Abdominal pain, acute, right lower quadrant Abdominal pain, acute, right lower quadrant : Patient Instructions Indication: Abdominal pain, acute, right lower quadrant Abdominal pain, acute, right lower quadrant : How to access health information online Indication: Abdominal pain, acute, right lower quadrant Abdominal pain, acute, right lower quadrant : How to access health information online - Detail Indication: Abdominal pain, acute, right lower quadrant Abdominal pain, acute, right lower quadrant : Patient Instructions Indication: Abdominal pain, acute, right lower quadrant Other and unspecified hyperlipidemia : How to access health information online Indication: Other and unspecified hyperlipidemia Other and unspecified hyperlipidemia : How to access health information online - Detail Indication: Other and unspecified hyperlipidemia Other and unspecified hyperlipidemia : Patient Instructions Indication: Other and unspecified hyperlipidemia Other and unspecified hyperlipidemia : How to access health information online Indication: Other and unspecified hyperlipidemia Other and unspecified hyperlipidemia : How to access health information online - Detail Indication: Other and unspecified hyperlipidemia Other and unspecified hyperlipidemia : Patient Instructions Indication: Other and unspecified hyperlipidemia Encounter for gynecological examination without abnormal finding : Patient Instructions Indication: Encounter for gynecological examination without abnormal finding Other and unspecified hyperlipidemia : How to access health information online Indication: Other and unspecified hyperlipidemia Other and unspecified hyperlipidemia : How to access health information online - Detail Indication: Other and unspecified hyperlipidemia Other and unspecified hyperlipidemia : Patient Instructions Indication: Other and unspecified hyperlipidemia Other and unspecified hyperlipidemia : Patient Instructions Indication: Other and unspecified hyperlipidemia Other and unspecified hyperlipidemia : Patient Instructions Indication: Other and unspecified hyperlipidemia Other and unspecified hyperlipidemia : Patient Instructions Indication: Other and unspecified hyperlipidemia Anxiety : Patient Instructions Indication: Anxiety Anxiety : Patient Instructions Indication: Anxiety Anxiety : Patient Instructions Indication: Anxiety Other and unspecified hyperlipidemia : Patient Instructions Indication: Other and unspecified hyperlipidemia Low Back Pain : Patient Instructions Indication: Low Back Pain Low Back Pain : Patient Instructions Indication: Low Back Pain Well woman exam with routine gynecological exam : Patient Instructions Indication: Well woman exam with routine gynecological exam Anxiety : Patient Instructions Indication: Anxiety Encounters Phone Encounter On: 06-Jul-2018 10:58 Encounter Diagnosis: Encounter for screening mammogram for breast cancer (Renamed from Encounter for screening mammogram for malignant neoplasm of breast) End: 06-Jul-2018 11:00 [facility] Annotation/Addendum On: 24-Feb-2018 9:51 Encounter Diagnosis: Bilateral leg pain End: 24-Feb-2018 10:29 [facility] Office Visit On: 16-Feb-2018 9:12 Encounter Reason: Follow up tests - Diagnostic tests include other (labs) and ultrasound. Note for Discuss procedure results: After drinking water, leg cramps better.Encounter Diagnosis: Bilateral leg cramps, Anxiety, Elevated liver enzymes, End: 16-Feb-2018 10:06 Autoimmune hepatitis, Insomnia [facility] Annotation/Addendum On: 01-Feb-2018 8:59 Encounter Diagnosis: Elevated liver enzymes End: 01-Feb-2018 9:05 [facility] Office Visit On: 26-Jan-2018 13:13 Encounter Reason: Leg Pain - This condition occurred without any known injury. The patient sustained an injury to the left lower leg and right lower leg. Symptoms include leg pain, instability (weakness with ambulation) End: 26-Jan-2018 13:58 and calf tenderness. The patient describes the pain as aching (cramping). The symptoms occur constantly. The patient describes symptoms as worsening. Associated symptoms include weakness. Previous prese ntation included leg pain. Note for Leg pain: bilateral leg pain worse cramping with walking nad lower foot ankle painEncounter Diagnosis: Nonsmoker, BMI 22.0- 22.9, adult, Bilateral leg pain, Insomnia, Bilateral leg cramps, Bilateral ankle pain, unspecified chronicity [facility] Annotation/Addendum On: 07-Aug-2017 8:29 Encounter Diagnosis: Postmenopausal (Renamed from Postmenopausal status) End: 07-Aug-2017 8:34 [facility] Office Visit On: 04-Aug-2017 8:08 Encounter Reason: Follow up tests - Date: (June 2017)., [ADDITIONAL REASON] Follow up for chronic medical issues - The patient feels well with no complaints End: 04-Aug-2017 10:00 , has decreased energy level and is sleeping well. Patient has been compliant with instructions. Current medication use: no side effects, compliant with dosing regimen and considered effective by dee bishop. Patient sleeps 7 hours per night. Nutrition: balanced diet and no supplemental vitamins & iron. The medical issues the patient is following up for include All identified problems below, cardiac i ssues (mvp), gastric reflux, high cholesterol and other (anxiety, fatigue, ??allergic rhinitis, elevated bp's, sleep apnea, neuropathy). Note for Follow up for chronic medical issues: neuropathy - Dr Holley Prater - neuro Dr Bragg - heptaologistOff of effexor and nexium , [ADDITIONAL REASON] Migraine headache - Note for Headache: Sees Nakia Resendiz she referred her to Dr. Hollye Jean for neuropathy Encounter Diagnosis: Nonsmoker, BMI 22.0-22.9, adult, Neuropathy of both feet, History of Gricelda-Soriano virus infection [facility] Annotation/Addendum On: 17-Jul-2017 14:55 Encounter Diagnosis: Gricelda-Soriano infection End: 17-Jul-2017 15:03 [facility] Annotation/Addendum On: 13-Jul-2017 12:13 Encounter Diagnosis: Gricelda-Soriano infection End: 13-Jul-2017 13:08 [facility] Office Visit On: 10-Jul-2017 11:37 Encounter Reason: lab request - Trying to be better with diet and see if other labs can me drawn Encounter Diagnosis: Insomnia, BMI 22.0-22.9, adult, Nonsmoker, Autoimmune hepatitis, Fatigue, Neuropathy End: 10-Jul-2017 12:28 [facility] Admission Note On: 03-Jul-2017 13:11 [facility] End: 03-Jul-2017 13:12 Annotation/Addendum On: 26-May-2017 12:14 Encounter Diagnosis: Hypercholesteremia End: 26-May-2017 12:16 [facility] Office Visit On: 01-Apr-2017 7:31 Encounter Reason: Follow up for chronic medical issues - The patient feels well with no complaints, has decreased energy level and is sleeping well. Patient has been compliant with instructions. Current medication use: n End: 01-Apr-2017 10:00 o side effects, compliant with dosing regimen and considered effective by patient. Patient sleeps 7 hours per night. Nutrition: balanced diet and no supplemental vitamins & iron. The medical issues the patient is following up for include All identified problems below, cardiac issues (mvp), gastric reflux, high cholesterol and other (anxiety, fatigue, ??allergic rhinitis, elevated bp's, sleep apnea , neuropathy). Note for Follow up for chronic medical issues: On going issues with foot neuropathy work up for foot neuropathy. Per Dr Leon Birch in [facility] Diagnosis: Gastroesophageal reflux disease without esophagitis, Anxiety, Other and unspecified hyperlipidemia (272.4), Nonsmoker, Neuropathy of both feet, BMI 23.0-23.9, adult, Vitamin D deficiency, Elevated liver enzymes, Encounter for screening mammogram for breast cancer (Renamed from Encounter for screening mammogram for malignant neoplasm of breast), Postmenopausal (Renamed from Postmenopausal status) [facility] Office Visit On: 04-Nov-2016 7:51 Encounter Reason: Follow up for chronic medical issues - The patient feels well with no complaints, has good energy level and is sleeping well. Patient has been compliant with instructions. Current medication use: no jefferson End: 04-Nov-2016 11:42 e effects, compliant with dosing regimen and considered effective by patient. Patient sleeps 7 hours per night. Nutrition: balanced diet and no supplemental vitamins & iron. The medical issues the p atient is following up for include All identified problems below, cardiac issues (mvp), gastric reflux, high cholesterol and other (anxiety, fatigue, ??allergic rhinitis, elevated bp's, sleep apnea)., [ADDITIONAL REASON] Follow up tests - Diagnostic tests include other (labs). Date: (10/31). Encounter Diagnosis: MVP (mitral valve prolapse), Family history of high cholesterol, Anxiety, Obstructive sleep apnea, adult, Tarsal tunnel syndrome, bilateral lower limbs, BMI between 19-24,adult, Nonsmoker, Migraine, Insomnia, Vitamin D deficiency [facility] Office Visit On: 02-Sep-2016 8:48 Encounter Reason: Follow up for chronic medical issues - The patient feels well with no complaints, has good energy level and is sleeping well. Patient has been compliant with instructions. Current medication use: no jefferson End: 02-Sep-2016 14:48 e effects, compliant with dosing regimen and considered effective by patient. Patient sleeps 7 hours per night. Nutrition: balanced diet and no supplemental vitamins & iron. The medical issues the p atient is following up for include All identified problems below, cardiac issues (mvp), gastric reflux, high cholesterol and other (anxiety, fatigue, ??allergic rhinitis, elevated bp's, sleep apnea).Encounter Diagnosis: Nonsmoker, Body mass index (BMI) 21 to less than 23, Other and unspecified hyperlipidemia (272.4), Migraine, Gastroesophageal reflux disease without esophagitis, Obstructive sleep apnea, adult, Autoimmune hepatitis, Mitral valve prolapse, Insomnia, Anxiety, Postmenopausal atrophic vaginitis, Allergic Rhinitis(477.9), MVP, Excess or deficiency of vitamin D [facility] Office Visit On: 25-Jun-2016 11:23 Encounter Reason: Follow up tests - Date: (05/2016).Encounter Diagnosis: Body mass index (BMI) 21 to less than 23, Nonsmoker, Other and unspecified hyperlipidemia (272.4), Vitamin D deficiency, Autoimmune hepatitis, Obstructive sleep apnea, adult, End: 25-Jun-2016 13:58 Gastroesophageal reflux disease without esophagitis, Insomnia, Migraine [facility] Office Visit On: 12-Jun-2016 9:15 Encounter Reason: Well Women Exam - The patient feels well with no complaints, has good energy level and is sleeping well. Pap smear: date of last pap: (04/2015 was last [facility]). Contraceptive history: The patient is not us End: 12-Jun-2016 14:57 ing any method of contraception at this time. Patient does not exercise. The patient's libido is normal. The patient reports that she does not perform monthly breast self exam. The patient denies the us e of oral contraceptives or hormone replacement therapy. Menstruation: Last menstrual period date: (post-mari). Note for Well Women Exam: no vaginal bleeding and not checking breast rotuinely encouyrageEncounter Diagnosis: Autoimmune hepatitis, Other and unspecified hyperlipidemia (272.4), Obstructive sleep apnea, adult, Migraine, Anxiety, Gastroesophageal reflux disease without esophagitis, Well woman exam (Renamed from Encounter for well woman exam) [facility] Office Visit On: 23-Apr-2016 10:13 Encounter Reason: Follow up for chronic medical issues - The patient feels well with no complaints, has good energy level and is sleeping well. Patient has been compliant with instructions. Current medication use: no jefferson End: 23-Apr-2016 16:21 e effects, compliant with dosing regimen and considered effective by patient. Patient sleeps 8 hours per night. Nutrition: balanced diet and no supplemental vitamins & iron. The medical issues the p atient is following up for include All identified problems below, cardiac issues (mvp), gastric reflux, high cholesterol and other (anxiety, fatigue, ??allergic rhinitis, elevated bp's, sleep apnea).Encounter Diagnosis: Need for prophylactic vaccination and inoculation against influenza (V04.81), Body mass index (BMI) 21 to less than 23, Nonsmoker, Elevated LFTs, Anxiety, Vitamin D deficiency, Mitral valve prolapse, Obstructive sleep apnea, adult, Other and unspecified hyperlipidemia (272.4), Migraine, Autoimmune hepatitis, Insomnia [facility] Office Visit On: 11-Jan-2016 7:36 Encounter Reason: Abdominal pain - The onset of the pain has been gradual and has been occurring in an intermittent (worse after eating) pattern for 3 weeks. The course has been decreasing. The pain is described as a mod End: 11-Jan-2016 9:59 erate dull ache. The pain is described as being located in the right upper quadrant. The pain does not radiate. The symptoms are aggravated by meals (1/2 to 1 hour after eating). Note for Pain: Yellow stool. No gallbladder , [ADDITIONAL REASON] Follow up tests - Diagnostic tests include other (labs). Date: (12/28/15). Encounter Diagnosis: Abdominal pain, acute, right lower quadrant, Elevated liver enzymes [facility] Office Visit On: 28-Dec-2015 10:36 Encounter Reason: Abdominal pain - The onset of the pain has been gradual and has been occurring in an intermittent (worse after eating) pattern for 1 week. The course has been recurrent. The pain is described as a moder End: 28-Dec-2015 11:21 ate dull ache. The pain is described as being located in the right upper quadrant. The pain does not radiate. The symptoms are aggravated by meals (1/2 to 1 hour after eating). Note for Pain: Yellow stool. No gallbladder Encounter Diagnosis: Abdominal pain, acute, right lower quadrant, Elevated liver enzymes [facility] Office Visit On: 17-Dec-2015 11:28 Encounter Reason: Follow up for chronic medical issues - The patient feels well with no complaints, has good energy level and is sleeping well. Patient has been compliant with instructions. Current medication use: no jefferson End: 17-Dec-2015 12:07 e effects, compliant with dosing regimen and considered effective by patient. Patient sleeps 7 hours per night. Nutrition: balanced diet and no supplemental vitamins & iron. The medical issues the p atient is following up for include All identified problems below, cardiac issues (mvp), gastric reflux, high cholesterol and other (anxiety, fatigue, ??allergic rhinitis, elevated bp's, sleep apnea). No te for Follow up for chronic medical issues: Pt didnt get blood work done but she is fasting this am.- she feeling pretty good bp better- and weight down 4 pound she going to get backinto her exercsie regimen- insurance wont cover bone density- no gerd unless too much coffee - sleeping ok and mood good-Encounter Diagnosis: Other and unspecified hyperlipidemia (272.4), Anxiety, Gastroesophageal reflux disease without esophagitis, Encounter for screening mammogram for breast cancer (Renamed from Encounter for screening mammogram for malignant neoplasm of breast), Vitamin D deficiency, Elevated LFTs [facility] Office Visit On: 17-Sep-2015 9:39 Encounter Reason: Follow up for chronic medical issues - The patient feels well with no complaints (aside from her back and feet but she is seeing specialist for those.), has good energy level and is sleeping well. Patie End: 17-Sep-2015 22:54 nt has been compliant with instructions. Current medication use: no side effects, compliant with dosing regimen and considered effective by patient. Patient sleeps 7 hours per night. Nutrition: balanced diet and no supplemental vitamins & iron. The medical issues the patient is following up for include All identified problems below, cardiac issues (mvp), gastric reflux, high cholesterol and other (anxiety, fatigue, ??allergic rhinitis, elevated bp's, sleep apnea). Note for Follow up for chronic medical issues: No routine labs done for todays visit.- bp up but was up all night with her sisterin law- in hospital- prior to this has been fine - she back with Dr Thomas- burning pain around heels- so he doing emg/ncs- then seeing Hugo for back- so hard to keep active with this- no routine amador d and has been sleeping well anxiety good- and didnt wear cpap last night- insurance wont cover bone density Encounter Diagnosis: Other and unspecified hyperlipidemia (272.4), Elevated LFTs, Gastroesophageal reflux disease without esophagitis, Vitamin D deficiency, Anxiety [facility] Office Visit On: 14-May-2015 10:10 Encounter Reason: Well Women Exam - The patient feels well with no complaints, has good energy level and is sleeping well. Pap smear: date of last pap: (2011). Contraceptive history: The patient is not using any method o End: 14-May-2015 22:45 f contraception at this time. Patient exercises a weekly. The patient's libido is decreased. The patient reports that she does not perform monthly breast self exam. Previous evaluations: cervical treatm ent (unspecified) (Barthalan gland cyst surgery). The patient denies the use of oral contraceptives or hormone replacement therapy. Menstruation: Last menstrual period date: (post-mari). Note for Well Women Exam: no vaginal bleeding and not checking breast rotuinely encouyrageEncounter Diagnosis: Encounter for gynecological examination without abnormal finding, SCREENING FOR HUMAN PAPILLOMAVIRUS (HPV) (V73.81), Elevated LFTs, Vitamin D deficiency , Other and unspecified hyperlipidemia (272.4) [facility] Phone Encounter On: 20-Apr-2015 8:44 Encounter Diagnosis: VITAMIN D DEFICIENCY, NOS (268.9) End: 20-Apr-2015 8:49 [facility] Office Visit On: 18-Apr-2015 8:45 Encounter Reason: Follow up for chronic medical issues - The patient feels well with no complaints, has good energy level and is sleeping well. Patient has been compliant with instructions. Current medication use: no jefferson End: 18-Apr-2015 9:41 e effects, compliant with dosing regimen and considered effective by patient. Patient sleeps 7 hours per night. Nutrition: balanced diet and no supplemental vitamins & iron. The medical issues the p atient is following up for include All identified problems below, cardiac issues (mvp), gastric reflux, high cholesterol and other (anxiety, fatigue, ??allergic rhinitis, elevated bp's, sleep apnea). 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 Symptoms include cough. The cough is described as productive (green). Cough onset was sudden 4 day(s) ago. There is no known event that preceded symptom o End: 01-Jan-2015 10:07 nset. The cough occurs constantly. The episodes last for 4 days. Symptoms are described as moderate in severity and unchanged. Symptoms are exacerbated by lying down. Symptoms are not relieved by air co nditioning, humidified air, warm drinks, warm weather, avoiding irritants, resting, lying down, sitting up, cough drops, cough medicine, acetaminophen, nonsteroidal anti-inflammatory drugs or inhaled br onchodilator use. Associated symptoms include postnasal drainage and hoarseness. The patient is not currently being treated for this problem. By report there is good compliance with treatment. Pertinent medical history does not include asthma, chronic bronchitis, chronic obstructive pulmonary disease, cystic fibrosis, sinusitis, pulmonary disease, tuberculosis, environmental allergies, urticaria, yolie estive heart failure, myocardial infarction, stroke, diabetes, gastroesophageal reflux disease, neoplasm, obesity or up to date influenza vaccination. Risk factors do not include exposure to an ill pers on, air pollution exposure, passive smoke exposure, smoking, pets in the home, SISI inhibitor use, alcohol abuse, drug abuse, impaired immunity or missed immunizations. Pertinent family history does not include asthma, eczema, coagulation disorder or tuberculosis. Previous presentation included a cough and hoarseness. This problem has not been previously treated.Encounter Diagnosis: Cough, Allergic Rhinitis(477.9), LARYNGITIS [facility] Office Visit On: 11-Dec-2014 10:12 Encounter Reason: Follow up for chronic medical issues - The patient feels well with minor complaints (wondering if she can go down on the effexor dose to 37.5mg and try it- wants to update on some recent back issues whi End: 11-Dec-2014 11:11 ch she is now seeing Dr. Greene for pain management.), has good energy level and is sleeping well. Patient has been compliant with instructions. Current medication use: no side effects, compliant with dosing regimen and considered effective by patient. Patient sleeps 7 hours per night. Nutrition: balanced diet and no supplemental vitamins & iron. The medical issues the patient is following up for include All identified problems below, cardiac issues (mvp), gastric reflux, high cholesterol and other (anxiety, fatigue, ??allergic rhinitis, elevated bp's, sleep apnea). 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: No labs for todays visit.- she was on vacation - - bp is good and weight stable- her feet were good until september then tried to get backinto exercise routine and develo[ped issues aga in- then went to pt and Dr hawk pain managment-- pt some hlep =- but different getting some back pain now and stabbing pain in feet- she is going to get injections from him and see if helpsEncounter Diagnosis: Other and unspecified hyperlipidemia (272.4), SCREENING FOR BREAST CANCER (V76.10), Anxiety disorder in conditions classified elsewhere (293.84), GERD (530.81), VITAMIN D DEFICIENCY, NOS (268.9), LOW BACK PAIN WITH RADICULOPATHY (724.4), Elevated LFT (790.6) [facility] Office Visit On: 24-Nov-2014 8:37 Encounter Reason: Rash - The last clinic visit was 4 day(s) ago. Symptoms include rash (raised), localized rash and patchy rash. The patient describes the rash as red, dry, itchy and crusty. The rash is located on the ri End: 24-Nov-2014 9:07 ght side of the neck. Onset was sudden 4 day(s) ago. The rash is spreading. Changes have occurred over the last 4 days. Symptoms are moderate in severity. Symptoms are relieved by antihistamines (topica l helps itch). Associated symptoms do not include arthralgias, myalgias, rhinorrhea, sore throat, swollen glands, neck stiffness, lightheadedness, cough, wheezing, shortness of breath, abdominal pain, n ausea, vomiting, diarrhea, urethral discharge or vaginal discharge. Current treatment includes antihistamines (topical benadryl). By report there is good compliance with treatment. Previous presentation included rash.Encounter Diagnosis: Contact dermatitis, Rash [facility] Office Visit On: 02-Aug-2014 8:37 Encounter Reason: Follow up for chronic medical issues - The patient feels well with no complaints, has good energy level and is sleeping well. Patient has been compliant with instructions. Current medication use: no jefferson End: 02-Aug-2014 9:09 e effects, compliant with dosing regimen and considered effective by patient. Patient sleeps 7 hours per night. Nutrition: balanced diet and no supplemental vitamins & iron. The medical issues the p atient is following up for include All identified problems below, cardiac issues (mvp), gastric reflux, high cholesterol and other (anxiety, fatigue, ??allergic rhinitis, elevated bp's, sleep apnea). No te for Follow up for chronic medical issues: No routine labs done for todays visit. Pt had surgery on her right foot back in april. Had her achilles tendon and plantar fascitis snipped.- she gained weight becuase of surgery and wasnt doing exercise- bp is great anxiety been good- no gerd- has been off trazadone and doing well- got rash with oxycodone- still ear issues pressure left ear and hasnt seen luisa due to surgery still wants to go Encounter Diagnosis: Other and unspecified hyperlipidemia (272.4), Anxiety disorder in conditions classified elsewhere (293.84), Eustachian tube dysfunction, GERD (530.81), VITAMIN D DEFICIENCY, NOS (268.9), Elevated LFT (790.6), Hip bursitis 726.5 [facility] Office Visit On: 24-Mar-2014 10:47 Encounter Reason: Follow up for chronic medical issues - The patient feels well with no complaints, has good energy level and is sleeping well. Patient has been compliant with instructions. Current medication use: no jefferson End: 24-Mar-2014 14:49 e effects, compliant with dosing regimen and considered effective by patient. Patient sleeps 7 hours per night. Nutrition: balanced diet and no supplemental vitamins & iron. The medical issues the p atient is following up for include All identified problems below, cardiac issues (mvp), gastric reflux, high cholesterol and other (anxiety, fatigue, ??allergic rhinitis, elevated bp's, sleep apnea). No te for Follow up for chronic medical issues: No routine labs done but did have her fasting labs drawn this am here but they arent back yet.- bp is good- seeing dr thomas at [facility] for plan tar fasciiitis- - saw Dr vila - and he ordered a bone scan- found arthritis in back ??and shoulders - left hip bursitis- - doing mri on feet - she biking alot and weight down and bp is good and gerd go ne- off artificiial sweenters- hasnt seen tin yet but will mood is good and sleeping good Encounter Diagnosis: Other and unspecified hyperlipidemia (272.4), GERD (530.81), Anxiety disorder in conditions classified elsewhere (293.84), VITAMIN D DEFICIENCY, NOS (268.9), Elevated LFT (790.6), Eustachian tube dysfunction [facility] Office Visit On: 21-Nov-2013 11:31 Encounter Reason: Follow up for chronic medical issues - The patient feels well with no complaints, has good energy level and is sleeping well. Patient has been compliant with instructions. Current medication use: no jefferson End: 21-Nov-2013 12:22 e effects, compliant with dosing regimen and considered effective by patient. Patient sleeps 7 hours per night. Nutrition: balanced diet and no supplemental vitamins & iron. The medical issues the p atient is following up for include All identified problems below, cardiac issues (mvp), gastric reflux, high cholesterol and other (anxiety, fatigue, ??allergic rhinitis, elevated bp's, sleep apnea). No te for Follow up for chronic medical issues: Pt seeing now for Podiatry and [facility] for arthritis in knees-- he injected both feet last - and they feel better and taped them- - she feels like improving - bpis good - on celebresx for knees saw shay has arthritis and doing pt- watching her gerd-she is keeping up with liver issue with [facility] and anxiety controlled on meds- her isurance wont cover bone density Encounter Diagnosis: Anxiety disorder in conditions classified elsewhere (293.84), VITAMIN D DEFICIENCY, NOS (268.9), Elevated LFT (790.6), GERD (530.81), Other and unspecified hyperlipidemia (272.4), screening [facility] Phone Encounter On: 19-Jul-2013 10:00 Encounter Diagnosis: Elevated LFT (790.6) End: 19-Jul-2013 10:03 [facility] Office Visit On: 11-Jul-2013 9:57 Encounter Reason: Follow up for chronic medical issues - The patient feels well with no complaints, has good energy level and is sleeping well. Patient has been compliant with instructions. Current medication use: no jefferson End: 11-Jul-2013 10:33 e effects, compliant with dosing regimen and considered effective by patient. Patient sleeps 7 hours per night. Nutrition: balanced diet and no supplemental vitamins & iron. The medical issues the p atient is following up for include All identified problems below, cardiac issues (mvp), gastric reflux, high cholesterol and other (anxiety, fatigue, ??allergic rhinitis, elevated bp's, sleep apnea). No te for Follow up for chronic medical issues: No routine labwork done prior for todays apt but pt is fasting this am. hasnt seen narcisa for her back and has seem to have gotten better- she still having issues with feet and sees podiatris sunita jul - anxiety has been goodand sleeping good Encounter Diagnosis: Anxiety disorder in conditions classified elsewhere (293.84), GERD (530.81), Other and unspecified hyperlipidemia (272.4), Elevated LFT (790.6) , VITAMIN D DEFICIENCY, NOS (268.9), screening [facility] Office Visit On: 13-May-2013 11:44 Encounter Reason: Injections - The medication the patient is here to receive is other (flu).Encounter Diagnosis: Need for prophylactic vaccination and inoculation against influenza (V04.81) End: 13-May-2013 11:54 [facility] Office Visit On: 21-Mar-2013 11:43 Encounter Reason: Follow up for chronic medical issues - The patient feels well with minor complaints (still dealing with her feet with dr lott), has good energy level and is sleeping well. Patient has been compliant wi End: 21-Mar-2013 12:33 th instructions. Current medication use: no side effects, compliant with dosing regimen and considered effective by patient. Patient sleeps 7 hours per night. Nutrition: balanced diet and no supplementa l vitamins & iron. The medical issues the patient is following up for include All identified problems below, cardiac issues (mvp), gastric reflux, high cholesterol and other (anxiety, fatigue, ??all ergic rhinitis, elevated bp's, sleep apnea). Note for Follow up for chronic medical issues: No routine labs done- She forgot to do them.- she sees Dr lott and has orthotics and b vitamins have helped her feet - bp is good and weight is stable- she is able to bike without difficulty- still having thoroacic pain and wants to see specialist about- her mood good and sleeping well - doesnt have followup with liver doc- no gerdEncounter Diagnosis: Anxiety disorder in conditions classified elsewhere (293.84), Plantar Fascititis (728.71), PAIN IN THORACIC SPINE (724.1), screening , Other and unspecified hyperlipidemia (272.4), VITAMIN D DEFICIENCY, NOS (268.9), Elevated LFT (790.6) [facility] Annotation/Addendum On: 29-Dec-2012 13:34 [facility] End: 29-Dec-2012 13:40 Office Visit On: 20-Aug-2012 7:05 Encounter Reason: Follow up for chronic medical issues - The patient feels well with minor complaints (plantar fascitis still bothering her), has good energy level and is sleeping well. Patient has been compliant with in End: 20-Aug-2012 7:47 structions. Current medication use: no side effects, compliant with dosing regimen and considered effective by patient. Patient sleeps 7 hours per night. Nutrition: balanced diet and no supplemental vit amins & iron. The medical issues the patient is following up for include All identified problems below, cardiac issues (mvp), gastric reflux, high cholesterol and other (anxiety, fatigue, ??allergic rhinitis, elevated bp's, sleep apnea). 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 Encounter Diagnosis: Other and unspecified hyperlipidemia (272.4), Plantar Fascititis (728.71), LOW BACK PAIN WITH RADICULOPATHY (724.4), GERD (530.81), VITAMIN D DEFICIENCY, NOS (268.9), Elevated LFT (790.6) [facility] Phone Encounter On: 13-Aug-2012 8:51 Encounter Diagnosis: LOW BACK PAIN WITH RADICULOPATHY (724.4) End: 13-Aug-2012 9:07 [facility] Phone Encounter On: 11-Aug-2012 16:55 Encounter Diagnosis: Rhinitis, chronic (472.0) End: 11-Aug-2012 16:56 [facility] Phone Encounter On: 14-Jul-2012 9:17 Encounter Diagnosis: Low Back Pain (724.2) End: 14-Jul-2012 9:19 [facility] Office Visit On: 06-Jul-2012 11:45 Encounter Reason: Follow up acute care visit - The patient feeling better since last seen (lbp has improved but plantar fascitis wasnt improving so they are doing electronic therapy which seems to be helping) and improvi End: 06-Jul-2012 21:41 ng. Patient has been compliant with instructions. Patient sleeps 7 hours per night. Nutrition: balanced diet and supplemental vitamins. The medical issues the patient is following up for include All cary ntified problems below and other (lbp and plantart fascititis). Note for Follow up acute care visit: Pt has 4 more sessions of therapy yet.- she had dexamethasone therapy last week for her plantar fas ciitis and has helped- initially back was doing better until this weekend over at daughters and exacerbated againEncounter Diagnosis: Low Back Pain (724.2), Plantar Fascititis (728.71), LOW BACK PAIN WITH RADICULOPATHY (724.4) [facility] Office Visit On: 04-Jun-2012 11:52 Encounter Reason: Injections - The medication the patient is here to receive is other (Hep A/B #2).Encounter Diagnosis: Unspecified Diagnosis End: 04-Jun-2012 13:40 [facility] Office Visit On: 25-May-2012 10:28 Encounter Reason: Back pain - The onset of the pain has been sudden and has been occurring in a persistent pattern for 1 week. The course has been increasing. The pain is characterized as a dull ache and burning. The clive End: 25-May-2012 22:52 n is described as being located in the lumbosacral area. The pain radiates to the right thigh, left thigh, right groin and left groin. The symptoms are relieved by heat (helped mildly). The pain has bee n associated with back stiffness and paresthesias in leg (burning and pain ??in heels), while there has been no abdominal pain, chills, dysuria, fever, hip pain, incontinence of stool, incontinence of u rine or leg weakness. Note for Pain: aches in low back buttocks and occ right leg- no trauma- sx intermittently for last couple months wore last week- last - weeks alot of gardening- - alos having rodrigo t of heel pain both sides worse getting out of bed and starting to walk then if stands along time- no weak or numb in leg- worse to sit in car- if exdtnds back feels better Encounter Diagnosis: Low Back Pain (724.2), Plantar Fascititis (728.71) [facility] Office Visit On: 11-May-2012 9:14 Encounter Reason: Well Women Exam - The patient feels well with no complaints, has good energy level and is sleeping well. Pap smear: date of last pap: (2008). Contraceptive history: The patient is not using any method o End: 11-May-2012 10:23 f contraception at this time. Patient exercises a weekly. The patient's libido is decreased. The patient reports that she does not perform monthly breast self exam. Calcium intake includes 1500 mg with Vit D daily supplement. Previous evaluations: cervical treatment (unspecified) (Barthalan gland cyst surgery). The patient denies the use of oral contraceptives or hormone replacement therapy. Menstruat ion: Last menstrual period date: (post-mari). Note for Well Women Exam: feels well but ever since menpause loosing alot of hair and not slowing down- does color hairEncounter Diagnosis: Well Woman Exam (V72.31) (Pap,Mammo,Routine Female), hair loss [facility] Office Visit On: 07-May-2012 10:16 Encounter Reason: Injections - The medication the patient is here to receive is other (Hep A & B).Encounter Diagnosis: Unspecified Diagnosis End: 07-May-2012 10:30 [facility] Office Visit On: 16-Apr-2012 6:59 Encounter Reason: Follow up for chronic medical issues - The patient feels well with no complaints (re-cooping from having flu bug and sinus infection while out of state- went to urgent care- on the mend. ), has good ron End: 16-Apr-2012 7:38 rgy level and is sleeping well. Patient has been compliant with instructions. Current medication use: no side effects, compliant with dosing regimen and considered effective by patient. Patient sleeps 7 hours per night. Nutrition: balanced diet and no supplemental vitamins & iron. The medical issues the patient is following up for include All identified problems below, cardiac issues (mvp), gastri c reflux, high cholesterol and other (anxiety, fatigue, ??allergic rhinitis, elevated bp's, sleep apnea). Note for Follow up for chronic medical issues: No routine ??labs done for today.- she saw Dr Edwige badillo at [facility]- fatty liver vs autoimmune liver disease- still testing -- she got over sinus- she is feeling better and lost 4 pounds becuase appetitie was down- fibro ok- bit sore- no gerd- hip bursitis better with pt- also had lumbar radiuclopathy that she is doing mcenzie for and getting better- sleeping pretty good and mood pretty goodEncounter Diagnosis: Anxiety disorder in conditions classified elsewhere (293.84), GERD (530.81), Elevated LFT (790.6), Other and unspecified hyperlipidemia (272.4), VITAMIN D DEFICIENCY, NOS (268.9) [facility] Office Visit On: 10-Feb-2012 9:00 Encounter Reason: Hip Problem - Symptoms include hip problem (left hip pain), while symptoms do not include pain in other joints, fever or chills. The symptoms are located in the left hip and left lateral hip. The patien End: 10-Feb-2012 23:01 t describes the hip problem as hip pain, hip stiffness, decreased range of motion and difficulty bearing weight (after sitting for so long). Onset was gradual 1 month(s) ago. The symptoms occur constant ly. The patient describes symptoms as moderate in severity and improving. Symptoms are not relieved by ice. Associated symptoms include low back pain, while associated symptoms do not include localized rash, generalized rash, numbness in the leg or weakness of the leg. Note for Hip Problem: left outer hip - hurts to layon still biking- was on her feet alot at work and at home- biking bothers it - st eps hurt it - no radiatin down leg no weak or numb- low back was tight for couple days but that not persisting- sitting bothers alotEncounter Diagnosis: Elevated LFT (790.6), Hip bursitis 726.5 [facility] Office Visit On: 26-Nov-2011 8:31 Encounter Reason: Follow up for chronic medical issues - The patient feels well with no complaints, has good energy level and is sleeping well. Patient has been compliant with instructions. Current medication use: no jefferson End: 26-Nov-2011 9:05 e effects, compliant with dosing regimen and considered effective by patient. Patient sleeps 7 hours per night. Impact of disease: emotional impact-mild. Nutrition: balanced diet and no supplemental vit amins & iron. The medical issues the patient is following up for include All identified problems below, cardiac issues (mvp), gastric reflux, high cholesterol and other (anxiety, fatigue, ??allergic rhinitis, elevated bp's, sleep apnea). Note for Follow up for chronic medical issues: - so feels good other than stress at work- so would like to increase daytime anxietymeds- no gerd- - she hasnt done bone density yet- still biking routinely Encounter Diagnosis: Anxiety disorder in conditions classified elsewhere (293.84), screening, GERD (530.81), Other and unspecified hyperlipidemia (272.4), VITAMIN D DEFICIENCY, NOS (268.9), Elevated LFT (790.6) [facility] Office Visit On: 04-Jul-2011 7:16 Encounter Reason: Follow up for chronic medical issues - The patient feels well with no complaints, has good energy level and is sleeping well. Patient has been compliant with instructions. Current medication use: no jefferson End: 04-Jul-2011 8:28 e effects and compliant with dosing regimen. Patient sleeps 7 hours per night. Nutrition: balanced diet and no supplemental vitamins & iron. The medical issues the patient is following up for includ e All identified problems below, cardiac issues (mvp), gastric reflux, high cholesterol and other (anxiety, fatigue, ??allergic rhinitis, elevated bp's, sleep apnea). Note for Follow up for chronic med ical issues: got rid of artificial sweetnesrs and gerd alot better- no anxiety- bp is good- sleeping fine- not overtly more fatigued- Encounter Diagnosis: Anxiety disorder in conditions classified elsewhere (293.84), GERD (530.81), Other and unspecified hyperlipidemia (272.4), Need for prophylactic vaccination and inoculation against influenza (V04.81), Elevated LFT (790.6), VITAMIN D DEFICIENCY, NOS (268.9), Colitis, enteritis, and gastroenteritis of presumed infectious origin (009.1), postmenopausal without estrogen [facility] Phone Encounter On: 28-Apr-2011 11:41 Encounter Diagnosis: VITAMIN D DEFICIENCY, NOS (268.9), Other and unspecified hyperlipidemia (272.4) End: 28-Apr-2011 11:43 [facility] Office Visit On: 28-Feb-2011 9:17 Encounter Reason: Follow up for chronic medical issues - The patient feels well with no complaints, has good energy level and is sleeping well. Patient has been compliant with instructions. Current medication use: no jefferson End: 28-Feb-2011 9:58 e effects and compliant with dosing regimen. Patient sleeps 7 hours per night. Nutrition: balanced diet and no supplemental vitamins & iron. The medical issues the patient is following up for includ e All identified problems below, cardiac issues (mvp), gastric reflux, high cholesterol and other (anxiety, fatigue, ??allergic rhinitis, elevated bp's, sleep apnea). Note for Follow up for chronic med ical issues: pt brought copy of labs from work.- her abd pain is better and she had egd with Tin - had bad gastritis- weight is stable and bp is good- taking nexium prn- feeling well - liver fluctua ting- taking krill oil told her to check on clearanceEncounter Diagnosis: Anxiety disorder in conditions classified elsewhere (293.84), GERD (530.81), VITAMIN D DEFICIENCY, NOS (268.9), Other and unspecified hyperlipidemia (272.4), Elevated LFT (790.6) [facility] Office Visit On: 21-Oct-2010 8:26 Encounter Reason: Follow up ER - Reason for hospitalization abdominal pain (they dx it as gastritis) and note:. Patient has been compliant with instructions. Current medication use: no side effects and compliant with dos End: 21-Oct-2010 12:24 ing regimen. The patient feels well with minor complaints, has good energy level and is sleeping well. Nutrition: balanced diet.Encounter Diagnosis: Epigastric pain (789.06), GASTRITIS, ACUTE W/O HEMORRHAGE (535.00) [facility] Phone Encounter On: 11-Oct-2010 9:39 Encounter Diagnosis: VITAMIN D DEFICIENCY, NOS (268.9), Other and unspecified hyperlipidemia (272.4) End: 11-Oct-2010 9:48 [facility] Office Visit On: 04-Oct-2010 8:08 Encounter Reason: Follow up for chronic medical issues - The patient feels well with no complaints, has good energy level and is sleeping well. Patient has been compliant with instructions. Current medication use: no jefferson End: 04-Oct-2010 8:44 e effects and compliant with dosing regimen. Patient sleeps 7 hours per night. Nutrition: balanced diet and no supplemental vitamins & iron. The medical issues the patient is following up for includ e All identified problems below, cardiac issues (mvp), gastric reflux, high cholesterol and other (anxiety, fatigue, allergic rhinitis, elevated bp's, sleep apnea). Note for Follow up for chronic medi nalini issues: mood has been pretty good she is feeling well-- - she is sleeping well- she is using pantanase and allergies under control- havng gerd twice a week- and only using nexium prn so will get ba ck on routinely- no dysphagia- bp is good-memory better- fatigue bettter-doing pt for her shoulder saw cher, [ADDITIONAL REASON] Follow up, Laboratory Test Results - Lab results: other (lipis, cmp, vitD). Date: (05/10/10 -- needs reviewed). Encounter Diagnosis: Other and unspecified hyperlipidemia (272.4), GERD (530.81), Elevated LFT (790.6), Rhinitis, chronic (472.0), Epigastric pain (789.06), Elevated Blood Pressure without diagnosis of Hypertension (796.2), Abnormal mammogram (793.80), Colitis, enteritis, and gastroenteritis of presumed infectious origin (009.1), Anxiety disorder in conditions classified elsewhere (293.84), Fatigue (780.79), VITAMIN D DEFICIENCY, NOS (268.9), screening [facility] Office Visit On: 10-May-2010 7:27 Encounter Reason: Follow up for chronic medical issues - The patient feels well with no complaints, has good energy level and is sleeping well. Patient has been compliant with instructions. Current medication use: no jefferson End: 10-May-2010 8:16 e effects and compliant with dosing regimen. Patient sleeps 7 hours per night. Nutrition: balanced diet and no supplemental vitamins & iron. The medical issues the patient is following up for includ e All identified problems below, cardiac issues (mvp), gastric reflux, high cholesterol and other (anxiety, fatigue, allergic rhinitis, elevated bp's, sleep apnea). Note for Follow up for chronic medi nalini issues: mood has been pretty good she is feeling well-- not having the epigastric pain - bp is good- saw Dr blackburn- and had allergy testing- was negative- she is using patanase and xyrtec -- she fee ls like the effexor is causing some problems withmemory after takes then wanes off over dayEncounter Diagnosis: Anxiety disorder in conditions classified elsewhere (293.84), Other and unspecified hyperlipidemia (272.4), Allergic Rhinitis(477.9), Rhinitis, chronic (472.0), GERD (530.81), Elevated LFT (790.6), VITAMIN D DEFICIENCY, NOS (268.9) [facility] Office Visit On: 04-Feb-2010 10:37 Encounter Reason: Follow up, Diagnostic Procedure Results - Diagnostic tests include CT scan (abd/ sinus). Date: (01/03/10). , [ADDITIONAL REASON] Follow up, Laboratory Test Results - Date: (01/01/10). Note for Follow up, Labora End: 04-Feb-2010 11:18 tory Test Results: her epigastric pain- is gone and has been for a while- she has had some clear drainage and barometric pressure espinoza-- had some vertigo with this too- and took meclizine and took away- no double vision no weakness or numbness- and went away Encounter Diagnosis: Allergic Rhinitis(477.9), Epigastric pain (789.06), VITAMIN D DEFICIENCY, NOS (268.9), Elevated LFT (790.6), Hematuria (599.7), Other and unspecified hyperlipidemia (272.4) [facility] Office Visit On: 01-Jan-2010 8:03 Encounter Reason: Follow up for chronic medical issues - The patient feels well with minor complaints (ongoing allergy issues- takes zyrtec but not helping, wants to see amortization clerk. New complaint of abdominal pain differe End: 01-Jan-2010 8:41 nt from colitis or gerd.) ,has good energy level and is sleeping well. Patient has been compliant with instructions. Current medication use: no side effects and compliant with dosing regimen. Patient sl eeps 7 hours per night. Nutrition: balanced diet and no supplemental vitamins & iron. The medical issues the patient is following up for include All identified problems below ,cardiac issues (mvp) , gastric reflux ,high cholesterol and other (anxiety, fatigue, allergic rhinitis, elevated bp's, sleep apnea). Note for Follow up for chronic medical issues: fatigue better- mom in september - alot of stress lifted- anxiety is very good right now, [ADDITIONAL REASON] Abdominal pain - The onset of the pain has been gradual and has been occurring i n an intermittent pattern for 2 months. The course has been recurrent. The pain is described as a mild (to moderate) dull ache (strong) and pressure sensation. The pain is described as being located in the epigastrium and upper abdomen. The pain radiates to the back. The symptoms have no aggravating factors. The symptoms have no relieving factors. There has been no associated bloating ,bloody stools , chest pain ,constipation ,dark urine ,diarrhea ,dysuria ,fever ,heartburn ,nausea or vomiting. Note for Abdominal pain: comes and goes- dull ache-sometimes food worse- epigastrium- sometimes radiates through to back- no nausea or vomit- appetite good- no diarrhea or godwin colored stool or floating or odorous- -- thinking may want to get allergy tests---i f takes zyrtec all the time allergies better but stomach may be little worse Encounter Diagnosis: GERD (530.81), Anxiety disorder in conditions classified elsewhere (293.84), Allergic Rhinitis(477.9), Chronic sinusitis (473.9), Other and unspecified hyperlipidemia (272.4), Elevated LFT (790.6), Hematuria (599.7), Epigastric pain (789.06), VITAMIN D DEFICIENCY, NOS (268.9) [facility] Phone Encounter On: 06-Sep-2009 13:42 [facility] End: 06-Sep-2009 13:43 Office Visit On: 24-Aug-2009 7:32 Encounter Reason: Follow up for chronic medical issues - The patient feels well with minor complaints (continued fatigue) ,has decreased energy level and is sleeping well. Patient has been compliant with instructions. Cu End: 24-Aug-2009 9:10 rrent medication use: no side effects and compliant with dosing regimen. Patient sleeps 8 hours per night. Nutrition: balanced diet and supplemental vitamins. The medical issues the patient is following up for include All identified problems below ,cardiac issues (mvp) ,gastric reflux ,high cholesterol and other (anxiety, fatigue, allergic rhinitis, elevated bp's, sleep apnea). Note for Follow up for chronic medical issues: she jsut got a new machine in september for cpap and new mask- still waking up tired - mood has been ok when she fills good- no more vertigo-- the menopause sx are doing pretty wel l- the hot flashes have subsided- no gerd- her nexium is working and doesnt want to change anxiety meds yet- she is going to set up colonsocopy and had mammoEncounter Diagnosis: GERD (530.81), Anxiety disorder in conditions classified elsewhere (293.84), Fatigue (780.79), Other and unspecified hyperlipidemia (272.4), Elevated LFT (790.6), Chronic sinusitis (473.9) [facility] Office Visit On: 23-Apr-2009 15:35 Encounter Reason: Well Women Exam - The patient feels well with no complaints ,has good energy level and is sleeping well. Pap smear: date of last pap: (03/01/08). Contraceptive history: The patient is not using any method End: 23-Apr-2009 16:15 of contraception at this time. Patient exercises a weekly. The patient's libido is decreased. The patient reports that she does not perform monthly breast self exam. Calcium intake includes 1500 mg wit h Vit D daily supplement. Previous evaluations: cervical treatment (unspecified) (Barthalan gland cyst surgery). The patient denies the use of oral contraceptives or hormone replacement therapy. Note fo r Well Women Exam: thinks memory better with cerefoloin- has been without period for a yearEncounter Diagnosis: Well Woman Exam (V72.31) (Pap,Mammo,Routine Female) [facility] Office Visit On: 14-Mar-2009 16:20 Encounter Reason: Follow up Meds - The patient feels well with no complaints ,has good energy level and is sleeping well (except when doesn't take trazadone). Patient has been compliant with instructions. Current medicat End: 15-Mar-2009 22:08 ion use: no side effects and compliant with dosing regimen. Patient sleeps 7 hours per night. Note for Follow up Meds: f/u on palpitations, anxiety and med changes- cant sleep on days not using trazad one- hasnt been back with milo for her sleep apnea- and liver improving- she is down to 25 of trazadone- and no fatigue and she feels like that if she takes 25 mg can feel well and sleep so has decided to sleep with that- gerd better with nexium Encounter Diagnosis: Elevated LFT (790.6), Anxiety disorder in conditions classified elsewhere (293.84) [facility] Office Visit On: 28-Feb-2009 9:49 Encounter Reason: Palpitations - The onset of the palpitations has been gradual and they have been occurring in a persistent pattern for 4 days. The course has been increasing. The palpitations are characterized as short End: 28-Feb-2009 16:11 bursts of rapid beating. The symptoms are aggravated by stress. The symptoms have no relieving factors. The symptoms have been associated with anxiety (lots of anxiety) and weakness (feels totally exhausted). Encounter Diagnosis: Anxiety disorder in conditions classified elsewhere (293.84), Obstructive sleep apnea (327.23) [facility] Phone Encounter On: 10-Jan-2009 11:07 Encounter Diagnosis: Elevated LFT (790.6) End: 10-Jan-2009 11:10 [facility] Office Visit On: 27-Dec-2008 8:34 Encounter Reason: Follow up for chronic medical issues - The patient feels well with minor complaints (continued fatigue) ,has decreased energy level and is sleeping well. Patient has been compliant with instructions. Cu End: 27-Dec-2008 9:11 rrent medication use: no side effects and compliant with dosing regimen. Patient sleeps 8 hours per night. Nutrition: balanced diet and supplemental vitamins. The medical issues the patient is following up for include All identified problems below ,cardiac issues (mvp) ,gastric reflux ,high cholesterol and other (anxiety, fatigue, allergic rhinitis, elevated bp's, sleep apnea). Note for Follow up for chronic medical issues: she jsut got a new machine in september for cpap and new mask- still waking up tired - mood has been ok when she fills good- no more vertigo-- the menopause sx are doing pretty well- the hot flashes have subsided- no gerd, [ADDITIONAL REASON] Follow up, Laboratory Test Results - Date: (08/29/08). Encounter Diagnosis: Other and unspecified hyperlipidemia (272.4), Anxiety disorder in conditions classified elsewhere (293.84), Fatigue (780.79), Elevated LFT (790.6), GERD (530.81), Hematuria (599.7), Obstructive sleep apnea (327.23), Benign paroxysmal positional vertigo (386.11), Otitis media (382.9), Otitis externa, unspecified (380.10), Colitis, enteritis, and gastroenteritis of presumed infectious origin (009.1) [facility] Phone Encounter On: 12-Sep-2008 10:42 Encounter Diagnosis: Elevated LFT (790.6), family hx of high chol, Elevated Blood Pressure without diagnosis of Hypertension (796.2), Fatigue (780.79), MVP End: 12-Sep-2008 10:44 [facility] Office Visit On: 29-Aug-2008 9:21 Encounter Reason: Follow up for chronic medical issues - The patient feels well with no complaints ,has good energy level and is sleeping well. Patient has been compliant with instructions. Current medication use: no jefferson End: 29-Aug-2008 10:02 e effects and compliant with dosing regimen. Patient sleeps 7 hours per night. Nutrition: balanced diet and supplemental vitamins. The medical issues the patient is following up for include All identifi ed problems below ,cardiac issues (mvp) ,gastric reflux ,high blood pressure (elevated bp - no dx of htn) ,high cholesterol and other (allergic rhinitis, anxiety, fatigue, elevated lft's, yanelis). Note for Follow up for chronic medical issues: blood pressure is good and still trying to exercise- her energy is good- gerd is ok as long as she tries to follow her diet- she had some sinus issues- it perez t back her vertigo-- the antivert has helped so wants some on hand- her allergies now pretty goood, [ADDITIONAL REASON] Follow up, Laboratory Test Results - Date: (04/17/08). Encounter Diagnosis: GERD (530.81), Anxiety disorder in conditions classified elsewhere (293.84), Symptomatic menopausal or female climacteric states (627.2), Benign paroxysmal positional vertigo (386.11), Other and unspecified hyperlipidemia (272.4), Elevated LFT (790.6) [facility] Office Visit On: 17-Apr-2008 9:12 Encounter Reason: Follow up for chronic medical issues - The patient feels well with no complaints ,has good energy level and is sleeping well. Patient has been compliant with instructions. Current medication use: no jefferson End: 17-Apr-2008 9:54 e effects and compliant with dosing regimen. Patient sleeps 7 hours per night. Nutrition: balanced diet and supplemental vitamins. The medical issues the patient is following up for include All identifi ed problems below ,cardiac issues (mvp) ,gastric reflux ,high cholesterol and other (fatigue, anxiety, allergic rhinitis, vertigo, yanelis). Note for Follow up for chronic medical issues: reliv has really helped her get her energy back and overall feels much better- no gerd and anxiety is good - she is yusing vagifem and that is helping- she cut sweets and carbs-- and has lost 12 pounds - she has been tryingEncounter Diagnosis: GERD (530.81), Anxiety disorder in conditions classified elsewhere (293.84), Postmenopausal atrophic vaginitis (627.3), Elevated LFT (790.6), cmv acute, Other and unspecified hyperlipidemia (272.4) [facility] Office Visit On: 01-Mar-2008 9:32 Encounter Reason: Well Women Exam - The patient feels well with no complaints ,has good energy level and is sleeping well (with sleep apnea). Pap smear: date of last pap: (09/2006). Contraceptive history: The patient is n End: 01-Mar-2008 10:54 ot using any method of contraception at this time. Patient exercises 3 - 4 times per week (cardio). The patient's libido is decreased. The patient reports that she does not perform monthly breast self e xam. Calcium intake includes 1200 mg with Vit D daily supplement. The patient denies the use of oral contraceptives or hormone replacement therapy. Menstruation: Last menstrual period date: (2006). Encounter Diagnosis: Well Woman Exam (V72.31) (Pap,Mammo,Routine Female) [facility] Office Visit On: 28-Feb-2008 9:43 Encounter Reason: Follow up acute care visit - The patient feeling better since last seen. Patient has been compliant with instructions. Current medication use: no side effects. Patient sleeps 7 hours per night. Impact o End: 28-Feb-2008 10:02 f disease: no overall impact. Nutrition: balanced diet and supplemental vitamins. The medical issues the patient is following up for include All identified problems below. Encounter Diagnosis: Hematuria (599.7) [facility] Office Visit On: 17-Feb-2008 10:37 Encounter Reason: Dysuria - The onset of the dysuria has been sudden and has been occurring in a persistent pattern for 2 days. The course has been increasing. The dysuria is described as moderate. The quality of the clive End: 17-Feb-2008 11:44 n is described as a burning sensation and a discomfort ( pressure ) The dysuria is described as being located in the suprapubic area. The dysuria radiates to the left flank and right flank. The sympto ms have been associated with flank pain ,hematuria ,past history of urinary tract infections and urgency, while the symptoms have not been associated with chills ,diabetes ,fever ,frequency ,history of passing a stone ,incontinence ,nocturia , ,trauma to abdomen ,trauma to perineal area ,urethral discharge ,vaginal discharge or excessive caffeine intake. Encounter Diagnosis: Hematuria (599.7), Postmenopausal atrophic vaginitis (627.3) [facility] Office Visit On: 24-Jan-2008 10:44 Encounter Reason: Follow up, Laboratory Test Results - Date: (01/14/08). Note for Follow up, Laboratory Test Results: actually feeling some better- less fatigue and no new sxEncounter Diagnosis: cmv acute, Elevated LFT (790.6) End: 24-Jan-2008 11:21 [facility] Office Visit On: 14-Jan-2008 7:25 Encounter Reason: Follow up for chronic medical issues - The patient feels well with minor complaints (fatigue) ,has decreased energy level and is sleeping well. Patient has been compliant with instructions. Current medi End: 14-Jan-2008 7:57 cation use: no side effects and compliant with dosing regimen. The medical issues the patient is following up for include All identified problems below ,cardiac issues (mvp) ,gastric reflux and other (o sa, anxiety, allergic rhinitis). Note for Follow up for chronic medical issues: she is doing alot more walking -- and lost 8 pounds but is trying- no gerd unless doenst watch diet- new cpap helps, [ADDITIONAL REASON] Fatigue - The onset of the fatigue has been sudden and has been occurring in a persistent pattern for 2 weeks. The course has been constant. The fatigue occurs all the time. The sym ptoms have been associated with hotflashes and sleep apnea, while the symptoms have not been associated with abdominal pain ,chest pain ,chills ,cough ,depression ,fever ,runny nose or sore throat. Note for Fatigue: just or a couple weeks-- no gland swelling or fever-- bp is good- allergies are controlled-- she is sleeping well - no increased anxiety Encounter Diagnosis: Elevated LFT (790.6), GERD (530.81), Anxiety disorder in conditions classified elsewhere (293.84), Other and unspecified hyperlipidemia (272.4), Fatigue (780.79) [facility] Office Visit On: 28-Oct-2007 9:03 Encounter Reason: high blood pressure - The patient has experienced high blood pressure for 1 days. The symptoms have been associated with family history of hypertension, while the symptoms have not been associated with obesity. , End: 28-Oct-2007 9:58 [ADDITIONAL REASON] Ear infection - The onset of the ear infection has been sudden and has been occurring in a persistent pattern for 3 weeks. The course has been constant. The ear infection is described as mild (right ear). Encounter Diagnosis: Otitis media (382.9), Otitis externa, unspecified (380.10), Elevated Blood Pressure without diagnosis of Hypertension (796.2), Benign paroxysmal positional vertigo (386.11) [facility] Office Visit On: 10-Sep-2007 7:32 Encounter Reason: Follow up for chronic medical issues - The patient feels well with no complaints ,has good energy level and is sleeping well. Patient has been compliant with instructions. Current medication use: no jefferson End: 10-Sep-2007 8:22 e effects and compliant with dosing regimen. Nutrition: balanced diet and no supplemental vitamins & iron. The medical issues the patient is following up for include All identified problems below ,c ardiac issues (mvp) ,gastric reflux ,high cholesterol and other (anxiey, sleep apnea, allergic rhinitis). weight :. Note for Follow up for chronic medical issues: wt down 5 pounds and she has been try ing and working out -- really has to watch caffeine or will have gerd-- has had scope -- needs labs drawn-- anxiety is good-- trazadone is helping her sleeping well-- she is using the cpap and cant slee p without it- every now and again gets ache in ruq- she was sick the week before her last liver functionEncounter Diagnosis: Obstructive sleep apnea (327.23), GERD (530.81), Anxiety disorder in conditions classified elsewhere (293.84), Allergic Rhinitis(477.9), Other and unspecified hyperlipidemia (272.4), Elevated LFT (790.6) [facility] Phone Encounter On: 08-Jun-2007 16:17 Encounter Diagnosis: Other and unspecified hyperlipidemia (272.4) End: 08-Jun-2007 16:19 [facility] Office Visit On: 11-May-2007 8:23 Encounter Reason: Follow up for chronic medical issues - The patient feels well with minor complaints (hot flashes are back) ,has good energy level and is sleeping well. Patient has been compliant with instructions. Curr End: 11-May-2007 9:29 ent medication use: no side effects and compliant with dosing regimen. Nutrition: inappropriate diet and no supplemental vitamins & iron. The medical issues the patient is following up for include A ll identified problems below ,gastric reflux and other (anxiety, mvp, sleep apnea). blood pressure range : (100's/60's) and weight :. Note for Follow up for chronic medical issues: new sleep apnea mas k 3 weeks ago --- sleeping better in genral once she gets asleep - she feels significantly better in the am -- using zyrtec for allergies and good -- mood good and gerd is good Encounter Diagnosis: GERD (530.81), Anxiety disorder in conditions classified elsewhere (293.84), Obstructive sleep apnea (327.23), Allergic Rhinitis(477.9), Elevated LFT (790.6), Other and unspecified hyperlipidemia (272.4), Need for prophylactic vaccination and inoculation against influenza (V04.81) [facility] Office Visit On: 02-Feb-2007 8:00 Encounter Reason: Follow up for chronic medical issues - The patient feels well with no complaints ,has decreased energy level and is sleeping well. Patient has been compliant with instructions. Current medication use: n End: 02-Feb-2007 8:43 o side effects ,compliant with dosing regimen and considered effective by patient. Patient sleeps 6 hours per night. Impact of disease: no overall impact. Nutrition: balanced diet. The medical issues th e patient is following up for include All identified problems below ,cardiac issues (mvp) ,depression (anxiety) and gastric reflux. Note for Follow up for chronic medical issues: she notes that if she exercises she feels better-- anxiety has been well controlled- trazadone helping sleeping - would like to stay on trazadone as it is helping- -- she is getting liver functions drawn today and will see where that is going- she is still having shoulder problems and neck problems despite therapy--also fatigue and hasnt abeen wearing cpap because in the past couldnt tolerateEncounter Diagnosis: GERD (530.81), Anxiety disorder in conditions classified elsewhere (293.84), Elevated LFT (790.6), Obstructive sleep apnea (327.23), Shoulder pain (719.41) [facility] Historical Summary On: 18-Jan-2007 8:41 [facility] End: 18-Jan-2007 8:42 Office Visit On: 02-Oct-2006 8:17 Encounter Reason: Well Women Exam - The patient feels well with minor complaints (mono) ,has good energy level and is sleeping well. Pap smear: date of last pap: (2004). Contraceptive history: The patient is not using an End: 06-Oct-2006 14:47 y method of contraception at this time. Patient exercises 3 - 4 times per week (treadmiill). The patient's libido is normal. The patient reports that she does not perform monthly breast self exam. Calci um intake includes 1200 mg daily supplment. The patient denies the use of oral contraceptives or hormone replacement therapy. Menstruation: Last menstrual period date: (2003). Note for Well Women Exam : periods are coming intermittently - due for mammo, [ADDITIONAL REASON] Follow up, Diagnostic Procedure Results - Diagnostic tests include other (liver Bx). Date: (06-02). Follow up visit with no current symptoms. There is a family history of cardiovascular disease (mother) , while there is no family history of breast cancer ,cystic fibrosis ,Down's sy ndrome ,mental retardation or myocardial infarction before age 55. Encounter Diagnosis: Well Woman Exam (V72.31) (Pap,Mammo,Routine Female), Elevated LFT (790.6) [facility] Historical Summary On: 08-Jul-2006 9:28 Encounter Diagnosis: Need for prophylactic vaccination and inoculation against influenza (V04.81) End: 08-Jul-2006 9:29 [facility] Office Visit On: 08-Jul-2006 8:22 Encounter Reason: Follow up for chronic medical issues - The patient feels well with no complaints. Patient has been compliant with instructions. Current medication use: no side effects. Patient sleeps 7 hours per night. End: 08-Jul-2006 9:05 Nutrition: balanced diet. The medical issues the patient is following up for include All identified problems below ,gastric reflux ,high cholesterol and other (Elevated LFT's, Abn Mammo, Anxiety). Note for Follow up for chronic medical issues: she saw Dr. Middleton-- initially he said things were ok- several family memebers with mono- feels fatigued- mood hasbeen ok but may lose job so alot of stress- m-ammo repeat was ok - repeat in 6 mos Encounter Diagnosis: GERD (530.81), Anxiety disorder in conditions classified elsewhere (293.84), Abnormal mammogram (793.80), Elevated LFT (790.6), family hx of high chol [facility] Office Visit On: 11-May-2006 10:26 Encounter Reason: Pain on intercourse - The onset of the pain began suddenly. The pain occurs constantly during intercourse. The pain has been increasing. The pain is characterized as a burning pain ,sharp pain ,stabbing End: 11-May-2006 11:14 pain ,cramp ,colicky pain ,dull ache ,pressure sensation ,fullness ,bumping sensation and aching sensation. Note for Pain on intercourse: Pt. states also having Hot flashs for 6 to 7 months.Encounter Diagnosis: Symptomatic menopausal or female climacteric states (627.2), Postmenopausal atrophic vaginitis (627.3) [facility] Historical Summary On: 07-May-2006 10:34 [facility] End: 07-May-2006 10:35 Historical Summary On: 01-Apr-2006 10:38 [facility] End: 01-Apr-2006 11:06 [facility] Gonzalez; a guarantor"
== END ==
PROVIDERS: Family Provider Nurse Practitioner; PCP Nurse Practitioner; Referring Provider Dermatology Pediatric Dermatology; Visit Provider Dermatology Pediatric Dermatology
DX: D64.9 Anemia, unspecified (principal); L64.8 Other androgenic alopecia
CPT/HCPCS: 36415; 82728

== ENCOUNTER 2018-09-16 04:41 | Emergency (ER) | payer OTHER, SELFPAY ==
[2018-09-16 04:43] VITALS: BP 156/76; PULSE 85; RESP 16; TEMP 36.7; O2SAT 98; BMI 23.0
--- NOTE | 2018-09-16 04:51 | CT_ITS ---
STUDY: CT ABDOMEN AND PELVIS WITH CONTRAST REASON FOR EXAM: Female, 63 years old. Diffuse abdominal pain for one week, worse when laying down. History of autoimmune hepatitis and Gricelda-Soriano virus. RADIATION DOSAGE (If Supplied By Facility): CTDIvol = ( 9.05 ) mGy, DLP = ( 369.81 ) mGycm TECHNIQUE: Transaxial images were obtained from the dome of the diaphragm to the symphysis pubis without oral contrast. Isovue 300 100ML IV was administered. Sagittal and coronal images were reconstructed. Individualized dose optimization techniques were used for this CT. COMPARISON: None. FINDINGS: The visualized lung bases are unremarkable. The visualized portions of the heart are within normal limits. Normal liver. There are surgical clips in the gallbladder fossa consistent with a prior cholecystectomy. There is mild central intrahepatic bile duct dilatation, which is probably physiologic postcholecystectomy. There is no dilatation of common bile duct. Normal spleen. Normal pancreas. Normal bilateral adrenal glands. Normal right kidney. Normal left kidney. Assessment of the stomach is limited by nondistention. There is mild diffuse mural thickening of the jejunum. There is moderately prominent colonic feces, which may represent constipation. Otherwise normal colon. The appendix is visualized on axial images 75-87. It contains some radiodense material but otherwise appears normal with no evidence for appendicitis.. Normal abdominal aorta. Normal inferior vena cava. Normal retroperitoneum. Normal urinary bladder. Normal abdominal wall. There are mild degenerative changes of the visualized lumbar spine. CT/Abdomen/Pelvis W IV Cont ONLY IMPRESSION: Previous cholecystectomy. Mild diffuse mural thickening of the jejunum, possibly representing an infectious or inflammatory enteritis. Somewhat prominent colonic feces, which may represent constipation. Otherwise, normal exam. No evidence for diverticulitis or appendicitis. No demonstrated urinary calculi or hydronephrosis. Electronically Signed: Terrell Montgomery MD at 6:03 EST , Service support ,
[2018-09-16] MEDS: Morphine 4 MG/ML Syringe IV (04:58)
[2018-09-16] MEDS: 0.9% Normal Saline 1,000 ML 1000 ML IV (04:58)
[2018-09-16 05:00] LABS: Absolute Neutrophil Count 5.1 X10^3/uL (2.0-7.7); Basophil# 0.01 X10^3/uL; Basophil% 0.1 % (0-1); Eosinophil# 0.31 X10^3/uL; Eosinophils% 3.7 % (0-5); Hematocrit 42.5 % (37-47); Hemoglobin 14.4 g/dl (12.0-15.0); Lymphocyte % 26.2 % (19-41); Mean Corp Hgb Conc 33.9 g/gl (32-36); Mean Corpuscular Hgb 30.1 pg (27.0-32.0); Mean Corpuscular Volume 88.7 fL (81-99); Mean Platelet Vol. 10.5 fl (6.2-12.0); Monocyte# 0.75 X10^3/uL; Monocyte% 8.9 % (0-10); Neutrophil # 5.12 X10^3/uL (2.7-7.7); Neutrophil % 60.9 % (47-70); Platelet Count 233 K/mm3 (150-450); RBC Distribution Width CV 12.3 % (11.6-14.6); RBC Distribution Width SD 39.3 fl (35.1-43.9); Red Blood Count 4.79 M/mm3 (4.2-5.4); White Blood Count 8.4 K/mm3 (4.4-11.0)
[2018-09-16 05:03] LABS: POSITIVE COUNT NO; POSITIVE DIFFERENTIAL NO; POSITIVE MORPHOLOGY NO
[2018-09-16 05:06] LABS: Mucous, Urine 0 SEEN /hpf (<or=2+); Red Blood Cells-Urine 0 SEEN /hpf (0-5); Squamous Epithelial Cells - UA 0 SEEN /hpf (5-10)
[2018-09-16 05:15] LABS: ALB/GLOB Ratio 1.2 RATIO (0.9-2.4); AST(SGOT) 43 U/L (15-37); Alanine Aminotransfer ALT/SGPT 93 U/L (13-56); Alkaline Phosphatase 184 U/L (45-117); Anion Gap 9 (5-15); BUN 12 mg/dL (7-18); BUN/Creat Ratio 14.3 RATIO (10-20); Calcium,Total 8.6 mg/dL (8.5-10.1); Chloride 107 mmol/L (98-107); Creatinine, Serum 0.84 mg/dL (0.55-1.02); EST Glomerular Filtration Rate 73 mL/min (>60); Est Glom Filt Rate - Afr Amer 89 mL/min (>60); Estimated Creatinine Clearance 53.07 ml/min; Globulin 3.4 g/dL (2.2-4.2); Glucose 109 mg/dL (74-106); Lipase 147 U/L (73-393); Potassium 3.5 mmol/L (3.5-5.1); Protein, Total 7.4 g/dL (6.4-8.2); Sodium Level 143 mmol/L (136-145)
[2018-09-16 05:29] LABS: Color, Urine Yellow (Yellow); Glucose, Dipstick Normal (Normal); Ketone-Dipstick Negative (Negative); Leukocyte Esterase-Dipstick 25 /ul (Negative); Nitrite-Dipstick Negative (Negative); Occult Blood-Urine Negative /ul (Negative); Protein-Dipstick Negative (Negative); Urine Bilirubin Dipstick Negative (Negative); Urine Clarity Clear (Clear); Urine Urobilinogen Normal (Normal)
[2018-09-16 05:40] LABS: Bacteria RARE /hpf (None Seen); White Blood Cells 0-5 SEEN /hpf (0-5)
--- NOTE | 2018-09-16 06:48 | ED.DCSUM_ITS ---
- ER Visit Summary Date of Service: 09/16/18 Chief Complaint: Abdominal pain History of Present Illness: The patient is a 63 F with abdominal pain over the past week. It has been getting worse of the past 2 days. The pain is in her epigastric region and radiates down into her right lower quadrant and sometimes into her back. She says it is worse with eating and drinking and with certain body positions. She tried Zantac but nothing seems to help. She came in today because she was having trouble sleeping because of the pain. She reports some nausea but no other GI symptoms. Denies urinary symptoms. Denies any chest pain or shortness of breath. Denies fevers, skin rashes, or jaundice. She does have a history of autoimmune hepatitis as well as anxiety, GERD, and sleep apnea. She had a history of a cholecystectomy remotely. Physical Examination: Afebrile and vital signs unremarkable. She is alert and oriented. Appears uncomfortable but not toxic or in distress. Skin normal in color without pallor, diaphoresis, or jaundice. Heart regular rate and rhythm. Lungs clear bilaterally. Abdomen is tender in the epigastric region. No guarding or rebound. Back is nontender. Test Results: CBC normal. Metabolic panel shows a glucose of 109, alkaline phosphatase 184, ALT 93, AST 43. Lipase normal. Urinalysis unremarkable. CT abdomen and pelvis showed mild diffuse thickening of her jejunum and also constipation. She has postoperative changes/cholecystectomy, but no other acute issues. Emergency Department Course and Treatment: Patient was treated with fluids and morphine while awaiting results. Patient had elevation of her liver enzymes. She said her enzymes are normally 2-3 times the normal upper limit. I reviewed the labs with her, and it sounds like these are stable numbers for her. I suspect her pain is related to the mild and diffuse thickening of her jejunum and that she has some degree of enteritis or other inflammatory process. Her labs and vital signs are otherwise reassuring. I do not identify a surgical process or other emergent process. I believe she is appropriate for outpatient management at this point. She was referred to Dr. Castle. She is established with him and will check in with him. She will return right away for any new or worsening issues. Treatment Plan: As above Disposition: Discharge Impression: 1. Abdominal pain This note was generated with [employer] software. It may contain incorrect words, spelling, and punctuation that were not noted in review of the chart prior to signing ED Disposition - Plan for ED Patient: Referrals: Gayla Garcia, [employer] [facility] [Primary Care Provider] -
--- NOTE | 2018-09-16 06:48 | ED.DEP ---
ED Disposition - Plan for ED Patient: Instructions: ED Abdominal Pain Unkn Cause Prescriptions: Dicyclomine HCl [Bentyl] 20 mg PO TIDAC #20 cap Referrals: Edwin Castle MD [NON-STAFF] -
[2018-09-16 06:57] VITALS: BP 136/78; PULSE 84; RESP 16; O2SAT 94
== END 2018-09-16 06:57 | disposition home or self-care (01) ==
LOC: ED 05:10
PROVIDERS: Emergency Provider Emergency Medicine; Family Provider Nurse Practitioner; PCP Nurse Practitioner
DX: R10.13 Epigastric pain (principal); F41.9 Anxiety disorder, unspecified; Z79.899 Other long term (current) drug therapy
CPT/HCPCS: 74177; 80053; 81001; 83690; 85025; 96361; 96374; 99282; J7030; Q9967; A4216

== ENCOUNTER → 2018-10-12 09:51 | Outpatient (CLI) | payer OTHER, SELFPAY ==
[2018-09-16 04:43] VITALS: BMI 23.0
--- NOTE | 2018-10-12 10:00 | RAD_ITS ---
STUDY: X-RAY - PELVIS REASON FOR EXAM: Female, 63 years old. Pain, fibromyalgia TECHNIQUE: One view of the pelvis was obtained. COMPARISON: None. FINDINGS: There is a non-specific bowel gas pattern. Normal visualized soft tissue structures. Normal bilateral iliac wings, sacroiliac joints and visualized sacrum. Normal visualized bilateral superior and inferior pubic rami. Normal pubic symphysis. Normal ischial tuberosities. Normal visualized right femoral head. Normal right acetabulum. Normal right hip joint. Normal visualized left femoral head. Normal left acetabulum. Normal left hip joint. RAD/Pelvis 1 or 2 Views IMPRESSION: Normal x-ray examination of the pelvis. Electronically Signed: Godfrey Brooks MD at 10:54 EDT , Service support ,
[2018-10-12 10:08] LABS: Mucous, Urine 0 SEEN /hpf (<or=2+); Red Blood Cells-Urine 0 SEEN /hpf (0-5); Squamous Epithelial Cells - UA 0 SEEN /hpf (5-10); White Blood Cells 0 SEEN /hpf (0-5)
[2018-10-12 11:15] LABS: EXAGEN MAILED SPECIMEN
[2018-10-12 12:34] LABS: Color, Urine Straw (Yellow); Glucose, Dipstick Normal (Normal); Ketone-Dipstick Negative (Negative); Leukocyte Esterase-Dipstick 25 /ul (Negative); Nitrite-Dipstick Negative (Negative); Occult Blood-Urine Negative /ul (Negative); Protein-Dipstick Negative (Negative); Urine Bilirubin Dipstick Negative (Negative); Urine Clarity Clear (Clear); Urine Urobilinogen Normal (Normal)
[2018-10-12 12:50] LABS: Rheumatoid Factor < 10.0 IU/mL (<15)
[2018-10-12 12:51] LABS: Bacteria RARE /hpf (None Seen)
[2018-10-12 12:54] LABS: Erythrocyte Sedimentation Rate 7 mm/hr (0-30)
[2018-10-12 13:13] LABS: Protein, Urine (Random) < 6.0 mg/dL (<11.9)
[2018-10-19 15:23] LABS: CCP IgG Antibodies 4 units (0-19); HEPATITIS B SURFACE AG Negative (Negative); HLA B27 Negative (.); Hep B Surface Antibodies Reactive (.); Hep C Antibodies 0.3 s/co ratio (0.0-0.9)
== END ==
PROVIDERS: Family Provider Nurse Practitioner; PCP Nurse Practitioner; Referring Provider Internal Medicine Rheumatology; Visit Provider Internal Medicine Rheumatology
DX: M79.7 Fibromyalgia (principal); M15.9 Polyosteoarthritis, unspecified; K75.4 Autoimmune hepatitis; M50.30 Other cervical disc degeneration, unspecified cervical region; M51.37 Other intervertebral disc degeneration, lumbosacral region; R76.8 Other specified abnormal immunological findings in serum
CPT/HCPCS: 36415; 72170; 81001; 81374; 82570; 84156; 85652; 86140; 86200; 86431; 86706; 86803; 87340

== ENCOUNTER → 2018-11-10 | Outpatient (CLI) | payer OTHER, SELFPAY ==
--- NOTE | 2018-11-10 08:19 | BD_ITS ---
STUDY: DUAL ENERGY X-RAY ABSORPTIOMETRY / DXA REASON FOR EXAM: Female, 63 years old. The patient is postmenopausal. TECHNIQUE: Bone Mineral Density (BMD) measurements of lumbar spine and bilateral hips were obtained. COMPARISON: None. FINDINGS: Lumbar Spine (L1-L4): g/cm2 (0.958) / T-score (-1.9) / Z-score (-0.6) Findings are suggestive of osteopenia with a moderate fracture risk. Left Femur Total: g/cm2 (0.796) / T-score (-1.7) / Z-score (-0.7) Left Femoral Neck: g/cm2 (0.746) / T-score (-2.1) / Z-score (-0.8) Right Femur Total: g/cm2 (0.763) / T-score (-1.9) / Z-score (-1.0) Right Femoral Neck: g/cm2 (0.713) / T-score (-2.3) / Z-score (-1.1) BD/Dexa Bone Density Study IMPRESSION: The patient is considered osteopenic as outlined below according to World Pankaj Organization (WHO) criteria with a high fracture risk. Reference Information: The T-score is the number of standard deviations above or below the standard which is normal for young adults at their peak bone mineral density. The World Health Organization (WHO) interprets the T-scores as follows: Above -1 Normal bone density Between -1 and -2.5 Osteopenia Equal to / or below -2.5 Osteoporosis As a practical clinical guideline, osteopenia may be graded as follows: Mild -1 through -1.5 Moderate -1.6 through -2.0 Severe -2.1 through -2.4 The Z-score is the number of standard deviations above or below age-matched controls. A Z-score of less than -1.5 would be considered abnormal. References: 1. NIH Osteoporosis and Related Bone Diseases http://www.osteo.org 2. International Society for Clinical Densitometry http://www.iscd.org 3. National Osteoporosis Foundation http://www.nof.org Electronically Signed: Edgar Suarez, at 9:56 EDT , Service support ,
== END | disposition home or self-care (01) ==
LOC: OPBD 08:18
PROVIDERS: Family Provider Nurse Practitioner; PCP Nurse Practitioner; Referring Provider Nurse Practitioner; Visit Provider Nurse Practitioner
DX: Z78.0 Asymptomatic menopausal state (principal)
CPT/HCPCS: 77080

== ENCOUNTER → 2020-03-29 | Outpatient (CLI) | payer OTHER, SELFPAY ==
[2019-06-01 10:01] VITALS: BMI 22.3
[2020-02-22 09:38] VITALS: BMI 22.3
--- NOTE | 2020-03-29 11:59 | BI_ITS ---
MAMMOGRAPHY - BILATERAL SCREENING REASON FOR EXAM: Female, 64 years old. Routine annual screening examination. PERTINENT HISTORY: Non-contributory. TECHNIQUE: Digital bilateral breast dasha (3D mammographic acquisition) in the CC and MLO projections. 2-D mediolateral oblique (MLO) and craniocaudad (CC) views of both breasts were obtained. CAD: Full Field Digital Mammography with Computer Added Detection was performed. COMPARISON: Comparison is made with prior outside examination dated 09/03/2018 and 07/03/2017. FINDINGS: Breast Composition: The breasts are heterogeneously dense, which may obscure small masses. There are no dominant masses or suspicious calcifications. No other significant abnormalities are identified. There has been no significant change since the prior study. BI/SCREEN MAMM (CAD) W/DASHA BILAT IMPRESSION: Stable bilateral screening mammogram. Yearly follow-up mammogram recommended. (A) ASSESSMENT CATEGORY: BIRADS Category 1: Negative. A letter regarding these results will be sent to the patient by the facility within 30 days. Approximately 10% of breast cancers are not detected by mammography. A normal mammogram should not delay biopsy of a clinically suspicious abnormality. [id number] Electronically Signed: Edgar Suarez, at 13:11 EDT , Service support ,
== END | disposition home or self-care (01) ==
LOC: OPBI 11:58
PROVIDERS: PCP Nurse Practitioner; Referring Provider Nurse Practitioner; Visit Provider Nurse Practitioner
DX: Z12.31 Encounter for screening mammogram for malignant neoplasm of breast (principal)
CPT/HCPCS: 77063; 77067

== ENCOUNTER 2020-04-26 08:30 | Outpatient (RCR) | payer OTHER, SELFPAY ==
[2020-02-22 09:38] VITALS: BMI 22.3
--- NOTE | 2020-02-28 17:51 | HP.PTEVAL ---
Patient's Visit Information VIKKI GONZALEZ is a 64 year old F referred to Physical Therapy by SIXTO Oneal with a diagnosis of sciatica. Date of Evaluation: 02/28/20 Physical Therapist: Ren Parker, BENNYT, OCS, CSCS - Visit Plan Frequency: 2-3x /Week Duration: 2-4 Weeks Plan: I gave patient ext in lying ex, postural correction adn to sit with towel roll and avoid forward bending. She will do these diligiently at home 8-10x/day and montior progress. She will see Rhoda for dry needling/manual R hip and ITB and grande as needed adn f/u for back exercises progressing up to 3x/week for 2-4 weeks back to gym workout, Radha ex as helpfula nd dry needling as recommended by that therapist. Only one visit scheduled at this point adn will need scheduled appropriately after initial dry needle visit. - Subjective A week ago Thursday started getting pain down R leg. Has history of R sciatica. Has been a member at before and workout helps. This pain started after a bike ride Thursday and got sudden pain in R lower leg. Feels burny and pulsy. It is intermittent. got steroid last week and it subsided but now present 70% of time. It will wake her up at night with pain. Also has TP in ITB and R buttock. Was on a 12 mile bike ride when she got off and noticed it. Has not done that since. Did elliptical Thursday which helped loosen hip but not lower leg. Sitting can be worse than on the move. Not employed right now. 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 Basic ADLs are getting done. Standing too cook hurts plantarfasiitis. Cleaning is limited due to R leg pain - Pain R leg pain Pain Intensity (Out of 10): 0 Pain Intensity Range: 0, 10 Comment: lower leg - Objective Walks normal today without pain, steps withotu pain reciprocally, transitiions on and off table without pain. LB AROM full and painfree today, eventually gets some slight grande recreation at end of seated flexion but trasnient. LE muscles patent and flexible without limitations. AROM LE joints symmetrical adn WNL. reflexes 2/3 in B patella and achilles. Sensation LE WNL LE. No pain with hip PROM or knee PROM. - lumbar grind. - SLR and slump. Strength LE 4/5 without any pain with ankle hip and knee contractions. Tender to the touch in B R>L glut, piriformis and trochanter area, not in grande muscles where she c/o pain and no pain to contract these. - Goals Goal 1:: Patient feel 90% back to normal and without pain in grande Goal Time Frame: 2-4 Weeks Goal 2:: Pt back to HP workout without increasing symptoms. Goal Time Frame: 2-4 Weeks Goal 3:: Patietn able to ride bike without limitations. Goal Time Frame: 2-4 Weeks - Rehabilitation Potential Physical Therapy Diagnosis: sciatica vs soft tissue Rehabilitation Potential: Questionable - Anticipated Interventions Patient/Client Instruction: Educate patient on: Condition, Plan of Care For the Purpose of:: To decrease pain, To increase tolerance to activity/condition/position, To improve ability of physical actions for home/community/work/leisure Therapeutic Exercise to Include: Strength training, Neuromotor development, Passive ROM, Active ROM, Radha Exercises For the Purpose of:: To decrease pain, To improve muscle performance and motor function, To increase tolerance to activity/condition/position, To improve ability of physical actions for home/community/work/leisure Manual Therapy Techniques to Include: Mobilization, Soft tissue mobilization Comment: dry needling For the Purpose of:: To decrease pain Thank you for the opportunity to evaluate your patient. For Medicare and Medicare HMO plans, please review the plan of care and approve it. It will need to be FAXED BACK to us at [phone] for Medicare purposes. For Medicare only, by signing this I certify the plan of care. Please let me know if there are questions or concerns regarding this plan of care. Physician Signature: Date:
--- NOTE | 2020-03-28 10:53 | HP.PTDCSUM ---
It has been my pleasure to treat VIKKI GONZALEZ referred by Gayla Garcia, BUSINESS DEVELOPMENT OFFICER-C, with the diagnosis of sciatica for a total of 9 visit(s). Discharge Date: 03/28/20 Please see the following information for a summary of their discharge status. Subjective: Going the rigth way. R leg pain is gone or at bay. Less tightness in LB due to therapya nd workouts. Not feeling much pain in the back. Pain this week is just twinges in R LB now and then. But has been moving a lot of stuff around and deep cleaning. Doing everything except biking. Sleep is OK for the most part. R leg pain Pain Intensity (Out of 10): 0 % Improvement: 90 Objective/Function: Mild to slight tenderness R glut and posterior lateral hip area, better but appropriate for one more DN session. L/S AROM ext stiff adn slightly limited, flexiona dn SB are full and painfree. Strength LE 4+/5 in knee flex adn ext adn 4 in hip ext abd without pain. Walking well and moving well. She is happy with progress and should be able to maintain on her own Goal 1:: Patient feel 90% back to normal and without pain in grande Goal Progress: Goal Met Goal 2:: Pt back to HP workout without increasing symptoms. Goal Progress: Goal Met Goal 3:: Patietn able to ride bike without limitations. Goal Progress: no time yet. Plan: d/c after needling session today. Discharge Comments: Doing well adn willmanage with HEP and contact doctor if pain returns. If there are questions or concerns regarding this patient's physical therapy, please feel free to call me at [phone]. Thank you for the referral of this patient. Sincerely, Ren Parker, DPT, OCS, CSCS
--- NOTE | 2020-04-04 17:58 | HP.PTEVAL2_ITS ---
Patient's Visit Information VIKKI GONZALEZ is a 64 year old F referred to Physical Therapy by PARESH Oneal with a diagnosis of . Date of Evaluation: 04/04/20 Physical Therapist: Arron Murray DPT - Visit Plan Frequency: 2x /Week Duration: 4 Weeks Plan: Start with DN, manual/graston to B plantar fascia and post tib tendon. G/S stretching; foot flexor instrinsic strengthening progressing to ankle proprioception and eccentric strengthening as tolerated. - Subjective Subjective: Pt. is here today for her initial evaluation with diagnosis of B plantar fasciatis. Pt. reports ahving increased pain for a few months. She repo rts increased pain with walking, standing. Decreases pain: rest, not standing or walking. Pt. did have a fasciotomy and lengthening of her posterior tibialis. Pt. reports having pain at medial ankle, posterior to malleolus and plantar fascial origin on each side. She denies N/T. She has not tried any stretching or exercises for this yet. Pt. reports having upto 4/10 pain with standing/walking. Pt. does cycle, but had reduce during recent radiating back pain. Pt. is hopeful to reduce symptoms in order to get back to all recreational activities without limitiations. - Pain R plantar fascia Intensity: 2 Pain Intensity Range: 0, 5 R distal post tib tendon Intensity: 2 Pain Intensity Range: 0, 5 L plantar fascia Intensity: 2 L distal post tib tenod Intensity: 2 Pain Intensity Range: 0, 4 - Objective Objective: POSTURE: Pt. has decent posture in stance. Tight G/S complex noted bilaterally. PALPATION: Pt. has tenderness at B plantar fascia origin, less but still painful along longitudinal arch. Pt. has pain along post tib tendon B as well. NEURO: pt. has normal sensation and normal DTR of BLEs. Pt. is able to walk on heels and toes without issues. ROM: R ankle- DF 16deg, PF 48deg, INV 20deg, EVR 20deg. L ankl- DF 12deg, PF 47deg, INV 20deg, EVR 20deg. Pt. has normal knee ROM bilaterally. MMT: RLE- ankle 5/5 throughout, except PF 4+/5, toe flexor intrinsics 4+/5, mild incerase NW with INV and flexion. Knee- 5/5 throughout. LLE- ankle 5/5 throughout, except PF 4+/5, toe flexor intrinsics 4+/5, mild incerase NW with INV and flexion. Knee- 5/5 throughout. SPECIAL TESTING: Pt. has + bilateral windlass test in both non WBing and WBing positions - Goals Goal 1:: LTG: Pt. to be I with HEP. Goal Time Frame: 4-6 Weeks Goal 2:: STG: Pt. to walk unlimited distances without increase in symptoms. Goal Time Frame: 2-4 Weeks Goal 3:: LTG: Pt. have increased DF length by 25% bilaterally. Goal Time Frame: 4-6 Weeks Goal 4:: LTG: Pt. get back to cycling without increase in symptoms. Goal Time Frame: 4-6 Weeks Goal 5:: LTG; Pt. to have full strength of B foot and ankle without increase in symptoms. Goal Time Frame: 4-6 Weeks - Rehabilitation Potential Rehabilitation Potential: Good - Anticipated Interventions Patient/Client Instruction: Educate patient on: Condition, Plan of Care, Risk Factors, Benefits of Fitness Program For the Purpose of:: To improve decision making, To improve self management, To prevent re-injury, To improve ability to perform tasks related to life management, To improve tolerance to ADL's Therapeutic Exercise to Include: Strength training, Power training, Balance training, Coordination, Body mechanics, Flexibilty training, Gait and locomotor training, Neuromotor development, Passive ROM, Active ROM For the Purpose of:: To decrease pain, To increase ROM, To improve nutrient delivery to tissue, To increase oxygenation perfusion, To improve muscle performance and motor function, To improve ability to perform ADL's, To improve ability of physical actions for home/community/work/leisure, To improve gait and locomotor functions, To improve health of tissue, To decrease soft tissue restriction, To increase flexibility/ROM, To improve endurance Manual Therapy Techniques to Include: Functional dry needling, Soft tissue mobilization Comment: graston activities For the Purpose of:: To decrease pain, To increase ROM, To improve nutrient delivery to tissue, To increase oxygenation perfusion, To improve muscle performance and motor function, To decrease soft tissue restriction, To increase flexibility/ROM Thank you for the opportunity to evaluate your patient. For Medicare and Medicare HMO plans, please review the plan of care and approve it. It will need to be FAXED BACK to us at [phone] for Medicare purposes. For Medicare only, by signing this I certify the plan of care. Please let me know if there are questions or concerns regarding this plan of care. Physician Signature: Date:
--- NOTE | 2020-04-18 11:25 | HP.PTRE(2) ---
Gayla Garcia, PRODUCTION GEAR CUTTER-C, It has been my pleasure to treat VIKKI GONZALEZ over the last 6 visits for B plantar fasciaits. Please see the progress note below for an update on the physical therapy plan of care! Subjective: Pt reports feeling good this date, states she started to feel some pain when on the eliptical this morning but it went away when she stopped. Rode her bicycle 12 miles the previous day and states she felt good with it and stretched pre and post. Objective/Function/Assessment: Pt marlys exs well. No pain reported during session. Plan Plan: Pt. is overall doing well. Pt. reports beign 75% better overall. Pt. is back to ridding her bike, but not full out. Pt. is to increase her riding over the next week or two and test her leg out. Pt. is to follow up with PT after this, sooner if needed. Goals Goal 1:: LTG: Pt. to be I with HEP. Goal Time Frame: 4-6 Weeks Goal Progress: Goal Met Goal 2:: STG: Pt. to walk unlimited distances without increase in symptoms. Goal Time Frame: 2-4 Weeks Goal Progress: Goal Met Goal 3:: LTG: Pt. have increased DF length by 25% bilaterally. Goal Time Frame: 4-6 Weeks Goal Progress: Goal Met Goal 4:: LTG: Pt. get back to cycling without increase in symptoms. Goal Time Frame: 4-6 Weeks Goal Progress: Progressing Goal 5:: LTG; Pt. to have full strength of B foot and ankle without increase in symptoms. Goal Time Frame: 4-6 Weeks Goal Progress: Progressing Anticipated Interventions Patient/Client Instruction: Educate patient on: Condition, Plan of Care, Risk Factors, Benefits of Fitness Program For the Purpose of:: To improve decision making, To improve self management, To prevent re-injury, To improve ability to perform tasks related to life management, To improve tolerance to ADL's Therapeutic Exercise to Include: Strength training, Power training, Balance training, Coordination, Body mechanics, Flexibilty training, Gait and locomotor training, Neuromotor development, Passive ROM, Active ROM For the Purpose of:: To decrease pain, To increase ROM, To improve nutrient delivery to tissue, To increase oxygenation perfusion, To improve muscle performance and motor function, To improve ability to perform ADL's, To improve ability of physical actions for home/community/work/leisure, To improve gait and locomotor functions, To improve health of tissue, To decrease soft tissue restriction, To increase flexibility/ROM, To improve endurance Manual Therapy Techniques to Include: Functional dry needling, Soft tissue mobilization Comment: graston activities For the Purpose of:: To decrease pain, To increase ROM, To improve nutrient delivery to tissue, To increase oxygenation perfusion, To improve muscle performance and motor function, To decrease soft tissue restriction, To increase flexibility/ROM Please do not hesitate to contact me at [phone] by phone or if you have questions or concerns regarding this new plan of care! Sincerely, BENNY LopezT
== END 2020-04-26 19:00 | disposition home or self-care (01) ==
LOC: PT 08:30
PROVIDERS: PCP Nurse Practitioner; Referring Provider Nurse Practitioner; Visit Provider Nurse Practitioner
DX: M54.30 Sciatica, unspecified side (principal); M72.2 Plantar fascial fibromatosis
CPT/HCPCS: 97110; 97161; 97162; 97164

== ENCOUNTER → 2020-06-04 16:27 | Outpatient (CLI) | payer OTHER, SELFPAY ==
[2020-05-07 09:23] VITALS: BMI 22.3
[2020-06-04 17:44] LABS: Absolute Lymphocyte Count 1.91 X10^3/uL (0.83-4.51); Absolute Neutrophil Count 3.6 X10^3/uL (2.0-7.7); Basophil# 0.04 X10^3/uL; Basophil% 0.6 % (0-1); Eosinophil# 0.04 X10^3/uL; Eosinophils% 0.6 % (0-5); Hematocrit 40.3 % (37-47); Hemoglobin 13.3 g/dL (12.0-15.0); Lymphocyte # 1.91 X10^3/ul (4.0); Mean Corpuscular Hgb 29.6 pg (27.0-32.0); Mean Corpuscular Volume 89.8 fL (81-99); Mean Platelet Vol. 10.8 fl (6.2-12.0); Monocyte# 0.52 X10^3/uL; Monocyte% 8.4 % (0-10); NRBC Flagged by Analyzer 0 % (0-5); Neutrophil # 3.63 X10^3/uL (2.7-7.7); Neutrophil % 59.1 % (47-70); Platelet Count 264 K/mm3 (150-450); RBC Distribution Width CV 11.7 % (11.6-14.6); RBC Distribution Width SD 38.3 fl (35.1-43.9); Red Blood Count 4.49 M/mm3 (4.2-5.4); White Blood Count 6.2 K/mm3 (4.4-11.0)
[2020-06-04 18:23] LABS: ALB/GLOB Ratio 1.1 RATIO (0.9-2.4); AST(SGOT) 19 U/L (15-37); Alanine Aminotransfer ALT/SGPT 28 U/L (13-56); Albumin, Serum 3.9 g/dL (3.2-5.0); Alkaline Phosphatase 131 U/L (45-117); Anion Gap 6 (5-15); BUN 14 mg/dL (7-18); Calcium,Total 9.3 mg/dL (8.5-10.1); Chloride 103 mmol/L (98-107); EST Glomerular Filtration Rate 60 mL/min (>60); Est Glom Filt Rate - Afr Amer 72 mL/min (>60); Globulin 3.7 g/dL (2.2-4.2); Glucose 95 mg/dL (74-106); Potassium 3.8 mmol/L (3.5-5.1); Protein, Total 7.6 g/dL (6.4-8.2); Sodium Level 139 mmol/L (136-145); Thyroid Stim Hormone (TSH) 1.47 uIU/mL (0.358-3.74)
== END ==
PROVIDERS: PCP Nurse Practitioner; Referring Provider Nurse Practitioner; Visit Provider Nurse Practitioner
DX: R10.9 Unspecified abdominal pain (principal)
CPT/HCPCS: 36415; 80053; 84443; 85025

== ENCOUNTER → 2020-06-12 09:22 | Outpatient (CLI) | payer OTHER, SELFPAY ==
[2020-05-07 09:23] VITALS: BMI 22.3
--- NOTE | 2020-06-12 09:25 | US_ITS ---
STUDY: ABDOMINAL ULTRASOUND REASON FOR EXAM: Female, 64 years old. Abdomen pain worse after meals TECHNIQUE: Transabdominal ultrasound was performed with real-time and static hanson scale imaging. TECHNICAL QUALITY: Adequate. COMPARISON: None. FINDINGS: Liver: The liver measures 13.3 cm. There is normal echogenicity of the liver. The bile ducts are within normal limits. There is hepatic color flow. The direction of portal flow is hepatopetal. There is no demonstrated mass lesion. Portal vein measurement: Gallbladder: The patient is status post cholecystectomy. Common Bile Duct (C.B.D.): The common bile duct measures 4.9 mm. Pancreas: Normal size of the head, body and tail of the pancreas. There is normal echogenicity of the pancreas. There is no demonstrated pancreatic mass or cyst. Spleen: Normal size of the spleen. The spleen measures 8.2 cm x 4.6 cm x 4.1 cm. Right Kidney: Normal size of the right kidney. The right kidney measures 10.5 cm x 3.7 cm x 4.9 cm. Normal renal cortex. The right cortex measures 1.2 cm. There is no demonstrated renal mass or cyst. There is no right hydronephrosis. Left Kidney: Normal size of the left kidney. The left kidney measures 10.6 cm x 4.8 cm x 4.5 cm. Normal renal cortex. The left cortex measures 1.8 cm. There is no demonstrated renal mass or cyst. There is no left hydronephrosis. Aorta: Unremarkable I.V.C.: The IVC is patent. There is no ascites. US/Abdomen Complete IMPRESSION: Status post cholecystectomy. No acute abnormality is seen. Electronically Signed: Edgar Suarez, at 14:34 EST , Service support ,
--- NOTE | 2020-06-12 09:26 | US_ITS ---
STUDY: ULTRASOUND OF THE FEMALE PELVIS - COMPLETE REASON FOR EXAM: Female, 64 years old. PELVIC PAIN LMP: The patient is postmenopausal. TECHNIQUE: Transabdominal and Transvaginal TECHNICAL QUALITY: Adequate. COMPARISON: None. FINDINGS: The uterus is anteverted and is in a midline position. The uterus measures 5.7 cm x 5.4 RAYO by 2.8 cm. Normal uterine cervix. The endometrium is mildly thickened and measures 6 mm in thickness, and is fluid distended. I suspect a 4 mm endometrial polyp. There is no demonstrated myometrial mass. I.U.D. - The patient does not have an I.U.D. The right ovary is visualized. The right ovary measures 2 cm x 2.1 cm x 1.1 cm. There is no right ovarian cyst or ovarian mass. There is no visualized right adnexal mass or complex lesion. There is normal arterial and normal venous vascularity. The left ovary is visualized. The left ovary measures 2.3 cm x 2 cm x 1.2 cm. There is no left ovarian cyst or ovarian mass. There is no visualized left adnexal mass or complex lesion. There is normal arterial and normal venous vascularity. There is no fluid in the cul-de-sac. US/Transvaginal Non- IMPRESSION: Slightly thickened endometrium with fluid distention. I suspect a 4 mm endometrial polyp. Electronically Signed: Edgar Suarez, at 9:20 EST , Service support ,
--- NOTE | 2020-06-12 09:26 | US_ITS ---
STUDY: ULTRASOUND OF THE FEMALE PELVIS - COMPLETE REASON FOR EXAM: Female, 64 years old. PELVIC PAIN LMP: The patient is postmenopausal. TECHNIQUE: Transabdominal and Transvaginal TECHNICAL QUALITY: Adequate. COMPARISON: None. FINDINGS: The uterus is anteverted and is in a midline position. The uterus measures 5.7 cm x 5.4 RAYO by 2.8 cm. Normal uterine cervix. The endometrium is mildly thickened and measures 6 mm in thickness, and is fluid distended. I suspect a 4 mm endometrial polyp. There is no demonstrated myometrial mass. I.U.D. - The patient does not have an I.U.D. The right ovary is visualized. The right ovary measures 2 cm x 2.1 cm x 1.1 cm. There is no right ovarian cyst or ovarian mass. There is no visualized right adnexal mass or complex lesion. There is normal arterial and normal venous vascularity. The left ovary is visualized. The left ovary measures 2.3 cm x 2 cm x 1.2 cm. There is no left ovarian cyst or ovarian mass. There is no visualized left adnexal mass or complex lesion. There is normal arterial and normal venous vascularity. There is no fluid in the cul-de-sac. US/Pelvic (Non ) IMPRESSION: Slightly thickened endometrium with fluid distention. I suspect a 4 mm endometrial polyp. Electronically Signed: Edgar Suarez, at 9:20 EST , Service support ,
== END ==
PROVIDERS: PCP Nurse Practitioner; Referring Provider Nurse Practitioner; Visit Provider Nurse Practitioner
DX: R10.9 Unspecified abdominal pain (principal)
CPT/HCPCS: 76700; 76830; 76856; 93976

== ENCOUNTER 2020-06-25 10:30 | Emergency (ER) | payer OTHER, SELFPAY ==
[2020-05-07 09:23] VITALS: BMI 22.3
[2020-06-25 10:31] VITALS: BP 146/116; PULSE 83; RESP 16; TEMP 35.5; O2SAT 99; BMI 20.5
--- NOTE | 2020-06-25 10:50 | ED.DCSUM_ITS ---
History of Present Illness Chief Complaint: Abd Pain Informant: Patient Narrative: 64-year-old female presenting with acid reflux and early satiety. She states is been worse over the last 2 weeks since her was diagnosed with cancer and had a small exception of his bowel removed. He supposed to start chemotherapy. She states she is a very anxious person at baseline and this is really made it worse. She is tried to eat bland foods. She is on there are fate and a PPI and this is not helping either. Patient is not had any diarrhea or constipation. She is not had a fever or chills. She has some mild nausea. Patient states she already had a transvaginal ultrasound which showed a endometrial polyp which her PATTERN TECHNICIAN is watching. She also had an abdominal ultrasound which was negative. She just recently had a colonoscopy performed which was also negative. She did not have an upper endoscopy at this time. Past Medical History - Allergies and Home Meds Allergies/Adverse Reactions: Allergies Sulfa (Sulfonamide Antibiotics) Allergy (Intermediate, Verified 05/07/20 09:22) Rash cyclobenzaprine [From Flexeril] Allergy (Verified 05/07/20 09:22) Unknown oxycodone Allergy (Verified 05/07/20 09:22) Unknown Penicillins Allergy (Verified 05/07/20 09:22) Other tramadol Allergy (Verified 05/07/20 09:22) Unknown Primary Care Physician: Gayla Garcia PHOTOENGRAVING HELPER, PHOTOENGRAVING HELPER-C [Primary Care Provider] - Prior records reviewed: Yes Past Medical History: - - Anxiety, GERD Lives: Spouse/ Significant Other Smoking Status: Never smoker Alcohol: None Drugs: None Review of Systems General: Denies: Chills, Fever, Sweats Eyes: Denies: Visual changes - bilaterally, Diplopia ENT: Denies: Rhinorrhea, Sore throat Cardiovascular: Denies: Chest pain, Palpitations Respiratory: Denies: Dyspnea, Cough, Dyspnea on exertion Gastrointestinal: Reports: Abdominal pain, Nausea. Denies: Vomiting, Diarrhea, Constipation, Melena, Hematochezia Genitourinary: Denies: Dysuria, Hematuria Musculoskeletal: Denies: Myalgias, Arthralgias Skin: Denies: Rash, Abscess Neurological: Denies: Headache, Parasthesia, Numbness Psych: Reports: Anxiety. Denies: Suicidal thoughts, Suicidal ideations Physical Exam Vital Signs/Narrative: Vital Signs Temp Pulse Resp BP Pulse Ox 11/30/20 10:31 96 F L 83 16 146/116 H 99 Inital Vital Signs reviewed: Yes General: Well nourished, No Acute Distress Head: Normocephalic, Atraumatic Eyes: Perrl, EOMI. Negative for: Scleral icterus ENT: Moist mucous membranes, No rhinorrhea Cardiovascular: Regular rate, Regular rhythm Respiratory: No distress, CTA bilaterally Abdomen: Soft, Nondistended, Tender - Mild epigastric tenderness. Skin: Normal color, No rash Neurological: Alert, Oriented x3 Psychological: Normal affect, Normal Mood Diagnostic/Tx/Re-eval Laboratory Data 06/25/20 06/25/20 11:25 11:25 WBC 4.7 RBC 4.91 Hgb 14.8 Hct 44.5 MCV 90.6 MCH 30.1 MCHC 33.3 RDW Std Deviation 38.3 RDW Coeff of Jay 11.6 Plt Count 290 MPV 10.7 Immature Gran % (Auto) 0.200 Neut % (Auto) 57.7 Lymph % (Auto) 33.3 [place] % (Auto) 7.8 Eos % (Auto) 0.4 Baso % (Auto) 0.6 Absolute Neuts (auto) 2.7 Absolute Lymphs (auto) 1.57 Nucleated RBC % 0 Sodium 141 Potassium 3.5 Chloride 106 Carbon Dioxide 30.0 Anion Gap 5 BUN 10 Creatinine 0.82 Estim Creat Clear Calc 56.26 Est GFR (MDRD) Af Amer 90 Est GFR (MDRD) Non-Af 75 BUN/Creatinine Ratio 12.2 Glucose 102 Calcium 9.8 Total Bilirubin 0.50 AST 16 ALT 26 Alkaline Phosphatase 135 H Total Protein 8.6 H Albumin 4.5 Globulin 4.1 Albumin/Globulin Ratio 1.1 Lipase 160 - Medical Decision Making Presents with abdominal pain which has been ongoing. She believes she has worsening reflux due to her recent stressors. She has no chest pain, shortness of breath. She does have some mild nausea and burning in her stomach. I did check lab work which is normal. Vital signs are stable and she is afebrile. CT abdomen pelvis is also negative. Patient counseled that she will likely need to follow-up with her surgeon to get an upper endoscopy. She is given return precautions. Impression: 1. Abdominal pain ED Disposition - Plan for ED Patient: Disposition: Home or Assisted Living Instructions: ED Abdominal Pain Unkn Cause Fem, ED GERD (Adult) Referrals: Gayla Garcia PHOTOENGRAVING HELPER, PHOTOENGRAVING HELPER-C [Primary Care Provider] -
--- NOTE | 2020-06-25 10:50 | CT_ITS ---
STUDY: CT ABDOMEN AND PELVIS WITH CONTRAST REASON FOR EXAM: Female, 64 years old. ABD PAIN OFF/ON SINCE RADIATION DOSAGE (If Supplied By Facility): CTDIvol = ( 9.35 ) mGy, DLP = ( 409.84 ) mGycm TECHNIQUE: Transaxial images were obtained from the dome of the diaphragm to the symphysis pubis without oral contrast. IV 100mL Isovue-300 was administered. Sagittal and coronal images were reconstructed. Individualized dose optimization techniques were used for this CT. COMPARISON: Comparison is made with prior study dated 09/16/2018. FINDINGS: The visualized lung bases are unremarkable. The visualized portions of the heart are within normal limits. Normal liver. There are surgical clips in the gallbladder fossa consistent with a prior cholecystectomy. Normal spleen. Normal pancreas. Normal bilateral adrenal glands. Normal right kidney. Normal left kidney. Normal visualized stomach. Normal small intestine. Normal colon. The appendix is visualized and appears normal. Normal abdominal aorta. Normal inferior vena cava. Normal retroperitoneum. Normal urinary bladder. There is a small umbilical hernia containing fat. There are mild degenerative changes of the visualized lumbar spine. CT/Abdomen/Pelvis W IV Cont ONLY IMPRESSION: Status post cholecystectomy. Small umbilical hernia containing fat. Electronically Signed: Edgar Suarez, at 14:31 EST , Service support ,
[2020-06-25] MEDS: Ondansetron 4 MG/2 ML Vial IV (11:37)
[2020-06-25 11:50] LABS: Absolute Lymphocyte Count 1.57 X10^3/uL (0.83-4.51); Absolute Neutrophil Count 2.7 X10^3/uL (2.0-7.7); Basophil# 0.03 X10^3/uL; Basophil% 0.6 % (0-1); Eosinophil# 0.02 X10^3/uL; Eosinophils% 0.4 % (0-5); Hematocrit 44.5 % (37-47); Hemoglobin 14.8 g/dL (12.0-15.0); Lymphocyte # 1.57 X10^3/ul (4.0); Lymphocyte % 33.3 % (19-41); Mean Corp Hgb Conc 33.3 g/dL (32-36); Mean Corpuscular Hgb 30.1 pg (27.0-32.0); Mean Corpuscular Volume 90.6 fL (81-99); Mean Platelet Vol. 10.7 fl (6.2-12.0); Monocyte# 0.37 X10^3/uL; Monocyte% 7.8 % (0-10); NRBC Flagged by Analyzer 0 % (0-5); Neutrophil # 2.72 X10^3/uL (2.7-7.7); Neutrophil % 57.7 % (47-70); Platelet Count 290 K/mm3 (150-450); RBC Distribution Width CV 11.6 % (11.6-14.6); RBC Distribution Width SD 38.3 fl (35.1-43.9); Red Blood Count 4.91 M/mm3 (4.2-5.4); White Blood Count 4.7 K/mm3 (4.4-11.0)
[2020-06-25 12:07] LABS: ALB/GLOB Ratio 1.1 RATIO (0.9-2.4); AST(SGOT) 16 U/L (15-37); Alanine Aminotransfer ALT/SGPT 26 U/L (13-56); Albumin, Serum 4.5 g/dL (3.2-5.0); Alkaline Phosphatase 135 U/L (45-117); Anion Gap 5 (5-15); BUN 10 mg/dL (7-18); BUN/Creat Ratio 12.2 RATIO (10-20); Calcium,Total 9.8 mg/dL (8.5-10.1); Chloride 106 mmol/L (98-107); Creatinine, Serum 0.82 mg/dL (0.55-1.02); EST Glomerular Filtration Rate 75 mL/min (>60); Est Glom Filt Rate - Afr Amer 90 mL/min (>60); Estimated Creatinine Clearance 56.26 ml/min; Globulin 4.1 g/dL (2.2-4.2); Glucose 102 mg/dL (74-106); Lipase 160 U/L (73-393); Potassium 3.5 mmol/L (3.5-5.1); Protein, Total 8.6 g/dL (6.4-8.2); Sodium Level 141 mmol/L (136-145)
[2020-06-25] MEDS: Mag Hydrox/Al Hydrox/Simeth 30 ML UDC PO (13:16)
[2020-06-25 13:22] VITALS: BP 122/81; PULSE 71; RESP 16; O2SAT 97
== END 2020-06-25 13:30 | disposition home or self-care (01) ==
PROVIDERS: Emergency Provider Student in an Organized Health Care Education/Training Program; PCP Nurse Practitioner
DX: R10.13 Epigastric pain (principal); K21.9 Gastro-esophageal reflux disease without esophagitis; Z79.899 Other long term (current) drug therapy
CPT/HCPCS: 74177; 80053; 83690; 85025; 96374; 99284; Q9967; A4216; J2405

== ENCOUNTER → 2020-06-29 | Outpatient (CLI) | payer OTHER, SELFPAY ==
[2020-06-25 10:31] VITALS: BMI 20.5
== END | disposition home or self-care (01) ==
LOC: LABSPEC 10:26
PROVIDERS: PCP Nurse Practitioner; Referring Provider Internal Medicine Gastroenterology; Visit Provider Internal Medicine Gastroenterology
DX: Z11.59 Encounter for screening for other viral diseases (principal)
CPT/HCPCS: 87635; C9803; U0003

== ENCOUNTER → 2020-07-06 15:50 | Outpatient (CLI) | payer OTHER, SELFPAY ==
[2020-06-25 10:31] VITALS: BMI 20.5
--- NOTE | 2020-07-06 16:30 | RAD_ITS ---
History: SOB SOB EXAMINATION/TECHNIQUE: XR Chest 2 Views: COMPARISON: May 05, 2014 FINDINGS: LINES/DEVICES: None. LUNGS: No consolidation, edema or effusion. No pneumothorax. MEDIASTINUM AND CARDIOVASCULAR STRUCTURES: Cardiac silhouette not enlarged. Central airways and mediastinal contour are unremarkable. BONES AND SOFT TISSUES: Unremarkable. RAD/Chest PA and Lateral IMPRESSION: No radiographic evidence of acute cardiopulmonary disease. at 0542 Reported and signed by: Janae Olivares DO Electronically Signed: Janae Olivares DO at 5:41 EST Tel , Service support ,
== END ==
PROVIDERS: PCP Nurse Practitioner; Referring Provider Nurse Practitioner; Visit Provider Nurse Practitioner
DX: R06.02 Shortness of breath (principal)
CPT/HCPCS: 71046

== ENCOUNTER → 2020-08-31 | Outpatient (CLI) | payer OTHER, SELFPAY | END | disposition home or self-care (01) | LOC: LABSPEC 14:56 | PROVIDERS: PCP Nurse Practitioner; Visit Provider Internal Medicine | DX: J34.89 Other specified disorders of nose and nasal sinuses (principal) | CPT/HCPCS: 87633 ==

== ENCOUNTER → 2020-09-24 13:02 | Outpatient (CLI) | payer OTHER, SELFPAY ==
--- NOTE | 2020-09-24 13:05 | RAD_ITS ---
STUDY: X-RAY - SOFT TISSUE NECK REASON FOR EXAM: Female, 65 years old. DYSPNEA TECHNIQUE: 2 view(s) of the neck were obtained. COMPARISON: None. FINDINGS: Normal visualized nasopharynx, oropharynx, hypopharynx. Normal epiglottis. Normal visualized subglottic tracheal air column. Normal prevertebral soft tissue structures. There are degenerative changes of the cervical spine with cervical spondylosis. The soft tissue structures are unremarkable. RAD/Neck for Soft Tissue IMPRESSION: Degenerative changes of the cervical spine. Electronically Signed: Edgar Suarez MD at 17:01 EST , Service support ,
== END ==
PROVIDERS: PCP Nurse Practitioner; Referring Provider Internal Medicine Pulmonary Disease; Visit Provider Internal Medicine Pulmonary Disease
DX: R06.00 Dyspnea, unspecified (principal)
CPT/HCPCS: 70360

== ENCOUNTER → 2020-10-16 08:05 | Outpatient (CLI) | payer OTHER, SELFPAY ==
--- NOTE | 2020-10-16 08:11 | RAD_ITS ---
STUDY: X-RAY - ESOPHAGUS (BARIUM SWALLOW) WITH FLUOROSCOPY REASON FOR EXAM: Female, 65 years old. Dysphagia TECHNIQUE: 28 view(s) of the esophagus were obtained following swallowing of barium. FLUOROSCOPY TIME (if supplied): (0:50) minutes/seconds COMPARISON: None. FINDINGS: There is no demonstrated esophageal foreign body. There is no demonstrated stricture or mucosal abnormality. Normal gastroesophageal junction, without a demonstrated hiatal hernia. The patient ingested a 12 mm tablet of barium without any difficulty. There is atherosclerotic tortuosity of the aortic arch and descending thoracic aorta. Normal visualized pulmonary parenchyma. Normal visualized osseous structures of the thorax. RAD/Esophagus Dual Contrast IMPRESSION: Normal plain film x-ray examination (barium swallow) of the esophagus. Electronically Signed: Edgar Suarez MD at 13:58 EDT , Service support ,
== END ==
PROVIDERS: PCP Nurse Practitioner; Referring Provider Internal Medicine Gastroenterology; Visit Provider Internal Medicine Gastroenterology
DX: R13.10 Dysphagia, unspecified (principal)
CPT/HCPCS: 74221

== ENCOUNTER → 2020-11-01 11:58 | Outpatient (CLI) | payer OTHER, SELFPAY ==
--- NOTE | 2020-11-01 12:01 | RAD_ITS ---
INDICATION: PAIN TO 5TH MET BASE EXAMINATION/TECHNIQUE: X-RAY - RIGHT XR Foot Min 3 Views COMPARISON: None. FINDINGS: No acute fracture or malalignment. No blastic or lytic lesions. Mild degenerative changes of the first MTP joint and midfoot. Dorsal heel spur. Enthesopathy of the base of the fifth metatarsal. Os peroneum. RAD/Foot min 3 Views IMPRESSION: Enthesopathy of the base of the fifth metatarsal. Electronically Signed: Holland Mendez MD at 16:55 EDT Tel , Service support ,
== END ==
PROVIDERS: PCP Nurse Practitioner; Referring Provider Podiatrist; Visit Provider Podiatrist
DX: S93.601A Unspecified sprain of right foot, initial encounter (principal)
CPT/HCPCS: 73630

== ENCOUNTER 2021-01-02 09:27 | Day surgery (SDC) | payer OTHER, SELFPAY ==
[2020-12-26 14:04] VITALS: BMI 20.5
[2021-01-02] VITALS (7 sets, daily range): BP systolic 107–139; BP diastolic 52–94; PULSE 52–72; RESP 16; TEMP 36.8; O2SAT 99–100; BMI 20.5
[2021-01-02] MEDS: Lactated Ringers 1,000 ML 100 ML IV (09:54)
--- NOTE | 2021-01-02 10:13 | HP.PCM_ITS ---
History and Physical Date of Admission: 01/02/21 Date of Service: 12/26/20 MR#:[id number] Acct:[id number] Name: VIKKI GONZALEZ :1955 Age/Sex: 65/F Rep #:[id number] Provider:Dr. Luzmaria Casanova MD Location:[facility] Status:Signed Intake Vital Signs 12/26/20 14:02 12/26/20 14:04 Height 5 ft 1 in Weight: 109 lb 6 oz BMI 20.6 20.5 BP 125/70 H Blood Pressure Location Rt brachial Position Sitting Respiration 18 Pulse 72 Pulse Source NIBP Temp 97.6 F L Temp Source Temporal Pulse Oximetry (%) 97 Oxygen Delivery Method room air Intake Visit Reasons: Upper Scope/On-going abdominal pain Chief Complaint: epigastric pain Custom Miller Required: No Is patient in pain?: Yes Allergies Sulfa (Sulfonamide Antibiotics) Allergy (Intermediate, Verified 12/26/20 14:03) Rash cyclobenzaprine [From Flexeril] Allergy (Verified 12/26/20 14:03) Unknown oxycodone Allergy (Verified 12/26/20 14:03) Unknown Penicillins Allergy (Verified 12/26/20 14:03) Other tramadol Allergy (Verified 12/26/20 14:03) Unknown Medications trazodone 50 mg PO QHS 09/16/18 [History Confirmed 12/26/20] cetirizine 10 mg capsule 10 mg PO DAILY 05/21/19 [History Confirmed 12/26/20] lorazepam 0.5 mg tablet 0.5 mg PO DAILY PRN tab 12/26/20 [History Confirmed 12/26/20] Is last menstrual period known: No Post menopausal: Yes Patient : No [facility] Medical History (Updated 12/26/20 @ 14:[address] Luzmaria Casanova MD) Acid reflux Anxiety Arthritis Back pain GERD (gastroesophageal reflux disease) Hemorrhoids Knee pain Liver disease Severe headache Shoulder pain Sinusitis Sleep apnea Surgical History (Updated 12/26/20 @ 14:02 by Ling Rogers) History of cholecystectomy History of colonoscopy (~05/2020) History of esophagogastroduodenoscopy (EGD) History of tonsillectomy Social History Smoking Status: Never smoker alcohol intake: never HPI HPI HPI: VIKKI GONZALEZ, is a 65 F who presents to the office today for epigastric pain/reflux. Patient states she has had this for a while did see Dr. Castle in June and had an EGD and colonoscopy. Unable to get the EGD report currently patient states she did have some inflammation as well as a hiatal hernia. Patient states initially she was on some Protonix however that stopped working more recently she was on omeprazole again that stopped working after a little bit. Patient states she did try Carafate but thought that the pain got worse the same with the omeprazole. Patient states that she has epigastric and right upper quadrant pain can get up to a 10 she does not always have it but usually has that night can keep her from sleeping and also wake her up. Patient does sleep elevated. Patient normally has IBS as far as bowel movements ago. Patient has also been on under a lot of stress due to her 's medical health and patient also has a history of anxiety. ROS General General: Yes weight change; No fatigue Psych Psychiatric: Yes anxiety; No depression Gastro Gastrointestinal: Yes abdominal pain, No nausea or vomiting, No diarrhea, Yes constipation, No blood in stool, Yes acid reflux, Yes hemorrhoids and No black,tarry stools Exam Const General: cooperative, healthy appearing, comfortable and no acute distress Neck Neck: normal visual inspection Resp Effort & Inspection: normal respiratory effort Cardio Rate: regular rate GI Inspection: normal to inspection, non-distended and scaphoid Palpation: soft, no guarding and tender (Epigastric/right upper quadrant) Skin General: no rashes or lesions noted Neuro General: patient oriented x3 Psych Affect: normal affect COVID (Procedure Consent) Procedure Criteria Procedure Criteria: Yes Elective The surgeon/proceduralist and patient have discussed in detail the risk of exposure to and/or potential harm posed by the COVID-19 virus with having a surgery/procedure at this time versus the risk of delaying the surgery/procedure. It is not possible to know either the risk of delaying the surgery or procedure or chance of getting an infection with perfect accuracy, but a joint decision was made between the patient and the surgeon/proceduralist to proceed at this time with the scheduled surgery/procedure as indicated on the consent form. Assessment and Plan Assessment and Plan (1) GERD (gastroesophageal reflux disease): Status: Acute (2) Epigastric pain: Status: Acute Plan - Dr. Luzmaria Casanova MD: Recommended patient try Nexium [id number] along with pepcid to see if this helps with the discomfort. Discussed with patient that she needs to try to give the medication a chance as the pain she is feeling may just be her normal pain not necessarily due to the medication. Patient states she is previously been on omeprazole as well as Protonix and they worked for a little bit and then stopped working. I have discussed the above with the patient. I have offered the patient EGD for evaluation. I have explained the risks/benefits of the procedure and described the procedure. I have discussed the risks with the patient, including but not limited to: infection, bleeding, perforation of the GI tract requiring emergency surgery, inability to complete the procedure, injury to any internal organs, complications of anesthesia, etc. - the patient understands and agrees to proceed. I have answered all the patient's questions to the patient's satisfaction and the patient has no further questions. Luzmaria Casanova M.D. Pager: [phone] [facility] [address] [place] [address], [address] [place] [address] Office: [phone] Plan Details Other Orders: Orders: EGD Today Coding Level of Care Code Off vis,est,level 3 Diagnoses GERD (gastroesophageal reflux disease) K21.9 Epigastric pain R10.13 12/26/20 1430<Electronically signed by Luzmaria Casanova MD>Date Luzmaria Casanova MD
--- NOTE | 2021-01-02 10:30 | EGD_PTH ---
PATIENT: VIKKI GONZALEZ LOC: [facility] U#:[id number] AGE/SX: 65/F ROOM: RE01/02/[address]: Dr. Luzmaria Casanova MD : 1955 BED: DIS: 01/02/2021 SPEC #: [id number] RECD: 01/02/21 10:53 STATUS: DEIDRA REAndreia #: [id number] JOLANTA: 01/02/21 10:[address]: Luzmaria Casanova DEPT: SURGICAL PATHOLOGY RECD BY: Maci Galdamez ENTERED: 01/02/21 11:16 SP TYPE: EGD BIOPSY OT DR: Gayla Garcia, PARES[facility] Tissues: A - Gastric mucous membrane B - Gastric mucous membrane C - Gastric mucous membrane Procedures: Special Stain Group II Surgery Specimen Level IV Alcian Blue/PAS (control) HEADER OPERATION: EGD ([facility]) PRE-OP DIAGNOSIS: GERD, epigastric pain TISSUE SUBMITTED: A - Antrum for H. pylori and path, B - Biopsy of gastric polyp, C - GE junction biopsy MICROSCOPIC DIAGNOSIS A. Antrum biopsy: A fragment of gastric mucosa with minimal chronic inflammation and congestion. See comment. B. Gastric polyp, biopsy: Fragments of fundic gland polyp. C. GE junction, biopsy: A fragment of gastroesophageal mucosa with moderate chronic inflammation. Intestinal metaplasia (goblet cell metaplasia) is not identified. See comment. SJ:rg 01/03/2021 COMMENT A. The results of immunohistochemistry for Helicobacter pylori will be reported separately ([id number]). C. Alcian blue/PAS stain with matched control is used in the evaluation of the specimen. MICROSCOPIC DESCRIPTION Slides are reviewed. GROSS DESCRIPTION A - Received in fixative is one container labeled with the patient's name and designated antrum biopsy. The specimen consists of one irregular fragment of light orantes soft tissue that measures 0.2 x 0.2 x 0.1 cm. The specimen is totally submitted in one cassette. B - Received in fixative is one container labeled with the patient's name and designated gastric polyp biopsy. The specimen consists of multiple irregular fragments of light orantes soft tissue that in aggregate measure 0.6 x 0.6 x 0.1 cm. The specimen is totally submitted in one cassette. C - Received in fixative is one container labeled with the patient's name and designated GE junction. The specimen consists of one irregular fragment of light orantes soft tissue that measures 0.3 x 0.3 x 0.1 cm. The specimen is totally submitted in one cassette. / AM:charles 01/02/21 TC:3 CPT: 21819 x3, 31409
--- NOTE | 2021-01-02 10:30 | IMM_PTH ---
PATIENT: VIKKI GONZALEZ LOC: [facility] U#:[id number] AGE/SX: 65/F ROOM: RE01/02/[address]: Dr. Luzmaria Casanova MD : 1955 BED: DIS: 01/02/2021 SPEC #: [id number] RECD: 01/02/21 11:16 STATUS: DEIDRA REAndreia #: [id number] JOLANTA: 01/02/21 10:[address]: Luzmaria Casanova DEPT: IMMUNOHISTOCHEMISTRY RECD BY: Chelsie Oakes ENTERED: 01/02/21 11:17 SP TYPE: IMMUNO OTHR DR: Gayla Garcia, AIR HAMMER OPERATOR-C Tissues: A - Stomach, NOS Procedures: H Pylori (initial) PHYSICIAN & INSTITUTION [place] [address] SPECIMEN INFORMATION: Tissue Source: A ? Antrum biopsy Clinical Info: GERD, epigastric pain Specimen Number: [id number] CPT code: 81065 METHODOLOGY: Deparaffinized sections of prefer/formalin-fixed tissue or PAP/DQ stained slides are incubated with monoclonal/polyclonal antibodies/oligonucleotide probes. Localization is made via biotin free immunoperoxidase method. Appropriate controls are performed and reacted as expected. Results on target cell population are indicated in the following table: RESULTS: ANTIBODY / CLONE RESULT Block A H Pylori (polyclonal) negative These tests were developed and their performance characteristics determined by [facility]. They may not have been cleared or approved by the U.S. Food and Drug Administration. The FDA has determined that such clearance or approval is not necessary. The above immunohistochemical/dualISH markers are ordered and reviewed by the Pathologist. INTERPRETATION: A. Antrum biopsy: Negative for Helicobacter pylori organisms. SJ:charles 01/03/2021
--- NOTE | 2021-01-02 10:49 | OP.CCLET_ITS ---
01/02/2021 Gayla Garcia, [facility] [address] [place] [address] Re : Upper GI endoscopy procedure for Azul Osorio Dear Ms. Garcia This procedure was performed on Saturday, January 02, 2021. My impressions and recommendations are as follows: Impressions : - Z-line irregular, 37 cm from the incisors. Biopsied. - Gastritis. Biopsied. - Normal examined duodenum. Recommendations : - Await pathology results. - Discharge patient to home. - Use Protonix (pantoprazole) 40 mg PO BID for 2 months. - Use sucralfate tablets 1 gram PO QID for 1 month. - Continue present medications. My findings are described in the full procedure note, which is enclosed. If I can be of further assistance, please feel free to contact me at Doctor phone number(s): , Work: . Sincerely, MD Luzmaria Landaverde MD 01/02/2021 10:48:40 AM This report has been signed electronically.
--- NOTE | 2021-01-02 10:49 | OP.EGD_ITS ---
Patient Name: Azul Osorio Procedure Date: 01/02/2021 10:19 AM Date of : 1955 Age: 65 Procedure: Upper GI endoscopy Indications: Esophageal reflux Providers: Luzmaria Casanova MD Medicines: Monitored Anesthesia Care Patient Profile: This is a 65 year old female. Complications: No immediate complications. Procedure: Pre-Anesthesia Assessment: - Prior to the procedure, a History and Physical was performed, and patient medications and allergies were reviewed. The patient's tolerance of previous anesthesia was also reviewed. The risks and benefits of the procedure and the sedation options and risks were discussed with the patient. All questions were answered, and informed consent was obtained. Prior Anticoagulants: The patient has taken no previous anticoagulant or antiplatelet agents. ASA Grade Assessment: Per anesthesia. After reviewing the risks and benefits, the patient was deemed in satisfactory condition to undergo the procedure. After obtaining informed consent, the endoscope was passed under direct vision. Throughout the procedure, the patient's blood pressure, pulse, and oxygen saturations were monitored continuously. The Endoscope was introduced through the mouth, and advanced to the second part of duodenum. The upper GI endoscopy was accomplished without difficulty. The patient tolerated the procedure well. Scope In: 10:30:53 AM Scope Out: 10:42:39 AM Total Procedure Duration Time 0 hours 11 minutes 46 seconds Findings: The Z-line was irregular and was found 37 cm from the incisors. Biopsies were taken with a cold forceps for histology. Diffuse Moderate to severe inflammation characterized by erythema and friability was found in the gastric body, in the gastric antrum and in the prepyloric region of the stomach. Biopsies were taken with a cold forceps for histology. Biopsies were taken with a cold forceps for Helicobacter pylori testing using a rapid urease test. Biopsies were taken with a cold forceps for Helicobacter pylori cultures. The examined duodenum was normal. The cardia and gastric fundus were normal on retroflexion. A few less than 5 mm sessile polyps with no bleeding and no stigmata of recent bleeding were found in the gastric body. The polyp was removed with a cold biopsy forceps. Resection and retrieval were complete. Impression: - Z-line irregular, 37 cm from the incisors. Biopsied. - Gastritis. Biopsied. - Normal examined duodenum. Recommendation: - Await pathology results. - Discharge patient to home. - Use Protonix (pantoprazole) 40 mg PO BID for 2 months. - Use sucralfate tablets 1 gram PO QID for 1 month. - Continue present medications. Procedure Code(s): --- Professional --- 05367, Esophagogastroduodenoscopy, flexible, transoral; with biopsy, single or multiple Diagnosis Code(s): --- Professional --- K22.8, Other specified diseases of esophagus K29.70, Gastritis, unspecified, without bleeding K21.9, Gastro-esophageal reflux disease without esophagitis CPT copyright 2017 [employer]. All rights reserved. The codes documented in this report are preliminary and upon warrant clerk review may be revised to meet current compliance requirements. MD Luzmaria Landaverde MD 01/02/2021 10:48:40 AM This report has been signed electronically. Number of Addenda: 0 Note Initiated On: 01/02/2021 10:19 AM
== END 2021-01-02 11:45 ==
LOC: EN 09:27 → AC 09:28
PROVIDERS: PCP Nurse Practitioner; Referring Provider Nurse Practitioner; Visit Provider Surgery
PROC: 0DJ08ZZ Inspection of Upper Intestinal Tract, Via Natural or Artificial Opening Endoscopic (ICD-10-PCS; CPT 43235; principal; 2021-01-02 10:25)
DX: K31.7 Polyp of stomach and duodenum (principal); K29.50 Unspecified chronic gastritis without bleeding; K21.00 Gastro-esophageal reflux disease with esophagitis, without bleeding; F41.9 Anxiety disorder, unspecified; M19.90 Unspecified osteoarthritis, unspecified site; Z79.899 Other long term (current) drug therapy; Z20.822 Contact with and (suspected) exposure to COVID-19
CPT/HCPCS: 43239; 87426; 88305; 88313; 88342; C9803; J2405

== ENCOUNTER → 2021-04-30 12:05 | Outpatient (CLI) | payer OTHER, SELFPAY ==
--- NOTE | 2021-04-30 12:10 | BI_ITS ---
MAMMOGRAPHY - BILATERAL SCREENING 3-D TOMOSYNTHESIS REASON FOR EXAM: Female, 65 years old. SCREENING PERTINENT HISTORY: No significant family history. TECHNIQUE: 2-D mammograms and 3-D Tomosynthesis of the breast (s) were performed. CAD was performed. COMPARISON: 03/29/2020 FINDINGS: The breast composition is heterogeneously dense that can obscure small breast masses. Scattered benign calcifications are seen. No dense spiculated masses or suspicious microcalcifications are identified. No architectural distortion is identified. There is no skin thickening or retraction. There has been no significant change since the prior study. BI/SCRN MAMM (CAD)W/DASHA BILAT IMPRESSION: No mammographic signs of malignancy. Routine yearly mammograms recommended. ASSESSMENT CATEGORY: BIRADS Category 1: Negative. A letter regarding these results will be sent to the patient by the facility within 30 days. FOLLOW UP RECOMMENDATION: Yearly follow up mammogram recommended. (A) Approximately 10% of breast cancers are not detected by mammography. A normal mammogram should not delay biopsy of a clinically suspicious abnormality. Electronically Signed: Marshall Ann MD at 11:57 EDT Tel , Service support ,
== END ==
PROVIDERS: PCP Nurse Practitioner; Visit Provider Nurse Practitioner
DX: Z12.31 Encounter for screening mammogram for malignant neoplasm of breast (principal)
CPT/HCPCS: 77063; 77067

== ENCOUNTER 2021-11-04 11:36 | Day surgery (SDC) | payer BC, SELFPAY ==
[2021-11-04] VITALS (7 sets, daily range): BP systolic 122–145; BP diastolic 67–80; PULSE 62–75; RESP 14–16; TEMP 36.3–37.1; O2SAT 99–100; BMI 21.7
[2021-11-04] MEDS: Lactated Ringers 1,000 ML 15 ML IV (12:26)
--- NOTE | 2021-11-04 12:28 | HP.PCM_ITS ---
History and Physical Date of Admission: 11/04/21 Date of Service: 10/15/21 MR#:[id number]:[id number]: VIKKI GONZALEZ [facility] #:[id number]:1955 Provider:Nathan King/Sex: 66/F [facility] Intake Visit Reasons: Discuss Upper GI Issues EGD 01/14 Chief Complaint: epigastric pain Allergies Sulfa (Sulfonamide Antibiotics) Allergy (Intermediate, Verified 10/15/21 13:57) Rash cyclobenzaprine [From Flexeril] Allergy (Verified 10/15/21 13:57) Unknown oxycodone Allergy (Verified 10/15/21 13:57) Unknown Penicillins Allergy (Verified 10/15/21 13:57) Other tramadol Allergy (Verified 10/15/21 13:57) Unknown Medications trazodone 50 mg PO QHS 09/16/18 [History Confirmed 12/31/20] cetirizine 10 mg capsule 10 mg PO DAILY PRN 05/21/19 [History Confirmed 12/31/20] pantoprazole 40 mg tablet,delayed release 40 mg PO DAILY #30 tab 05/06/21 [Rx] melatonin 5 mg capsule mg PO 10/15/21 [History Confirmed 10/15/21] sucralfate 1 gram tablet 1 g PO QACHS #56 tab 10/15/21 [Rx Confirmed 10/15/21] PFSH Medical History Acid reflux Anxiety Arthritis Back pain CPAP (continuous positive airway pressure) dependence Depression GERD (gastroesophageal reflux disease) Hemorrhoids History of hiatal hernia History of IBS History of stress test Knee pain Leg cramps Liver disease Loss of hearing Non-smoker Rash Severe headache Shoulder pain Sinusitis Sleep apnea Wears glasses Wears partial dentures Surgical History History of cholecystectomy History of colonoscopy (~05/2020) History of esophagogastroduodenoscopy (EGD) History of tonsillectomy Social History Smoking Status: Never smoker alcohol intake: never HPI HPI HPI: VIKKI GONZALEZ, is a 66 F who presents to the office today for epigastric pain. Pt had EGD last year and was initially on protonix 40 mg PO BID then went to 40 PO day and in February 2021 she stopped protonix. Pt was doing well until Sep 16- she had increased epigastric pain saw GI in [facility], where she lives now, and started protonix 40 mg PO BID again, didn't try carafate because she thought it made the abdominal pain worse when she tried it previously. Pt has been on protonix for about 1 month- pain is 4-5/10 now, was a 10/10, occ N initally, no vomiting. Pt tried to schedule an EGD with GI in [facility] but would have to wait until November, so she came back to our office. ROS General General: Yes weight change; No fatigue Psych Psychiatric: Yes anxiety; No depression Gastro Gastrointestinal: Yes abdominal pain, No nausea or vomiting, No diarrhea, Yes constipation, No blood in stool, Yes acid reflux, Yes hemorrhoids and No black,tarry stools Exam Const General: cooperative, healthy appearing, comfortable and no acute distress Neck Neck: normal visual inspection Resp Effort & Inspection: normal respiratory effort Cardio Rate: regular rate GI Inspection: non-distended Palpation: soft, no guarding and tender (no PS) in the epigastrum Skin General: no rashes or lesions noted Neuro General: patient oriented x3 Extrem General: no clubbing, cyanosis or edema Psych Affect: normal affect COVID (Procedure Consent) Procedure Criteria Procedure Criteria: Yes Elective The surgeon/proceduralist and patient have discussed in detail the risk of exposure to and/or potential harm posed by the COVID-19 virus with having a surgery/procedure at this time versus the risk of delaying the surgery/procedure. It is not possible to know either the risk of delaying the surgery or procedure or chance of getting an infection with perfect accuracy, but a joint decision was made between the patient and the surgeon/pro ceduralist to proceed at this time with the scheduled surgery/procedure as indicated on the consent form. Assessment and Plan Assessment and Plan (1) Epigastric pain: Status: Acute (2) GERD (gastroesophageal reflux disease): Status: Acute Plan - Dr. Luzmaria Casanova MD: recommend trying the carafate again- initially just BID and if no increased pain then QID for 2 weeks. I have discussed the above with the patient. I have offered the patient EGD for evaluation. I have explained the risks/benefits of the procedure and described the procedure. I have discussed the risks with the patient, including but not limited to: infection, bleeding, perforation of the GI tract requiring emergency surgery, inability to complete the procedure, injury to any internal organs, complications of anesthesia, etc. - the patient understands and agrees to proceed. I have answered all the patient's questions to the patient's satisfaction and the patient has no further questions. Plan Details Other Medications: New: sucralfate 1 hour before meals and at bedtime 1 g PO QACHS 56 tabs 0RF Coding Level of Care Code Off vis,est,level 4 Diagnoses Epigastric pain R10.13 GERD (gastroesophageal reflux disease) K21.9 10/15/21 2155<Electronically signed by Luzmaria Casanova MD>Date Luzmaria Casanova MD
--- NOTE | 2021-11-04 13:30 | EGD_PTH ---
PATIENT: VIKKI GONZALEZ LOC: EN U#:[id number] AGE/SX: 66/F ROOM: RE11/04/[address]: Dr. Luzmaria Casanova MD : 1955 BED: DIS: 11/04/2021 SPEC #: [id number] RECD: 11/04/21 15:53 STATUS: DEIDRA REAndreia #: [id number] JOLANTA: 11/04/21 13:[address]: Luzmaria Casanova DEPT: SURGICAL PATHOLOGY RECD BY: Maci Galdamez ENTERED: 11/05/21 09:50 SP TYPE: EGD BIOPSY OTHR DR: Luz Elena Primary Care Phys Tissues: Gastric mucous membrane Procedures: Surgery Specimen Level IV HEADER OPERATION: EGD ([facility]) PRE-OP DIAGNOSIS: GERD, epigastric pain TISSUE SUBMITTED: Antral biopsy and H. pylori MICROSCOPIC DIAGNOSIS Gastric antrum, biopsy: Chronic gastritis. See comment. AM:charles 11/06/2021 COMMENT The results of immunohistochemistry for Helicobacter pylori will be reported separately ([id number]). MICROSCOPIC DESCRIPTION Slides are reviewed. GROSS DESCRIPTION Received in fixative is one container labeled with the patient's name and designated antral biopsy. The specimen consists of one irregular fragment of light orantes soft tissue that measures 0.5 x 0.3 x 0.1 cm. The specimen is totally submitted in one cassette. / AM:charles 11/05/2021 TC:3 CPT: 48194
--- NOTE | 2021-11-04 13:30 | IMM_PTH ---
PATIENT: VIKKI GONZALEZ LOC: EN U#:[id number] AGE/SX: 66/F ROOM: RE11/04/[address]: Dr. Luzmaria Casanova MD : 1955 BED: DIS: 11/04/2021 SPEC #: [id number] RECD: 11/05/21 09:40 STATUS: DEIDRA REAndreia #: [id number] JOLANTA: 11/04/21 13:[address]: Luzmaria Casanova DEPT: IMMUNOHISTOCHEMISTRY RECD BY: Chelsie Oakes ENTERED: 11/05/21 09:41 SP TYPE: IMMUNO OTHR DR: No Primary Care Phys Tissues: Stomach, NOS Procedures: H Pylori (initial) PHYSICIAN & INSTITUTION [place] [id number] SPECIMEN INFORMATION: Tissue Source: Antral biopsy Clinical Info: GERD, epigastric pain Specimen Number: [id number] CPT code: 88921 METHODOLOGY: Deparaffinized sections of prefer/formalin-fixed tissue or PAP/DQ stained slides are incubated with monoclonal/polyclonal antibodies/oligonucleotide probes. Localization is made via biotin free immunoperoxidase method. Appropriate controls are performed and reacted as expected. Results on target cell population are indicated in the following table: RESULTS: ANTIBODY / CLONE RESULT H Pylori (polyclonal) negative These tests were developed and their performance characteristics determined by [facility]. They may not have been cleared or approved by the U.S. Food and Drug Administration. The FDA has determined that such clearance or approval is not necessary. The above immunohistochemical/dualISH markers are ordered and reviewed by the Pathologist. INTERPRETATION: Antral biopsy: Negative for Helicobacter pylori organisms. AM:charles 11/06/2021
--- NOTE | 2021-11-04 13:51 | OP.EGD_ITS ---
Patient Name: Azul Osorio Procedure Date: 11/04/2021 1:29 PM Date of : 1955 Age: 66 Procedure: Upper GI endoscopy Indications: Epigastric abdominal pain, Gastritis Providers: Luzmaria Casanova MD Medicines: Monitored Anesthesia Care Patient Profile: This is a 66 year old female. Complications: No immediate complications. Procedure: Pre-Anesthesia Assessment: - Prior to the procedure, a History and Physical was performed, and patient medications and allergies were reviewed. The patient's tolerance of previous anesthesia was also reviewed. The risks and benefits of the procedure and the sedation options and risks were discussed with the patient. All questions were answered, and informed consent was obtained. Prior Anticoagulants: The patient has taken no previous anticoagulant or antiplatelet agents. ASA Grade Assessment: Per anesthesia. After reviewing the risks and benefits, the patient was deemed in satisfactory condition to undergo the procedure. After obtaining informed consent, the endoscope was passed under direct vision. Throughout the procedure, the patient's blood pressure, pulse, and oxygen saturations were monitored continuously. The gastroscope was introduced through the mouth, and advanced to the second part of duodenum. The upper GI endoscopy was accomplished without difficulty. The patient tolerated the procedure well. Scope In: 1:37:06 PM Scope Out: 1:41:55 PM Total Procedure Duration Time 0 hours 4 minutes 49 seconds Findings: The Z-line was regular and was found 35 cm from the incisors. The examined duodenum was normal. Diffuse inflammation characterized by erythema was found in the gastric body and in the gastric antrum. Biopsies were taken with a cold forceps for histology. Biopsies were taken with a cold forceps for Helicobacter pylori cultures. The cardia and gastric fundus were normal on retroflexion. Impression: - Z-line regular, 35 cm from the incisors. - Normal examined duodenum. - Gastritis. Biopsied. Recommendation: - Await pathology results. - Discharge patient to home. - Resume previous diet. - Use Nexium (esomeprazole) 40 mg PO daily. - Use sucralfate tablets 1 gram PO QID for 2 weeks. - No aspirin, ibuprofen, naproxen, or other non-steroidal anti-inflammatory drugs [Time to Restart]. Procedure Code(s): --- Professional --- 18593, Esophagogastroduodenoscopy, flexible, transoral; with biopsy, single or multiple Diagnosis Code(s): --- Professional --- K29.70, Gastritis, unspecified, without bleeding R10.13, Epigastric pain CPT copyright 2017 [employer] [employer]. All rights reserved. The codes documented in this report are preliminary and upon medical billing coder review may be revised to meet current compliance requirements. MD Luzmaria Landaverde MD 11/04/2021 1:51:37 PM This report has been signed electronically. Number of Addenda: 0 Note Initiated On: 11/04/2021 1:29 PM
--- NOTE | 2021-11-04 13:52 | OP.CCLET_ITS ---
11/04/2021 Gayla Garcia, [facility] [address] [place] [address] Re : Upper GI endoscopy procedure for Azul Osorio Dear Ms. Garcia This procedure was performed on Thursday, November 04, 2021. My impressions and recommendations are as follows: Impressions : - Z-line regular, 35 cm from the incisors. - Normal examined duodenum. - Gastritis. Biopsied. Recommendations : - Await pathology results. - Discharge patient to home. - Resume previous diet. - Use Nexium (esomeprazole) 40 mg PO daily. - Use sucralfate tablets 1 gram PO QID for 2 weeks. - No aspirin, ibuprofen, naproxen, or other non-steroidal anti-inflammatory drugs [Time to Restart]. My findings are described in the full procedure note, which is enclosed. If I can be of further assistance, please feel free to contact me at Doctor phone number(s): , Work: . Sincerely, MD Luzmaria Landaverde MD 11/04/2021 1:51:37 PM This report has been signed electronically.
== END 2021-11-04 23:59 | disposition home or self-care (01) ==
LOC: EN 11:42 → AC 11:43
PROVIDERS: Visit Provider Surgery
PROC: 0DJ08ZZ Inspection of Upper Intestinal Tract, Via Natural or Artificial Opening Endoscopic (ICD-10-PCS; CPT 43235; principal; 2021-11-04 13:25)
DX: K29.70 Gastritis, unspecified, without bleeding (principal); R10.13 Epigastric pain; K21.9 Gastro-esophageal reflux disease without esophagitis; Z79.899 Other long term (current) drug therapy; F41.9 Anxiety disorder, unspecified; M19.90 Unspecified osteoarthritis, unspecified site; Z87.19 Personal history of other diseases of the digestive system; G47.30 Sleep apnea, unspecified; F32.A Depression, unspecified
CPT/HCPCS: 43239; 87426; 88305; 88342; J7120; J2405